=== PATIENT | male | born 1930 | race Caucasian/White ===

== ENCOUNTER 2016-10-01 20:08 | Inpatient (IN) ==
[2016-10-01 20:39] LABS: Hematocrit 24.2 % (37.5-50.1); Hemoglobin 8.2 g/dL (12.9-16.9); Mean Corpuscular HGB Conc 33.9 g/dL (31.6-35.5); Mean Corpuscular Volume 94.5 fL (83.0-100.0); Red Blood Count 2.56 M/mcL (4.19-5.50); Red Cell Distribution Width 12.3 % (11.5-14.5)
[2016-10-01 20:40] LABS: Basophils % 0.4 %; Eosinophils # 0.4 K/mcL (0.0-0.6); Eosinophils % 8.4 %; Immature Granulocytes % 0.2 % (0-4); Immature Platelets 1.5 % (1.1-6.1); Lymphocytes # 1.8 K/mcL (0.6-4.6); Lymphocytes % 39.5 %; Mean Platelet Volume 9.3 fL (9.4-12.4); Monocytes # 0.4 K/mcL (0.0-1.3); Monocytes % 7.7 %; Platelet Count 325 K/mcL (140-400); Segmented Neutrophils % 43.8 %
[2016-10-01 20:44] LABS: INR 1.1
[2016-10-01 20:47] LABS: Activated Partial Thrombo Time 34.5 Seconds (26.0-36.0)
[2016-10-01 20:52] LABS: Alanine Aminotransferase 22 Units/L (0-55); Albumin 2.8 g/dL (3.5-5.0); Albumin/Globulin Ratio 0.9 (1.1-2.2); Alkaline Phosphatase 65 Units/L (38-126); Aspartate Amino Transferase 15 Units/L (5-34); BUN/Creatinine Ratio 24 (6-26); Bilirubin,Total 0.2 mg/dL (0.2-1.2); Blood Urea Nitrogen 23 mg/dL (8-26); Calcium 9.2 mg/dL (8.6-10.8); Carbon Dioxide 27 mEq/L (19-29); Chloride 107 mEq/L (98-109); Globulin 3.2 g/dL (2.4-3.5); Glucose 153 mg/dL (70-99); Osmolality,Calculated 297 (280-300); Potassium 4.5 mEq/L (3.5-4.5); Sodium 140 mEq/L (136-145); eGFR For African Americans > 60 (> 60); eGFR For Non-African Americans > 60 (> 60)
--- NOTE | 2016-10-01 21:18 | Emergency Department Note ---
START Narrative - START START: I examined this patient and my medical decision-making was reviewed with the CONTROL ROOM HELPER/PA/Advanced Practice Nurse/Resident Physician. I agree with the documented findings, disposition and treatment plan as described except to the extent set forth below. Patient emergency department complaining of rectal bleeding. Patient actually has no complaints but [facility] in his bowel movement this morning. Patient had a recent admission for the same. On exam he is in no distress. Vital signs stable. Abdomen soft, nontender. Rectal exam shows dark stool with some streaks of blood. Plan. Stool Hemoccult. Type and cross. Will admit. Patient is stable this time. He is typed and crossmatched. Active diverticular bleeding on CT.
[2016-10-01] MEDS ORDERED: 0.9 % Sodium Chloride 500 ML IVC ONE (21:36)
--- NOTE | 2016-10-01 21:38 | Emergency Department Note ---
Disposition Clinical Impression: GI bleed Qualifiers: GI bleed type/associated pathology: unspecified gastrointestinal hemorrhage type Qualified Code(s): K92.2 - Gastrointestinal hemorrhage, unspecified Diverticulosis Qualifiers: Diverticulosis site: diverticulosis of large intestine Diverticulosis bleeding : diverticulosis with bleeding Qualified Code(s): K57.31 - Diverticulosis of large intestine without perforation or abscess with bleeding Disposition: Admitted As Inpatient Condition: Critical GI Bleed HPI - General Chief complaint: ED GI Bleed Stated complaint: rectal bleed Time Seen by Provider: 10/01/16 20:11 Source: EMS Limitations: no limitations Nursing Notes Reviewed: Yes Vital Signs Reviewed: Yes - History of Present Illness HPI Narrative: Mr. Johnston, a n 86yo male, presents from [facility] via EMS with concerns regarding bleeding per rectum. Initial episode was this morning described as a painless bowel movement with bright red blood on toilet tissue. Subsequently had a loose bowel movement which was cold black loose stools mixed with bright red blood. Patient notes his bowels have been cold black last several days. PMH: History GI bleed, history of aspiration, history delusional thrombus cytopenia Medications: Clonazepam. Denies the use of any antiplatelets or anticoagulants. ROS: Positive: Hematochezia, melena, increased generalized weakness, dizziness with standing up Negative: Fever, chills, nausea, vomiting, abdominal pains, back pains, hematuria, numbness, tingling, confusion - Related Data Home Medications Medication Instructions Recorded Confirmed Acetaminophen [Tylenol] 975 mg PO TID PRN 01/09/16 01/09/16 Ascorbic Acid [Vitamin C] 500 mg PO BID 01/09/16 01/09/16 Aspirin 81 mg PO DAILY 01/09/16 01/09/16 Budesonide/Formoterol 160/4.5 2 puff IH BIDR 01/09/16 01/09/16 [Symbicort 160/4.5] Calcium Carbonate/Vitamin D3 750 mg PO DAILY 01/09/16 01/09/16 [Calcium 250+D Tablet] Ferrous Sulfate Oral Soln 7.5 ml PO BID 01/09/16 01/09/16 Furosemide [Lasix] 20 mg PO QAM 01/09/16 01/09/16 Haloperidol 2 mg PO BID 01/09/16 01/09/16 Latanoprost [Xalatan] 1 drop BOTH EYES HS 01/09/16 01/09/16 Lisinopril [Zestril] 20 mg PO BID 01/09/16 01/09/16 Magnesium Hydroxide [Milk of 30 ml PO DAILY PRN 01/09/16 01/09/16 Magnesia] Metoprolol [Lopressor] 12.5 mg PO BID 01/09/16 01/09/16 Mirtazapine [Remeron] 15 mg PO HS 01/09/16 01/09/16 Nitroglycerin [Nitrostat] 0.4 mg SL Q5M PRN 01/09/16 01/09/16 Omeprazole [PriLOSEC] 20 mg PO QAM 01/09/16 01/09/16 Oxybutynin [Ditropan] 5 mg PO TID 01/09/16 01/09/16 Polyvinyl Alcohol [Artificial 2 drop BOTH EYES QID 01/09/16 01/09/16 Tears] Potassium Chloride Elixir 7.5 ml PO BID 01/09/16 01/09/16 [Potassium Chloride] Sennosides/Docusate Sodium [Senna 2 tab PO DAILY 01/09/16 01/09/16 Plus] TraZODone 50 mg PO HS 01/09/16 01/09/16 metFORMIN [Glucophage] 500 mg PO BIDWM 01/09/16 01/09/16 Allergies Allergy/AdvReac Type Severity Reaction Status Date / Time clonazepam Allergy Rash Verified 10/01/16 21:14 All systems ED: reviewed and negative except as stated. Past Medical History - Past Medical History Attestation: Yes The following information was validated with the patient. Source: patient Medical history: Reports: arthritis, dementia, diabetes, GERD, glaucoma, hyperlipidemia, hypertension Surgical history: Reports: no surgical history Psychiatric history: Reports: depression - Social History Smoking Status: Current every day smoker Smokeless Tobacco Status: No Alcohol use: Reports: none Drug use: Reports: none Physical Exam Vital Signs Reviewed General: Patient is alert, oriented, and in no acute distress. HEENT: No facial asymmetry. Head is normocephalic and atraumatic. PERRLA. Trachea midline. Cardiovascular: Heart regular rate and rhythm without clicks, rubs, gallops. Grade 2/4 systolic murmur at left upper sternal border. No JVD. PMI nondisplaced. Bilateral radial posterior tibial pulses 2/4. Respiratory: Symmetric chest rise with good respiratory effort. Bilateral breath sounds are clear without wheezing, crackles, or rhonchi. Abdomen: Bowel sounds present normoactive x-4 quadrants. Abdomen is soft, nondistended, and nontender. Rectal: Dark black stool with blood streaks. FOBT sent. Painless. No External hemorrhoids noted. Psych: Patient's affect is appropriate for situation. - General Limitations: no limitations General appearance: alert - Head Head exam: atraumatic, normocephalic - Neurological Exam Neurological exam: Present: alert - Psychiatric Psychiatric exam: Present: normal affect - Skin Skin exam: Present: warm, dry Course Course Narrative: Patient stable on arrival; we will continue to watch cautiously while working out for likely GI bleed. Anticipate admission for possible EGD and colonoscopy. Hemoglobin stable at 8.2. Vital signs stable and intake-will watch closely. Patient typed and screened. 22:30 Patient had bowel movement and bedside commode-loose, profuse red and maroon blood. 22:45 Spoke with transportation services representative endoscopy - Dr. Milton. Admit to hospitalist and will see in consult. 23:00 Spoke with on-call hospitalist, Dr. Grimes, who agrees to accept the patient. Vital Signs Temperature 97.9 F 10/01/16 20:12 Pulse Rate 85 10/01/16 20:12 Respiratory Rate 18 10/01/16 20:12 Blood Pressure 130/72 10/01/16 20:12 O2 Sat by Pulse Oximetry 100 10/01/16 20:12 Temperature 98.6 F 10/02/16 01:21 Pulse Rate 105 10/02/16 02:00 Respiratory Rate 20 10/02/16 02:00 Blood Pressure 109/70 10/02/16 02:00 O2 Sat by Pulse Oximetry 99 10/02/16 02:00 Oxygen Delivery Oxygen Delivery Room Air GI Bleed - Lab Data Result diagrams: 10/01/16 20:31 10/01/16 20:31 Lab Results 10/01/16 10/01/16 10/01/16 Range/Units 20:31 20:31 20:31 WBC 4.7 (4.3-11.1) K/mcL RBC 2.56 L (4.19-5.50) M/mcL Hgb 8.2 L (12.9-16.9) g/dL Hct 24.2 L (37.5-50.1) % MCV 94.5 (83.0-100.0) fL MCH 32.0 (28.0-33.3) pg MCHC 33.9 (31.6-35.5) g/dL RDW 12.3 (11.5-14.5) % Plt Count 325 (140-400) K/mcL MPV 9.3 L (9.4-12.4) fL Immature Gran % 0.2 (0-4) % Seg Neutrophils % 43.8 % Lymphocytes % 39.5 % Monocytes % 7.7 % Eosinophils % 8.4 % Basophils % 0.4 % Neutrophils # 2.0 (1.6-8.9) K/mcL Lymphocytes # 1.8 (0.6-4.6) K/mcL Monocytes # 0.4 (0.0-1.3) K/mcL Eosinophils # 0.4 (0.0-0.6) K/mcL Basophils # 0.0 (0.0-0.2) K/mcL Immature Plt Fraction 1.5 (1.1-6.1) % PT 12.0 (9.4-12.1) Seconds INR 1.1 APTT 34.5 (26.0-36.0) Seconds Sodium 140 (136-145) mEq/L Potassium 4.5 (3.5-4.5) mEq/L Chloride 107 (98-109) mEq/L Carbon Dioxide 27 (19-29) mEq/L BUN 23 (8-26) mg/dL Creatinine 0.94 (0.72-1.25) mg/dL Est GFR ( Amer) > 60 (> 60) Est GFR (Non-Af Amer) > 60 (> 60) BUN/Creatinine Ratio 24 (6-26) Glucose 153 H (70-99) mg/dL Calculated Osmolality 297 (280-300) Calcium 9.2 (8.6-10.8) mg/dL Total Bilirubin 0.2 (0.2-1.2) mg/dL AST 15 (5-34) Units/L ALT 22 (0-55) Units/L Alkaline Phosphatase 65 (38-126) Units/L Troponin I (0-0.03) ng/mL Serum Total Protein 6.0 (6.0-8.3) g/dL Albumin 2.8 L (3.5-5.0) g/dL Globulin 3.2 (2.4-3.5) g/dL Albumin/Globulin Ratio 0.9 L (1.1-2.2) Blood Type Antibody Screen 10/01/16 10/01/16 Range/Units 20:31 20:31 WBC (4.3-11.1) K/mcL RBC (4.19-5.50) M/mcL Hgb (12.9-16.9) g/dL Hct (37.5-50.1) % MCV (83.0-100.0) fL MCH (28.0-33.3) pg MCHC (31.6-35.5) g/dL RDW (11.5-14.5) % Plt Count (140-400) K/mcL MPV (9.4-12.4) fL Immature Gran % (0-4) % Seg Neutrophils % % Lymphocytes % % Monocytes % % Eosinophils % % Basophils % % Neutrophils # (1.6-8.9) K/mcL Lymphocytes # (0.6-4.6) K/mcL Monocytes # (0.0-1.3) K/mcL Eosinophils # (0.0-0.6) K/mcL Basophils # (0.0-0.2) K/mcL Immature Plt Fraction (1.1-6.1) % PT (9.4-12.1) Seconds INR APTT (26.0-36.0) Seconds Sodium (136-145) mEq/L Potassium (3.5-4.5) mEq/L Chloride (98-109) mEq/L Carbon Dioxide (19-29) mEq/L BUN (8-26) mg/dL Creatinine (0.72-1.25) mg/dL Est GFR ( Amer) (> 60) Est GFR (Non-Af Amer) (> 60) BUN/Creatinine Ratio (6-26) Glucose (70-99) mg/dL Calculated Osmolality (280-300) Calcium (8.6-10.8) mg/dL Total Bilirubin (0.2-1.2) mg/dL AST (5-34) Units/L ALT (0-55) Units/L Alkaline Phosphatase (38-126) Units/L Troponin I 0.01 (0-0.03) ng/mL Serum Total Protein (6.0-8.3) g/dL Albumin (3.5-5.0) g/dL Globulin (2.4-3.5) g/dL Albumin/Globulin Ratio (1.1-2.2) Blood Type AB POSITIVE Antibody Screen NEGATIVE - EKG Data EKG attestation: Yes I reviewed and interpreted this EKG. EKG results narrative: EKG normal sinus at 84. Right bundle branch block. Normal ST segments. No old for comparison.
--- NOTE | 2016-10-02 01:12 | Internal Med History&Physical ---
Date of Encounter: 10/02/16 Time of Encounter: 01:12 Assessment and Plan (1) Lower GI bleed Current visit: Yes Status: Acute Possible diverticular bleed. ER physician discussed with Dr Milton, who recommended barium enema / IR consult. I think, if we do barium enema, the residual contrast would impede the w/u with IR. Hence will consult IR first. (2) Acute blood loss anemia Current visit: Yes Status: Acute Due to lower GI/diverticular bleed. Monitor hemoglobin and hematocrit every 6 hours and transfuse PRBC as needed to keep hemoglobin about 8 (3) Hypertension Current visit: Yes Status: Chronic Continue home medications Qualifiers: Hypertension type: essential hypertension Qualified Code(s): I10 - Essential (primary) hypertension (4) Diabetes mellitus Current visit: Yes Status: Chronic Start sliding scale insulin Qualifiers: Diabetes mellitus type: type 2 Diabetes mellitus complication status: with unspecified complications Diabetes mellitus longterm insulin use: unspecified ad terminal makeup operator insulin use status Qualified Code(s): E11.8 - Type 2 diabetes mellitus with unspecified complications (5) Consolidation lung Current visit: Yes Status: Acute Consolidation reported on CT Abdomen and pelvis. will obtain CXR to evaluate this further. (6) DVT prophylaxis Current visit: Yes Status: Acute SCDs Internal Medicine - H&P: HPI Chief complaint: Rectal bleeding Admitted From: Emergency Dept Plans for Post Hospital Care: Home History of present illness: Mr. Johnston is a 86 year old male with h/o dementia, diabetes, GERD, glaucoma, hyperlipidemia, hypertension - presents from [facility] via EMS with concern for bleeding per rectum. He reports that the bleeding started yesterday morning, intermittent. Reported some pain in the LLQ of the abdomen and is mild and intermittent. He denies prior h/o colonoscopy. He denies nausea , vomiting, shortness of breath, chest pain, dysuria, hematuria. He reports itching of the feet. He was evaluated in the emergency department and CT abdomen and pelvis reported suspected active bleeding in the proximal mid sigmoid colon likely from diverticulum. ER provider discussed with the surgeon Dr. milton, who recommended admission to the Hospitalist and barium enema. Past Med Surg Social Fam HX - Past Medical History Medical history: arthritis, dementia, diabetes, GERD, glaucoma, hyperlipidemia, hypertension Psychiatric history: depression - Past Surgical History Surgical History: no surgical history - Social History Smoking Status: Current every day smoker Smokeless Tobacco Status: No Alcohol use: none Drug use: none - Additional Family History Additional family history: Family history reviewed and is noncontinuity to current admission Internal Medicine - H&P: Meds Acetaminophen [Tylenol] 975 mg PO TID PRN 01/09/16 [History] Ascorbic Acid [Vitamin C] 500 mg PO BID 01/09/16 [History] Aspirin 81 mg PO DAILY 01/09/16 [History] Budesonide/Formoterol 160/4.5 [Symbicort 160/4.5] 2 puff IH BIDR 01/09/16 [ History] Calcium Carbonate/Vitamin D3 [Calcium 250+D Tablet] 750 mg PO DAILY 01/09/16 [ History] Furosemide [Lasix] 20 mg PO QAM 01/09/16 [History] Haloperidol 2 mg PO BID 01/09/16 [History] Latanoprost [Xalatan] 1 drop BOTH EYES HS 01/09/16 [History] Lisinopril [Zestril] 20 mg PO BID 01/09/16 [History] Magnesium Hydroxide [Milk of Magnesia] 30 ml PO DAILY PRN 01/09/16 [History] Metoprolol [Lopressor] 12.5 mg PO BID 01/09/16 [History] Mirtazapine [Remeron] 15 mg PO HS 01/09/16 [History] Nitroglycerin [Nitrostat] 0.4 mg SL Q5M PRN 01/09/16 [History] Omeprazole [PriLOSEC] 20 mg PO QAM 01/09/16 [History] Oxybutynin [Ditropan] 5 mg PO TID 01/09/16 [History] Polyvinyl Alcohol [Artificial Tears] 2 drop BOTH EYES QID 01/09/16 [History] Sennosides/Docusate Sodium [Senna Plus] 2 tab PO DAILY 01/09/16 [History] TraZODone 50 mg PO HS 01/09/16 [History] Ferrous Sulfate [Iron] 325 mg PO BID 10/02/16 [History] Guaifen/Dextromethorphan/PE [Child Mucus Relief M-S Cold Lq] 10 ml PO TID PRN [History] Potassium Chloride [Klor-Con] 20 meq PO DAILY 10/02/16 [History] Allergies clonazepam Allergy (Verified 10/01/16 21:14) Rash All Systems PM: A 10-system review of systems was performed and is negative for pertinent findings except as documented above in the HPI. - Constitutional Vitals: Temp Pulse Resp BP Pulse Ox 97.9 F 97 20 146/81 99 10/01/16 20:12 10/02/16 00:30 10/02/16 00:30 10/02/16 00:30 10/02/16 00:30 Exam: General: Not in acute distress at the time of my evaluation HEENT: Oral mucosa is moist. conjunctival palor present. No scleral icterus Neck: No obvious neck swellings Lungs: Clear to auscultation Cardiac: Regular rate and rhythm. No significant murmurs Abdomen: Soft, non tender. Bowel sounds present Genitourinary: No hernández catheter Neurological: Alert and oriented. No gross localizing deficits Psych: Not aggressive or agitated Extremities: no significant leg edema Skin: No generalized rash Internal Med - H&P Results - Labs CBC & Chem 7: 10/02/16 02:57 10/01/16 20:31 - EKG Data -: EKG Interpreted by Myself EKG shows normal: sinus rhythm - EKG Data EKG comments: RBBB 10/02/16 01:31 - Impressions ITS Impressions Abdomen/Pelvis CT 10/01/16 21:36 IMPRESSION: 1. Suspected active bleeding in the proximal mid sigmoid colon, likely from a diverticulum. 2. New nodular consolidative opacities in the left lower lobe potentially related to atelectasis or pneumonia. 3. Additional incidental findings as above. D/ / Oscar Brennan MD / Oscar Brennan MD Interpreting Provider: Oscar Brennan MD
[2016-10-02] MEDS ORDERED: Naloxone 0.4 MG/ML INJ IVP PRN (01:13)
[2016-10-02] MEDS ORDERED: Pantoprazole 40 MG VIAL IVP SCH (01:20)
[2016-10-02] MEDS ORDERED: *HR* Dextrose 50 % in Water (Syg) 50 ML SYRINGE IVP PRN (01:34)
[2016-10-02] MEDS ORDERED: D5% in Water 1,000 ML IVC PRN (01:34)
[2016-10-02] MEDS ORDERED: Dextrose Gel 15 GM PO PRN ×2 (01:34)
[2016-10-02 03:19] LABS: Hematocrit 19.7 % (37.5-50.1)
[2016-10-02 03:26] LABS: Hemoglobin 6.4 g/dL (12.9-16.9)
[2016-10-02] MEDS ORDERED: 0.9 % Sodium Chloride 250 ML ONE ×2 (03:41→09:13)
[2016-10-02] MEDS: Insulin LISPRO 300 UNITS/3 ML VIAL SQ SCH ×4 (05:59→23:16)
--- NOTE | 2016-10-02 10:08 | Event Note ---
Date of Encounter: 10/02/16 Time of Encounter: 10:05 86 M with diverticular bleed and acute blood loss anemia Seen and evaluated at bedside He has no new complains Per Rn and chart, had melena this a.m VSS, not in any form of distress, AAOX2, moves all limbs, no speech deficits, chest is clear, HS S1, S2 only, abdomen is soft, no pedal edema Labs and imaging reviewed INR WNL, Hb 6.4, CXR unremarkable, Abd CT: severe colonic diverticulosis with acute sigmoid bleed Plan is to continue blood transfusion, PPI, IVF, IR and surgery have been consulted High risk patient, continue ICU monitoring
[2016-10-02] MEDS ORDERED: 0.9 % Sodium Chloride 500 ML ONE (11:32)
[2016-10-02] MEDS ORDERED: Heparin 1,000 UNITS/500 mL NS 500 ML ONE (11:32)
[2016-10-02] MEDS ORDERED: 0.9 % Sodium Chloride 1,000 ML ONE (12:14)
[2016-10-02] MEDS ORDERED: Nitroglycerin 25 MG/250 ML INFUS..BTL IVC SCH (12:45)
[2016-10-02] MEDS ORDERED: Nitroglycerin 25 MG/250 ML INFUS..BTL IVC ONE (12:50)
[2016-10-02 14:16] LABS: Hematocrit 31.7 % (37.5-50.1)
[2016-10-02 14:19] LABS: Hemoglobin 10.2 g/dL (12.9-16.9)
[2016-10-02] MEDS ORDERED: Acetaminophen 325 MG TABLET PO PRN (14:19)
--- NOTE | 2016-10-02 14:21 | IR Procedure Note ---
Date of procedure: 10/02/16 Consent Obtained: Written consent Timeout: Correct patient and procedure verified, Correct site verified, Time out performed, Skin prep completed Indications: gi bleeding Procedure Performed: mesenteric angio Site/Technique: rt femoral access Results/Findings: negative for active bleeding Estimated blood loss (cc): 4 Complications: None; Tolerated procedure well Post Procedure Treatment Plan: dc to ICU
--- NOTE | 2016-10-02 16:23 | Electrocardiograph Report ---
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
[2016-10-02 19:54] LABS: Hematocrit 25.3 % (37.5-50.1); Hemoglobin 8.7 g/dL (12.9-16.9)
[2016-10-03] MEDS ORDERED: Haloperidol Lactate 5 MG/ML VIAL IVP ONE (00:54)
[2016-10-03 03:23] LABS: Basophils % 0.2 %; Eosinophils # 0.3 K/mcL (0.0-0.6); Eosinophils % 3.2 %; Hematocrit 24.3 % (37.5-50.1); Hemoglobin 8.4 g/dL (12.9-16.9); Immature Granulocytes % 0.3 % (0-4); Lymphocytes % 18.9 %; Mean Corpuscular HGB Conc 34.6 g/dL (31.6-35.5); Mean Corpuscular Hemoglobin 31.2 pg (28.0-33.3); Mean Corpuscular Volume 90.3 fL (83.0-100.0); Mean Platelet Volume 9.9 fL (9.4-12.4); Monocytes # 0.7 K/mcL (0.0-1.3); Monocytes % 7.8 %; Neutrophils # 6.1 K/mcL (1.6-8.9); Platelet Count 198 K/mcL (140-400); Red Blood Count 2.69 M/mcL (4.19-5.50); Red Cell Distribution Width 13.7 % (11.5-14.5); Segmented Neutrophils % 69.6 %
[2016-10-03 03:30] LABS: Lymphocytes # 1.6 K/mcL (0.6-4.6)
[2016-10-03 03:31] LABS: BUN/Creatinine Ratio 29 (6-26); Blood Urea Nitrogen 22 mg/dL (8-26); Calcium 8.5 mg/dL (8.6-10.8); Carbon Dioxide 23 mEq/L (19-29); Chloride 113 mEq/L (98-109); Glucose 83 mg/dL (70-99); Osmolality,Calculated 298 (280-300); Potassium 4.4 mEq/L (3.5-4.5); Sodium 143 mEq/L (136-145); eGFR For African Americans > 60 (> 60); eGFR For Non-African Americans > 60 (> 60)
[2016-10-03] MEDS: Insulin LISPRO 300 UNITS/3 ML VIAL SQ SCH ×3 (05:15→16:51)
[2016-10-03] MEDS ORDERED: Pantoprazole 40 MG VIAL IVP SCH (06:30)
--- NOTE | 2016-10-03 07:21 | Event Note ---
Date of Encounter: 10/03/16 Time of Encounter: 06:50 Called by nurse pt has A Fib RVR with HR 140. No hx of A Fib. Cardizem drip started. No AC b/o GI bleed. Cardio consult.
[2016-10-03 08:13] LABS: Hematocrit 26.4 % (37.5-50.1); Hemoglobin 9.1 g/dL (12.9-16.9)
--- NOTE | 2016-10-03 12:40 | Cardiology Consult Note ---
Addendum entered and electronically signed by Jose Maravilla DO 14:50: Discussed case with attending. Will start Cardizem LA 120mg PO daily. Restart home metoprolol. Orders placed. Hold lisinopril and continue to monitor BP. Hold anticoagulation, await GI recommendations re: GI bleed. Follow up with cardiology as outpatient within 2 weeks of discharge. Original Note: Date of Encounter: 10/03/16 Time of Encounter: 12:35 Assessment and Plan (1) Atrial fibrillation Current Visit: Yes Status: Acute This is a resident progress note pending review by attending physician New onset atrial fibrillation Rhythm converted with IV Cardizem drip Start Cardizem PO 180mg BID and likely change to extended release formulation tomorrow Continue telemetry [id number] = 4 (Age, HTN, DM) however in setting of recent GI bleed recommend continuing to hold anticoagulation and reassess as outpatient once bleeding resolved (2) Hypertension Current Visit: Yes Status: Chronic Diastolic readings today ranging from low 60s - 80s Continue to hold home antihypertensives metoprolol and lisinopril Qualifiers: Hypertension type: essential hypertension Qualified Code(s): I10 - Essential (primary) hypertension Discussion w patient/family: The assessment and plan as outlined above was discussed with the patient and/or family members who expressed understanding and agreement. All questions were answered. Thank you for involving us in the care of your patient. Please call with any questions. History of Present Illness Consult date: 10/03/16 Consult reason: new onset a-fib Chief complaint: new onset a-fib History of present illness: Mr. Johnston is a 86 year old male with a past history of hypertension, and hyperlipidemia, diabetes who presented to the ED from [facility] for rectal bleeding. CT abdomen/pelvis suspicious for active bleed likely from diverticulum in sigmoid colon. Interventional radiology performed mesenteric angiography which was negative for acute bleed. Patient developed new onset atrial fibrillation with RVR this morning and was given Cardizem 10 mg IV push. Per ICU nurse he was started on Cardizem drip of 10 mg per hour increased to 15 mg per hour when he eventually converted to normal sinus rhythm and drip was then stopped. Heart rate has been in 60s-70s for the last few hours. His home antihypertensive medications are 12.5 mg metoprolol twice a day and lisinopril 20 mg daily which are currently being held Patient was seen and evaluated in the ICU and he currently denies chest pain, dyspnea, palpitations, or swelling. Past Med Surg Social Fam HX - Past Medical History Medical history: arthritis, dementia, diabetes, GERD, glaucoma, hyperlipidemia, hypertension Psychiatric history: depression - Past Surgical History Surgical History: no surgical history - Social History Smoking Status: Current every day smoker Smokeless Tobacco Status: No Alcohol use: none Drug use: none Medications and Allergies Acetaminophen [Tylenol] 975 mg PO TID PRN 01/09/16 [History] Ascorbic Acid [Vitamin C] 500 mg PO BID 01/09/16 [History] Aspirin 81 mg PO DAILY 01/09/16 [History] Budesonide/Formoterol 160/4.5 [Symbicort 160/4.5] 2 puff IH BIDR 01/09/16 [ History] Calcium Carbonate/Vitamin D3 [Calcium 250+D Tablet] 750 mg PO DAILY 01/09/16 [ History] Furosemide [Lasix] 20 mg PO QAM 01/09/16 [History] Haloperidol 2 mg PO BID 01/09/16 [History] Latanoprost [Xalatan] 1 drop BOTH EYES HS 01/09/16 [History] Lisinopril [Zestril] 20 mg PO BID 01/09/16 [History] Magnesium Hydroxide [Milk of Magnesia] 30 ml PO DAILY PRN 01/09/16 [History] Metoprolol [Lopressor] 12.5 mg PO BID 01/09/16 [History] Mirtazapine [Remeron] 15 mg PO HS 01/09/16 [History] Nitroglycerin [Nitrostat] 0.4 mg SL Q5M PRN 01/09/16 [History] Omeprazole [PriLOSEC] 20 mg PO QAM 01/09/16 [History] Oxybutynin [Ditropan] 5 mg PO TID 01/09/16 [History] Polyvinyl Alcohol [Artificial Tears] 2 drop BOTH EYES QID 01/09/16 [History] Sennosides/Docusate Sodium [Senna Plus] 2 tab PO DAILY 01/09/16 [History] TraZODone 50 mg PO HS 01/09/16 [History] Ferrous Sulfate [Iron] 325 mg PO BID 10/02/16 [History] Guaifen/Dextromethorphan/PE [Child Mucus Relief M-S Cold Lq] 10 ml PO TID PRN [History] Potassium Chloride [Klor-Con] 20 meq PO DAILY 10/02/16 [History] Allergies clonazepam Allergy (Verified 10/01/16 21:14) Rash All Systems Review: A 10-system review of systems was performed and is negative for pertinent findings except as documented above in the HPI. - Cardiovascular Cardiovascular: as per HPI - Respiratory Respiratory: no dyspnea - Gastrointestinal Gastrointestinal: no abdominal pain Physical Examination Vital Signs, Last 4 Hours Pulse Resp BP Pulse Ox 10/03/16 11:04 67 18 116/66 94 10/03/16 10:07 79 18 114/68 98 10/03/16 09:08 151 18 128/80 98 General: Conversant, No Apparent Distress HEENT: Atraumatic, Normocephaly Cardiac: Reg Rate and Rhythm, Normal S1 and S2, No Murmur Extremities: No Cyanosis, No Edema Results 10/03/16 08:05 10/03/16 03:11 Lab Results 10/02/16 10/02/16 10/03/16 14:06 19:44 03:11 WBC 8.7 D Hgb 10.2 L D 8.7 L D 8.4 L Hct 31.7 L 25.3 L 24.3 L Plt Count 198 Sodium Potassium Chloride Carbon Dioxide BUN Creatinine Glucose Calcium 10/03/16 10/03/16 03:11 08:05 WBC Hgb 9.1 L Hct 26.4 L Plt Count Sodium 143 Potassium 4.4 Chloride 113 H Carbon Dioxide 23 BUN 22 Creatinine 0.75 Glucose 83 Calcium 8.5 L Consult Discharge Plan - Plan [facility]Primary Care Provider[facility] -
--- NOTE | 2016-10-03 13:11 | Event Note ---
Date of Encounter: 10/03/16 Time of Encounter: 13:03 Surgery: I am aware of the surgical / GI consultation for this . At the time of contact from the ED, I recommended a Barium Enema to address this patient's diverticular hemorrhage. This is considered treatment of choice over more invasive treatments such as angiography with embolization. There is also reported diminished recurrence of diverticular hemorrhage following Ba Enema. The Barium enema was not completed, and GI hemorrhage appears to have ceased spontaneously. Subsequent RBC tagged bleeding scan was reviewed with Dr Fung, Interventional Radiology. The findings for active GI hemorrhage were equivocal. The findings demonstrated tracer either in the bladder or sigmoid. Subsequent angiography was negative for active bleeding. The patient appears to be hemodynamically stable. H&H corrected to 9.1/26.4 following transfusion 2 units PRBC. No detected evidence ongoing or recurrent GI hemorrhage at the present time. RECOMMENDATIONS: advance diet to full liquids continue to monitor for recurrent GI hemorrhage consider transfer to general bed. if no further GI hemorrhage in the next 24-48 hours, return to [facility] ([facility]).
--- NOTE | 2016-10-03 13:22 | Internal Med Progress Note ---
Date of Encounter: 10/03/16 Time of Encounter: 09:00 - Assessment and plan (1) Lower GI bleed Current Visit: Yes Status: Acute Assessment and plan: Now improved, H&H stable, GI consult, advance diet (2) Atrial fibrillation Current Visit: Yes Status: Acute Assessment and plan: Now converted to sinus rhythm, cardiology consulted, off Cardizem Qualifiers: Atrial fibrillation type: paroxysmal Qualified Code(s): I48.0 - Paroxysmal atrial fibrillation (3) Hypertension Current Visit: Yes Status: Chronic Assessment and plan: controlled, continue home meds Qualifiers: Hypertension type: essential hypertension Qualified Code(s): I10 - Essential (primary) hypertension (4) Diabetes mellitus Current Visit: Yes Status: Chronic Assessment and plan: insulin sliding scale Qualifiers: Diabetes mellitus type: type 2 Diabetes mellitus complication status: with unspecified complications 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: unspecified railroad switchman insulin use status Qualified Code(s): E11.8 - Type 2 diabetes mellitus with unspecified complications (5) Consolidation lung Current Visit: Yes Status: Acute Assessment and plan: CXR or CT Chest for further evaluation (6) Diverticulosis Current Visit: Yes Status: Acute Assessment and plan: likely causing GI bleed Qualifiers: Diverticulosis site: diverticulosis of large intestine Diverticulosis bleeding: diverticulosis with bleeding Qualified Code(s): K57.31 - Diverticulosis of large intestine without perforation or abscess with bleeding - Time Spent With Patient 25 - 35 minutes - Subjective Interval history: Patient awake. Not in any distress. Denies chest pain or shortness of breath. No fever. Atrial fibrillation has now converted. No further GI bleed. H&H stable. Hemodynamically stable. Transfer to tele/step down unit. - Constitutional Vitals: Temp Pulse Resp BP Pulse Ox 98.5 F 81 18 131/77 99 10/03/16 12:00 10/03/16 12:45 10/03/16 12:45 10/03/16 12:45 10/03/16 12:45 General appearance: Present: cachectic, A&O X 2, no acute distress - Head Head exam: Present: atraumatic - Neck Neck exam general surgery: Present: supple - Respiratory Respiratory exam: Present: CTAB. Absent: rhonchi, wheezes - Cardiovascular Cardiovascular exam: Present: RRR, +S1, +S2 - GI/Abdominal GI/Abdominal exam: Present: soft. Absent: guarding, tenderness - Extremities Exam Extremities exam: Present: radial pulses palpable and symetrical. Absent: cyanotic, pedal edema - Neurological Exam Neurological exam: Present: alert, no focal deficits. Absent: facial droop Additional comments: oriented x2 Internal Medicine: Result - Labs CBC & Chem 7: 10/03/16 08:05 10/03/16 03:11 Labs: Short CBC 10/02/16 10/02/16 10/03/16 Range/Units 14:06 19:44 03:11 WBC 8.7 D (4.3-11.1) K/mcL Hgb 10.2 L D 8.7 L D 8.4 L (12.9-16.9) g/dL Hct 31.7 L 25.3 L 24.3 L (37.5-50.1) % Plt Count 198 (140-400) K/mcL Neutrophils # 6.1 (1.6-8.9) K/mcL 10/03/16 Range/Units 08:05 WBC (4.3-11.1) K/mcL Hgb 9.1 L (12.9-16.9) g/dL Hct 26.4 L (37.5-50.1) % Plt Count (140-400) K/mcL Neutrophils # (1.6-8.9) K/mcL BMP 10/03/16 03:11 Sodium 143 Potassium 4.4 Chloride 113 H Carbon Dioxide 23 BUN 22 Creatinine 0.75 Glucose 83 Calcium 8.5 L - ABG Interpretation ABG results: PT/INR, D-dimer PT 12.0 Seconds (9.4-12.1) 10/01/16 20:31 - Impressions Impressions Abdomen Arteriogram 10/02/16 00:00 IMPRESSION: 1. Negative mesenteric arteriography with no evidence of active bleeding during the injection. D/ / 10/02/2016 14:38:25 Princess Fung MD / [facility] Interpreting Provider: Princess Fung MD Abdomen Arteriogram 10/02/16 00:00 IMPRESSION: 1. Negative mesenteric arteriography with no evidence of active bleeding during the injection. D/ / 10/02/2016 14:38:25 Princess Fung MD / [facility] Interpreting Provider: Princess Fung MD Bleed Scan Nuclear Medicine 10/02/16 08:43 IMPRESSION: Positive study with active bleeding seen in the region of the sigmoid also previously seen on the CTA evaluation. Findings discussed with Dr. White 10/02/2016, at 12 p.m. RECOMMENDATIONS: Catheter angiogram with possible embolization. D/ / 10/02/2016 13:32:45 Princess Fung MD / [facility] Interpreting Provider: Princess Fung MD - VTE Documentation of Mechanical Device: Intermittent pneumatic compression device Consult Discharge Plan - Plan [facility]errals: [facility] [Primary Care Provider] -
[2016-10-03] MEDS ORDERED: Diltiazem CD (24hr) 120 MG CAPSULE PO SCH (15:00)
[2016-10-03] MEDS ORDERED: D5% in Water 1,000 ML IVC PRN (17:24)
[2016-10-03] MEDS ORDERED: Acetaminophen 325 MG TABLET PO PRN ×2 (17:24)
[2016-10-03] MEDS ORDERED: Dextrose Gel 15 GM PO PRN ×2 (17:24)
[2016-10-03] MEDS ORDERED: *HR* Dextrose 50 % in Water (Syg) 50 ML SYRINGE IVP PRN (17:24)
[2016-10-03] MEDS ORDERED: Naloxone 0.4 MG/ML INJ IVP PRN (17:24)
[2016-10-03] MEDS ORDERED: Insulin LISPRO 300 UNITS/3 ML VIAL SQ SCH (18:00)
[2016-10-03] MEDS: Budesonide/Formoterol 160/4.5 MDI IH SCH (20:25)
[2016-10-03] MEDS: Ascorbic Acid 500 MG TABLET PO SCH (21:17)
--- NOTE | 2016-10-04 00:10 | Electrocardiograph Report ---
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
[2016-10-04] MEDS: Pantoprazole 40 MG VIAL IVP SCH (06:16)
[2016-10-04 06:46] LABS: Basophils % 0.1 %; Eosinophils # 0.3 K/mcL (0.0-0.6); Eosinophils % 4.5 %; Hematocrit 23.7 % (37.5-50.1); Immature Granulocytes % 0.4 % (0-4); Lymphocytes # 1.7 K/mcL (0.6-4.6); Lymphocytes % 24.4 %; Mean Corpuscular HGB Conc 33.8 g/dL (31.6-35.5); Mean Corpuscular Volume 91.9 fL (83.0-100.0); Mean Platelet Volume 9.6 fL (9.4-12.4); Monocytes # 0.6 K/mcL (0.0-1.3); Monocytes % 8.3 %; Neutrophils # 4.3 K/mcL (1.6-8.9); Platelet Count 223 K/mcL (140-400); Red Blood Count 2.58 M/mcL (4.19-5.50); Red Cell Distribution Width 13.3 % (11.5-14.5); Segmented Neutrophils % 62.3 %
[2016-10-04 07:02] LABS: BUN/Creatinine Ratio 18 (6-26); Blood Urea Nitrogen 13 mg/dL (8-26); Calcium 8.4 mg/dL (8.6-10.8); Carbon Dioxide 28 mEq/L (19-29); Chloride 111 mEq/L (98-109); Glucose 79 mg/dL (70-99); Osmolality,Calculated 297 (280-300); Potassium 3.5 mEq/L (3.5-4.5); Sodium 144 mEq/L (136-145); eGFR For African Americans > 60 (> 60); eGFR For Non-African Americans > 60 (> 60)
[2016-10-04] MEDS: Ascorbic Acid 500 MG TABLET PO SCH ×2 (07:58→20:36)
[2016-10-04] MEDS: Aspirin 81 MG TAB.CHEW PO SCH (07:58)
[2016-10-04] MEDS: Insulin LISPRO 300 UNITS/3 ML VIAL SQ SCH ×3 (07:59→16:02)
[2016-10-04] MEDS: Budesonide/Formoterol 160/4.5 MDI IH SCH ×2 (08:37→20:26)
[2016-10-04] MEDS ORDERED: CALCIUM CARBONATE PO SCH (09:00)
[2016-10-04] MEDS ORDERED: [UNRECOGNIZED DRUG - OTHER] PO SCH (09:00)
[2016-10-04] MEDS: Diltiazem CD (24hr) 120 MG CAPSULE PO SCH (11:56)
--- NOTE | 2016-10-04 16:31 | Internal Med Progress Note ---
Date of Encounter: 10/04/16 Time of Encounter: 11:10 - Assessment and plan (1) Lower GI bleed Current Visit: Yes Status: Acute Assessment and plan: Now improved, H&H slightly lower, GI consult - recommendations reviewed, advance diet (2) Atrial fibrillation Current Visit: Yes Status: Acute Assessment and plan: Now converted to sinus rhythm, cardiology consulted, off Cardizem PO Cardizem, Metoprolol Qualifiers: Atrial fibrillation type: paroxysmal Qualified Code(s): I48.0 - Paroxysmal atrial fibrillation (3) Hypertension Current Visit: Yes Status: Chronic Assessment and plan: controlled, continue home meds Qualifiers: Hypertension type: essential hypertension Qualified Code(s): I10 - Essential (primary) hypertension (4) Diabetes mellitus Current Visit: Yes Status: Chronic Assessment and plan: insulin sliding scale Qualifiers: Diabetes mellitus type: type 2 Diabetes mellitus complication status: with unspecified complications 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: unspecified [facility] insulin use status Qualified Code(s): E11.8 - Type 2 diabetes mellitus with unspecified complications (5) Consolidation lung Current Visit: Yes Status: Acute Assessment and plan: CXR or CT Chest for further evaluation CXR - negative (6) Diverticulosis Current Visit: Yes Status: Acute Assessment and plan: likely causing GI bleed Qualifiers: Diverticulosis site: diverticulosis of large intestine Diverticulosis bleeding: diverticulosis with bleeding Qualified Code(s): K57.31 - Diverticulosis of large intestine without perforation or abscess with bleeding (7) Dementia Current Visit: Yes Status: Acute Assessment and plan: probable Qualifiers: Dementia type: unspecified type Dementia behavioral disturbance: with behavioral disturbance Qualified Code(s): F03.91 - Unspecified dementia with behavioral disturbance - Time Spent With Patient less than 15 minutes - Subjective Interval history: Patient awake and alert. Not in any distress. Denies chest pain or shortness of breath. No fever. Atrial fibrillation has now converted. No further GI bleed. H& H slightly lower. Hemodynamically stable. No other acute events or complaints. - Constitutional Vitals: Temp Pulse Resp BP Pulse Ox 97.6 F 60 18 149/69 99 10/04/16 13:53 10/04/16 13:53 10/04/16 13:53 10/04/16 13:53 10/04/16 13:53 General appearance: Present: cachectic, A&O X 2, no acute distress - Head Head exam: Present: atraumatic - Neck Neck exam general surgery: Present: supple - Respiratory Respiratory exam: Present: CTAB. Absent: rhonchi, wheezes - Cardiovascular Cardiovascular exam: Present: RRR, +S1, +S2 - GI/Abdominal GI/Abdominal exam: Present: soft. Absent: guarding, tenderness - Extremities Exam Extremities exam: Present: radial pulses palpable and symetrical. Absent: cyanotic, pedal edema - Neurological Exam Neurological exam: Present: alert, no focal deficits Additional comments: probable dementia Internal Medicine: Result - Labs CBC & Chem 7: 10/04/16 05:36 10/04/16 05:36 Labs: Short CBC 10/04/16 Range/Units 05:36 WBC 6.9 (4.3-11.1) K/mcL Hgb 8.0 L (12.9-16.9) g/dL Hct 23.7 L (37.5-50.1) % Plt Count 223 (140-400) K/mcL Neutrophils # 4.3 (1.6-8.9) K/mcL BMP 10/04/16 05:36 Sodium 144 Potassium 3.5 Chloride 111 H Carbon Dioxide 28 BUN 13 Creatinine 0.72 Glucose 79 Calcium 8.4 L - ABG Interpretation ABG results: PT/INR, D-dimer PT 12.0 Seconds (9.4-12.1) 10/01/16 20:31 - VTE Documentation of Mechanical Device: Intermittent pneumatic compression device Consult Discharge Plan - Plan Referrals: [facility] [Outside]
[2016-10-04 17:32] LABS: Hematocrit 25.4 % (37.5-50.1); Hemoglobin 8.5 g/dL (12.9-16.9)
[2016-10-04] MEDS ORDERED: Insulin LISPRO 300 UNITS/3 ML VIAL SQ SCH (21:00)
[2016-10-05] MEDS: Pantoprazole 40 MG VIAL IVP SCH ×2 (06:43→08:10)
[2016-10-05] MEDS: Budesonide/Formoterol 160/4.5 MDI IH SCH (07:47)
[2016-10-05] MEDS: Insulin LISPRO 300 UNITS/3 ML VIAL SQ SCH ×2 (08:11→13:13)
[2016-10-05] MEDS: Aspirin 81 MG TAB.CHEW PO SCH (08:36)
[2016-10-05] MEDS: Diltiazem CD (24hr) 120 MG CAPSULE PO SCH (08:37)
[2016-10-05] MEDS: Ascorbic Acid 500 MG TABLET PO SCH (08:39)
[2016-10-05] MEDS ORDERED: Cholecalciferol (D-3) 1,000 UNIT TABLET PO SCH (09:00)
--- NOTE | 2016-10-05 10:35 | Discharge Summary ---
Date of Encounter: 10/05/16 Time of Encounter: 08:20 - Discharge Diagnosis (1) Lower GI bleed Priority: Primary Status: Acute Comments: Now improved, H&H stable GI consult - recommendations reviewed, diet as tolerated (2) Atrial fibrillation Priority: Secondary Status: Chronic Comments: Now converted to sinus rhythm, cardiology consulted - recommendations reviewed PO Cardizem, Metoprolol poor candidate for anticoagulation due to h/o GI bleed and advanced age Qualifiers: Atrial fibrillation type: paroxysmal Qualified Code(s): I48.0 - Paroxysmal atrial fibrillation (3) Hypertension Priority: Secondary Status: Chronic Comments: controlled, continue home meds Qualifiers: Hypertension type: essential hypertension Qualified Code(s): I10 - Essential (primary) hypertension (4) Diabetes mellitus Priority: Secondary Status: Chronic Comments: normoglycemia Qualifiers: Diabetes mellitus type: type 2 Diabetes mellitus complication status: with unspecified complications Diabetes mellitus assisted insulin use: unspecified assisted insulin use status Qualified Code(s): E11.8 - Type 2 diabetes mellitus with unspecified complications (5) Consolidation lung Priority: Secondary Status: Acute Comments: CXR is normal (6) Diverticulosis Priority: Secondary Status: Acute Comments: likely cause of GI bleed Qualifiers: Diverticulosis site: diverticulosis of large intestine Diverticulosis bleeding: diverticulosis with bleeding Qualified Code(s): K57.31 - Diverticulosis of large intestine without perforation or abscess with bleeding (7) Dementia Priority: Primary Status: Acute Comments: probable Qualifiers: Dementia type: unspecified type Dementia behavioral disturbance: with behavioral disturbance Qualified Code(s): F03.91 - Unspecified dementia with behavioral disturbance - Discharge Medications Prescriptions: Diltiazem CD (24hr) [Cardizem CD] 120 mg PO DAILY #30 cap.er.24h Metoprolol [Lopressor] 12.5 mg PO BID 30 Days Home Medications: Ascorbic Acid [Vitamin C] 500 mg PO BID 01/09/16 [History] Aspirin 81 mg PO DAILY 01/09/16 [History] Budesonide/Formoterol 160/4.5 [Symbicort 160/4.5] 2 puff IH BIDR 01/09/16 [ History] Calcium Carbonate/Vitamin D3 [Calcium 250+D Tablet] 750 mg PO DAILY 01/09/16 [ History] Furosemide [Lasix] 20 mg PO QAM 01/09/16 [History] Haloperidol 2 mg PO BID 01/09/16 [History] Latanoprost [Xalatan] 1 drop BOTH EYES HS 01/09/16 [History] Lisinopril [Zestril] 20 mg PO BID 01/09/16 [History] Magnesium Hydroxide [Milk of Magnesia] 30 ml PO DAILY PRN 01/09/16 [History] Mirtazapine [Remeron] 15 mg PO HS 01/09/16 [History] Nitroglycerin [Nitrostat] 0.4 mg SL Q5M PRN 01/09/16 [History] Omeprazole [PriLOSEC] 20 mg PO QAM 01/09/16 [History] Oxybutynin [Ditropan] 5 mg PO TID 01/09/16 [History] Polyvinyl Alcohol [Artificial Tears] 2 drop BOTH EYES QID 01/09/16 [History] Sennosides/Docusate Sodium [Senna Plus] 2 tab PO DAILY 01/09/16 [History] TraZODone 50 mg PO HS 01/09/16 [History] Ferrous Sulfate [Iron] 325 mg PO BID 10/02/16 [History] Guaifen/Dextromethorphan/PE [Child Mucus Relief M-S Cold Lq] 10 ml PO TID PRN [History] Potassium Chloride [Klor-Con] 20 meq PO DAILY 10/02/16 [History] Acetaminophen [Tylenol] 650 mg PO Q4HR PRN #0 tablet 10/05/16 [Rx] Cholecalciferol (D-3) [Vitamin D] 1,000 unit PO DAILY tablet 10/05/16 [Rx] Diltiazem CD (24hr) [Cardizem CD] 120 mg PO DAILY #30 cap.er.24h 10/05/16 [Rx] Metoprolol [Lopressor] 12.5 mg PO BID 30 Days 10/05/16 [Rx] Allergies/Adverse Reactions: Allergies clonazepam Allergy (Verified 10/01/16 21:14) Rash Procedures/tests Complete & Pending: Procedures Performed prior 72 hours Category Date Time Status ECG 12 lead ECG [ECG] Routine Y 10/03/16 09:26 Completed Date of admission: 10/01/16 23:26 [facility] Consults: 10/02/16 08:30 Consult to Interventional Radiology [CONS] Stat Consulting Provider: Radiology Interventional Cols Reason for Consult: Lower GI / Diverticular bleed Call Completed: No 10/03/16 07:02 Consult to Cardiology [CONS] Routine Comment: Consulting Provider: Cardiology Yamila Reason for Consult: New A Fib Call Completed: No Anticipated date of discharge: 10/05/16 - Patient Status Disposition: Transfer SNF Condition: Fair Functional capacity at discharge: uses cane/walker Overall status at discharge: patient is progressing back to baseline - Discharge Instructions Instructions: Atrial Fibrillation (DC) Follow Up With: [facility] [Outside] (Patient a 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 He will be seen by them when he returns. Thank you) - Diet and Activity Activity: ambulate only with your walker, resume usual activities as tolerated Diet: diabetic diet, low fat, low cholesterol Hospital course: Mr. Johnston is a 86 year old male with h/o dementia, diabetes, GERD, glaucoma, hyperlipidemia, hypertension - presented [facility] with concern for bleeding per rectum. Reported some pain in the LLQ of the abdomen and is mild and intermittent. He denies prior h/o colonoscopy. He denieD nausea , vomiting, shortness of breath, chest pain, dysuria, hematuria. He reported itching of the feet. He was evaluated in the emergency department and CT abdomen and pelvis reported suspected active bleeding in the proximal mid sigmoid colon likely from diverticulum. ER provider discussed with the surgeon Dr. villarreal, who recommended admission to the Hospitalist and barium enema. GI evaluated the patient. Advised to advance diet. GI bleed had stopped. No further bleeding. H&H stable. Tolerating oral diet now. Patient developed Afib with RVR, which converted to NSR with IV Cardizem. Poor candidate for anticoagulation. Patient has refused echocardiogram. Advised to continue Cardizem and Metoprolol. No complications during stay. At the time of discharge, patient is awake and alert. Not in any distress. Understands about plan of care and condition. No unanswered questions. No family members. He is adamant about being discharged today to the [facility]. - Time Spent with Patient Total time spent providing and/or coordinating discharge services: Less than 30 minutes - Constitutional Vitals: Temp Pulse Resp BP Pulse Ox 98.7 F 68 16 154/73 98 10/05/16 07:31 10/05/16 07:31 10/05/16 07:31 10/05/16 07:31 10/05/16 07:31 General appearance: Present: cachectic, A&O X 2, no acute distress, answers questions appropriately - Head Head exam: Present: atraumatic - Neck Neck exam general surgery: Present: supple - Respiratory Respiratory exam: Present: CTAB. Absent: rhonchi, wheezes - Cardiovascular Cardiovascular exam: Present: RRR, +S1, +S2 - GI/Abdominal GI/Abdominal exam: Present: soft. Absent: guarding, tenderness - Extremities Exam Extremities exam: Present: radial pulses palpable and symetrical. Absent: cyanotic, pedal edema - Neurological Exam Neurological exam: Present: alert, oriented X3 (AAOx2), no focal deficits - VTE Documentation of Mechanical Device: Intermittent pneumatic compression device
[2016-10-05 10:53] VITALS: BP 156/74
--- NOTE | 2016-10-05 10:57 | Physician Discharge Referral ---
ExtendedCare Referral Info Transfer To: [facility] Provider in Charge after Transfer: PCP Institutional Level of Care: Skilled - Diagnosis (1) Lower GI bleed Priority: Primary Status: Acute (2) Atrial fibrillation Priority: Primary Status: Chronic (3) Hypertension Status: Chronic (4) Diabetes mellitus Status: Chronic (5) Consolidation lung Status: Acute (6) Diverticulosis Status: Acute (7) Dementia Status: Acute - Transfer Medications Prescriptions: Diltiazem CD (24hr) [Cardizem CD] 120 mg PO DAILY #30 cap.er.24h Metoprolol [Lopressor] 12.5 mg PO BID 30 Days Home Medications: Ascorbic Acid [Vitamin C] 500 mg PO BID 01/09/16 [History] Aspirin 81 mg PO DAILY 01/09/16 [History] Budesonide/Formoterol 160/4.5 [Symbicort 160/4.5] 2 puff IH BIDR 01/09/16 [ History] Calcium Carbonate/Vitamin D3 [Calcium 250+D Tablet] 750 mg PO DAILY 01/09/16 [ History] Furosemide [Lasix] 20 mg PO QAM 01/09/16 [History] Haloperidol 2 mg PO BID 01/09/16 [History] Latanoprost [Xalatan] 1 drop BOTH EYES HS 01/09/16 [History] Lisinopril [Zestril] 20 mg PO BID 01/09/16 [History] Magnesium Hydroxide [Milk of Magnesia] 30 ml PO DAILY PRN 01/09/16 [History] Mirtazapine [Remeron] 15 mg PO HS 01/09/16 [History] Nitroglycerin [Nitrostat] 0.4 mg SL Q5M PRN 01/09/16 [History] Omeprazole [PriLOSEC] 20 mg PO QAM 01/09/16 [History] Oxybutynin [Ditropan] 5 mg PO TID 01/09/16 [History] Polyvinyl Alcohol [Artificial Tears] 2 drop BOTH EYES QID 01/09/16 [History] Sennosides/Docusate Sodium [Senna Plus] 2 tab PO DAILY 01/09/16 [History] TraZODone 50 mg PO HS 01/09/16 [History] Ferrous Sulfate [Iron] 325 mg PO BID 10/02/16 [History] Guaifen/Dextromethorphan/PE [Child Mucus Relief M-S Cold Lq] 10 ml PO TID PRN [History] Potassium Chloride [Klor-Con] 20 meq PO DAILY 10/02/16 [History] Acetaminophen [Tylenol] 650 mg PO Q4HR PRN #0 tablet 10/05/16 [Rx] Cholecalciferol (D-3) [Vitamin D] 1,000 unit PO DAILY tablet 10/05/16 [Rx] Diltiazem CD (24hr) [Cardizem CD] 120 mg PO DAILY #30 cap.er.24h 10/05/16 [Rx] Metoprolol [Lopressor] 12.5 mg PO BID 30 Days 10/05/16 [Rx] Allergies/Adverse Reactions: Allergies clonazepam Allergy (Verified 10/01/16 21:14) Rash - Respiratory Orders Smoking Cessation: Smoking cessation has been advised. For more information, call the [place] Tobacco Quit Line at 9-652-ZKHV-NOW. - Lab Orders Lab Orders: CBC - Ancillary Orders May use pressure relief devices daily prn - Advance Directives Code Status: Full Code - Mobility Orders Ambulate - Rehabiliation Orders Rehab Potential: Fair Rehab Orders: Evaluation for Physical Therapy, Evaluation for Occupational Therapy - Treatments Skin tear care topically daily PRN per policy - Diet Orders Cardiac CERTIFICATION: I certify that the transfer of the above named patient to an Extended Care Facility is necessary for the continuing treatment of the diagnosis listed. The above information is true and accurate reflection of patient's current condition. Confidential - Redisclosure prohibited without a patient's written consent.
--- NOTE | 2016-10-05 11:44 | Event Note ---
Date of Encounter: 10/05/16 Time of Encounter: 11:40 - Cardiology Event Note Patient has refused echocardiogram on 3 separate occasions. No further inpatient recommendations from a cardiology standpoint. Cardiology will sign-off, will arrange for follow-up in the outpatient setting. Discussed and reviewed with Dr. Gonzales.
== END 2016-10-05 13:47 | DRG 378 ==
LOC: EMEROO 20:08 → ICNU 23:26 → 3ANU 10-03 15:39
PROVIDERS: ADMIT Internal Medicine; ATTEND Internal Medicine Endocrinology, Diabetes & Metabolism

== ENCOUNTER 2017-07-16 20:34 | Inpatient (IN) ==
[2017-07-16] MEDS ORDERED: Pantoprazole 40 MG VIAL IVP ONE (20:36)
[2017-07-16 21:07] LABS: Basophils % 0.4 %; Eosinophils # 0.3 K/mcL (0.0-0.6); Eosinophils % 3.7 %; Hematocrit 26.6 % (37.5-50.1); Hemoglobin 9.2 g/dL (12.9-16.9); Immature Granulocytes % 0.3 % (0-4); Lymphocytes # 1.7 K/mcL (0.6-4.6); Lymphocytes % 21.1 %; Mean Corpuscular HGB Conc 34.6 g/dL (31.6-35.5); Mean Corpuscular Hemoglobin 32.5 pg (28.0-33.3); Mean Platelet Volume 9.3 fL (9.4-12.4); Monocytes # 0.5 K/mcL (0.0-1.3); Neutrophils # 5.4 K/mcL (1.6-8.9); Platelet Count 205 K/mcL (140-400); Red Blood Count 2.83 M/mcL (4.19-5.50); Red Cell Distribution Width 12.4 % (11.5-14.5); Segmented Neutrophils % 68.5 %
[2017-07-16 21:12] LABS: INR 1.1; Prothrombin Time 11.5 Seconds (9.4-12.1)
[2017-07-16 21:15] LABS: Activated Partial Thrombo Time 31.4 Seconds (26.0-36.0)
[2017-07-16 21:28] LABS: BUN/Creatinine Ratio 26 (6-26); Blood Urea Nitrogen 30 mg/dL (8-23); Calcium 9.4 mg/dL (8.6-10.3); Carbon Dioxide 27 mEq/L (23-29); Chloride 110 mEq/L (98-107); Glucose 168 mg/dL (70-105); Osmolality,Calculated 304 (280-300); Potassium 4.6 mEq/L (3.5-5.1); Sodium 142 mEq/L (136-145); eGFR For African Americans > 60 (> 60); eGFR For Non-African Americans 59 (> 60)
[2017-07-16 21:29] LABS: Troponin I < 0.03 ng/mL (< 0.04)
--- NOTE | 2017-07-16 21:52 | Emergency Department Note ---
Disposition Clinical Impression: GI bleed Qualifiers: GI bleed type/associated pathology: unspecified gastrointestinal hemorrhage type Qualified Code(s): K92.2 - Gastrointestinal hemorrhage, unspecified Disposition: Admitted As Inpatient Condition: Fair [facility] Care Provider[facility] - Time of Disposition: 22:15 GI Bleed HPI - General Stated complaint: "lower gi bleed" Time Seen by Provider: 07/16/17 20:36 Source: EMS Limitations: no limitations Nursing Notes Reviewed: Yes Vital Signs Reviewed: Yes - History of Present Illness HPI Narrative: Patient is an 87-year-old male who presents to [facility] ED with a chief complaint of concern for GI bleed. Patient himself has no concerns. Denies any chest pain, difficulty breathing, abdominal pain, problems with urination or bowel movements. [facility], he has been passing clots through his rectum. [place] with concern for GI bleed since he has had a history of this. He has also had a history of CVA, hypertension, vascular dementia with hallucinations, COPD, type 2 diabetes, atrial fibrillation, glaucoma, hyperlipidemia. Pt Subjective Complaint: gross bloody stools Consistency: intermittent Severity: none Improves with: nothing Worsens with: nothing Context: history of GI bleed Associated symptoms: Denies: abdominal pain, nausea, vomiting, fever, chills, loss of appetite, shortness of breath, weakness Treatments Prior to Arrival: none - Related Data Home Medications Medication Instructions Recorded Confirmed Ascorbic Acid [Vitamin C] 500 mg PO BID 01/09/16 07/16/17 Aspirin 81 mg PO DAILY 01/09/16 07/16/17 Budesonide/Formoterol 160/4.5 2 puff IH BIDR 01/09/16 07/16/17 [Symbicort 160/4.5] Furosemide [Lasix] 20 mg PO QAM 01/09/16 07/16/17 Latanoprost [Xalatan] 1 drop BOTH EYES HS 01/09/16 07/16/17 Lisinopril [Zestril] 20 mg PO BID 01/09/16 07/16/17 Magnesium Hydroxide [Milk of 30 ml PO DAILY PRN 01/09/16 07/16/17 Magnesia] Mirtazapine [Remeron] 15 mg PO HS 01/09/16 07/16/17 Nitroglycerin [Nitrostat] 0.4 mg SL Q5M PRN 01/09/16 07/16/17 Omeprazole [PriLOSEC] 20 mg PO QAM 01/09/16 07/16/17 Oxybutynin [Ditropan] 5 mg PO TID 01/09/16 07/16/17 Polyvinyl Alcohol [Artificial 2 drop BOTH EYES QID 01/09/16 07/16/17 Tears] Sennosides/Docusate Sodium [Senna 2 tab PO DAILY 01/09/16 07/16/17 Plus] TraZODone 50 mg PO HS 01/09/16 07/16/17 Ferrous Sulfate [Iron] 325 mg PO BID 10/02/16 07/16/17 Potassium Chloride [Klor-Con] 20 meq PO DAILY 10/02/16 07/16/17 Acetaminophen [Tylenol] 650 mg PO BID 07/16/17 07/16/17 Acetaminophen [Tylenol] 975 mg PO DAILY PRN 07/16/17 07/16/17 Benzocaine/Menthol Luis Alberto [Cepacol 1 each MM Q1H PRN 07/16/17 07/16/17 Sore Throat Lozenge] Bisacodyl [Dulcolax] 10 mg RC DAILY PRN 07/16/17 07/16/17 Calcium 750/Vit D 375 1 tab PO DAILY 07/16/17 07/16/17 Eucerin Creme 1 appl TP BID 07/16/17 07/16/17 Haloperidol [Haldol] 1.5 mg PO BID 07/16/17 07/16/17 Nicotine Polacrilex [Nicotine 4 mg BC Q4H PRN 07/16/17 07/16/17 Lozenge] Previous Rx's Medication Instructions Recorded Diltiazem CD (24hr) [Cardizem CD] 120 mg PO DAILY #30 cap.er.24h 10/05/16 Metoprolol [Lopressor] 12.5 mg PO BID 30 Days tablet 10/05/16 Allergies Allergy/AdvReac Type Severity Reaction Status Date / Time clonazepam Allergy Rash Verified 10/01/16 21:14 All systems ED: reviewed and negative except as stated. Past Medical History - Past Medical History Attestation: Yes The following information was validated with the patient. Source: patient Medical history: Reports: arthritis, atrial fibrillation, dementia, diabetes, GERD, glaucoma, hyperlipidemia, hypertension Surgical history: Reports: no surgical history Psychiatric history: Reports: depression - Social History Smoking Status: Current every day smoker Smokeless Tobacco Status: No Alcohol use: Reports: none Drug use: Reports: none Physical Exam - General Limitations: no limitations General appearance: alert, in no apparent distress - Head Head exam: atraumatic, normocephalic, normal inspection - Eye Eye exam: Present: normal appearance, EOMI - ENT ENT exam: normal exam, normal oropharynx, mucous membranes moist - Neck Neck exam: Present: normal inspection, full ROM, trachea midline - Chest Chest inspection: Present: normal inspection, symmetric chest wall rise - Respiratory Respiratory exam: Present: normal lung sounds bilaterally - Cardiovascular Cardiovascular exam: Present: regular rate, normal rhythm, normal heart sounds - Abdominal Exam Abdominal exam: Present: soft, Non-Tender. Absent: tenderness, distention, guarding, rebound, rigidity - Extremities Exam Extremities exam: Present: normal inspection, full ROM. Absent: tenderness, pedal edema - Back Exam Back exam: Present: normal inspection, full ROM. Absent: tenderness - Neurological Exam Neurological exam: Present: alert, oriented X3 - Psychiatric Psychiatric exam: Present: normal affect, normal mood - Skin Skin exam: Present: warm, dry, intact, normal color Course Course Narrative: Patient seen and examined. Concern for GI bleed. Rectal exam was heme positive. Lab work, coags, type and screen, EKG, CT abdomen and pelvis without contrast ordered. We will admit. - Reevaluation(s) Reevaluation #1: Lab work shows hemoglobin of 9.2. Patient is hemodynamically stable at this time. No complaints. I discussed with surgeon Dr. Riggins who will see him in consult tomorrow. CT scan shows "Luminal narrowing and mucosal thickening of a relatively short segment of proximal transverse colon may reflect nonspecific infectious/inflammatory colitis ; however, specifically given patient's clinical indication, malignancy is also a consideration. Colonoscopy is suggested for further evaluation. " We will admit to hospitalist for GI bleed. I discussed with hospitalist Dr. Doshi who has accepted patient for admission. Time: 22:15 Vital Signs Temperature 97.3 F L 07/16/17 20:40 Pulse Rate 68 07/16/17 20:40 Respiratory Rate 16 07/16/17 20:40 Blood Pressure 127/68 07/16/17 20:40 O2 Sat by Pulse Oximetry 98 07/16/17 20:40 Temperature 97.3 F L 07/16/17 20:40 Pulse Rate 69 07/16/17 22:55 Respiratory Rate 20 07/16/17 22:55 Blood Pressure 116/70 07/16/17 22:55 O2 Sat by Pulse Oximetry 97 07/16/17 22:55 Oxygen Delivery Oxygen Delivery Room Air GI Bleed - Medical Records Medical records reviewed: Yes I reviewed the patient's medical records. - Lab Data Lab results reviewed: Yes I reviewed the patient's lab results. Result diagrams: 07/16/17 20:54 07/16/17 20:54 Lab Results 07/16/17 07/16/17 07/16/17 Range/Units 20:54 20:54 20:54 WBC 7.8 (4.3-11.1) K/mcL RBC 2.83 L (4.19-5.50) M/mcL Hgb 9.2 L (12.9-16.9) g/dL Hct 26.6 L (37.5-50.1) % MCV 94.0 (83.0-100.0) fL MCH 32.5 (28.0-33.3) pg MCHC 34.6 (31.6-35.5) g/dL RDW 12.4 (11.5-14.5) % Plt Count 205 (140-400) K/mcL MPV 9.3 L (9.4-12.4) fL Immature Gran % 0.3 (0-4) % Seg Neutrophils % 68.5 % Lymphocytes % 21.1 % Monocytes % 6.0 % Eosinophils % 3.7 % Basophils % 0.4 % Neutrophils # 5.4 (1.6-8.9) K/mcL Lymphocytes # 1.7 (0.6-4.6) K/mcL Monocytes # 0.5 (0.0-1.3) K/mcL Eosinophils # 0.3 (0.0-0.6) K/mcL Basophils # 0.0 (0.0-0.2) K/mcL PT 11.5 (9.4-12.1) Seconds INR 1.1 APTT 31.4 (26.0-36.0) Seconds Sodium 142 (136-145) mEq/L Potassium 4.6 (3.5-5.1) mEq/L Chloride 110 H (98-107) mEq/L Carbon Dioxide 27 (23-29) mEq/L BUN 30 H (8-23) mg/dL Creatinine 1.16 (0.70-1.30) mg/dL Est GFR ( Amer) > 60 (> 60) Est GFR (Non-Af Amer) 59 L (> 60) BUN/Creatinine Ratio 26 (6-26) Glucose 168 H (70-105) mg/dL Calculated Osmolality 304 H (280-300) Calcium 9.4 (8.6-10.3) mg/dL Troponin I < 0.03 (< 0.04) ng/mL Blood Type Antibody Screen 07/16/17 Range/Units 20:54 WBC (4.3-11.1) K/mcL RBC (4.19-5.50) M/mcL Hgb (12.9-16.9) g/dL Hct (37.5-50.1) % MCV (83.0-100.0) fL MCH (28.0-33.3) pg MCHC (31.6-35.5) g/dL RDW (11.5-14.5) % Plt Count (140-400) K/mcL MPV (9.4-12.4) fL Immature Gran % (0-4) % Seg Neutrophils % % Lymphocytes % % Monocytes % % Eosinophils % % Basophils % % Neutrophils # (1.6-8.9) K/mcL Lymphocytes # (0.6-4.6) K/mcL Monocytes # (0.0-1.3) K/mcL Eosinophils # (0.0-0.6) K/mcL Basophils # (0.0-0.2) K/mcL PT (9.4-12.1) Seconds INR APTT (26.0-36.0) Seconds Sodium (136-145) mEq/L Potassium (3.5-5.1) mEq/L Chloride (98-107) mEq/L Carbon Dioxide (23-29) mEq/L BUN (8-23) mg/dL Creatinine (0.70-1.30) mg/dL Est GFR ( Amer) (> 60) Est GFR (Non-Af Amer) (> 60) BUN/Creatinine Ratio (6-26) Glucose (70-105) mg/dL Calculated Osmolality (280-300) Calcium (8.6-10.3) mg/dL Troponin I (< 0.04) ng/mL Blood Type AB POSITIVE Antibody Screen NEGATIVE - Radiology Data Radiology results reviewed: Yes I reviewed the patient's radiology results. Abdomen/Pelvis CT 07/16/17 20:47 IMPRESSION: 1. No CT evidence for acute intraabdominal process. 2. Diverticulosis without CT evidence of diverticulitis. 3. Luminal narrowing and mucosal thickening of a relatively short segment of proximal transverse colon may reflect nonspecific infectious/inflammatory colitis ; however, specifically given patient's clinical indication, malignancy is also a consideration. Colonoscopy is suggested for further evaluation. 4. Enlarged prostate. Correlation with physical exam findings and PSA for BPH is recommended. D/ / Sahil Jones / Sahil Jones Interpreting Provider: Sahil Jones - EKG Data EKG attestation: Yes I reviewed and interpreted this EKG. EKG results narrative: EKG done at 2051 shows normal sinus rhythm with a rate of [address] elevation or depression. Left axis deviation. Right bundle branch block present. Unchanged from prior EKG done 10/03/2016. Attestation Statement - Attestation Attestation: I, Gilson Patino DO, examined this patient [id number] and my medical decision-making was reviewed with Dr. Dianna Cabral, Resident Physician. I agree with the documented findings, disposition and treatment plan as described except to the extent set forth below. Please see my progress notes for details. 87-year-old male transferred from the [facility] for evaluation of gross blood per rectum. Patient large clots passed today. He has a history of extensive GI bleed. Patient also had some nondescript abdominal pain. [facility] secondary to chronic medical issues. Most recent hemoglobin was from May was 10.4. Patient presented here stable normal vital signs. He is alert but not oriented to time place based on initial conversations. He does know the year but has difficulty with specific questions. Head is atraumatic pupils are round and reactive lungs are clear. Abdomen soft no guarding no rigidity no peritoneal symptoms. Patient was unfortunately. Hemoccult testing was positive. Hemoglobin is 9.2. Patient CT imaging is unremarkable the abdomen with no acute pathology except for possible transverse colitis that is nonspecific on presentation. Patient see vital signs of an stable. Hip screen is completed. Consultation placed to the on- call endoscopist as well as the hospitalist for admission. Patient is otherwise clinically stable. Admission process will be completed this time for further evaluation stabilization of his condition. Patient does not have an active acute GI bleed at this time will require further workup and treatment course. Patient is been hemodynamically stable throughout the day treatment course here in the emergency room but no other acute pathology. See detailed documentation of the physical exam, medical intervention, medical decision- making and disposition in the resident physician's note. No critical care 5 this patient's treatment course at this time 2200 Patient's labs reviewed. Hemoglobin 9.2. Patient will be admitted this time for further treatment course evaluated.
[2017-07-16] MEDS ORDERED: Naloxone 0.4 MG/ML INJ IVP PRN (23:53)
[2017-07-16] MEDS ORDERED: Nitroglycerin 0.4 MG TAB.SUBL SL PRN (23:58)
--- NOTE | 2017-07-17 00:03 | Internal Med History&Physical ---
Date of Encounter: 07/16/17 Time of Encounter: 23:00 Assessment and Plan (1) Lower GI bleed Current visit: No Status: Acute Patient reports rectal bleeding. CT abdomen shows colon wall thickness. Recommend a colonoscopy to rule out malignancy. - Keep patient nothing by mouth, IV fluid, IV PPI - Closely monitor vitals and H&H. Currently hemoglobin 9.2, which is his baseline. - Consul surgery, surgical consult was informed by ER (2) DVT prophylaxis Current visit: No Status: Acute EPCD, no AC b/o rectal bleed. (3) Diabetes mellitus Current visit: No Status: Chronic Patient is not on any medication for diabetes at home. Will continue closely monitor glucose level and keep a diet control when patient has diet resumed. Qualifiers: Diabetes mellitus type: type 2 Diabetes mellitus buttermaker helper insulin use: without senior living use Diabetes mellitus complication status: with unspecified complications Qualified Code(s): E11.8 - Type 2 diabetes mellitus with unspecified complications (4) Hypertension Current visit: No Status: Chronic Hold hypertension medication considering rectal bleeding and concern for hypovolemia Qualifiers: Hypertension type: essential hypertension Qualified Code(s): I10 - Essential (primary) hypertension (5) Atrial fibrillation Current visit: No Status: Chronic History of A. fib, now sinus rhythm. Continue metoprolol and Cardizem for rate control. Patient is on aspirin at home, not on any other anticoagulations. Will hold aspirin at this point because of rectal bleeding. Qualifiers: Atrial fibrillation type: paroxysmal Qualified Code(s): I48.0 - Paroxysmal atrial fibrillation Internal Medicine - H&P: HPI Chief complaint: Rectal bleeding Admitted From: Home Plans for Post Hospital Care: Home History of present illness: Mr. Johnston is a 87 year old male with history of A. fib not on anticoagulation, glaucoma, hypertension, hyperlipidemia, diabetes, presented to ER for rectal bleeding. Patient said he has a rectal bleeding for 1 to 2 days. Patient found the bleeding in the toilet, mixed with stool. He also notice blood on the toilet paper. Patient feels mild dizziness yesterday but not today. He denies shortness of breath, chest pain, abdominal pain, nausea, or vomiting. Patient said he has never had a colonoscopy done before. In ER, CT abdomen has been done, no acute founding, colon wall thickness identified and recommend for colonoscopy. Patient was admitted for rectal bleeding. Past Med Surg Social Fam HX - Past Medical History Medical history: arthritis, atrial fibrillation, dementia, diabetes, GERD, glaucoma, hyperlipidemia, hypertension Psychiatric history: depression - Past Surgical History Surgical History: no surgical history - Social History Smoking Status: Current every day smoker Smokeless Tobacco Status: No Alcohol use: none Drug use: none - Family History Mother History Unknown: Yes Internal Medicine - H&P: Meds Ascorbic Acid [Vitamin C] 500 mg PO BID 01/09/16 [History] Aspirin 81 mg PO DAILY 01/09/16 [History] Budesonide/Formoterol 160/4.5 [Symbicort 160/4.5] 2 puff IH BIDR 01/09/16 [ History] Furosemide [Lasix] 20 mg PO QAM 01/09/16 [History] Latanoprost [Xalatan] 1 drop BOTH EYES HS 01/09/16 [History] Lisinopril [Zestril] 20 mg PO BID 01/09/16 [History] Magnesium Hydroxide [Milk of Magnesia] 30 ml PO DAILY PRN 01/09/16 [History] Mirtazapine [Remeron] 15 mg PO HS 01/09/16 [History] Nitroglycerin [Nitrostat] 0.4 mg SL Q5M PRN 01/09/16 [History] Omeprazole [PriLOSEC] 20 mg PO QAM 01/09/16 [History] Oxybutynin [Ditropan] 5 mg PO TID 01/09/16 [History] Polyvinyl Alcohol [Artificial Tears] 2 drop BOTH EYES QID 01/09/16 [History] Sennosides/Docusate Sodium [Senna Plus] 2 tab PO DAILY 01/09/16 [History] TraZODone 50 mg PO HS 01/09/16 [History] Ferrous Sulfate [Iron] 325 mg PO BID 10/02/16 [History] Potassium Chloride [Klor-Con] 20 meq PO DAILY 10/02/16 [History] Diltiazem CD (24hr) [Cardizem CD] 120 mg PO DAILY #30 cap.er.24h 10/05/16 [Rx] Metoprolol [Lopressor] 12.5 mg PO BID 30 Days tablet 10/05/16 [Rx] Acetaminophen [Tylenol] 650 mg PO BID 07/16/17 [History] Acetaminophen [Tylenol] 975 mg PO DAILY PRN 07/16/17 [History] Benzocaine/Menthol Luis Alberto [Cepacol Sore Throat Lozenge] 1 each MM Q1H PRN 07/16/17 [History] Bisacodyl [Dulcolax] 10 mg RC DAILY PRN 07/16/17 [History] Calcium 750/Vit D 375 1 tab PO DAILY 07/16/17 [History] Eucerin Creme 1 appl TP BID 07/16/17 [History] Haloperidol [Haldol] 1.5 mg PO BID 07/16/17 [History] Nicotine Polacrilex [Nicotine Lozenge] 4 mg BC Q4H PRN 07/16/17 [History] 3 Allergy/AdvReac Type Severity Reaction Status Date / Time clonazepam Allergy Rash Verified 10/01/16 21:14 All Systems PM: A 10-system review of systems was performed and is negative for pertinent findings except as documented above in the HPI. - Constitutional Vitals: Temp Pulse Resp BP Pulse Ox 97.3 F L 69 18 116/70 97 07/16/17 20:40 07/16/17 22:55 07/16/17 23:42 07/16/17 23:42 07/16/17 22:55 General appearance: Present: A&O X 3, no acute distress, answers questions appropriately - Head Head exam: Present: atraumatic, normocephalic - Eye Eye exam: Present: PERRL, conjuntiva pink, sclera anicteric Pupils: Present: PERRL - Neck Neck exam general surgery: Present: supple, trachea midline. Absent: lymphadenopathy - Respiratory Respiratory exam: Present: CTAB. Absent: accessory muscle use, rales, rhonchi, wheezes - Cardiovascular Cardiovascular exam: Present: RRR, +S1, +S2. Absent: diastolic murmur, gallop, rubs, systolic murmur - GI/Abdominal GI/Abdominal exam: Present: normal bowel sounds, soft, no peritoneal signs. Absent: distended, tenderness - Extremities Exam Extremities exam: Present: warm, radial pulses palpable and symmetrical. Absent : calf tenderness, cyanotic, pedal edema - Neurological Exam Neurological exam: Present: CN II-XII intact, oriented X3, no focal deficits. Absent: pronater drift, facial droop, speech deficit - Skin Skin exam: Present: dry, intact Internal Med - H&P Results - Labs CBC & Chem 7: 07/16/17 20:54 07/16/17 20:54 - EKG Data -: EKG Interpreted by Myself EKG shows normal: sinus rhythm Rate: normal
[2017-07-17 00:50] LABS: Hematocrit 25.5 % (37.5-50.1); Hemoglobin 9.2 g/dL (12.9-16.9)
[2017-07-17] MEDS: 0.9 % Sodium Chloride 1,000 ML IVC SCH ×2 (01:30→11:40)
[2017-07-17] MEDS: Pantoprazole 40 MG VIAL IVP SCH ×2 (06:00→20:34)
[2017-07-17 06:33] LABS: Basophils % 0.6 %; Eosinophils # 0.5 K/mcL (0.0-0.6); Eosinophils % 6.9 %; Hematocrit 22.6 % (37.5-50.1); Hemoglobin 7.8 g/dL (12.9-16.9); Immature Granulocytes % 0.3 % (0-4); Lymphocytes # 1.9 K/mcL (0.6-4.6); Lymphocytes % 26.8 %; Mean Corpuscular HGB Conc 34.5 g/dL (31.6-35.5); Mean Corpuscular Hemoglobin 32.4 pg (28.0-33.3); Mean Corpuscular Volume 93.8 fL (83.0-100.0); Mean Platelet Volume 9.7 fL (9.4-12.4); Monocytes # 0.5 K/mcL (0.0-1.3); Monocytes % 7.1 %; Neutrophils # 4.2 K/mcL (1.6-8.9); Platelet Count 177 K/mcL (140-400); Red Blood Count 2.41 M/mcL (4.19-5.50); Red Cell Distribution Width 12.4 % (11.5-14.5); Segmented Neutrophils % 58.3 %
[2017-07-17 06:44] LABS: BUN/Creatinine Ratio 32 (6-26); Blood Urea Nitrogen 30 mg/dL (8-23); Calcium 8.8 mg/dL (8.6-10.3); Carbon Dioxide 27 mEq/L (23-29); Chloride 114 mEq/L (98-107); Glucose 132 mg/dL (70-105); Magnesium 1.7 mg/dL (1.6-2.6); Osmolality,Calculated 308 (280-300); Sodium 145 mEq/L (136-145); eGFR For African Americans > 60 (> 60); eGFR For Non-African Americans > 60 (> 60)
--- NOTE | 2017-07-17 08:09 | Electrocardiograph Report ---
[place] [id number] Test Date: 2017-07-16 Pat Name: Blu Johnston Department: 102 Room: [id number] Gender: M Snow Removal/Plowing: Damian : 1930 Requested By: Dianna Cabral Order Number: [id number] Reading MD: Alannah Sweeney Measurements Intervals [place] Rate: 66 P: 67 IN: 181 QRS: -35 QRSD: 131 T: 62 QT: 410 QTc: 424 Interpretive Statements SINUS RHYTHM MARKED LEFT AXIS DEVIATION [QRS AXIS < -30] RIGHT BUNDLE BRANCH BLOCK [120+ ms QRS DURATION, UPRIGHT V1, 40+ ms S IN I/aVL/V4/V5/V6] Electronically Signed On 07-17-2017 7:33:05 EDT by Alannah Sweeney
--- NOTE | 2017-07-17 09:05 | General Surgery Consult Note ---
<Ambar Martins - Last Filed: 07/17/17 10:56> Date of Encounter: 07/17/17 Time of Encounter: 08:39 Assessment and Plan (1) Abnormal CT of the abdomen Current Visit: Yes Status: Acute His hospital course has included a CT of the abdomen and pelvis without contrast which revealed diverticulosis without evidence of diverticulitis, luminal narrowing and mucosal thickening of a relatively short segment of the proximal transverse colon which could reflect infectious/inflammatory colitis however malignancy is also a consideration. Plan: H&H/transfusions per primary team Will likely need colonoscopy this admission when his hemoglobin and vital signs are stable; consideration for colonoscopy this admission pending hemoglobin and vital signs stable. We will bowel prep and plan for EGD/colonoscopy tomorrow with MAC we will continue to follow along and make recommendations (2) Lower GI bleed Current Visit: No Status: Acute CT of the abdomen and pelvis without contrast which revealed diverticulosis without evidence of diverticulitis, luminal narrowing and mucosal thickening of a relatively short segment of the proximal transverse colon which could reflect infectious/inflammatory colitis however malignancy is also a consideration. Hemoglobin was 9.2 on admission and is now decreased to 7.8, he has tachycardic , and blood pressure is stable. It appears is baseline hemoglobin is around 8.3 , and he has not required a transfusion the submission. He has had 2 additional bloody bowel movements since admission. Records indicate his last colonoscopy was completed on 01/11/2016 as an inpatient , by Dr. Riggins. Diverticulosis in the entire examined colon, many small and large mouth diverticula were found throughout the entire colon, there was blood in the rectum, sigmoid colon, descending colon, splenic flexure, transverse colon, hepatic flexure, and the descending colon. No specimens were collected during the procedure. He also underwent an EGD at the same time which noted a normal stomach duodenum and esophagus. Plan: -consideration for colonoscopy this admission pending hemoglobin and vital signs stable. We will bowel prep and plan for EGD/colonoscopy tomorrow with MAC -H&H/transfusions per primary team -okay for clear liquid diet and no red dye from a surgical standpoint at this time -serial abdominal exams -if he requires blood transfusion and or invasive testing, his POA contact information has been placed in the HPI portion of this note. (3) Diverticulosis Current Visit: No Status: Acute See assessment and plan above Qualifiers: Diverticulosis site: diverticulosis of large intestine Diverticulosis bleeding: diverticulosis with bleeding Qualified Code(s): K57.31 - Diverticulosis of large intestine without perforation or abscess with bleeding (4) Atrial fibrillation Current Visit: No Status: Chronic Qualifiers: Atrial fibrillation type: paroxysmal Qualified Code(s): I48.0 - Paroxysmal atrial fibrillation (5) Dementia Current Visit: No Status: Acute Qualifiers: Dementia type: unspecified type Dementia behavioral disturbance: with behavioral disturbance Qualified Code(s): F03.91 - Unspecified dementia with behavioral disturbance History of Present Illness Consult date: 07/17/17 (Dr. Boston Riggins) Reason for consult: other (Bright red blood per rectum) Requesting physician: Dianna Cabral History of present illness: Date of Consult: 07/16/2017 Consulted Surgeon: Dr. Boston Riggins Reason for Consult: GI bleed, rectal wall thickening per CT Mr Johnston is an 87 year old -[place] male with a past medical history of diabetes mellitus (takes no medications), hypertension, paroxysmal atrial fibrillation (on 81 mg ASA) (diagnosed as a new finding on 10/01/2016 and was noted to not be a good candidate for anticoagulation at that time), arthritis, dementia, GERD, glaucoma, hyperlipidemia, and depression. He is a current everyday smoker. Records indicate his last colonoscopy was completed on 2015 as an inpatient, by Dr. Riggins. Diverticulosis in the entire examined colon, many small and large mouth diverticula were found throughout the entire colon, there was blood in the rectum, sigmoid colon, descending colon, splenic flexure, transverse colon, hepatic flexure, and the descending colon. No specimens were collected during the procedure. He also underwent an EGD at the same time which noted a normal stomach duodenum and esophagus. Given baseline dementia and per chart review, he appears to be a poor historian, stating he has never had a colonoscopy, and denies any other health history; making subjective information unreliable. He presented on 07/16/2017 with complaints of blood in the toilet for the last one to 2 days. He reported feeling mild dizziness that the prior but denied the day of admission. He denies fever, chills, headache, dizziness, chest pain, shortness of breath, abdominal pain, or changes in bowel habits prior to admission. He reports daily bowel movements that are not difficult to pass. He reports blood in the toilet for the last 2 days. His hospital course has included a CT of the abdomen and pelvis without contrast which revealed diverticulosis without evidence of diverticulitis, luminal narrowing and mucosal thickening of a relatively short segment of the proximal transverse colon which could reflect infectious/inflammatory colitis however malignancy is also a consideration. He did have an enlarged prostate. His white blood cell count is normal. His hemoglobin was 9.2 on admission and is now decreased to 7.8. It appears is baseline is around 8.3, and he has not required a transfusion the submission. He has had 2 additional bloody bowel movements since admission. Per records, Earle Messina is the patient's niece, emergency contact, and POA c ) [phone] or (h) [phone]. He permanently resides at the [facility]. Past Med Surg Social Fam HX - Past Medical History Medical history: arthritis, atrial fibrillation, dementia, diabetes, GERD, glaucoma, hyperlipidemia, hypertension Psychiatric history: depression - Past Surgical History Surgical History: no surgical history - Social History Smoking Status: Current every day smoker Smokeless Tobacco Status: No Alcohol use: none Drug use: none - Family History Mother History Unknown: Yes Medications and Allergies Ascorbic Acid [Vitamin C] 500 mg PO BID 01/09/16 [History] Aspirin 81 mg PO DAILY 01/09/16 [History] Budesonide/Formoterol 160/4.5 [Symbicort 160/4.5] 2 puff IH BIDR 01/09/16 [ History] Furosemide [Lasix] 20 mg PO QAM 01/09/16 [History] Latanoprost [Xalatan] 1 drop BOTH EYES HS 01/09/16 [History] Lisinopril [Zestril] 20 mg PO BID 01/09/16 [History] Magnesium Hydroxide [Milk of Magnesia] 30 ml PO DAILY PRN 01/09/16 [History] Mirtazapine [Remeron] 15 mg PO HS 01/09/16 [History] Nitroglycerin [Nitrostat] 0.4 mg SL Q5M PRN 01/09/16 [History] Omeprazole [PriLOSEC] 20 mg PO QAM 01/09/16 [History] Oxybutynin [Ditropan] 5 mg PO TID 01/09/16 [History] Polyvinyl Alcohol [Artificial Tears] 2 drop BOTH EYES QID 01/09/16 [History] Sennosides/Docusate Sodium [Senna Plus] 2 tab PO DAILY 01/09/16 [History] TraZODone 50 mg PO HS 01/09/16 [History] Ferrous Sulfate [Iron] 325 mg PO BID 10/02/16 [History] Potassium Chloride [Klor-Con] 20 meq PO DAILY 10/02/16 [History] Diltiazem CD (24hr) [Cardizem CD] 120 mg PO DAILY #30 cap.er.24h 10/05/16 [Rx] Metoprolol [Lopressor] 12.5 mg PO BID 30 Days tablet 10/05/16 [Rx] Acetaminophen [Tylenol] 650 mg PO BID 07/16/17 [History] Acetaminophen [Tylenol] 975 mg PO DAILY PRN 07/16/17 [History] Benzocaine/Menthol Luis Alberto [Cepacol Sore Throat Lozenge] 1 each MM Q1H PRN 07/16/17 [History] Bisacodyl [Dulcolax] 10 mg RC DAILY PRN 07/16/17 [History] Calcium 750/Vit D 375 1 tab PO DAILY 07/16/17 [History] Eucerin Creme 1 appl TP BID 07/16/17 [History] Haloperidol [Haldol] 1.5 mg PO BID 07/16/17 [History] Nicotine Polacrilex [Nicotine Lozenge] 4 mg BC Q4H PRN 07/16/17 [History] 3 Allergy/AdvReac Type Severity Reaction Status Date / Time clonazepam Allergy Rash Verified 10/01/16 21:14 Review of Systems All systems PM: reviewed and no additional remarkable complaints except as stated All systems PM: The remainder of the systems were reviewed and are negative General Surgery Exam Initial Vital Signs Temp Pulse Resp BP Pulse Ox 97.3 F L 68 16 127/68 98 07/16/17 20:40 07/16/17 20:40 07/16/17 20:40 07/16/17 20:40 07/16/17 20:40 VITAL SIGNS: Reviewed. See [facility] GENERAL: In no apparent distress. Pleasantly confused until asked about a colonoscopy and he became irritated. HEENT: Normocephalic, atraumatic, pupils are equal and reactive, extraocular motions intact, oropharynx is pink and moist, fpc or less, there is no neck adenopathy or JVD noted. CHEST/RESPIRATORY: The thorax is free from signs of trauma. Lung sounds: clear to auscultation, normal respiratory effort CARDIAC: tachycardia. Regular rhythm. Normal S1 and S2, without gallops, or rubs.2/6 systolic ejection murmur VASCULAR: No Edema. 2+ peripheral pulses. RECTAL: Digital rectal exam is free from obstruction. Moderate amount of dark maroon blood noted. ABDOMEN: soft, nontender, hyper active bowel sounds, no evidence of trauma MUSCULOSKELETAL: Good range of motion of all major joints. Extremities without clubbing, cyanosis or edema. NEUROLOGIC EXAM: Alert and oriented x 2. somewhat garbled Speech. Follows commands. PSYCHIATRIC: Mood normal. SKIN: No rash or lesions. Exam Initial Vital Signs Temp Pulse Resp BP Pulse Ox 97.3 F L 68 16 127/68 98 07/16/17 20:40 07/16/17 20:40 07/16/17 20:40 07/16/17 20:40 07/16/17 20:40 Results - Labs 07/17/17 06:10 07/17/17 06:10 Abnormal lab results RBC 2.41 M/mcL (4.19-5.50) L 07/17/17 06:10 Hgb 7.8 g/dL (12.9-16.9) L 07/17/17 06:10 Hct 22.6 % (37.5-50.1) L 07/17/17 06:10 Chloride 114 mEq/L (98-107) H 07/17/17 06:10 BUN 30 mg/dL (8-23) H 07/17/17 06:10 BUN/Creatinine Ratio 32 (6-26) H 07/17/17 06:10 Glucose 132 mg/dL (70-105) H 07/17/17 06:10 POC Glucose 129 (58-89) H 07/17/17 00:30 Calculated Osmolality 308 (280-300) H 07/17/17 06:10 Diabetes panel 07/17/17 Range/Units 06:10 Sodium 145 (136-145) mEq/L Potassium 4.0 (3.5-5.1) mEq/L Chloride 114 H (98-107) mEq/L Carbon Dioxide 27 (23-29) mEq/L BUN 30 H (8-23) mg/dL Creatinine 0.95 (0.70-1.30) mg/dL Glucose 132 H (70-105) mg/dL Calcium 8.8 (8.6-10.3) mg/dL Calcium panel 07/17/17 Range/Units 06:10 Calcium 8.8 (8.6-10.3) mg/dL Pituitary panel 07/17/17 Range/Units 06:10 Sodium 145 (136-145) mEq/L Potassium 4.0 (3.5-5.1) mEq/L Chloride 114 H (98-107) mEq/L Carbon Dioxide 27 (23-29) mEq/L BUN 30 H (8-23) mg/dL Creatinine 0.95 (0.70-1.30) mg/dL Glucose 132 H (70-105) mg/dL Calcium 8.8 (8.6-10.3) mg/dL Adrenal panel 07/17/17 Range/Units 06:10 Sodium 145 (136-145) mEq/L Potassium 4.0 (3.5-5.1) mEq/L Chloride 114 H (98-107) mEq/L Carbon Dioxide 27 (23-29) mEq/L BUN 30 H (8-23) mg/dL Creatinine 0.95 (0.70-1.30) mg/dL Glucose 132 H (70-105) mg/dL Calcium 8.8 (8.6-10.3) mg/dL All other labs normal. - Imaging CT scan - abdomen: report reviewed CT scan - pelvis: report reviewed Consult Discharge Plan - Plan [facility]errals: [facility] [Primary Care Provider] - <Boston Riggins - Last Filed: 07/19/17 07:05> Date of Encounter: 07/17/17 Review of Systems All systems PM: The remainder of the systems were reviewed and are negative General Surgery Exam Initial Vital Signs Temp Pulse Resp BP Pulse Ox 97.3 F L 68 16 127/68 98 07/16/17 20:40 07/16/17 20:40 07/16/17 20:40 07/16/17 20:40 07/16/17 20:40 Exam Initial Vital Signs Temp Pulse Resp BP Pulse Ox 97.3 F L 68 16 127/68 98 07/16/17 20:40 07/16/17 20:40 07/16/17 20:40 07/16/17 20:40 07/16/17 20:40 Results - Labs 07/19/17 04:00 07/18/17 04:00 Abnormal lab results RBC 2.50 M/mcL (4.19-5.50) L 07/19/17 04:00 Hgb 7.8 g/dL (12.9-16.9) L 07/19/17 04:00 Hct 22.7 % (37.5-50.1) L 07/19/17 04:00 MPV 9.3 fL (9.4-12.4) L 07/19/17 04:00 Chloride 117 mEq/L (98-107) H 07/18/17 04:00 BUN 30 mg/dL (8-23) H 07/18/17 04:00 BUN/Creatinine Ratio 30 (6-26) H 07/18/17 04:00 Glucose 111 mg/dL (70-105) H 07/18/17 04:00 POC Glucose 134 (58-89) H 07/18/17 20:09 Calculated Osmolality 307 (280-300) H 07/18/17 04:00 Calcium 8.1 mg/dL (8.6-10.3) L 07/18/17 04:00 All other labs normal. - Attending Attestation I have personally performed a face to face evaluation on this patient. I have reviewed and agree with the care plan. History and Exam by me shows: Review the above assessment and evaluation and agree with the above-mentioned plan. The patient is confused and a support historian. Per the reports he has had episodes of rectal bleeding. He denies any abdominal pain or nausea or vomiting. I do think it will be appropriate to proceed with a EGD and colonoscopy once he has been bowel prepped hopefully within the next 24 hours.
--- NOTE | 2017-07-17 10:52 | Internal Med Progress Note ---
<Lavon Camara Seamus - Last Filed: 07/17/17 14:18> Date of Encounter: 07/17/17 - Constitutional Vitals: Temp Pulse Resp BP Pulse Ox 97.4 F L 98 18 111/72 100 07/17/17 11:39 07/17/17 07:48 07/17/17 11:39 07/17/17 11:39 07/17/17 11:39 Internal Medicine: Result - Labs CBC & Chem 7: 07/17/17 12:33 07/17/17 06:10 Labs: Short CBC 07/17/17 07/17/17 Range/Units 00:33 06:10 WBC 7.2 (4.3-11.1) K/mcL Hgb 9.2 L 7.8 L (12.9-16.9) g/dL Hct 25.5 L 22.6 L (37.5-50.1) % Plt Count 177 (140-400) K/mcL Neutrophils # 4.2 (1.6-8.9) K/mcL BMP 07/17/17 06:10 Sodium 145 Potassium 4.0 Chloride 114 H Carbon Dioxide 27 BUN 30 H Creatinine 0.95 Glucose 132 H Calcium 8.8 - ABG Interpretation ABG results: PT/INR, D-dimer PT 11.5 Seconds (9.4-12.1) 07/16/17 20:54 Consult Discharge Plan - Plan Referrals: [facility] [Primary Care Provider] - - Attending Attestation I performed an independent interview and examin of this patient. I agree with the findings, assessment, and plan of . I also discussed the case with nurse at the bedside. Pt may have aspirated on GoLYTELY. We will make patient nothing by mouth. He is not having any respiratory complaints at this time and he is satting well on room air. Patient continues to have lower GI bleed in 2 units of packed red blood cells have been ordered stat. Due to his poor IV access have also consulted the PICC team for midline catheter. Monitor patient's vital signs very closely. General surgery input is appreciated. Will discuss with surgery efraín as it appears he is having ongoing active bleed, and will discuss ordering a stat pRBC Scan with hopes we may intervene via angiography based on findings. 1430: PRBC scan ordered. <Doug Garcia - Last Filed: 07/17/17 14:56> Date of Encounter: 07/17/17 Time of Encounter: 09:00 - Assessment and plan (1) GI bleed Current Visit: Yes Status: Acute Assessment and plan: HGB has fallen from 9.2 to 7.8 since admission. Last colonoscopy was completed on 01/11/2016 as an inpatient, by Dr. Riggins. Diverticulosis in the entire examined colon, many small and large mouth diverticula were found throughout the entire colon, there was blood in the rectum, sigmoid colon, descending colon, splenic flexure, transverse colon, hepatic flexure, and the descending colon. No specimens were collected during the procedure. He also underwent an EGD at the same time which noted a normal stomach duodenum and esophagus. - Tranfuse if HGB falls below 7. - Surgery on board. Plan for EGD/clonoscopy tomorrow. -NPO, IV fluids, Protonix 40 mg IV BID. Update: Patient has had multiple bloody bowel movements today. Spoke to surgery and and plan for colonoscopy tomorrow is on hold due to risk of aspiration during bowel prep. Patient was given an extra unit of blood today making it a total of 2 units of blood transfusion. - Plan for tagged red blood cell scan. Surgery dept. is in agreement with plan. - Blood pressure medications withheld due to profuse bleeding. Qualifiers: GI bleed type/associated pathology: unspecified gastrointestinal hemorrhage type Qualified Code(s): K92.2 - Gastrointestinal hemorrhage, unspecified (2) Diabetes mellitus Current Visit: No Status: Chronic Assessment and plan: Blood glucose at 132 and controlled. - Will continue closely monitor glucose level and keep a diet control when patient has diet resumed. Qualifiers: Diabetes mellitus type: type 2 Diabetes mellitus assistant terminal manager insulin use: without mcfp use Diabetes mellitus complication status: with unspecified complications Qualified Code(s): E11.8 - Type 2 diabetes mellitus with unspecified complications (3) Hypertension Current Visit: No Status: Chronic Assessment and plan: Blood pressure currently at 110/68. - Blood pressure medications currently on hold due to numerous bloody bowel movement. Qualifiers: Hypertension type: essential hypertension Qualified Code(s): I10 - Essential (primary) hypertension (4) Atrial fibrillation Current Visit: No Status: Chronic Assessment and plan: History of A. fib now sinus rhythm.Metoprolol and Cardizem on hold for right now due to numerous bloody bowel movements.Aspirin also on hold. Qualifiers: Atrial fibrillation type: paroxysmal Qualified Code(s): I48.0 - Paroxysmal atrial fibrillation - Subjective Interval history: Patient is a 87 Y M with a PMH of A-Fib not on anticoagulation at home, dementia , HTN, and DM that presented for rectal bleeding. When seen today, patient was A &OX2. He denies any abdominal pain, fever, or chills. He denies any dysuria. Admits to some nausea, but denies any vomiting. He denies any chest pain or SOB. Patient had a BM earlier today that was had dark bloody stools. - Constitutional Vitals: Temp Pulse Resp BP Pulse Ox 98.1 F 98 16 116/70 95 07/17/17 07:48 07/17/17 07:48 07/17/17 07:48 07/17/17 07:48 07/17/17 07:48 General appearance: Present: A&O X 2, no acute distress, answers questions appropriately - Respiratory Respiratory exam: Present: CTAB. Absent: accessory muscle use, rales, rhonchi, wheezes - Cardiovascular Cardiovascular exam: Present: RRR, +S1, +S2. Absent: diastolic murmur, gallop, rubs, systolic murmur - GI/Abdominal GI/Abdominal exam: Present: normal bowel sounds, soft, no peritoneal signs. Absent: distended, guarding, rebound, tenderness - Extremities Exam Extremities exam: Present: full ROM, normal capillary refill, warm, radial pulses palpable and symmetrical. Absent: calf tenderness, cyanotic, pedal edema , tenderness Internal Medicine: Result - Labs CBC & Chem 7: 07/17/17 12:33 07/17/17 06:10 Labs: Short CBC 07/17/17 07/17/17 Range/Units 00:33 06:10 WBC 7.2 (4.3-11.1) K/mcL Hgb 9.2 L 7.8 L (12.9-16.9) g/dL Hct 25.5 L 22.6 L (37.5-50.1) % Plt Count 177 (140-400) K/mcL Neutrophils # 4.2 (1.6-8.9) K/mcL BMP 07/17/17 06:10 Sodium 145 Potassium 4.0 Chloride 114 H Carbon Dioxide 27 BUN 30 H Creatinine 0.95 Glucose 132 H Calcium 8.8 - ABG Interpretation ABG results: PT/INR, D-dimer PT 11.5 Seconds (9.4-12.1) 07/16/17 20:54
[2017-07-17] MEDS: Budesonide/Formoterol 160/4.5 MDI IH SCH ×2 (10:53→20:11)
[2017-07-17] MEDS: Diltiazem CD (24hr) 120 MG CAPSULE PO SCH ×2 (11:40→12:09)
[2017-07-17] MEDS: Polyethylene Glycol 3350 255 GM POWDER PO ONE ×2 (11:41→12:10)
--- NOTE | 2017-07-17 12:16 | Event Note ---
Date of Encounter: 07/17/17 Time of Encounter: 12:14 Spoke to ASIA Nguyen reports patient aspirated when taking morning meds with water. Speech therapy has been consulted. Will need to hold bowel prep pending swallow eval. She also reports three more episodes of aprox 800 ml dark maroon BMs. hgb and transfusions per primary team.
[2017-07-17 13:00] LABS: Hematocrit 22.2 % (37.5-50.1); Hemoglobin 7.5 g/dL (12.9-16.9)
[2017-07-17] MEDS ORDERED: 0.9 % Sodium Chloride 250 ML ONE ×2 (13:32→20:57)
[2017-07-17 20:54] LABS: Hematocrit 22.1 % (37.5-50.1); Hemoglobin 7.6 g/dL (12.9-16.9)
[2017-07-17] MEDS: Latanoprost 2.5 ML BOTTLE BOTH EYES SCH (21:06)
[2017-07-18 01:25] LABS: Hematocrit 25.6 % (37.5-50.1); Hemoglobin 8.9 g/dL (12.9-16.9)
[2017-07-18 04:58] LABS: Hematocrit 24.3 % (37.5-50.1); Hemoglobin 8.2 g/dL (12.9-16.9)
[2017-07-18 05:03] LABS: BUN/Creatinine Ratio 30 (6-26); Blood Urea Nitrogen 30 mg/dL (8-23); Calcium 8.1 mg/dL (8.6-10.3); Carbon Dioxide 26 mEq/L (23-29); Chloride 117 mEq/L (98-107); Glucose 111 mg/dL (70-105); Osmolality,Calculated 307 (280-300); Potassium 3.6 mEq/L (3.5-5.1); Sodium 145 mEq/L (136-145); eGFR For African Americans > 60 (> 60); eGFR For Non-African Americans > 60 (> 60)
[2017-07-18] MEDS: Pantoprazole 40 MG VIAL IVP SCH ×2 (05:36→17:47)
[2017-07-18] MEDS: Budesonide/Formoterol 160/4.5 MDI IH SCH ×2 (07:56→20:03)
--- NOTE | 2017-07-18 09:46 | Internal Med Progress Note ---
<Lavon Camara Seamus - Last Filed: 07/18/17 15:37> Date of Encounter: 07/18/17 - Constitutional Vitals: Temp Pulse Resp BP Pulse Ox 98.8 F 73 16 142/68 99 07/18/17 15:05 07/18/17 15:05 07/18/17 15:05 07/18/17 15:05 07/18/17 15:05 Internal Medicine: Result - Labs CBC & Chem 7: 07/18/17 Unknown 07/18/17 04:00 Labs: Short CBC 07/17/17 07/18/17 07/18/17 Range/Units 20:41 04:00 Unknown Hgb 7.6 L 8.2 L 8.9 L (12.9-16.9) g/dL Hct 22.1 L 24.3 L 25.6 L (37.5-50.1) % BMP 07/18/17 04:00 Sodium 145 Potassium 3.6 Chloride 117 H Carbon Dioxide 26 BUN 30 H Creatinine 1.00 Glucose 111 H Calcium 8.1 L - ABG Interpretation ABG results: PT/INR, D-dimer PT 11.5 Seconds (9.4-12.1) 07/16/17 20:54 - Impressions Impressions GI Bleed Scan Nuclear Medicine 07/17/17 14:24 IMPRESSION: No evidence of active GI bleeding during acquisition. RECOMMENDATIONS: If the patient shows hemodynamic signs of an active bleed in the next 20 hours, additional images can be acquired. D/ / Gus Damon MD / Gus Damon MD Interpreting Provider: Gus Damon MD Consult Discharge Plan - Plan [facility]errals: [facility]Primary Care Provider[facility] - - Attending Attestation I performed an independent interview and exam of this pt. I agree wiht the findings, assessment and plan of Dr. Wilde, Internal Medicine Resident. Plan for EGD/[facility] in AM. Hb remains stable. Tagged RBC neg. Pt comfortable. Continue to monitor Hb. Presently no signs of active bleeding. <Martine Wilde - Last Filed: 07/18/17 16:36> Date of Encounter: 07/18/17 Time of Encounter: 09:00 - Assessment and plan (1) GI bleed Current Visit: No Status: Acute Assessment and plan: HGB dropped from 9.2 on admission to as low as 7.5 on 07/17/17. Status post 2 units of pRBC transfusion. Hgb stable at 8.2 this morning. Prior colonoscopy on 01/11/16 found many small and large mouth diverticula throughout the entire colon with blood noted in the rectum, sigmoid colon, descending colon, splenic flexure, transverse colon, hepatic flexure, and the descending colon. Prior EGD on 01/11/16 showed normal stomach duodenum and esophagus. - Continue H&H check frequently and tranfuse if HGB falls below 7. - Hold anticoagulation and antihypertensive medications at this time. - Surgery on board. Plan for EGD/clonoscopy tomorrow. - NPO, IV fluids, Protonix 40 mg IV BID. Qualifiers: GI bleed type/associated pathology: unspecified gastrointestinal hemorrhage type Qualified Code(s): K92.2 - Gastrointestinal hemorrhage, unspecified (2) Atrial fibrillation Current Visit: No Status: Chronic Assessment and plan: History of A. fib now sinus rhythm.Metoprolol and Cardizem on hold for right now due to numerous bloody bowel movements. Aspirin also on hold. Qualifiers: Atrial fibrillation type: paroxysmal Qualified Code(s): I48.0 - Paroxysmal atrial fibrillation (3) Diabetes mellitus Current Visit: No Status: Chronic Assessment and plan: Blood glucose at 111 and controlled. - Will continue closely monitor glucose level and keep a diet control when patient has diet resumed. 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 - Blood pressure medications currently on hold due to numerous bloody bowel movement. Qualifiers: Hypertension type: essential hypertension Qualified Code(s): I10 - Essential (primary) hypertension (5) DVT prophylaxis Current Visit: No Status: Acute Assessment and plan: - Continue EPCD as mechanical DVT prophylaxis. - Subjective Interval history: Patient was seen and examined this morning. Patient reports no complaint and denies shortness of breath, chest pain, lightheadedness. Patient states his last bowel movement was last night but cannot tell me if it's bloody. - Constitutional Vitals: Temp Pulse Resp BP Pulse Ox 96.8 F L 85 18 148/79 95 07/18/17 07:45 07/18/17 07:45 07/18/17 07:58 07/18/17 07:45 07/18/17 07:58 General appearance: Present: A&O X 2, no acute distress, answers questions appropriately - Head Head exam: Present: normal inspection - Eye Eye exam: Present: EOMI - Neck Neck exam general surgery: Present: normal inspection, trachea midline - Respiratory Respiratory exam: Present: CTAB - Cardiovascular Cardiovascular exam: Present: RRR, +S1, +S2 - GI/Abdominal GI/Abdominal exam: Present: normal bowel sounds, soft. Absent: tenderness - Extremities Exam Extremities exam: Absent: cyanotic, pedal edema - Neurological Exam Neurological exam: Present: alert. Absent: facial droop, speech deficit - Skin Skin exam: Present: dry, warm Internal Medicine: Result - Labs CBC & Chem 7: 07/18/17 Unknown 07/18/17 04:00 Labs: Short CBC 07/17/17 07/17/17 07/18/17 Range/Units 12:33 20:41 04:00 Hgb 7.5 L 7.6 L 8.2 L (12.9-16.9) g/dL Hct 22.2 L 22.1 L 24.3 L (37.5-50.1) % 07/18/17 Range/Units Unknown Hgb 8.9 L (12.9-16.9) g/dL Hct 25.6 L (37.5-50.1) % BMP 07/18/17 04:00 Sodium 145 Potassium 3.6 Chloride 117 H Carbon Dioxide 26 BUN 30 H Creatinine 1.00 Glucose 111 H Calcium 8.1 L - ABG Interpretation ABG results: PT/INR, D-dimer PT 11.5 Seconds (9.4-12.1) 07/16/17 20:54 - Impressions Impressions GI Bleed Scan Nuclear Medicine 07/17/17 14:24 IMPRESSION: No evidence of active GI bleeding during acquisition. RECOMMENDATIONS: If the patient shows hemodynamic signs of an active bleed in the next 20 hours, additional images can be acquired. D/ / Gus Damon MD / Gus Damon MD Interpreting Provider: Gus Damon MD - VTE Documentation of Mechanical Device: Graduated compression elastic hosiery
[2017-07-18] MEDS ORDERED: Polyethylene Glycol 3350 255 GM POWDER PO ONE (12:31)
--- NOTE | 2017-07-18 12:55 | General Surgery Progress Note ---
<Sue Olivarez Vikki - Last Filed: 07/18/17 12:59> Date of Encounter: 07/18/17 Time of Encounter: 12:45 - Assessment and Plan (1) Acute blood loss anemia Current Visit: No Status: Acute Bleeding scan demonstrates increased uptake in the proximal transverse colon Patient continues to pass blood per rectum Hgb- 7.6>8.2 (2 units of PRBC transfused 07/17/17) Plan for MiraLAX and Gatorade bowel prep today Dulcolax tabs 10mg 2 today Clear liquid diet Nothing by mouth after midnight Discussed the risks, benefits, alternatives, expected outcomes with the patient 's power of tax attorney and who is his niece (Earle Messina) and she is in agreement to proceed with an EGD and colonoscopy in the next [address] Riggins Continue with PPI therapy twice a day (2) Aspiration into respiratory tract Current Visit: No Status: Acute Speech therapy has evaluated the patient and his swallow was appropriate and safe for clear liquids No evidence of penetration or aspiration Qualifiers: Encounter type: initial encounter Qualified Code(s): T17.908A - Unspecified foreign body in respiratory tract, part unspecified causing other injury, initial encounter (3) Dementia Current Visit: No Status: Chronic Qualifiers: Dementia type: unspecified type Dementia behavioral disturbance: with behavioral disturbance Qualified Code(s): F03.91 - Unspecified dementia with behavioral disturbance (4) Abnormal CT of the abdomen Current Visit: Yes Status: Chronic Plan to proceed with EGD and colonoscopy evaluation with Dr. Riggins in the next 24-48 hours. Subjective Patient reports: no new complaints, tolerating liquids well, bowel movement, blood in stool, afebrile, other (pleasantly confused) Objective Vital Signs - Last 8 Hours Temp Pulse Resp BP Pulse Ox 07/18/17 11:10 98.1 F 75 18 119/66 98 07/18/17 07:58 18 95 07/18/17 07:45 96.8 F L 85 16 148/79 98 07/18/17 05:00 98.2 F 75 18 147/64 97 Intake and Output 07/17/17 07/18/17 07/18/17 23:59 07:59 15:59 Intake Total 700 / 700 1000 / 1000 120 / 120 Output Total 600 / 600 300 / 300 Balance 100 / 100 1000 / 1000 -180 / -180 Intake: IV Fluids 1000 / 1000 0.9 % Sodium Chloride 1,000 ML 1000 / 1000 @ 80 mls/hr IVC .[id number] [facility] Rx #:[id number] Oral 0 / 0 0 / 0 120 / 120 Blood Product 700 / 700 Rbcs Leuko Poor As-1 Unit 350 / 350 [id number] Rbcs Leuko Poor As-1 Unit 350 / 350 [id number] Output: Urine 300 / 300 Stool 600 / 600 Other: Meal Dinner Breakfast Percent of Meal Consumed 0% 0% Stool Size Large Stool Consistency liquid Stool Color Bright Red Blood # Voids 1 0 Weight 65.3 kg 65.3 kg Blood Glucose* 117 101 146 Patient Weight 07/18/17 23:59 Weight 65.3 kg - General physical appearance well developed, well nourished, no distress, other (pleasantly confused) - Eyes normal ocular movement - ENT normal mucosa, atraumatic - Neck Neck exam: trachea midline - Respiratory normal respiratory effort, clear to auscultation - Cardiovascular Cardiovascular exam: Present: RRR - Abdomen Abdomen: Present: bowel sounds present, soft, non tender - Neurologic CN 2-12 grossly intact - Psychiatric oriented to person - Labs 07/18/17 Unknown 07/18/17 04:00 Diabetes panel 07/18/17 Range/Units 04:00 Sodium 145 (136-145) mEq/L Potassium 3.6 (3.5-5.1) mEq/L Chloride 117 H (98-107) mEq/L Carbon Dioxide 26 (23-29) mEq/L BUN 30 H (8-23) mg/dL Creatinine 1.00 (0.70-1.30) mg/dL Glucose 111 H (70-105) mg/dL Calcium 8.1 L (8.6-10.3) mg/dL Calcium panel 07/18/17 Range/Units 04:00 Calcium 8.1 L (8.6-10.3) mg/dL Pituitary panel 07/18/17 Range/Units 04:00 Sodium 145 (136-145) mEq/L Potassium 3.6 (3.5-5.1) mEq/L Chloride 117 H (98-107) mEq/L Carbon Dioxide 26 (23-29) mEq/L BUN 30 H (8-23) mg/dL Creatinine 1.00 (0.70-1.30) mg/dL Glucose 111 H (70-105) mg/dL Calcium 8.1 L (8.6-10.3) mg/dL Adrenal panel 07/18/17 Range/Units 04:00 Sodium 145 (136-145) mEq/L Potassium 3.6 (3.5-5.1) mEq/L Chloride 117 H (98-107) mEq/L Carbon Dioxide 26 (23-29) mEq/L BUN 30 H (8-23) mg/dL Creatinine 1.00 (0.70-1.30) mg/dL Glucose 111 H (70-105) mg/dL Calcium 8.1 L (8.6-10.3) mg/dL - Imaging Additional Studies: Abdomen/Pelvis CT 07/16/17 20:47 IMPRESSION: 1. No CT evidence for acute intraabdominal process. 2. Diverticulosis without CT evidence of diverticulitis. 3. Luminal narrowing and mucosal thickening of a relatively short segment of proximal transverse colon may reflect nonspecific infectious/inflammatory colitis ; however, specifically given patient's clinical indication, malignancy is also a consideration. Colonoscopy is suggested for further evaluation. 4. Enlarged prostate. Correlation with physical exam findings and PSA for BPH is recommended. D/ / Sahil Jones / Sahil Jones Interpreting Provider: Sahil Jones Bleed Scan Nuclear Medicine 07/17/17 14:24 IMPRESSION: No evidence of active GI bleeding during acquisition. RECOMMENDATIONS: If the patient shows hemodynamic signs of an active bleed in the next 20 hours, additional images can be acquired. D/ / Gus Damon MD / Gus Damon MD Interpreting Provider: Gus Damon MD - VTE Documentation of Mechanical Device: Intermittent pneumatic compression device Consult Discharge Plan - Plan [facility]errals: [facility] [Primary Care Provider] - - Attending Attestation For this encounter, I have reviewed the BLOOD TESTER or PA documentation, treatment plan, and medical decision making; and I have had face to face time with this patient. <Boston Riggins - Last Filed: 07/19/17 07:08> Date of Encounter: 07/18/17 Objective Vital Signs - Last 8 Hours Temp Pulse Resp BP Pulse Ox 07/19/17 04:00 98.2 F 73 16 141/65 97 07/19/17 00:00 98 F 70 18 117/70 96 Intake and Output 07/18/17 07/18/17 07/19/17 15:59 23:59 07:59 Intake Total 360 / 360 240 / 240 0 / 0 Output Total 300 / 300 0 / 0 0 / 0 Balance 60 / 60 240 / 240 0 / 0 Intake: Oral 360 / 360 240 / 240 0 / 0 Output: Urine 300 / 300 0 / 0 0 / 0 Other: Meal Lunch Dinner Percent of Meal Consumed 0% 0% Stool Size Moderate Stool Consistency liquid Stool Color Black Weight 65.3 kg 65.3 kg Blood Glucose* 146 134 Patient Weight 07/19/17 23:59 Weight 65.3 kg - Labs 07/19/17 04:00 07/18/17 04:00 - Attending Attestation I reviewed the above assessment and evaluation. Patient tolerated the swallow evaluation and is allowed to drink liquids. No abdominal pain on current examination. Noted decreased hemoglobin level. Will go ahead and start bowel prep today. Also of note; patient had a bleeding scan which showed increased uptake at the level of the transverse colon concerning for possible mass.
[2017-07-18 16:20] LABS: Hematocrit 23.7 % (37.5-50.1); Hemoglobin 8.4 g/dL (12.9-16.9)
[2017-07-18] MEDS: Latanoprost 2.5 ML BOTTLE BOTH EYES SCH (21:12)
[2017-07-19 00:26] LABS: Hematocrit 23.3 % (37.5-50.1)
[2017-07-19] MEDS: Pantoprazole 40 MG VIAL IVP SCH ×2 (06:28→17:19)
[2017-07-19 06:44] LABS: Hematocrit 22.7 % (37.5-50.1); Hemoglobin 7.8 g/dL (12.9-16.9); Mean Corpuscular HGB Conc 34.4 g/dL (31.6-35.5); Mean Corpuscular Hemoglobin 31.2 pg (28.0-33.3); Mean Corpuscular Volume 90.8 fL (83.0-100.0); Mean Platelet Volume 9.3 fL (9.4-12.4); Platelet Count 158 K/mcL (140-400)
[2017-07-19] MEDS: Budesonide/Formoterol 160/4.5 MDI IH SCH ×2 (08:10→20:14)
[2017-07-19] MEDS ORDERED: Polyethylene Glycol 3350 255 GM POWDER PO ONE (12:52)
--- NOTE | 2017-07-19 12:56 | Event Note ---
Date of Encounter: 07/19/17 Time of Encounter: 12:54 Patient was scheduled for EGD and colonoscopy today but he is noted to have refused the procedure and refused to drink the bowel prep. Procedure was canceled. Per review with Dr. Riggins, he received a phone call from the bedside RN stating that patient was now agreeable to have the EGD and colonoscopy and complete the bowel prep. Dr. Riggins is agreeable to attempt one more time to place the patient on add-on schedule for EGD and colonoscopy tomorrow 07/20/2017 pending adherence/completion of the bowel prep. If patient does not complete the bowel prep or if the bowel prep is refused, please notify surgery as soon as possible.
[2017-07-19 14:28] LABS: BUN/Creatinine Ratio 17 (6-26); Blood Urea Nitrogen 15 mg/dL (8-23); Calcium 7.9 mg/dL (8.6-10.3); Carbon Dioxide 25 mEq/L (23-29); Chloride 110 mEq/L (98-107); Glucose 197 mg/dL (70-105); Osmolality,Calculated 292 (280-300); Potassium 3.2 mEq/L (3.5-5.1); Sodium 138 mEq/L (136-145); eGFR For African Americans > 60 (> 60); eGFR For Non-African Americans > 60 (> 60)
--- NOTE | 2017-07-19 15:23 | Internal Med Progress Note ---
<MeshaamyonielDoug garcia - Last Filed: 07/19/17 15:19> Date of Encounter: 07/19/17 Time of Encounter: 09:00 - Assessment and plan (1) GI bleed Current Visit: Yes Status: Acute Assessment and plan: HGB has fallen from 8.0 to 7.8 since admission. Last colonoscopy was completed on 01/11/2016 as an inpatient, by Dr. Riggins. Diverticulosis in the entire examined colon, many small and large mouth diverticula were found throughout the entire colon, there was blood in the rectum, sigmoid colon, descending colon, splenic flexure, transverse colon, hepatic flexure, and the descending colon. No specimens were collected during the procedure. He also underwent an EGD at the same time which noted a normal stomach duodenum and esophagus. - Tagged red blood scan was negative for active bleeding. - Patient was supposed to undergo EGD/colonoscopy earlier today but patient had refused the procedure then changed his mind and decided to go through with the procedure however he was not adequately taking in his bowel prep. Surgery has him scheduled for EGD/colonoscopy tomorrow instead. - Tranfuse if HGB falls below 7. -NPO, IV fluids, Protonix 40 mg IV BID. Qualifiers: GI bleed type/associated pathology: unspecified gastrointestinal hemorrhage type Qualified Code(s): K92.2 - Gastrointestinal hemorrhage, unspecified (2) Diabetes mellitus Current Visit: No Status: Chronic Assessment and plan: Blood glucose at 177 and controlled. - Will continue closely monitor glucose level and keep a diet control when patient has diet resumed. Qualifiers: Diabetes mellitus type: type 2 Diabetes mellitus prison insulin use: without intermediate frame tender use Diabetes mellitus complication status: with unspecified complications Qualified Code(s): E11.8 - Type 2 diabetes mellitus with unspecified complications (3) Hypertension Current Visit: No Status: Chronic Assessment and plan: Blood pressure currently at 142/70. - Blood pressure medications currently on hold due to numerous bloody bowel movement. Qualifiers: Hypertension type: essential hypertension Qualified Code(s): I10 - Essential (primary) hypertension (4) Atrial fibrillation Current Visit: No Status: Chronic Assessment and plan: History of A. fib now sinus rhythm.Metoprolol and Cardizem on hold for right now due to numerous bloody bowel movements.Aspirin also on hold. Qualifiers: Atrial fibrillation type: paroxysmal Qualified Code(s): I48.0 - Paroxysmal atrial fibrillation (5) DVT prophylaxis Current Visit: No Status: Acute Assessment and plan: SCDs. - Subjective Interval history: Patient is a 87 Y M with a PMH of A-Fib not on anticoagulation at home, dementia , HTN, and DM that presented for rectal bleeding. When seen today, patient denies any abdominal pain, fever, or chills. He denies any dysuria. Denies nausea or vomiting. He denies any chest pain or SOB. No bloody bowel movements. - Constitutional Vitals: Temp Pulse Resp BP Pulse Ox 98.4 F 73 15 142/70 97 07/19/17 15:12 07/19/17 15:12 07/19/17 15:12 07/19/17 15:12 07/19/17 15:12 General appearance: Present: A&O X 2, no acute distress, answers questions appropriately - Respiratory Respiratory exam: Present: CTAB. Absent: accessory muscle use, rales, rhonchi, wheezes - Cardiovascular Cardiovascular exam: Present: RRR, +S1, +S2. Absent: diastolic murmur, gallop, rubs, systolic murmur - GI/Abdominal GI/Abdominal exam: Present: normal bowel sounds, soft, no peritoneal signs. Absent: distended, tenderness - Extremities Exam Extremities exam: Present: warm, radial pulses palpable and symmetrical. Absent : calf tenderness, cyanotic, pedal edema Internal Medicine: Result - Labs CBC & Chem 7: 07/19/17 04:00 07/19/17 13:55 Labs: Short CBC 07/18/17 07/18/17 07/19/17 Range/Units 10:00 22:00 04:00 WBC 6.4 (4.3-11.1) K/mcL Hgb 8.4 L 8.0 L 7.8 L (12.9-16.9) g/dL Hct 23.7 L 23.3 L 22.7 L (37.5-50.1) % Plt Count 158 (140-400) K/mcL BMP 07/19/17 13:55 Sodium 138 Potassium 3.2 L Chloride 110 H Carbon Dioxide 25 BUN 15 Creatinine 0.89 Glucose 197 H Calcium 7.9 L - ABG Interpretation ABG results: PT/INR, D-dimer PT 11.5 Seconds (9.4-12.1) 07/16/17 20:54 - VTE Documentation of Mechanical Device: Intermittent pneumatic compression device Consult Discharge Plan - Plan Referrals: [facility] [Primary Care Provider] - <Lavon Camara - Last Filed: 07/19/17 16:56> Date of Encounter: 07/19/17 - Constitutional Vitals: Temp Pulse Resp BP Pulse Ox 98.4 F 73 15 142/70 97 07/19/17 15:12 07/19/17 15:12 07/19/17 15:12 07/19/17 15:12 07/19/17 15:12 Internal Medicine: Result - Labs CBC & Chem 7: 07/19/17 04:00 07/19/17 13:55 Labs: Short CBC 07/18/17 07/19/17 Range/Units 22:00 04:00 WBC 6.4 (4.3-11.1) K/mcL Hgb 8.0 L 7.8 L (12.9-16.9) g/dL Hct 23.3 L 22.7 L (37.5-50.1) % Plt Count 158 (140-400) K/mcL BMP 07/19/17 13:55 Sodium 138 Potassium 3.2 L Chloride 110 H Carbon Dioxide 25 BUN 15 Creatinine 0.89 Glucose 197 H Calcium 7.9 L - ABG Interpretation ABG results: PT/INR, D-dimer PT 11.5 Seconds (9.4-12.1) 07/16/17 20:54 - Attending Attestation I performed an independent interview and examine this patient. I agree with the findings, assessment, and plan of , internal medicine business management intern. Patient awaiting colon prep. Hemoglobin remains stable. Family present at the bedside today during our evaluation.
[2017-07-19 18:28] LABS: Hematocrit 24.2 % (37.5-50.1); Hemoglobin 8.4 g/dL (12.9-16.9)
[2017-07-19] MEDS: Latanoprost 2.5 ML BOTTLE BOTH EYES SCH (22:42)
[2017-07-20 02:54] LABS: Hematocrit 22.4 % (37.5-50.1); Hemoglobin 7.9 g/dL (12.9-16.9)
[2017-07-20 03:26] LABS: BUN/Creatinine Ratio 13 (6-26); Blood Urea Nitrogen 10 mg/dL (8-23); Calcium 8.2 mg/dL (8.6-10.3); Carbon Dioxide 26 mEq/L (23-29); Chloride 114 mEq/L (98-107); Glucose 91 mg/dL (70-105); Osmolality,Calculated 291 (280-300); Potassium 3.4 mEq/L (3.5-5.1); Sodium 141 mEq/L (136-145); eGFR For African Americans > 60 (> 60); eGFR For Non-African Americans > 60 (> 60)
[2017-07-20] MEDS: Pantoprazole 40 MG VIAL IVP SCH (06:15)
[2017-07-20] MEDS: Budesonide/Formoterol 160/4.5 MDI IH SCH ×3 (07:49→22:54)
[2017-07-20] MEDS ORDERED: Propofol 500 MG/50 ML INFUS..BTL ONE (12:04)
[2017-07-20] MEDS ORDERED: Lidocaine -MPF 2% 2 ML VIAL ONE (12:04)
--- NOTE | 2017-07-20 12:37 | Anesthesia Evaluation PreOp ---
Date of Encounter: 07/20/17 Time of Encounter: 13:34 - Past History Planned Operation: EGD/colonoscopy Cardiac History: HTN, Arrhythmia (Hx of a.fib. Has been controlled on Beta blockers and cardiazem.), Other AUDIT DIRECTOR History: Other (hx of dementia but patient able to answer questions appropriately.) Other Medical History: Diabetes Type II, Other (acute GI bleed with aneamia) Anesthesia History: No Prior Anesthetic Complications, Past Anesthesia Alcohol Use: none Drug use: none Medications and Allergies Ascorbic Acid [Vitamin C] 500 mg PO BID 01/09/16 [History] Aspirin 81 mg PO DAILY 01/09/16 [History] Budesonide/Formoterol 160/4.5 [Symbicort 160/4.5] 2 puff IH BIDR 01/09/16 [ History] Furosemide [Lasix] 20 mg PO QAM 01/09/16 [History] Latanoprost [Xalatan] 1 drop BOTH EYES HS 01/09/16 [History] Lisinopril [Zestril] 20 mg PO BID 01/09/16 [History] Magnesium Hydroxide [Milk of Magnesia] 30 ml PO DAILY PRN 01/09/16 [History] Mirtazapine [Remeron] 15 mg PO HS 01/09/16 [History] Nitroglycerin [Nitrostat] 0.4 mg SL Q5M PRN 01/09/16 [History] Omeprazole [PriLOSEC] 20 mg PO QAM 01/09/16 [History] Oxybutynin [Ditropan] 5 mg PO TID 01/09/16 [History] Polyvinyl Alcohol [Artificial Tears] 2 drop BOTH EYES QID 01/09/16 [History] Sennosides/Docusate Sodium [Senna Plus] 2 tab PO DAILY 01/09/16 [History] TraZODone 50 mg PO HS 01/09/16 [History] Ferrous Sulfate [Iron] 325 mg PO BID 10/02/16 [History] Potassium Chloride [Klor-Con] 20 meq PO DAILY 10/02/16 [History] Diltiazem CD (24hr) [Cardizem CD] 120 mg PO DAILY #30 cap.er.24h 10/05/16 [Rx] Metoprolol [Lopressor] 12.5 mg PO BID 30 Days tablet 10/05/16 [Rx] Acetaminophen [Tylenol] 650 mg PO BID 07/16/17 [History] Acetaminophen [Tylenol] 975 mg PO DAILY PRN 07/16/17 [History] Benzocaine/Menthol Luis Alberto [Cepacol Sore Throat Lozenge] 1 each MM Q1H PRN 07/16/17 [History] Bisacodyl [Dulcolax] 10 mg RC DAILY PRN 07/16/17 [History] Calcium 750/Vit D 375 1 tab PO DAILY 07/16/17 [History] Eucerin Creme 1 appl TP BID 07/16/17 [History] Haloperidol [Haldol] 1.5 mg PO BID 07/16/17 [History] Nicotine Polacrilex [Nicotine Lozenge] 4 mg BC Q4H PRN 07/16/17 [History] 3 Allergy/AdvReac Type Severity Reaction Status Date / Time clonazepam Allergy Rash Verified 10/01/16 21:14 - Meds/Allergy Pre-op Review Medications Reviewed: Yes Allergies Reviewed: Yes Beta Blockers on Current Med List: No (currently on hold) Anesthesia Results - Labs 07/20/17 00:45 07/20/17 02:30 - Imaging Chest x-ray: image reviewed (latest rhythm strip, sinus) Anesthesia Exam Selected Entries 07/20/17 11:22 Temperature 99.2 F Pulse Rate 95 Respiratory Rate 17 Blood Pressure 164/77 O2 Sat by Pulse Oximetry 96 Laboratory Tests 07/20/17 00:45 Hgb 7.9 L Weight: 65 kg NPO (# of Hours): over 8 hours - HEENT Pupil (Motor): Pupils equal Mallampati: I Teeth: Edentulous Oral Opening: Greater than 3 - Cardiac Rhythm: Regular Murmur: None - Pulmonary Breath Sounds: bilateral Clear Respiratory Effort: Symmetrical Anesthesia Assess/Plan ASA Score: 3 Modified Sanger Scale for Level of Consciousness: Cooperative, oriented, and tranquil Anesthetic Plan: MAC Monitoring Plan: Standard Monitors Recovery Plan: Other (Discussed MAC anesthesia. Agreed to proceed.)
[2017-07-20] MEDS ORDERED: EPHEDrine 50 MG/ML VIAL ONE (13:13)
--- NOTE | 2017-07-20 14:26 | Event Note ---
Date of Encounter: 07/20/17 Time of Encounter: 14:24 EGD and colonoscopy completed. EGD demonstrated easy friability. Biopsy obtained. Colonoscopy showed many diverticulum, no evidence of bleeding. Pseudomembranes seen in the hepatic flexure-culture and biopsy obtained. Recommend starting Flagyl PO until results. If positive for C-diff then can change to oral Vanco. OK to advance diet as tolerated. Thank you. Will follow from a distance.
--- NOTE | 2017-07-20 14:51 | Internal Med Progress Note ---
<Lavon Camara - Last Filed: 07/20/17 15:03> Date of Encounter: 07/20/17 - Constitutional Vitals: Temp Pulse Resp BP Pulse Ox 99.2 F 95 17 164/77 96 07/20/17 13:06 07/20/17 13:06 07/20/17 13:06 07/20/17 13:06 07/20/17 13:06 Internal Medicine: Result - Labs CBC & Chem 7: 07/20/17 00:45 07/20/17 02:30 Labs: Short CBC 07/19/17 07/20/17 Range/Units 16:45 00:45 Hgb 8.4 L 7.9 L (12.9-16.9) g/dL Hct 24.2 L 22.4 L (37.5-50.1) % BMP 07/20/17 02:30 Sodium 141 Potassium 3.4 L Chloride 114 H Carbon Dioxide 26 BUN 10 Creatinine 0.80 Glucose 91 Calcium 8.2 L - ABG Interpretation ABG results: PT/INR, D-dimer PT 11.5 Seconds (9.4-12.1) 07/16/17 20:54 Consult Discharge Plan - Plan [facility] Care Provider[facility] - - Attending Attestation I performed an independ interview and exam of this pt. I agree with the findings, assessment and plan of Dr. Garcia, internal medicine public relations intern. Awaiting EGD/colo. No evidence ongoing bleeding. Monitor. <Doug Garcia - Last Filed: 07/20/17 15:46> Date of Encounter: 07/20/17 Time of Encounter: 09:30 - Assessment and plan (1) GI bleed Current Visit: Yes Status: Acute Assessment and plan: HGB has fallen from 8.4 to 7.9 since yesterday. Last colonoscopy was completed on 01/11/2016 as an inpatient, by Dr. Riggins. Diverticulosis in the entire examined colon, many small and large mouth diverticula were found throughout the entire colon, there was blood in the rectum, sigmoid colon, descending colon, splenic flexure, transverse colon, hepatic flexure, and the descending colon. No specimens were collected during the procedure. He also underwent an EGD at the same time which noted a normal stomach duodenum and esophagus.Tagged red blood scan was negative for active bleeding. - Per surgery: EGD and colonoscopy completed. EGD demonstrated easy friability. Biopsy obtained. Colonoscopy showed many diverticulum, no evidence of bleeding. Pseudomembranes seen in the hepatic flexure-culture and biopsy obtained. Recommend starting Flagyl PO until results. If positive for C -diff then can change to oral Vanco. OK to advance diet as tolerated. - Tranfuse if HGB falls below 7. - Discontinue Protonix IV and started on omeprazole 40 mg daily. Qualifiers: GI bleed type/associated pathology: unspecified gastrointestinal hemorrhage type Qualified Code(s): K92.2 - Gastrointestinal hemorrhage, unspecified (2) Diabetes mellitus Current Visit: No Status: Chronic Assessment and plan: Blood glucose at 97 and controlled. - Will continue closely monitor glucose level and keep a diet control when patient has diet resumed. 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 - Blood pressure medications currently on hold due to numerous bloody bowel movement. Qualifiers: Hypertension type: essential hypertension Qualified Code(s): I10 - Essential (primary) hypertension (4) Atrial fibrillation Current Visit: No Status: Chronic Assessment and plan: History of A. fib now sinus rhythm.Metoprolol and Cardizem on hold for right now due to GI bleed. Aspirin also on hold. Qualifiers: Atrial fibrillation type: paroxysmal Qualified Code(s): I48.0 - Paroxysmal atrial fibrillation (5) DVT prophylaxis Current Visit: No Status: Acute Assessment and plan: SCDs. - Subjective Interval history: Patient is a 87 Y M with a PMH of A-Fib not on anticoagulation at home, dementia , HTN, and DM that presented for rectal bleeding. When seen today, patient denies any abdominal pain, fever, or chills. He denies any dysuria. Denies nausea or vomiting. He denies any chest pain or SOB. No bloody bowel movements overnight. - Constitutional Vitals: Temp Pulse Resp BP Pulse Ox 99.2 F 95 17 164/77 96 07/20/17 13:06 07/20/17 13:06 07/20/17 13:06 07/20/17 13:06 07/20/17 13:06 General appearance: Present: A&O X 2, no acute distress, answers questions appropriately - Respiratory Respiratory exam: Present: CTAB. Absent: accessory muscle use, rales, rhonchi, wheezes - Cardiovascular Cardiovascular exam: Present: RRR, +S1, +S2. Absent: diastolic murmur, gallop, rubs, systolic murmur - GI/Abdominal GI/Abdominal exam: Present: normal bowel sounds, soft, no peritoneal signs. Absent: distended, tenderness - Extremities Exam Extremities exam: Present: warm, radial pulses palpable and symmetrical. Absent : calf tenderness, cyanotic, pedal edema Internal Medicine: Result - Labs CBC & Chem 7: 07/20/17 00:45 07/20/17 02:30 Labs: Short CBC 07/19/17 07/20/17 Range/Units 16:45 00:45 Hgb 8.4 L 7.9 L (12.9-16.9) g/dL Hct 24.2 L 22.4 L (37.5-50.1) % BMP 07/20/17 02:30 Sodium 141 Potassium 3.4 L Chloride 114 H Carbon Dioxide 26 BUN 10 Creatinine 0.80 Glucose 91 Calcium 8.2 L - ABG Interpretation ABG results: PT/INR, D-dimer PT 11.5 Seconds (9.4-12.1) 07/16/17 20:54 - VTE Documentation of Mechanical Device: Intermittent pneumatic compression device
[2017-07-20] MEDS: 0.9 % Sodium Chloride 500 ML IVC SCH (14:52)
[2017-07-20] MEDS: metroNIDAZOLE 500 MG TABLET PO SCH (22:47)
[2017-07-20] MEDS: Latanoprost 2.5 ML BOTTLE BOTH EYES SCH (22:51)
[2017-07-21] MEDS: 0.9 % Sodium Chloride 500 ML IVC SCH ×2 (05:40→13:58)
[2017-07-21 06:01] LABS: Basophils % 0.4 %; Eosinophils # 0.5 K/mcL (0.0-0.6); Hematocrit 20.7 % (37.5-50.1); Hemoglobin 7.2 g/dL (12.9-16.9); Immature Granulocytes % 0.2 % (0-4); Lymphocytes # 1.2 K/mcL (0.6-4.6); Lymphocytes % 20.7 %; Mean Corpuscular HGB Conc 34.8 g/dL (31.6-35.5); Mean Corpuscular Hemoglobin 31.7 pg (28.0-33.3); Mean Corpuscular Volume 91.2 fL (83.0-100.0); Monocytes # 0.4 K/mcL (0.0-1.3); Monocytes % 7.3 %; Neutrophils # 3.6 K/mcL (1.6-8.9); Nucleated Red Blood Cells 0.4 /100 WBC (0); Platelet Count 166 K/mcL (140-400); Red Blood Count 2.27 M/mcL (4.19-5.50); Red Cell Distribution Width 13.4 % (11.5-14.5); Segmented Neutrophils % 63.4 %
[2017-07-21 06:25] LABS: BUN/Creatinine Ratio 8 (6-26); Blood Urea Nitrogen 6 mg/dL (8-23); Calcium 8.2 mg/dL (8.6-10.3); Carbon Dioxide 26 mEq/L (23-29); Chloride 114 mEq/L (98-107); Glucose 80 mg/dL (70-105); Osmolality,Calculated 289 (280-300); Potassium 3.6 mEq/L (3.5-5.1); Sodium 141 mEq/L (136-145); eGFR For African Americans > 60 (> 60); eGFR For Non-African Americans > 60 (> 60)
[2017-07-21] MEDS: Budesonide/Formoterol 160/4.5 MDI IH SCH ×2 (07:45→20:33)
[2017-07-21] MEDS: metroNIDAZOLE 500 MG TABLET PO SCH ×2 (10:54→21:09)
--- NOTE | 2017-07-21 10:58 | Internal Med Progress Note ---
<Lavon Camara Seamus - Last Filed: 07/21/17 13:39> Date of Encounter: 07/21/17 - Constitutional Vitals: Temp Pulse Resp BP Pulse Ox 98.3 F 67 18 134/58 100 07/21/17 10:30 07/21/17 10:30 07/21/17 10:30 07/21/17 10:30 07/21/17 10:30 Internal Medicine: Result - Labs CBC & Chem 7: 07/21/17 04:00 07/21/17 04:00 Labs: Short CBC 07/21/17 Range/Units 04:00 WBC 5.7 (4.3-11.1) K/mcL Hgb 7.2 L (12.9-16.9) g/dL Hct 20.7 L (37.5-50.1) % Plt Count 166 (140-400) K/mcL Neutrophils # 3.6 (1.6-8.9) K/mcL BMP 07/21/17 04:00 Sodium 141 Potassium 3.6 Chloride 114 H Carbon Dioxide 26 BUN 6 L Creatinine 0.73 Glucose 80 Calcium 8.2 L - ABG Interpretation ABG results: PT/INR, D-dimer PT 11.5 Seconds (9.4-12.1) 07/16/17 20:54 Consult Discharge Plan - Plan [facility]errals: [facility] [Primary Care Provider] - - Attending Attestation I performed an independent interview and exam of this pt. I agree with the findings, assessment and plan of Dr. Mejia, internal medicine international sales representative. Results of endoscopy noted. Patient continues on proton pump inhibitor therapy. He is also day 2 of a planned 10-or ten-day course of oral Flagyl for pseudomembranous colitis. Since hemoglobin remains not significantly changed. Anticipate transfer once arranged. Diet is advanced. <Doug Garcia - Last Filed: 07/21/17 14:18> Date of Encounter: 07/21/17 Time of Encounter: 09:10 - Assessment and plan (1) GI bleed Current Visit: Yes Status: Acute Assessment and plan: HGB has fallen from 7.0 to 7.2 since yesterday. Last colonoscopy was completed on 01/11/2016 as an inpatient, by Dr. Riggins. Diverticulosis in the entire examined colon, many small and large mouth diverticula were found throughout the entire colon, there was blood in the rectum, sigmoid colon, descending colon, splenic flexure, transverse colon, hepatic flexure, and the descending colon. No specimens were collected during the procedure. He also underwent an EGD at the same time which noted a normal stomach duodenum and esophagus.Tagged red blood scan was negative for active bleeding. Per surgery: EGD and colonoscopy completed. EGD demonstrated easy friability. Biopsy obtained. Colonoscopy showed many diverticulum, no evidence of bleeding. Pseudomembranes seen in the hepatic flexure-culture and biopsy obtained. Recommend starting Flagyl PO until results. If positive for C-diff then can change to oral Vanco. OK to advance diet as tolerated. Stool cultures pending - Advance diet as tolerated. - On day #2 of Flagyl by mouth. - Tranfuse if HGB falls below 7. - Continue omeprazole 40 mg daily. - Resumed home BP meds. Qualifiers: GI bleed type/associated pathology: unspecified gastrointestinal hemorrhage type Qualified Code(s): K92.2 - Gastrointestinal hemorrhage, unspecified (2) Diabetes mellitus Current Visit: No Status: Chronic Assessment and plan: Blood glucose at 115 and controlled. - Will continue closely monitor glucose level and keep a diet control when patient has diet resumed. 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 Qualifiers: Hypertension type: essential hypertension Qualified Code(s): I10 - Essential (primary) hypertension (4) Atrial fibrillation Current Visit: No Status: Chronic Assessment and plan: History of A. fib now sinus rhythm. - Qualifiers: Atrial fibrillation type: paroxysmal Qualified Code(s): I48.0 - Paroxysmal atrial fibrillation (5) DVT prophylaxis Current Visit: No Status: Acute - Subjective Interval history: Patient is a 87 Y M with a PMH of A-Fib not on anticoagulation at home, dementia , HTN, and DM that presented for rectal bleeding. When seen today, patient denies any shortness of breath, cough, fever, chills, nausea, vomiting, chest pain, abdominal pain, or dysuria. He admits to some minor diarrhea. - Constitutional Vitals: Temp Pulse Resp BP Pulse Ox 98.3 F 67 18 134/58 100 07/21/17 10:30 07/21/17 10:30 07/21/17 10:30 07/21/17 10:30 07/21/17 10:30 General appearance: Present: A&O X 2, no acute distress, answers questions appropriately - Respiratory Respiratory exam: Present: CTAB. Absent: accessory muscle use, rales, rhonchi, wheezes - Cardiovascular Cardiovascular exam: Present: RRR, +S1, +S2. Absent: diastolic murmur, gallop, rubs, systolic murmur - GI/Abdominal GI/Abdominal exam: Present: normal bowel sounds, soft, no peritoneal signs. Absent: distended, tenderness - Extremities Exam Extremities exam: Present: warm, radial pulses palpable and symmetrical. Absent : calf tenderness, cyanotic, pedal edema Internal Medicine: Result - Labs CBC & Chem 7: 07/21/17 04:00 07/21/17 04:00 Labs: Short CBC 07/21/17 Range/Units 04:00 WBC 5.7 (4.3-11.1) K/mcL Hgb 7.2 L (12.9-16.9) g/dL Hct 20.7 L (37.5-50.1) % Plt Count 166 (140-400) K/mcL Neutrophils # 3.6 (1.6-8.9) K/mcL BMP 07/21/17 04:00 Sodium 141 Potassium 3.6 Chloride 114 H Carbon Dioxide 26 BUN 6 L Creatinine 0.73 Glucose 80 Calcium 8.2 L - ABG Interpretation ABG results: PT/INR, D-dimer PT 11.5 Seconds (9.4-12.1) 07/16/17 20:54 - VTE Documentation of Mechanical Device: Intermittent pneumatic compression device
[2017-07-21] MEDS ORDERED: Bisacodyl 10 MG RECTAL SUPPOSITORY RC PRN (12:07)
[2017-07-21] MEDS ORDERED: MOM Conc 10 ML UD.LIQ PO PRN (12:07)
[2017-07-21] MEDS ORDERED: Nicotine 2 MG GUM BC PRN (12:07)
[2017-07-21] MEDS: Mirtazapine 15 MG TABLET PO SCH ×2 (12:29→21:09)
[2017-07-21] MEDS: traZODone 50 MG TABLET PO SCH ×2 (12:29→21:09)
[2017-07-21] MEDS ORDERED: Artificial Tears SOLN 15 ML BOTTLE BOTH EYES PRN (13:00)
[2017-07-21] MEDS: Lisinopril 20 MG TABLET PO SCH ×2 (13:57→21:10)
[2017-07-21] MEDS: Ascorbic Acid 500 MG TABLET PO SCH ×2 (13:57→21:09)
[2017-07-21] MEDS: Furosemide 20 MG TABLET PO SCH (13:57)
[2017-07-21] MEDS: Aspirin 81 MG TAB.CHEW PO SCH (13:57)
[2017-07-21] MEDS: Latanoprost 2.5 ML BOTTLE BOTH EYES SCH (21:10)
[2017-07-22 04:26] LABS: Hematocrit 22.1 % (37.5-50.1); Hemoglobin 7.5 g/dL (12.9-16.9)
[2017-07-22 06:13] LABS: BUN/Creatinine Ratio 6 (6-26); Blood Urea Nitrogen 6 mg/dL (8-23); Calcium 8.5 mg/dL (8.6-10.3); Carbon Dioxide 26 mEq/L (23-29); Chloride 112 mEq/L (98-107); Glucose 93 mg/dL (70-105); Osmolality,Calculated 287 (280-300); Potassium 3.5 mEq/L (3.5-5.1); Sodium 140 mEq/L (136-145); eGFR For African Americans > 60 (> 60); eGFR For Non-African Americans > 60 (> 60)
[2017-07-22] MEDS: Budesonide/Formoterol 160/4.5 MDI IH SCH ×2 (07:40→20:58)
[2017-07-22] MEDS: Furosemide 20 MG TABLET PO SCH (10:33)
[2017-07-22] MEDS: Cholecalciferol (D-3) 1,000 UNIT TABLET PO SCH (10:33)
[2017-07-22] MEDS: Aspirin 81 MG TAB.CHEW PO SCH (10:33)
[2017-07-22] MEDS: Lisinopril 20 MG TABLET PO SCH ×2 (10:33→21:06)
[2017-07-22] MEDS: Ascorbic Acid 500 MG TABLET PO SCH ×2 (10:33→21:06)
[2017-07-22] MEDS: metroNIDAZOLE 500 MG TABLET PO SCH ×2 (10:39→21:05)
--- NOTE | 2017-07-22 12:33 | Internal Med Progress Note ---
<Doug Garcia - Last Filed: 07/22/17 12:31> Date of Encounter: 07/22/17 Time of Encounter: 09:20 - Assessment and plan (1) GI bleed Current Visit: Yes Status: Acute Assessment and plan: HGB has increased from 7.2 to 7.5. Last colonoscopy was completed on 01/11/2016 as an inpatient, by Dr. Riggins. Diverticulosis in the entire examined colon, many small and large mouth diverticula were found throughout the entire colon, there was blood in the rectum, sigmoid colon, descending colon, splenic flexure, transverse colon, hepatic flexure, and the descending colon. No specimens were collected during the procedure. He also underwent an EGD at the same time which noted a normal stomach duodenum and esophagus.Tagged red blood scan was negative for active bleeding. Per surgery: EGD and colonoscopy completed. EGD demonstrated easy friability. Biopsy obtained. Colonoscopy showed many diverticulum, no evidence of bleeding. Pseudomembranes seen in the hepatic flexure-culture and biopsy obtained. Recommend starting Flagyl PO until results. If positive for C-diff then can change to oral Vanco. OK to advance diet as tolerated. Stool cultures pending - Advance diet as tolerated. - On day #3 of Flagyl by mouth. - Tranfuse if HGB falls below 7. - Continue omeprazole 40 mg daily. - Continue home BP meds. - Plan to discharge to tomorrow. Qualifiers: GI bleed type/associated pathology: unspecified gastrointestinal hemorrhage type Qualified Code(s): K92.2 - Gastrointestinal hemorrhage, unspecified (2) Diabetes mellitus Current Visit: No Status: Chronic Assessment and plan: Blood glucose at 93 and controlled. - Will continue closely monitor glucose level and keep a diet control when patient has diet resumed. 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 Qualifiers: Hypertension type: essential hypertension Qualified Code(s): I10 - Essential (primary) hypertension (4) Atrial fibrillation Current Visit: No Status: Resolved Assessment and plan: History of A. fib now sinus rhythm. - Qualifiers: Atrial fibrillation type: paroxysmal Qualified Code(s): I48.0 - Paroxysmal atrial fibrillation (5) DVT prophylaxis Current Visit: No Status: Acute Assessment and plan: SCDs. - Subjective Interval history: Patient is a 87 Y M with a PMH of A-Fib not on anticoagulation at home, dementia , HTN, and DM that presented for rectal bleeding. When seen today, patient denies any shortness of breath, cough, fever, chills, nausea, vomiting, chest pain, abdominal pain, or dysuria. He denies any diarrhea or hematochezia. - Constitutional Vitals: Temp Pulse Resp BP Pulse Ox 98.1 F 66 18 142/73 100 07/22/17 08:12 07/22/17 10:20 07/22/17 08:12 07/22/17 10:20 07/22/17 08:12 General appearance: Present: A&O X 3, no acute distress, answers questions appropriately - Cardiovascular Cardiovascular exam: Present: RRR, +S1, +S2. Absent: diastolic murmur, gallop, rubs, systolic murmur - GI/Abdominal GI/Abdominal exam: Present: normal bowel sounds, soft, no peritoneal signs. Absent: distended, tenderness - Extremities Exam Extremities exam: Present: warm, radial pulses palpable and symmetrical. Absent : calf tenderness, cyanotic, pedal edema Internal Medicine: Result - Labs CBC & Chem 7: 07/22/17 04:00 07/22/17 04:10 Labs: Short CBC 07/22/17 Range/Units 04:00 Hgb 7.5 L (12.9-16.9) g/dL Hct 22.1 L (37.5-50.1) % BMP 07/22/17 04:10 Sodium 140 Potassium 3.5 Chloride 112 H Carbon Dioxide 26 BUN 6 L Creatinine 1.01 Glucose 93 Calcium 8.5 L - ABG Interpretation ABG results: PT/INR, D-dimer PT 11.5 Seconds (9.4-12.1) 07/16/17 20:54 - VTE Documentation of Mechanical Device: Intermittent pneumatic compression device Consult Discharge Plan - Plan [facility]errals: [facility] [Primary Care Provider] - <Lavon Camara - Last Filed: 07/22/17 12:55> Date of Encounter: 03/25/18 - Constitutional Vitals: Temp Pulse Resp BP Pulse Ox 98.1 F 66 18 142/73 100 07/22/17 08:12 07/22/17 10:20 07/22/17 08:12 07/22/17 10:20 07/22/17 08:12 Internal Medicine: Result - Labs CBC & Chem 7: 07/22/17 04:00 07/22/17 04:10 Labs: Short CBC 07/22/17 Range/Units 04:00 Hgb 7.5 L (12.9-16.9) g/dL Hct 22.1 L (37.5-50.1) % BMP 07/22/17 04:10 Sodium 140 Potassium 3.5 Chloride 112 H Carbon Dioxide 26 BUN 6 L Creatinine 1.01 Glucose 93 Calcium 8.5 L - ABG Interpretation ABG results: PT/INR, D-dimer PT 11.5 Seconds (9.4-12.1) 07/16/17 20:54 - Attending Attestation I performed an independent interview and examine this patient. I agree with the findings, assessment, and plan of Dr. Garcia, internal medicine food and beverage intern. No further evidence of bleeding. Hemoglobin remained stable. He continues on iron replacement therapy. Anticipate discharge tomorrow.
[2017-07-22] MEDS: Mirtazapine 15 MG TABLET PO SCH (21:06)
[2017-07-22] MEDS: traZODone 50 MG TABLET PO SCH (21:06)
[2017-07-22] MEDS: Latanoprost 2.5 ML BOTTLE BOTH EYES SCH (21:06)
[2017-07-23 06:35] LABS: Basophils % 0.3 %; Eosinophils # 0.7 K/mcL (0.0-0.6); Eosinophils % 10.9 %; Hematocrit 23.2 % (37.5-50.1); Immature Granulocytes % 0.3 % (0-4); Lymphocytes # 1.6 K/mcL (0.6-4.6); Mean Corpuscular HGB Conc 34.5 g/dL (31.6-35.5); Mean Corpuscular Hemoglobin 31.3 pg (28.0-33.3); Mean Corpuscular Volume 90.6 fL (83.0-100.0); Mean Platelet Volume 9.3 fL (9.4-12.4); Monocytes # 0.4 K/mcL (0.0-1.3); Monocytes % 7.4 %; Neutrophils # 3.3 K/mcL (1.6-8.9); Platelet Count 218 K/mcL (140-400); Red Blood Count 2.56 M/mcL (4.19-5.50); Red Cell Distribution Width 13.4 % (11.5-14.5); Segmented Neutrophils % 55.1 %
[2017-07-23 07:00] LABS: BUN/Creatinine Ratio 7 (6-26); Blood Urea Nitrogen 6 mg/dL (8-23); Calcium 8.8 mg/dL (8.6-10.3); Carbon Dioxide 28 mEq/L (23-29); Chloride 108 mEq/L (98-107); Glucose 82 mg/dL (70-105); Osmolality,Calculated 289 (280-300); Potassium 3.5 mEq/L (3.5-5.1); Sodium 141 mEq/L (136-145); eGFR For African Americans > 60 (> 60); eGFR For Non-African Americans > 60 (> 60)
[2017-07-23 07:43] VITALS: BP 138/69
[2017-07-23] MEDS: Budesonide/Formoterol 160/4.5 MDI IH SCH (09:02)
[2017-07-23] MEDS: Ascorbic Acid 500 MG TABLET PO SCH (09:43)
[2017-07-23] MEDS: Aspirin 81 MG TAB.CHEW PO SCH (09:43)
[2017-07-23] MEDS: Cholecalciferol (D-3) 1,000 UNIT TABLET PO SCH (09:43)
[2017-07-23] MEDS: Furosemide 20 MG TABLET PO SCH (09:44)
[2017-07-23] MEDS: Lisinopril 20 MG TABLET PO SCH (09:44)
[2017-07-23] MEDS: metroNIDAZOLE 500 MG TABLET PO SCH (09:44)
--- NOTE | 2017-07-23 09:47 | Discharge Summary ---
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 (3) Diabetes mellitus Priority: Secondary Status: Chronic Qualifiers: Diabetes mellitus type: type 2 Diabetes mellitus long term 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 Johnston is a 87 year old male with a past medical history of dementia, diabetes, glaucoma, hypertension, atrial fibrillation not on anticoagulation due to falls risk. Patient was admitted for lower GI bleed. Workup included a CT of the abdomen which showed transverse colon wall thickening. On arrival he had a hemoglobin of 9.2. This did drop as low as 7.2, and he did receive 2 units of packed blood cells. Patient had extensive workup including a Tegretol blood cell scan which was negative for acute bleed. Ultimately underwent upper endoscopy which showed some gastritis as well as a colonoscopy which showed a pseudomembranous appearance at the hepatic flexure. This was biopsied. Patient was started on Flagyl for this for concerns of C. difficile versus other infection. Also was noted diverticulosis. Patient's hemoglobin remained stable for the remainder of his hospital stay. He was started on iron therapy. Patient is currently day 4 of a planned 14 day course of oral Flagyl. He also continues on Prilosec 40 mg by mouth daily. Patient was otherwise doing well and deemed stable for discharge. He will follow up with GI with biopsy results. - Time Spent with Patient Total time spent providing and/or coordinating discharge services: - Discharge Medications Home Medications: Ascorbic Acid [Vitamin C] 500 mg PO BID 01/09/16 [History] Aspirin 81 mg PO DAILY 01/09/16 [History] Budesonide/Formoterol 160/4.5 [Symbicort 160/4.5] 2 puff IH BIDR 01/09/16 [ History] Furosemide [Lasix] 20 mg PO QAM 01/09/16 [History] Latanoprost [Xalatan] 1 drop BOTH EYES HS 01/09/16 [History] Lisinopril [Zestril] 20 mg PO BID 01/09/16 [History] Magnesium Hydroxide [Milk of Magnesia] 30 ml PO DAILY PRN 01/09/16 [History] Mirtazapine [Remeron] 15 mg PO HS 01/09/16 [History] Nitroglycerin [Nitrostat] 0.4 mg SL Q5M PRN 01/09/16 [History] Omeprazole [PriLOSEC] 20 mg PO QAM 01/09/16 [History] Oxybutynin [Ditropan] 5 mg PO TID 01/09/16 [History] Polyvinyl Alcohol [Artificial Tears] 2 drop BOTH EYES QID 01/09/16 [History] Sennosides/Docusate Sodium [Senna Plus] 2 tab PO DAILY 01/09/16 [History] TraZODone 50 mg PO HS 01/09/16 [History] Ferrous Sulfate [Iron] 325 mg PO BID 10/02/16 [History] Potassium Chloride [Klor-Con] 20 meq PO DAILY 10/02/16 [History] Diltiazem CD (24hr) [Cardizem CD] 120 mg PO DAILY #30 cap.er.24h 10/05/16 [Rx] Metoprolol [Lopressor] 12.5 mg PO BID 30 Days tablet 10/05/16 [Rx] Acetaminophen [Tylenol] 650 mg PO BID 07/16/17 [History] Acetaminophen [Tylenol] 975 mg PO DAILY PRN 07/16/17 [History] Benzocaine/Menthol Luis Alberto [Cepacol Sore Throat Lozenge] 1 each MM Q1H PRN 07/16/17 [History] Bisacodyl [Dulcolax] 10 mg RC DAILY PRN 07/16/17 [History] Calcium 750/Vit D 375 1 tab PO DAILY 07/16/17 [History] Eucerin Creme 1 appl TP BID 07/16/17 [History] Haloperidol [Haldol] 1.5 mg PO BID 07/16/17 [History] Nicotine Polacrilex [Nicotine Lozenge] 4 mg BC Q4H PRN 07/16/17 [History] Allergies/Adverse Reactions: 3 Allergy/AdvReac Type Severity Reaction Status Date / Time clonazepam Allergy Rash Verified 10/01/16 21:14 Date of admission: 07/16/17 23:25 Primary care physician: PCP [place] Consults: 07/17/17 12:20 Consult to PICC team [Consult to Invasive Line Access Team] [CONS] Routine Reason for Consult: acute blood loss anemia, needs trnsfusion, poor iv access. Line Type: Midline Time Notified: 12:21 Call Completed: Yes 07/17/17 12:55 Consult to Speech Therapy [CONS] Stat Comment: Evaluate, develop and implement POC Reason for Consult: aspiratoin Call Completed: No 07/17/17 14:58 Consult to Laboratory Technical Specialist [CONS] Routine Reason for SW Consult: From [facility]-term dementia unit; *Megan already seeing * Discharging clinician: Lavon Camara Anticipated date of discharge: 07/23/17 - Constitutional Vitals: Temp Pulse Resp BP Pulse Ox 98.3 F 62 15 138/69 98 07/23/17 07:40 07/23/17 07:40 07/23/17 07:40 07/23/17 07:40 07/23/17 07:40 General appearance: Present: A&O X 2, no acute distress, answers questions appropriately - Head Head exam: Present: atraumatic, normocephalic - Eye Eye exam: Present: PERRL, conjuntiva pink, sclera anicteric Pupils: Present: PERRL - Neck Neck exam general surgery: Present: supple, trachea midline. Absent: lymphadenopathy - Respiratory Respiratory exam: Present: CTAB. Absent: accessory muscle use, rales, rhonchi, wheezes - Cardiovascular Cardiovascular exam: Present: RRR, +S1, +S2. Absent: diastolic murmur, gallop, rubs, systolic murmur - GI/Abdominal GI/Abdominal exam: Present: normal bowel sounds, soft, no peritoneal signs. Absent: distended, tenderness - Extremities Exam Extremities exam: Present: warm, radial pulses palpable and symmetrical. Absent : calf tenderness, cyanotic, pedal edema - Neurological Exam Neurological exam: Present: CN II-XII intact, no focal deficits. Absent: pronater drift, facial droop, speech deficit - Skin Skin exam: Present: dry, intact - Patient Status Disposition: Transfer SNF Condition: Good Functional capacity at discharge: independent ambulation Overall status at discharge: patient is back to baseline - Discharge Instructions Follow Up With: [facility] [Primary Care Provider] - Forms: ED Satisfaction Letter Additional Instructions: CBC in 3-4 days for anemia follow up - Diet and Activity Activity: increase activity as tolerated Diet: advance to your usual diet - VTE Documentation of Mechanical Device: Intermittent pneumatic compression device
--- NOTE | 2017-07-23 12:48 | Physician Discharge Referral ---
ExtendedCare Referral Info Transfer To: [facility] Provider in Charge: terrence cruz Provider in Charge after Transfer: Other Institutional Level of Care: Skilled - Diagnosis (1) GI bleed Priority: Primary Status: Acute (2) Dementia Priority: Primary Status: Chronic (3) Diabetes mellitus Priority: Secondary Status: Chronic (4) Hypertension Priority: Secondary Status: Chronic (5) Atrial fibrillation Priority: Secondary Status: Resolved Prognosis: Fair Aware of Diagnosis: Family Aware of Prognosis: Family - Transfer Medications Home Medications: Ascorbic Acid [Vitamin C] 500 mg PO BID 01/09/16 [History] Budesonide/Formoterol 160/4.5 [Symbicort 160/4.5] 2 puff IH BIDR 01/09/16 [ History] Latanoprost [Xalatan] 1 drop BOTH EYES HS 01/09/16 [History] Lisinopril [Zestril] 20 mg PO BID 01/09/16 [History] Mirtazapine [Remeron] 15 mg PO HS 01/09/16 [History] Nitroglycerin [Nitrostat] 0.4 mg SL Q5M PRN 01/09/16 [History] Oxybutynin [Ditropan] 5 mg PO TID 01/09/16 [History] Polyvinyl Alcohol [Artificial Tears] 2 drop BOTH EYES QID 01/09/16 [History] Sennosides/Docusate Sodium [Senna Plus] 2 tab PO DAILY 01/09/16 [History] TraZODone 50 mg PO HS 01/09/16 [History] Ferrous Sulfate [Iron] 325 mg PO BID 10/02/16 [History] Potassium Chloride [Klor-Con] 20 meq PO DAILY 10/02/16 [History] Diltiazem CD (24hr) [Cardizem CD] 120 mg PO DAILY #30 cap.er.24h 10/05/16 [Rx] Metoprolol [Lopressor] 12.5 mg PO BID 30 Days tablet 10/05/16 [Rx] Acetaminophen [Tylenol] 650 mg PO BID 07/16/17 [History] Bisacodyl [Dulcolax] 10 mg RC DAILY PRN 07/16/17 [History] Calcium 750/Vit D 375 1 tab PO DAILY 07/16/17 [History] Eucerin Creme 1 appl TP BID 07/16/17 [History] Haloperidol [Haldol] 1.5 mg PO BID 07/16/17 [History] Nicotine Polacrilex [Nicotine Lozenge] 4 mg BC Q4H PRN 07/16/17 [History] Cholecalciferol (D-3) [Vitamin D] 1,000 unit PO DAILY tablet 07/23/17 [Rx] Omeprazole [PriLOSEC] 40 mg PO DAILY@0630 capsule. 07/23/17 [Rx] metroNIDAZOLE [Flagyl] 500 mg PO BID 11 Days #22 tablet 07/23/17 [Rx] Allergies/Adverse Reactions: 3 Allergy/AdvReac Type Severity Reaction Status Date / Time clonazepam Allergy Rash Verified 10/01/16 21:14 - Respiratory Orders Smoking Cessation: Smoking cessation has been advised. For more information, call the [place] Tobacco Quit Line at 0-623-MPTJNOW. CERTIFICATION: I certify that the transfer of the above named patient to an Extended Care Facility is necessary for the continuing treatment of the diagnosis listed. The above information is true and accurate reflection of patient's current condition. Confidential - Redisclosure prohibited without a patient's written consent.
== END 2017-07-23 12:58 | DRG 378 ==
LOC: 2NENU 20:34 → EMEROO 20:34 → OBSVTOIN 23:25 → 2NENU 07-17 00:04
PROVIDERS: ADMIT Hospitalist; ATTEND Family Medicine
PROC: ENDOCBX (2017-07-20 13:00)
PROC: ENDOEBX (2017-07-20 13:00)

== ENCOUNTER 2017-10-05 12:02 | Inpatient (IN) ==
--- NOTE | 2017-10-05 12:18 | Emergency Department Note ---
Disposition Clinical Impression: Acute blood loss anemia GI bleed Qualifiers: GI bleed type/associated pathology: anorectal hemorrhage Qualified Code(s): K62.5 - Hemorrhage of anus and rectum Disposition: Admitted As Inpatient Condition: Undetermined Time of Disposition: 13:21 GI Bleed HPI - General Chief complaint: ED General Medical Stated complaint: GI Bleed Time Seen by Provider: 10/05/17 12:12 Source: patient, EMS Mode of arrival: EMS Limitations: no limitations Nursing Notes Reviewed: Yes Vital Signs Reviewed: Yes - History of Present Illness HPI Narrative: 87-year-old male who comes her nursing facility at the [facility] with history of GI bleed and, arrives to the emergency department with complaint of blood in stool. the patient's hemogobin was also note o be 8.7 down from 10 roughly 2 days prior. The patient denies any abdominal pain. He denies any other complaints. The patient does have a history of GI bleed in the past where he had to have a colonoscopy. He denies any anticoagulation. He is resting comfortably in the room without any signs of tachycardia or hypotension. The patient does have gross blood on examination in his adult diaper. Patient was noted to have GI bleed roughly 1 year ago. Blood scan as well as colonoscopy revealed no active source that they could identify. At that time the patient also noted to have pseudomembranous appearance and was started on Flagyl at that time. The patient has done well since then. He did receive 2 units of packed red blood cells at that time when his hemoglobin dropped to 7.2 down from 9.2 upon his last admission. - Related Data Home Medications Medication Instructions Recorded Confirmed Ascorbic Acid [Vitamin C] 500 mg PO BID 01/09/16 10/05/17 Budesonide/Formoterol 160/4.5 2 puff IH BIDR 01/09/16 10/05/17 [Symbicort 160/4.5] Latanoprost [Xalatan] 1 drop BOTH EYES HS 01/09/16 10/05/17 Lisinopril [Zestril] 20 mg PO BID 01/09/16 10/05/17 Mirtazapine [Remeron] 15 mg PO HS 01/09/16 10/05/17 Nitroglycerin [Nitrostat] 0.4 mg SL Q5M PRN 01/09/16 10/05/17 Oxybutynin [Ditropan] 5 mg PO TID 01/09/16 10/05/17 Polyvinyl Alcohol [Artificial 2 drop BOTH EYES QID 01/09/16 10/05/17 Tears] Sennosides/Docusate Sodium [Senna 2 tab PO DAILY 01/09/16 10/05/17 Plus] Ferrous Sulfate [Iron] 325 mg PO BID 10/02/16 10/05/17 Potassium Chloride [Klor-Con] 20 meq PO DAILY 10/02/16 10/05/17 Acetaminophen [Tylenol] 650 mg PO BID 07/16/17 10/05/17 Bisacodyl [Dulcolax] 10 mg RC DAILY PRN 07/16/17 10/05/17 Eucerin Creme 1 appl TP BID 07/16/17 10/05/17 Haloperidol [Haldol] 1.5 mg PO BID 07/16/17 10/05/17 Calcium Carbonate/Vitamin D3 1 tab PO BID 10/05/17 10/05/17 [Calcium 500 + Vit D Caplet] traZODone [TraZODone] 50 mg PO HS 10/05/17 10/05/17 Previous Rx's Medication Instructions Recorded Diltiazem CD (24hr) [Cardizem CD] 120 mg PO DAILY #30 cap.er.24h 10/05/16 Metoprolol [Lopressor] 12.5 mg PO BID 30 Days tablet 10/05/16 Omeprazole [PriLOSEC] 40 mg PO DAILY@0630 capsule. 07/23/17 Allergies Allergy/AdvReac Type Severity Reaction Status Date / Time clonazepam Allergy Rash Verified 10/01/16 21:14 All systems ED: reviewed and negative except as stated. Constitutional: Denies: fever, chills, weakness ENT ED: Denies: congestion Cardiovascular: Denies: chest pain Respiratory: Denies: dyspnea Gastrointestinal: Reports: melena, hematochezia. Denies: abdominal pain Genitourinary: Denies: urgency Musculoskeletal: Denies: back pain Integumentary: Denies: rash Neurological: Denies: headache Past Medical History - Past Medical History Attestation: Yes The following information was validated with the patient. Source: patient Medical history: Reports: arthritis, atrial fibrillation, dementia, diabetes, GERD, glaucoma, hyperlipidemia, hypertension Surgical history: Reports: other (Colonosopy secondary to GI bleed) Psychiatric history: Reports: depression - Social History Smoking Status: Current every day smoker Smokeless Tobacco Status: No Alcohol use: Reports: none Drug use: Reports: none Physical Exam - General Limitations: no limitations General appearance: alert, in no apparent distress, cachectic - Head Head exam: atraumatic, normocephalic, normal inspection - Eye Eye exam: Present: normal appearance, PERRL, EOMI - ENT ENT exam: normal exam, normal oropharynx, mucous membranes moist - Neck Neck exam: Present: normal inspection, full ROM, trachea midline - Chest Chest inspection: Present: normal inspection, symmetric chest wall rise - Respiratory Respiratory exam: Present: normal lung sounds bilaterally - Cardiovascular Cardiovascular exam: Present: regular rate, normal rhythm, normal heart sounds - Abdominal Exam Abdominal exam: Present: soft, Non-Tender. Absent: tenderness, distention, guarding, rebound, rigidity - Rectal Exam Storage Management Architect present during exam: Yes Rectal exam: Present: normal inspection, black stool, bloody stool. Absent: hemorrhoids, tenderness - Extremities Exam Extremities exam: Present: normal inspection, full ROM. Absent: tenderness, pedal edema - Neurological Exam Neurological exam: Present: alert, oriented X3, CN II-XII intact - Skin Skin exam: Present: warm, dry, intact, normal color Course - Consultations Consultation #1: We spoke to Dr. Riggins extraction machine operator for endoscopy. He requested coagulation studies and he will see the patient consult. No further recommendations at this time. Time: 14:06 Vital Signs Temperature 97.9 F 10/05/17 12:10 Pulse Rate 78 10/05/17 12:10 Respiratory Rate 10/05/17 12:10 Blood Pressure 130/88 10/05/17 12:10 O2 Sat by Pulse Oximetry 99 10/05/17 12:10 Temperature 97.9 F 10/05/17 12:10 Pulse Rate 68 10/05/17 13:15 Respiratory Rate 18 10/05/17 13:15 Blood Pressure 118/68 10/05/17 13:15 O2 Sat by Pulse Oximetry 99 10/05/17 13:15 Oxygen Delivery Oxygen Delivery Room Air GI Bleed - [facility] Narrative Medical decision making narrative: Patient's workup in the emergency department demonstrates findings consistent with anemia. Given the patient's gross blood around the rectum, we are concerned about GI bleed. The patient was given 40 of IV Protonix. He remains stable at this time with no tachycardia or hypotension. We will admit the patient to the hospital for further workup and care. Patient was accepted by Dr. Trujillo. - Medical Records Medical records reviewed: Yes I reviewed the patient's medical records. - Lab Data Lab results reviewed: Yes I reviewed the patient's lab results. Result diagrams: 10/05/17 12:39 10/05/17 12:39 Lab Results 10/05/17 10/05/17 10/05/17 Range/Units 12:39 12:39 12:39 WBC 6.6 (4.3-11.1) K/mcL RBC 2.54 L (4.19-5.50) M/mcL Hgb 7.8 L (12.9-16.9) g/dL Hct 24.2 L (37.5-50.1) % MCV 95.3 (83.0-100.0) fL MCH 30.7 (28.0-33.3) pg MCHC 32.2 (31.6-35.5) g/dL RDW 13.0 (11.5-14.5) % Plt Count 224 (140-400) K/mcL MPV 10.1 (9.4-12.4) fL Immature Gran % 0.3 (0-4) % Seg Neutrophils % 62.1 % Lymphocytes % 26.2 % Monocytes % 5.0 % Eosinophils % 6.1 % Basophils % 0.3 % Neutrophils # 4.1 (1.6-8.9) K/mcL Lymphocytes # 1.7 (0.6-4.6) K/mcL Monocytes # 0.3 (0.0-1.3) K/mcL Eosinophils # 0.4 (0.0-0.6) K/mcL Basophils # 0.0 (0.0-0.2) K/mcL Sodium 139 (136-145) mEq/L Potassium 4.6 (3.5-5.1) mEq/L Chloride 108 H (98-107) mEq/L Carbon Dioxide 27 (23-29) mEq/L BUN 31 H (8-23) mg/dL Creatinine 1.01 (0.70-1.30) mg/dL Est GFR ( Amer) > 60 (> 60) Est GFR (Non-Af Amer) > 60 (> 60) BUN/Creatinine Ratio 31 H (6-26) Glucose 141 H (70-105) mg/dL Calculated Osmolality 297 (280-300) Calcium 9.6 (8.6-10.3) mg/dL Blood Type AB POSITIVE Antibody Screen NEGATIVE - EKG Data EKG attestation: Yes I reviewed and interpreted this EKG. EKG results narrative: Heart rate 69 beats for minute. Normal sinus rhythm. No ST elevation. Nonspecific ST changes noted from EKG from 07/16/2017.
[2017-10-05] MEDS ORDERED: Pantoprazole 40 MG VIAL IVP ONE (12:46)
--- NOTE | 2017-10-05 12:47 | Emergency Department Note ---
Disposition Clinical Impression: GI bleed Qualifiers: GI bleed type/associated pathology: anorectal hemorrhage Qualified Code(s): K62.5 - Hemorrhage of anus and rectum Disposition: Admitted As Inpatient Forms: ED Satisfaction Letter, Work/School Release General Adult HPI - General Chief complaint: ED General Medical Stated complaint: GI Bleed Time Seen by Provider: 10/05/17 12:12 Source: patient, EMS Mode of arrival: EMS Limitations: no limitations - History of Present Illness Pain Scale: 0 - Related Data Home Medications Medication Instructions Recorded Confirmed Ascorbic Acid [Vitamin C] 500 mg PO BID 01/09/16 07/16/17 Budesonide/Formoterol 160/4.5 2 puff IH BIDR 01/09/16 07/16/17 [Symbicort 160/4.5] Latanoprost [Xalatan] 1 drop BOTH EYES HS 01/09/16 07/16/17 Lisinopril [Zestril] 20 mg PO BID 01/09/16 07/16/17 Mirtazapine [Remeron] 15 mg PO HS 01/09/16 07/16/17 Nitroglycerin [Nitrostat] 0.4 mg SL Q5M PRN 01/09/16 07/16/17 Oxybutynin [Ditropan] 5 mg PO TID 01/09/16 07/16/17 Polyvinyl Alcohol [Artificial 2 drop BOTH EYES QID 01/09/16 07/16/17 Tears] Sennosides/Docusate Sodium [Senna 2 tab PO DAILY 01/09/16 07/16/17 Plus] TraZODone 50 mg PO HS 01/09/16 07/16/17 Ferrous Sulfate [Iron] 325 mg PO BID 10/02/16 07/16/17 Potassium Chloride [Klor-Con] 20 meq PO DAILY 10/02/16 07/16/17 Acetaminophen [Tylenol] 650 mg PO BID 07/16/17 07/16/17 Bisacodyl [Dulcolax] 10 mg RC DAILY PRN 07/16/17 07/16/17 Calcium 750/Vit D 375 1 tab PO DAILY 07/16/17 07/16/17 Eucerin Creme 1 appl TP BID 07/16/17 07/16/17 Haloperidol [Haldol] 1.5 mg PO BID 07/16/17 07/16/17 Nicotine Polacrilex [Nicotine 4 mg BC Q4H PRN 07/16/17 07/16/17 Lozenge] Previous Rx's Medication Instructions Recorded Diltiazem CD (24hr) [Cardizem CD] 120 mg PO DAILY #30 cap.er.24h 10/05/16 Metoprolol [Lopressor] 12.5 mg PO BID 30 Days tablet 10/05/16 Cholecalciferol (D-3) [Vitamin D] 1,000 unit PO DAILY tablet 07/23/17 Omeprazole [PriLOSEC] 40 mg PO DAILY@0630 capsule.dr 07/23/17 metroNIDAZOLE [Flagyl] 500 mg PO BID 11 Days #22 tablet 07/23/17 Allergies Allergy/AdvReac Type Severity Reaction Status Date / Time clonazepam Allergy Rash Verified 10/01/16 21:14 Constitutional: Denies: fever, chills, weakness ENT ED: Denies: congestion Cardiovascular: Denies: chest pain Respiratory: Denies: dyspnea Gastrointestinal: Reports: melena, hematochezia. Denies: abdominal pain Genitourinary: Denies: urgency Musculoskeletal: Denies: back pain Integumentary: Denies: rash Neurological: Denies: headache Past Medical History - Past Medical History Medical history: Reports: arthritis, atrial fibrillation, dementia, diabetes, GERD, glaucoma, hyperlipidemia, hypertension Surgical history: Reports: other (Colonosopy secondary to GI bleed) Psychiatric history: Reports: depression - Social History Smoking Status: Current every day smoker Smokeless Tobacco Status: No Alcohol use: Reports: none Drug use: Reports: none Physical Exam - General Limitations: no limitations General appearance: alert, in no apparent distress, cachectic Course - Reevaluation(s) Reevaluation #1: Attestation note I did independently examine and verified the physical examination findings evaluation workup and disposition of this patient. We had independent face-to- face examination and discussion. The patient was seen with the emergency medicine resident Dr. Alexandre Sterling I examined this patient and my medical decision-making was reviewed with the Resident Physician/HOTEL FRONT DESK AGENT/PA. I agree with the documented findings, disposition and treatment plan as described except to the extent set forth below. Briefly: 87-year-old male transfer from the [facility] for GI bleeding history of same. His hematocrit drop more than 2 g just several days. Gross blood on rectal exam. Patient had burgundy gross blood in the diaper and melena. Patient getting type and screen for 2 units PRBCs screening labs IV fluids provided 30 minutes critical care service this patient admission disposition pending Time: 12:46 Vital Signs Temperature 97.9 F 10/05/17 12:10 Pulse Rate 78 10/05/17 12:10 Respiratory Rate 18 10/05/17 12:10 Blood Pressure 130/88 10/05/17 12:10 O2 Sat by Pulse Oximetry 99 10/05/17 12:10 Temperature 97.9 F 10/05/17 12:10 Pulse Rate 78 10/05/17 12:10 Respiratory Rate 18 10/05/17 12:10 Blood Pressure 130/88 10/05/17 12:10 O2 Sat by Pulse Oximetry 99 10/05/17 12:10 Oxygen Delivery Oxygen Delivery Room Air
[2017-10-05 12:57] LABS: Basophils % 0.3 %; Eosinophils # 0.4 K/mcL (0.0-0.6); Eosinophils % 6.1 %; Hematocrit 24.2 % (37.5-50.1); Hemoglobin 7.8 g/dL (12.9-16.9); Immature Granulocytes % 0.3 % (0-4); Lymphocytes # 1.7 K/mcL (0.6-4.6); Lymphocytes % 26.2 %; Mean Corpuscular HGB Conc 32.2 g/dL (31.6-35.5); Mean Corpuscular Hemoglobin 30.7 pg (28.0-33.3); Mean Corpuscular Volume 95.3 fL (83.0-100.0); Mean Platelet Volume 10.1 fL (9.4-12.4); Monocytes # 0.3 K/mcL (0.0-1.3); Neutrophils # 4.1 K/mcL (1.6-8.9); Platelet Count 224 K/mcL (140-400); Red Blood Count 2.54 M/mcL (4.19-5.50); Segmented Neutrophils % 62.1 %
[2017-10-05 13:15] LABS: BUN/Creatinine Ratio 31 (6-26); Blood Urea Nitrogen 31 mg/dL (8-23); Calcium 9.6 mg/dL (8.6-10.3); Carbon Dioxide 27 mEq/L (23-29); Chloride 108 mEq/L (98-107); Glucose 141 mg/dL (70-105); Osmolality,Calculated 297 (280-300); Potassium 4.6 mEq/L (3.5-5.1); Sodium 139 mEq/L (136-145); eGFR For African Americans > 60 (> 60); eGFR For Non-African Americans > 60 (> 60)
--- NOTE | 2017-10-05 14:25 | Internal Med History&Physical ---
Date of Encounter: 10/05/17 Time of Encounter: 14:23 Internal Medicine - H&P: HPI Chief complaint: Melena/ Hematochezia Admitted From: Long-term Nursing Facility Plans for Post Hospital Care: Transfer [facility] History of present illness: Mr. Johnston is a 87 year old male thrombocytopenia, Afib, DM-II, HTN, and dementia. Pt is not a completely reliable historian due to history of dementia. He does report previous history of GI bleed. He states his symptoms started this morning. He denies epigastric or abdominal pain. He denies history of heavy ETOH use. In ED WBC 6.6, hgb 7.8,hct 24.2, plt 224. Na 139, K 4.6, Cl 108, BUN 31, Cr 1.01. PT 11.9, INR 1.1. CODE Status: FULL Past Med Surg Social Fam HX - Past Medical History Medical history: arthritis, atrial fibrillation, dementia, diabetes, GERD, glaucoma, hyperlipidemia, hypertension Additional medical history: pt poor historian no information sent from [facility] Psychiatric history: depression - Past Surgical History Surgical History: other (Colonosopy secondary to GI bleed) - Social History Smoking Status: Current every day smoker Smokeless Tobacco Status: No Alcohol use: none Drug use: none Internal Medicine - H&P: Meds Ascorbic Acid [Vitamin C] 500 mg PO BID 01/09/16 [History] Budesonide/Formoterol 160/4.5 [Symbicort 160/4.5] 2 puff IH BIDR 01/09/16 [ History] Latanoprost [Xalatan] 1 drop BOTH EYES HS 01/09/16 [History] Lisinopril [Zestril] 20 mg PO BID 01/09/16 [History] Mirtazapine [Remeron] 15 mg PO HS 01/09/16 [History] Nitroglycerin [Nitrostat] 0.4 mg SL Q5M PRN 01/09/16 [History] Oxybutynin [Ditropan] 5 mg PO TID 01/09/16 [History] Polyvinyl Alcohol [Artificial Tears] 2 drop BOTH EYES QID 01/09/16 [History] Sennosides/Docusate Sodium [Senna Plus] 2 tab PO DAILY 01/09/16 [History] Ferrous Sulfate [Iron] 325 mg PO BID 10/02/16 [History] Potassium Chloride [Klor-Con] 20 meq PO DAILY 10/02/16 [History] Diltiazem CD (24hr) [Cardizem CD] 120 mg PO DAILY #30 cap.er.24h 10/05/16 [Rx] Metoprolol [Lopressor] 12.5 mg PO BID 30 Days tablet 10/05/16 [Rx] Acetaminophen [Tylenol] 650 mg PO BID 07/16/17 [History] Bisacodyl [Dulcolax] 10 mg RC DAILY PRN 07/16/17 [History] Eucerin Creme 1 appl TP BID 07/16/17 [History] Haloperidol [Haldol] 1.5 mg PO BID 07/16/17 [History] Omeprazole [PriLOSEC] 40 mg PO DAILY@0630 capsule. 07/23/17 [Rx] Calcium Carbonate/Vitamin D3 [Calcium 500 + Vit D Caplet] 1 tab PO BID 10/05/17 [History] traZODone [TraZODone] 50 mg PO HS 10/05/17 [History] 3 Allergy/AdvReac Type Severity Reaction Status Date / Time clonazepam Allergy Rash Verified 10/01/16 21:14 All Systems PM: A 10-system review of systems was performed and is negative for pertinent findings except as documented above in the HPI. - Constitutional Vitals: Temp Pulse Resp BP Pulse Ox 97.9 F 68 18 118/68 99 10/05/17 12:10 10/05/17 13:15 10/05/17 13:15 10/05/17 13:15 10/05/17 13:15 General appearance: Present: A&O X 3, no acute distress - Head Head exam: Present: atraumatic, normocephalic - Eye Eye exam: Present: PERRL, conjuntiva pink, sclera anicteric Pupils: Present: PERRL - Neck Neck exam general surgery: Present: supple, trachea midline. Absent: lymphadenopathy - Respiratory Respiratory exam: Present: CTAB. Absent: accessory muscle use, rales, rhonchi, wheezes - Cardiovascular Cardiovascular exam: Present: RRR, +S1, +S2. Absent: diastolic murmur, gallop, rubs, systolic murmur - GI/Abdominal GI/Abdominal exam: Present: normal bowel sounds, soft, no peritoneal signs. Absent: distended, tenderness - Extremities Exam Extremities exam: Present: warm, radial pulses palpable and symmetrical. Absent : calf tenderness, cyanotic, pedal edema - Neurological Exam Neurological exam: Present: CN II-XII intact, oriented X3, no focal deficits. Absent: pronater drift, facial droop, speech deficit - Skin Skin exam: Present: dry, intact Internal Med - H&P Results - Labs CBC & Chem 7: 10/05/17 12:39 10/05/17 12:39 - Assessment and plan (1) Acute blood loss anemia Current Visit: Yes Status: Acute Assessment and plan: Will monitor Hgb/hct q 6 hours. Will transfuse 2 units of blood. (2) DVT prophylaxis Current Visit: No Status: Acute Assessment and plan: SCD (3) GI bleed Current Visit: No Status: Acute Assessment and plan: Pt has hx of Upper and lower GI bleed. GI notified in ED. Pt having both melena and bright bright blood per rectum. Will monitor on tele and will check hgb and hct. Will place on IV protonix and carafate. Will keep NPO. Will check orthostatic BP. Qualifiers: Qualified Code(s): K92.2 - Gastrointestinal hemorrhage, unspecified (4) Diabetes mellitus Current Visit: No Status: Chronic Qualifiers: Diabetes mellitus type: type 2 Diabetes mellitus buttermaker insulin use: without fpc use Diabetes mellitus complication status: without complication Qualified Code(s): E11.9 - Type 2 diabetes mellitus without complications (5) Hypertension Current Visit: No Status: Chronic Assessment and plan: On Metorpolol and Lisinopril and will include parameters Qualifiers: Hypertension type: essential hypertension Qualified Code(s): I10 - Essential (primary) hypertension (6) Dementia Current Visit: No Status: Chronic Assessment and plan: Will resume home medication Qualifiers: Qualified Code(s): F03.90 - Unspecified dementia without behavioral disturbance - Time Spent With Patient Total time spent is greater than 50% in coordination of care (as documented) at patient's floor/unit and/or counseling patient: 25 - 35 minutes
[2017-10-05 14:26] LABS: INR 1.1; Prothrombin Time 11.9 Seconds (9.4-12.1)
[2017-10-05 14:29] LABS: Activated Partial Thrombo Time 31.3 Seconds (26.0-36.0)
[2017-10-05] MEDS ORDERED: Bisacodyl 10 MG RECTAL SUPPOSITORY RC PRN (14:29)
[2017-10-05] MEDS ORDERED: Nitroglycerin 0.4 MG TAB.SUBL SL PRN (14:29)
--- NOTE | 2017-10-05 15:29 | General Surgery Consult Note ---
Date of Encounter: 10/05/17 Time of Encounter: 15:25 Assessment and Plan (1) GI bleed Current Visit: Yes Status: Acute Complete bleeding scan today If no acute bleed identified, may advance diet as tolerated Will awaiting bleeding scan to make final recommendations for repeat colonoscopy (the patient has last colonoscopy in June of 2017) Supportive care PPI therapy per primary team Monitor Hgb/Hct Surgery will continue to follow and assess progress Qualifiers: GI bleed type/associated pathology: anorectal hemorrhage Qualified Code(s) : K62.5 - Hemorrhage of anus and rectum (2) Anemia Current Visit: Yes Status: Chronic Acute on chronic anemia Monitor Hgb/Hct Transfuse as necessary per the primary team Qualifiers: Anemia type: unspecified type Qualified Code(s): D64.9 - Anemia, unspecified History of Present Illness Consult date: 10/05/17 Reason for consult: other (Rectal bleeding) Requesting physician: Alexandre Sterling History of present illness: Mr. Johnston is an 87 year old male with multiple co-morbidities who presents to [facility] ED from the [place] with complaints of rectal bleeding. The patient states that he began having bleeding yesterday. He describes red blood which was mixed with his stool. He states that he has had some diarrhea today which also has a small amount of blood mixed in with his stool. He denies any abdominal pain. He denies any nausea or vomiting. Denies any loss of appetite or unexplained weight loss. He states that he did have a little bit of dizziness yesterday and overall just did not feel well. He states that those symptoms have resolved today. He denies any chest pain or shortness of breath. Denies any fevers or chills. Denies any difficulty with urination, however he states that he is urinating more than typical. He did have an EGD and colonoscopy in June [address] Riggins for evaluation of anemia and GI bleeding. 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 The biopsy showed mild dysplasia consistent with inflammation. Gastric biopsy showed chronic gastritis and he was negative for H. Pylori. We have been asked to see and evaluate the patient for GI bleeding. Past Med Surg Social Fam HX - Past Medical History Source: patient, old records reviewed Medical history: arthritis, atrial fibrillation, dementia, diabetes, GERD, glaucoma, hyperlipidemia, hypertension Additional medical history: pt poor historian no information sent from [facility] Psychiatric history: depression - Past Surgical History Surgical History: other (EGD/Colonoscopy in June of [address] Riggins) - Social History Smoking Status: Current every day smoker Smokeless Tobacco Status: No Alcohol use: none Drug use: none Medications and Allergies Ascorbic Acid [Vitamin C] 500 mg PO BID 01/09/16 [History] Budesonide/Formoterol 160/4.5 [Symbicort 160/4.5] 2 puff IH BIDR 01/09/16 [ History] Latanoprost [Xalatan] 1 drop BOTH EYES HS 01/09/16 [History] Lisinopril [Zestril] 20 mg PO BID 01/09/16 [History] Mirtazapine [Remeron] 15 mg PO HS 01/09/16 [History] Nitroglycerin [Nitrostat] 0.4 mg SL Q5M PRN 01/09/16 [History] Oxybutynin [Ditropan] 5 mg PO TID 01/09/16 [History] Polyvinyl Alcohol [Artificial Tears] 2 drop BOTH EYES QID 01/09/16 [History] Sennosides/Docusate Sodium [Senna Plus] 2 tab PO DAILY 01/09/16 [History] Ferrous Sulfate [Iron] 325 mg PO BID 10/02/16 [History] Potassium Chloride [Klor-Con] 20 meq PO DAILY 10/02/16 [History] Diltiazem CD (24hr) [Cardizem CD] 120 mg PO DAILY #30 cap.er.24h 10/05/16 [Rx] Metoprolol [Lopressor] 12.5 mg PO BID 30 Days tablet 10/05/16 [Rx] Acetaminophen [Tylenol] 650 mg PO BID 07/16/17 [History] Bisacodyl [Dulcolax] 10 mg RC DAILY PRN 07/16/17 [History] Eucerin Creme 1 appl TP BID 07/16/17 [History] Haloperidol [Haldol] 1.5 mg PO BID 07/16/17 [History] Omeprazole [PriLOSEC] 40 mg PO DAILY@0630 capsule.dr 07/23/17 [Rx] Calcium Carbonate/Vitamin D3 [Calcium 500 + Vit D Caplet] 1 tab PO BID 10/05/17 [History] traZODone [TraZODone] 50 mg PO HS 10/05/17 [History] 3 Allergy/AdvReac Type Severity Reaction Status Date / Time clonazepam Allergy Rash Verified 10/01/16 21:14 Review of Systems All systems PM: reviewed and no additional remarkable complaints except as stated (in the HPI) All systems PM: The remainder of the systems were reviewed and are negative General Surgery Exam Initial Vital Signs Temp Pulse Resp BP Pulse Ox 97.9 F 78 18 130/88 99 10/05/17 12:10 10/05/17 12:10 10/05/17 12:10 10/05/17 12:10 10/05/17 12:10 - General physical appearance well developed, well nourished, no distress, no pain, chronically ill - Eyes normal ocular movement - ENT normal mucosa, atraumatic, normocephalic - Neck trachea midline - Respiratory normal respiratory effort, clear to auscultation - Cardiovascular Cardiovascular exam: Present: irregular rhythm - Abdomen Abdomen general surgery: Present: bowel sounds present, soft, non tender - Integumentary Integumentary general surgery: Present: warm and dry - Neurologic Present: CN 2-12 grossly intact - Psychiatric Psychiatric general surgery: Present: A&Ox3, appropriate, speech is normal Exam Initial Vital Signs Temp Pulse Resp BP Pulse Ox 97.9 F 78 18 130/88 99 10/05/17 12:10 10/05/17 12:10 10/05/17 12:10 10/05/17 12:10 10/05/17 12:10 Results - Labs 10/05/17 12:39 10/05/17 12:39 Abnormal lab results RBC 2.54 M/mcL (4.19-5.50) L 10/05/17 12:39 Hgb 7.8 g/dL (12.9-16.9) L 10/05/17 12:39 Hct 24.2 % (37.5-50.1) L 10/05/17 12:39 Chloride 108 mEq/L (98-107) H 10/05/17 12:39 BUN 31 mg/dL (8-23) H 10/05/17 12:39 BUN/Creatinine Ratio 31 (6-26) H 10/05/17 12:39 Glucose 141 mg/dL (70-105) H 10/05/17 12:39 All other labs normal. Consult Discharge Plan - Plan [facility]errals: [facility] [Primary Care Provider] - - Attending Attestation For this encounter, I have reviewed the INSURANCE VERIFICATION REP or PA documentation, treatment plan, and medical decision making; and I have had face to face time with this patient.
[2017-10-05] MEDS ORDERED: 0.9 % Sodium Chloride 250 ML ONE ×2 (15:36→22:35)
[2017-10-05 16:02] LABS: Hematocrit 24.1 % (37.5-50.1); Hemoglobin 7.9 g/dL (12.9-16.9)
[2017-10-05] MEDS: Artificial Tears SOLN 15 ML BOTTLE BOTH EYES SCH (17:38)
[2017-10-05] MEDS: Pantoprazole 40 MG in 0.9 % Sodium Chloride Mini Bag 100 ML IVC SCH ×2 (18:03→22:21)
[2017-10-05] MEDS: 0.9 % Sodium Chloride 1,000 ML IVC SCH (18:03)
--- NOTE | 2017-10-05 18:14 | Electrocardiograph Report ---
[address] [address] Test Date: 2017-10-05 Pat Name: Blu Johnston Department: [id number] Room: 2A42 Gender: M Er Tech: : [id number] Requested By: Alexandre Sterling Order Number: [id number] Reading MD: Breezy Hernandez Measurements Intervals [place] Rate: 69 P: -10 AL: 132 QRS: -26 QRSD: 136 T: 71 QT: 409 QTc: 428 Interpretive Statements SINUS RHYTHM BORDERLINE LEFT AXIS DEVIATION RIGHT BUNDLE BRANCH BLOCK Electronically Signed On 10-05-2017 18:12:22 EDT by Breezy Hernandez
[2017-10-05] MEDS: Budesonide/Formoterol 160/4.5 MDI IH SCH (20:22)
[2017-10-05] MEDS ORDERED: Latanoprost 2.5 ML BOTTLE BOTH EYES SCH (21:00)
[2017-10-05] MEDS ORDERED: traZODone 50 MG TABLET PO SCH (21:00)
[2017-10-05] MEDS ORDERED: Mirtazapine 15 MG TABLET PO SCH (21:00)
[2017-10-05 21:10] LABS: Hemoglobin 8.8 g/dL (12.9-16.9)
[2017-10-05] MEDS ORDERED: Polyethylene Glycol 3350 255 GM POWDER PO STA (21:38)
[2017-10-05 22:13] LABS: INR 1.1; Prothrombin Time 12.4 Seconds (9.4-12.1)
[2017-10-05 22:16] LABS: Activated Partial Thrombo Time 31.8 Seconds (26.0-36.0)
[2017-10-05] MEDS: Ascorbic Acid 500 MG TABLET PO SCH (22:24)
[2017-10-05] MEDS: Lisinopril 20 MG TABLET PO SCH (22:25)
[2017-10-05] MEDS: Acetaminophen 325 MG TABLET PO SCH (22:25)
--- NOTE | 2017-10-05 23:21 | Event Note ---
<Alexandre Britt G - Last Filed: 10/05/17 23:21> Date of Encounter: 10/05/17 Time of Encounter: 20:36 Alerted by ASIA Thayer that [facility] was attempting to get a hold of me regarding patient's GI bleed scan and nuclear medicine report. Called [facility] and spoke w/Dr. Fishman to discuss active GI bleeding from the sigmoid colon which he felt was most likely a diverticular bleed in origin due to extensive presence of diverticula. Reported and accumulation of radiotracer activity in the area of the sigmoid colon that progressed up into the ascending colon and rectum consistent with an area of active extravasation consistent w/ pts. current status. Discussed results w/Dr. Cerna who admitted the pt. Consult to Surgery ordered and discussed by Dr. Sterling in ED. Pt. currently NPO. Patient was typed and screened today with blood type AB+ antibody screen negative. 2 units PRBCs ordered with 1 transfuse and 1 currently transfusing. Hgb at 12:39 7.8, 7.9 at 15:48, and 8.8 at 20:28. Timed H/H ordered Q4HR. Pt. to be monitored closely overnight. <Diane Cerna - Last Filed: 10/06/17 15:40> Date of Encounter: 10/05/17 I performed a history and physical exam of the patient and discussed his management with the CASEWORKER. I reviewed the development writer note and agree with the documented findings and plan of care
[2017-10-05] MEDS: Eucerin Cream 57 GM TUBE TP SCH (23:26)
[2017-10-05 23:45] LABS: Hematocrit 25.4 % (37.5-50.1); Hemoglobin 8.5 g/dL (12.9-16.9)
[2017-10-06] MEDS: Artificial Tears SOLN 15 ML BOTTLE BOTH EYES SCH ×5 (04:15→20:09)
[2017-10-06] MEDS: Pantoprazole 40 MG in 0.9 % Sodium Chloride Mini Bag 100 ML IVC SCH ×6 (04:30→21:51)
[2017-10-06 05:31] LABS: Basophils % 0.5 %; Eosinophils # 0.1 K/mcL (0.0-0.6); Eosinophils % 0.8 %; Hematocrit 27.6 % (37.5-50.1); Hemoglobin 9.4 g/dL (12.9-16.9); Immature Granulocytes % 0.3 % (0-4); Lymphocytes # 1.7 K/mcL (0.6-4.6); Lymphocytes % 22.6 %; Mean Corpuscular HGB Conc 34.1 g/dL (31.6-35.5); Mean Corpuscular Hemoglobin 30.7 pg (28.0-33.3); Mean Corpuscular Volume 90.2 fL (83.0-100.0); Mean Platelet Volume 10.1 fL (9.4-12.4); Monocytes # 0.5 K/mcL (0.0-1.3); Platelet Count 194 K/mcL (140-400); Red Blood Count 3.06 M/mcL (4.19-5.50); Red Cell Distribution Width 13.6 % (11.5-14.5); Segmented Neutrophils % 68.8 %
--- NOTE | 2017-10-06 07:36 | General Surgery Progress Note ---
Date of Encounter: 10/06/17 Time of Encounter: 07:34 - Assessment and Plan (1) Lower GI bleed Current Visit: No Status: Acute The patient completed his bowel prep yesterday evening. Will proceed with a colonoscopy with MAC this am. Discussed with the patient and he agrees to the above plan. Subjective Patient reports: other (The patient denies any abdominal pain. Noted dark liquid stools. Bleeding scan from last night positive for likely sigmoid bleed. ) Objective Vital Signs - Last 8 Hours Temp Pulse Resp BP Pulse Ox 10/06/17 07:23 97.8 F 70 17 115/69 97 10/06/17 06:09 97.3 F L 77 15 113/72 100 10/06/17 01:32 98.6 F 90 17 93/62 97 10/06/17 01:18 97.8 F 102 16 94/66 98 Intake and Output 10/05/17 10/05/17 10/06/17 15:59 23:59 07:59 Intake Total 0 / 0 450 / 450 800 / 800 Output Total 300 / 300 Balance 0 / 0 450 / 450 500 / 500 Intake: IV Fluids 100 / 100 100 / 100 Protonix 40 MG In 0.9 % Sodium 100 / 100 100 / 100 Chloride (Mini-Bag +) 100 ML @ 20 mls/hr IVC .Q5H [facility] Rx#: [id number] Oral 0 / 0 350 / 350 Blood Product 0 / 0 350 / 350 350 / 350 Rbcs Leuko Poor As-1 Unit 0 / 0 350 / 350 [id number] Rbcs Leuko Poor As-1 Unit 0 / 0 350 / 350 [id number] Output: Urine 300 / 300 Other: Stool Size Large Moderate Stool Consistency loose Stool Characteristics Tarry Stool Color Bright Red Blood Brown # Voids 1 # Bowel Movements 1 # Bowel Movement Diapers 1 Weight 60.6 kg Blood Glucose* 173 223 Patient Weight 10/06/17 23:59 Weight 60.6 kg - General physical appearance no distress - Abdomen Abdomen: Present: soft, non tender - Labs 10/06/17 05:12 10/05/17 12:39 - VTE Reasons for not Prescribing Prophylaxis: Medical contraindication Consult Discharge Plan - Plan [facility]errals: [facility] [Primary Care Provider] -
--- NOTE | 2017-10-06 07:57 | Anesthesia Evaluation PreOp ---
Date of Encounter: 10/06/17 Time of Encounter: 09:25 - Past History Planned Operation: colonoscopy Cardiac History: HTN, Hyperlipidemia, Arrhythmia (hx of A-fib, controlled on meds), Other (Anemia) Pulmonary History: Smoker [employer] History: Other (dementia but answers questions appropriately, Glaucoma) Other Medical History: Diabetes Type II, GERD Anesthesia History: No Prior Anesthetic Complications, Past Anesthesia (EGD/ colonoscopy 3-18) Alcohol Use: none Drug use: none Medications and Allergies Ascorbic Acid [Vitamin C] 500 mg PO BID 01/09/16 [History] Budesonide/Formoterol 160/4.5 [Symbicort 160/4.5] 2 puff IH BIDR 01/09/16 [ History] Latanoprost [Xalatan] 1 drop BOTH EYES HS 01/09/16 [History] Lisinopril [Zestril] 20 mg PO BID 01/09/16 [History] Mirtazapine [Remeron] 15 mg PO HS 01/09/16 [History] Nitroglycerin [Nitrostat] 0.4 mg SL Q5M PRN 01/09/16 [History] Oxybutynin [Ditropan] 5 mg PO TID 01/09/16 [History] Polyvinyl Alcohol [Artificial Tears] 2 drop BOTH EYES QID 01/09/16 [History] Sennosides/Docusate Sodium [Senna Plus] 2 tab PO DAILY 01/09/16 [History] Ferrous Sulfate [Iron] 325 mg PO BID 10/02/16 [History] Potassium Chloride [Klor-Con] 20 meq PO DAILY 10/02/16 [History] Diltiazem CD (24hr) [Cardizem CD] 120 mg PO DAILY #30 cap.er.24h 10/05/16 [Rx] Metoprolol [Lopressor] 12.5 mg PO BID 30 Days tablet 10/05/16 [Rx] Acetaminophen [Tylenol] 650 mg PO BID 07/16/17 [History] Bisacodyl [Dulcolax] 10 mg RC DAILY PRN 07/16/17 [History] Eucerin Creme 1 appl TP BID 07/16/17 [History] Haloperidol [Haldol] 1.5 mg PO BID 07/16/17 [History] Omeprazole [PriLOSEC] 40 mg PO DAILY@0630 capsule. 07/23/17 [Rx] Calcium Carbonate/Vitamin D3 [Calcium 500 + Vit D Caplet] 1 tab PO BID 10/05/17 [History] traZODone [TraZODone] 50 mg PO HS 10/05/17 [History] 3 Allergy/AdvReac Type Severity Reaction Status Date / Time clonazepam Allergy Rash Verified 10/01/16 21:14 - Meds/Allergy Pre-op Review Medications Reviewed: Yes Allergies Reviewed: Yes Beta Blockers on Current Med List: Yes If Beta Blockers taken, Date/Time (Last Dose taken): has been held Anesthesia Results - Labs 10/06/17 05:12 10/05/17 12:39 Anesthesia Exam Selected Entries 10/06/17 07:23 Temperature 97.8 F Pulse Rate 70 Blood Pressure 115/69 Blood Pressure Position HOB Elevated O2 Sat by Pulse Oximetry 97 Oxygen Delivery Method Room Air Weight: 61kg NPO (# of Hours): 8 - HEENT Pupil (Motor): EOMI Mallampati: II Teeth: Edentulous Oral Opening: Greater than 3 - [employer] LOC: Oriented [employer] Motor: Normal RUE, Normal LUE, Normal RLE, Normal LLE, Normal Face [employer] Sensory: Normal: RUE, LUE, RLE, LLE, Face - Cardiac Rhythm: Regular Murmur: None - Pulmonary Breath Sounds: bilateral Clear Respiratory Effort: Symmetrical Anesthesia Assess/Plan ASA Score: 3 Modified Cheryl Scale for Level of Consciousness: Cooperative, oriented, and tranquil Anesthetic Plan: MAC Monitoring Plan: Standard Monitors Recovery Plan: PACU (agrees to MAC)
[2017-10-06] MEDS: Budesonide/Formoterol 160/4.5 MDI IH SCH ×2 (08:56→20:28)
[2017-10-06] MEDS ORDERED: Diltiazem CD (24hr) 120 MG CAPSULE PO SCH (09:00)
[2017-10-06] MEDS ORDERED: Sennosides/Docusate Sodium TABLET PO SCH (09:00)
[2017-10-06] MEDS ORDERED: Propofol 500 MG/50 ML INFUS..BTL ONE (09:31)
--- NOTE | 2017-10-06 10:40 | Event Note ---
Date of Encounter: 10/06/17 Time of Encounter: 10:39 Colonoscopy performed. Old hematin/black liquid stool. No active bleeding identified. Noted diverticulum throughout the entire colon. Small polyp in the cecum-removed. Recommend advance diet. Follow CBC. Will follow from a distance; thank you.
[2017-10-06] MEDS ORDERED: Bisacodyl 10 MG RECTAL SUPPOSITORY RC PRN (10:59)
[2017-10-06] MEDS ORDERED: Nitroglycerin 0.4 MG TAB.SUBL SL PRN (10:59)
[2017-10-06] MEDS: 0.9 % Sodium Chloride 1,000 ML IVC SCH ×2 (11:18→11:45)
[2017-10-06] MEDS: Eucerin Cream 57 GM TUBE TP SCH ×2 (11:46→20:10)
[2017-10-06] MEDS: Ascorbic Acid 500 MG TABLET PO SCH ×2 (11:48→20:05)
[2017-10-06] MEDS: Acetaminophen 325 MG TABLET PO SCH ×2 (11:48→20:06)
[2017-10-06] MEDS: Lisinopril 20 MG TABLET PO SCH ×2 (11:48→20:07)
--- NOTE | 2017-10-06 12:16 | Internal Med Progress Note ---
Date of Encounter: 10/06/17 Time of Encounter: 12:13 - Assessment and plan (1) Acute blood loss anemia Current Visit: Yes Status: Acute Assessment and plan: secondary to GIB Baseline Hb is 8.8-9 Patient admitted with hb of 7.8 with BRBPR s/p 2 units RBC Hb stable at 9 Continue to monitor (2) GI bleed Current Visit: Yes Status: Acute Assessment and plan: Due to diverticular bleed Colonoscopy report noted Per surgery,patient may be fed advance diet as tolerated Continue to monitor Qualifiers: GI bleed type/associated pathology: anorectal hemorrhage Qualified Code(s) : K62.5 - Hemorrhage of anus and rectum (3) DVT prophylaxis Current Visit: Yes Status: Acute Assessment and plan: SCDs (4) Dementia Current Visit: Yes Status: Chronic Assessment and plan: continue home meds Qualifiers: Dementia type: unspecified type Dementia behavioral disturbance: without behavioral disturbance Qualified Code(s): F03.90 - Unspecified dementia without behavioral disturbance (5) Diabetes mellitus Current Visit: Yes Status: Chronic Assessment and plan: Not on insulin Check A1C am Monitor FS ACHS Sliding scale Qualifiers: Diabetes mellitus type: type 2 Diabetes mellitus senior care insulin use: without senior care use Diabetes mellitus complication status: without complication Qualified Code(s): E11.9 - Type 2 diabetes mellitus without complications (6) Hypertension Current Visit: Yes Status: Chronic Assessment and plan: continue current meds Qualifiers: Hypertension type: essential hypertension Qualified Code(s): I10 - Essential (primary) hypertension (7) Atrial fibrillation Current Visit: Yes Status: Chronic Assessment and plan: Not on A/C Continue cardizem Qualifiers: Atrial fibrillation type: paroxysmal Qualified Code(s): I48.0 - Paroxysmal atrial fibrillation - Time Spent With Patient Total time spent is greater than 50% in coordination of care (as documented) at patient's floor/unit and/or counseling patient: - Subjective Interval history: Seen and evaluated at the bedside 87 M with chronic anemia,admitted and being managed for acute on chronic anemia due to suspected diverticuar bleed s/p colonoscopy-many large-mouthed divertclua, hematin 9alteredblood/coffee ground-likematerial in entire colon), no evidence of acute bleeding, 3mm polyp He has no new complains Hemodynamically stable Hb stable at 9 s/p 2 units RBC - Constitutional Vitals: Temp Pulse Resp BP Pulse Ox 97.8 F 86 18 146/79 95 10/06/17 10:11 10/06/17 11:31 10/06/17 11:31 10/06/17 11:31 10/06/17 11:31 General appearance: Present: A&O X 3, no acute distress - Head Head exam: Present: atraumatic, normocephalic - Eye Eye exam: Present: PERRL, conjuntiva pink, sclera anicteric Pupils: Present: PERRL - Neck Neck exam general surgery: Present: supple, trachea midline. Absent: lymphadenopathy - Respiratory Respiratory exam: Present: CTAB. Absent: accessory muscle use, rales, rhonchi, wheezes - Cardiovascular Cardiovascular exam: Present: RRR, +S1, +S2. Absent: diastolic murmur, gallop, rubs, systolic murmur - GI/Abdominal GI/Abdominal exam: Present: normal bowel sounds, soft, no peritoneal signs. Absent: distended, tenderness - Extremities Exam Extremities exam: Present: warm, radial pulses palpable and symmetrical. Absent : calf tenderness, cyanotic, pedal edema - Neurological Exam Neurological exam: Present: alert, CN II-XII intact, oriented X3, no focal deficits. Absent: pronater drift, facial droop, speech deficit - Skin Skin exam: Present: dry, intact Internal Medicine: Result - Labs CBC & Chem 7: 10/06/17 05:12 10/05/17 12:39 Labs: Short CBC 10/05/17 10/05/17 10/05/17 Range/Units 15:48 20:28 21:55 WBC (4.3-11.1) K/mcL Hgb 7.9 L 8.8 L 8.5 L (12.9-16.9) g/dL Hct 24.1 L 26.0 L 25.4 L (37.5-50.1) % Plt Count (140-400) K/mcL Neutrophils # (1.6-8.9) K/mcL 10/06/17 Range/Units 05:12 WBC 7.3 (4.3-11.1) K/mcL Hgb 9.4 L (12.9-16.9) g/dL Hct 27.6 L (37.5-50.1) % Plt Count 194 (140-400) K/mcL Neutrophils # 5.0 (1.6-8.9) K/mcL - ABG Interpretation ABG results: PT/INR, D-dimer PT 12.4 Seconds (9.4-12.1) H 10/05/17 21:55 - Impressions Impressions GI Bleed Scan Nuclear Medicine 10/05/17 15:28 IMPRESSION: Active GI bleeding from the sigmoid colon, probably diverticular in origin. Findings were discussed with Alexandre Britt at 8:16 pm on 10/05/2017. D/ / 10/05/2017 21:01:13 Akash Fishman MD / miguel angel Interpreting Provider: Akash Fishman MD - VTE Reasons for not Prescribing Prophylaxis: Medical contraindication Documentation of Mechanical Device: Intermittent pneumatic compression device Consult Discharge Plan - Plan Referrals: [facility] [Primary Care Provider] -
[2017-10-06] MEDS ORDERED: D5% in Water 1,000 ML IVC PRN (12:20)
[2017-10-06] MEDS ORDERED: *HR* Dextrose 50 % in Water (Syg) 50 ML SYRINGE IVP PRN (12:20)
[2017-10-06] MEDS ORDERED: Dextrose Gel 15 GM/37.5 ML TUBE PO PRN ×2 (12:20)
[2017-10-06 13:43] LABS: Hematocrit 27.4 % (37.5-50.1); Hemoglobin 9.2 g/dL (12.9-16.9)
[2017-10-06] MEDS: Insulin LISPRO 300 UNITS/3 ML VIAL SQ SCH ×2 (16:06→21:51)
[2017-10-06] MEDS: Mirtazapine 15 MG TABLET PO SCH (20:07)
[2017-10-06] MEDS: traZODone 50 MG TABLET PO SCH (20:07)
[2017-10-06] MEDS: Latanoprost 2.5 ML BOTTLE BOTH EYES SCH (20:11)
[2017-10-07] MEDS: 0.9 % Sodium Chloride 1,000 ML IVC SCH (00:19)
[2017-10-07] MEDS: Pantoprazole 40 MG in 0.9 % Sodium Chloride Mini Bag 100 ML IVC SCH ×2 (03:15→09:01)
[2017-10-07 04:51] LABS: BUN/Creatinine Ratio 25 (6-26); Blood Urea Nitrogen 28 mg/dL (8-23); Calcium 8.3 mg/dL (8.6-10.3); Carbon Dioxide 20 mEq/L (23-29); Chloride 116 mEq/L (98-107); Glucose 104 mg/dL (70-105); Osmolality,Calculated 298 (280-300); Potassium 4.2 mEq/L (3.5-5.1); Sodium 141 mEq/L (136-145); eGFR For African Americans > 60 (> 60); eGFR For Non-African Americans > 60 (> 60)
[2017-10-07 07:33] LABS: Estimated Average Glucose 131 mg/dl; Hemoglobin A1C 6.2 %
[2017-10-07] MEDS: Insulin LISPRO 300 UNITS/3 ML VIAL SQ SCH ×4 (09:01→22:00)
[2017-10-07] MEDS: Diltiazem CD (24hr) 120 MG CAPSULE PO SCH (09:02)
[2017-10-07] MEDS: Sennosides/Docusate Sodium TABLET PO SCH (09:02)
[2017-10-07] MEDS: Acetaminophen 325 MG TABLET PO SCH ×2 (09:02→21:59)
[2017-10-07] MEDS: Lisinopril 20 MG TABLET PO SCH ×2 (09:02→21:59)
[2017-10-07] MEDS: Ascorbic Acid 500 MG TABLET PO SCH ×2 (09:02→21:58)
[2017-10-07] MEDS: Eucerin Cream 57 GM TUBE TP SCH ×2 (09:03→22:00)
[2017-10-07] MEDS: Artificial Tears SOLN 15 ML BOTTLE BOTH EYES SCH ×4 (09:03→22:03)
[2017-10-07] MEDS: Budesonide/Formoterol 160/4.5 MDI IH SCH ×2 (09:14→21:45)
--- NOTE | 2017-10-07 10:57 | Discharge Summary ---
Orders not resulted at time of discharge: Pending orders 10/06/17 10:35 Surgical Pathology [PTH] Routine Date of Encounter: 10/08/17 Time of Encounter: 11:00 - Discharge Diagnosis (1) Acute blood loss anemia Priority: Primary Status: Acute Assessment and Plan: Mr. Johnston is a 87 year old male thrombocytopenia, Afib, DM-II, HTN, and dementia. He presented with reports of seeing bright red blood in his stools. He was started on a protonix drip and carafate and surgery was consulted. He was transfused 2 units of PRBC. He had a colonoscopy done showing no active bleeding. His diet was advanced and his PPI drip was discontinued. his hemoglobin remained stable for the rest of his stay and he was discharged back to the [facility] in a stable condition. 35 minutes was spent discharging this patient (2) DVT prophylaxis Priority: Secondary Status: Acute (3) Diabetes mellitus Priority: Secondary Status: Chronic Qualifiers: Diabetes mellitus type: type 2 Diabetes mellitus detention insulin use: without roasterman use Diabetes mellitus complication status: without complication Qualified Code(s): E11.9 - Type 2 diabetes mellitus without complications (4) Hypertension Priority: Secondary Status: Chronic Qualifiers: Hypertension type: essential hypertension Qualified Code(s): I10 - Essential (primary) hypertension (5) GI bleed Priority: Secondary Status: Acute Qualifiers: GI bleed type/associated pathology: anorectal hemorrhage Qualified Code(s) : K62.5 - Hemorrhage of anus and rectum (6) Atrial fibrillation Priority: Secondary Status: Chronic Qualifiers: Atrial fibrillation type: paroxysmal Qualified Code(s): I48.0 - Paroxysmal atrial fibrillation (7) Dementia Priority: Secondary Status: Chronic Qualifiers: Dementia type: unspecified type Dementia behavioral disturbance: without behavioral disturbance Qualified Code(s): F03.90 - Unspecified dementia without behavioral disturbance Hospital course: Mr. Johnston is a 87 year old male - Time Spent with Patient Total time spent providing and/or coordinating discharge services: - Discharge Medications Home Medications: Ascorbic Acid [Vitamin C] 500 mg PO BID 01/09/16 [History] Budesonide/Formoterol 160/4.5 [Symbicort 160/4.5] 2 puff IH BIDR 01/09/16 [ History] Latanoprost [Xalatan] 1 drop BOTH EYES HS 01/09/16 [History] Lisinopril [Zestril] 20 mg PO BID 01/09/16 [History] Mirtazapine [Remeron] 15 mg PO HS 01/09/16 [History] Nitroglycerin [Nitrostat] 0.4 mg SL Q5M PRN 01/09/16 [History] Oxybutynin [Ditropan] 5 mg PO TID 01/09/16 [History] Polyvinyl Alcohol [Artificial Tears] 2 drop BOTH EYES QID 01/09/16 [History] Sennosides/Docusate Sodium [Senna Plus] 2 tab PO DAILY 01/09/16 [History] Ferrous Sulfate [Iron] 325 mg PO BID 10/02/16 [History] Potassium Chloride [Klor-Con] 20 meq PO DAILY 10/02/16 [History] Diltiazem CD (24hr) [Cardizem CD] 120 mg PO DAILY #30 cap.er.24h 10/05/16 [Rx] Metoprolol [Lopressor] 12.5 mg PO BID 30 Days tablet 10/05/16 [Rx] Acetaminophen [Tylenol] 650 mg PO BID 07/16/17 [History] Bisacodyl [Dulcolax] 10 mg RC DAILY PRN 07/16/17 [History] Eucerin Creme 1 appl TP BID 07/16/17 [History] Haloperidol [Haldol] 1.5 mg PO BID 07/16/17 [History] Omeprazole [PriLOSEC] 40 mg PO DAILY@0630 capsule. 07/23/17 [Rx] Calcium Carbonate/Vitamin D3 [Calcium 500 + Vit D Caplet] 1 tab PO BID 10/05/17 [History] traZODone [TraZODone] 50 mg PO HS 10/05/17 [History] Allergies/Adverse Reactions: 3 Allergy/AdvReac Type Severity Reaction Status Date / Time clonazepam Allergy Rash Verified 10/01/16 21:14 Date of admission: 10/05/17 14:32 [facility] care physician: [facility] - Constitutional Vitals: Temp Pulse Resp BP Pulse Ox 98 F 76 16 153/81 100 10/07/17 07:45 10/07/17 07:45 10/07/17 07:45 10/07/17 07:45 10/07/17 09:10 General appearance: Present: A&O X 3, no acute distress - Head Head exam: Present: atraumatic, normocephalic - Eye Eye exam: Present: PERRL, conjuntiva pink, sclera anicteric Pupils: Present: PERRL - Neck Neck exam general surgery: Present: supple, trachea midline. Absent: lymphadenopathy - Respiratory Respiratory exam: Present: CTAB. Absent: accessory muscle use, rales, rhonchi, wheezes - Cardiovascular Cardiovascular exam: Present: RRR, +S1, +S2. Absent: diastolic murmur, gallop, rubs, systolic murmur - GI/Abdominal GI/Abdominal exam: Present: normal bowel sounds, soft, no peritoneal signs. Absent: distended, tenderness - Extremities Exam Extremities exam: Present: warm, radial pulses palpable and symmetrical. Absent : calf tenderness, cyanotic, pedal edema - Neurological Exam Neurological exam: Present: CN II-XII intact, oriented X3, no focal deficits. Absent: pronater drift, facial droop, speech deficit - Skin Skin exam: Present: dry, intact - Patient Status Disposition: Transfer SNF Condition: Undetermined - Discharge Instructions Follow Up With: [facility] - ([facility] inpatient) - [facility] Reasons for not Prescribing Prophylaxis: Medical contraindication Documentation of Mechanical Device: Intermittent pneumatic compression device
--- NOTE | 2017-10-07 13:53 | Internal Med Progress Note ---
Date of Encounter: 10/07/17 Time of Encounter: 10:30 - Assessment and plan (1) Acute blood loss anemia Current Visit: Yes Status: Acute Assessment and plan: secondary to GIB Baseline Hb is 8.8-9 Patient admitted with hb of 7.8 with BRBPR s/p 2 units RBC Hb stable at 9. Pt is s/p colonscopy with no acute pathology noted. Hemglobin stable. Plan for discharge to [place] once bed is available (2) DVT prophylaxis Current Visit: Yes Status: Acute Assessment and plan: SCDs (3) Diabetes mellitus Current Visit: Yes Status: Chronic Assessment and plan: Not on insulin Check A1C am Monitor FS ACHS Sliding scale Qualifiers: Diabetes mellitus type: type 2 Diabetes mellitus branch administrator insulin use: without branch administrator use Diabetes mellitus complication status: without complication Qualified Code(s): E11.9 - Type 2 diabetes mellitus without complications (4) Hypertension Current Visit: Yes Status: Chronic Assessment and plan: continue current meds Qualifiers: Hypertension type: essential hypertension Qualified Code(s): I10 - Essential (primary) hypertension (5) GI bleed Current Visit: Yes Status: Acute Assessment and plan: Due to diverticular bleed Colonoscopy report noted Per surgery,patient may be fed advance diet as tolerated Continue to monitor Qualifiers: GI bleed type/associated pathology: anorectal hemorrhage Qualified Code(s) : K62.5 - Hemorrhage of anus and rectum (6) Atrial fibrillation Current Visit: Yes Status: Chronic Assessment and plan: Not on A/C Continue cardizem Qualifiers: Atrial fibrillation type: paroxysmal Qualified Code(s): I48.0 - Paroxysmal atrial fibrillation (7) Dementia Current Visit: Yes Status: Chronic Assessment and plan: continue home meds Qualifiers: Dementia type: unspecified type Dementia behavioral disturbance: without behavioral disturbance Qualified Code(s): F03.90 - Unspecified dementia without behavioral disturbance - Time Spent With Patient Total time spent is greater than 50% in coordination of care (as documented) at patient's floor/unit and/or counseling patient: - Subjective Interval history: No acute events overnight - Constitutional Vitals: Temp Pulse Resp BP Pulse Ox 98.4 F 61 17 121/73 100 10/07/17 11:41 10/07/17 11:41 10/07/17 11:41 10/07/17 11:41 10/07/17 11:41 General appearance: Present: A&O X 3, no acute distress - Head Head exam: Present: atraumatic, normocephalic - Eye Eye exam: Present: PERRL, conjuntiva pink, sclera anicteric Pupils: Present: PERRL - Neck Neck exam general surgery: Present: supple, trachea midline. Absent: lymphadenopathy - Respiratory Respiratory exam: Present: CTAB. Absent: accessory muscle use, rales, rhonchi, wheezes - Cardiovascular Cardiovascular exam: Present: RRR, +S1, +S2. Absent: diastolic murmur, gallop, rubs, systolic murmur - GI/Abdominal GI/Abdominal exam: Present: normal bowel sounds, soft, no peritoneal signs. Absent: distended, tenderness - Extremities Exam Extremities exam: Present: warm, radial pulses palpable and symmetrical. Absent : calf tenderness, cyanotic, pedal edema - Neurological Exam Neurological exam: Present: CN II-XII intact, oriented X3, no focal deficits. Absent: pronater drift, facial droop, speech deficit - Skin Skin exam: Present: dry, intact Internal Medicine: Result - Labs CBC & Chem 7: 10/06/17 13:28 10/07/17 04:15 Labs: BMP 10/07/17 04:15 Sodium 141 Potassium 4.2 Chloride 116 H Carbon Dioxide 20 L BUN 28 H Creatinine 1.12 Glucose 104 Calcium 8.3 L - ABG Interpretation ABG results: PT/INR, D-dimer PT 12.4 Seconds (9.4-12.1) H 10/05/17 21:55 - VTE Reasons for not Prescribing Prophylaxis: Medical contraindication Documentation of Mechanical Device: Intermittent pneumatic compression device Consult Discharge Plan - Plan [facility] Care Provider[facility] -
[2017-10-07] MEDS: Mirtazapine 15 MG TABLET PO SCH (21:59)
[2017-10-07] MEDS: traZODone 50 MG TABLET PO SCH (21:59)
[2017-10-07] MEDS: Latanoprost 2.5 ML BOTTLE BOTH EYES SCH (22:03)
[2017-10-08] MEDS: Budesonide/Formoterol 160/4.5 MDI IH SCH (08:00)
[2017-10-08] MEDS: Sennosides/Docusate Sodium TABLET PO SCH (08:16)
[2017-10-08] MEDS: Diltiazem CD (24hr) 120 MG CAPSULE PO SCH (08:17)
[2017-10-08] MEDS: Lisinopril 20 MG TABLET PO SCH (08:17)
[2017-10-08] MEDS: Ascorbic Acid 500 MG TABLET PO SCH (08:17)
[2017-10-08] MEDS: Acetaminophen 325 MG TABLET PO SCH (08:18)
[2017-10-08] MEDS: Artificial Tears SOLN 15 ML BOTTLE BOTH EYES SCH (08:20)
[2017-10-08] MEDS: Eucerin Cream 57 GM TUBE TP SCH (08:20)
[2017-10-08] MEDS: Insulin LISPRO 300 UNITS/3 ML VIAL SQ SCH ×2 (08:22→10:59)
[2017-10-08 10:50] VITALS: BP 130/65
--- NOTE | 2017-10-08 11:28 | Internal Med Progress Note ---
Date of Encounter: 10/08/17 Time of Encounter: 11:30 - Assessment and plan (1) Acute blood loss anemia Current Visit: Yes Status: Acute Assessment and plan: secondary to GIB Baseline Hb is 8.8-9 Patient admitted with hb of 7.8 with BRBPR s/p 2 units RBC Hb stable at 9 Continue to monitor. Pt is s/p colonscopy with no acute pathology noted. Hemglobin stable. 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 insulin use: without nursing home use Diabetes mellitus complication status: without complication Qualified Code(s): E11.9 - Type 2 diabetes mellitus without complications (4) Hypertension Current Visit: Yes Status: Chronic Assessment and plan: continue current meds Qualifiers: Hypertension type: essential hypertension Qualified Code(s): I10 - Essential (primary) hypertension (5) GI bleed Current Visit: Yes Status: Acute Assessment and plan: Due to diverticular bleed Colonoscopy report noted Per surgery,patient may be fed advance diet as tolerated Continue to monitor Qualifiers: GI bleed type/associated pathology: anorectal hemorrhage Qualified Code(s) : K62.5 - Hemorrhage of anus and rectum (6) Atrial fibrillation Current Visit: Yes Status: Chronic Assessment and plan: Not on A/C Continue cardizem Qualifiers: Atrial fibrillation type: paroxysmal Qualified Code(s): I48.0 - Paroxysmal atrial fibrillation (7) Dementia Current Visit: Yes Status: Chronic Assessment and plan: continue home meds Qualifiers: Dementia type: unspecified type Dementia behavioral disturbance: without behavioral disturbance Qualified Code(s): F03.90 - Unspecified dementia without behavioral disturbance - Time Spent With Patient Total time spent is greater than 50% in coordination of care (as documented) at patient's floor/unit and/or counseling patient: - Subjective Interval history: No acute events overnight - Constitutional Vitals: Temp Pulse Resp BP Pulse Ox 97.7 F 62 16 130/65 99 10/08/17 10:48 10/08/17 10:48 10/08/17 10:48 10/08/17 10:48 10/08/17 10:48 General appearance: Present: A&O X 3, no acute distress - Head Head exam: Present: atraumatic, normocephalic - Eye Eye exam: Present: PERRL, conjuntiva pink, sclera anicteric Pupils: Present: PERRL - Neck Neck exam general surgery: Present: supple, trachea midline. Absent: lymphadenopathy - Respiratory Respiratory exam: Present: CTAB. Absent: accessory muscle use, rales, rhonchi, wheezes - Cardiovascular Cardiovascular exam: Present: RRR, +S1, +S2. Absent: diastolic murmur, gallop, rubs, systolic murmur - GI/Abdominal GI/Abdominal exam: Present: normal bowel sounds, soft, no peritoneal signs. Absent: distended, tenderness - Extremities Exam Extremities exam: Present: warm, radial pulses palpable and symmetrical. Absent : calf tenderness, cyanotic, pedal edema - Neurological Exam Neurological exam: Present: CN II-XII intact, oriented X3, no focal deficits. Absent: pronater drift, facial droop, speech deficit - Skin Skin exam: Present: dry, intact Internal Medicine: Result - Labs CBC & Chem 7: 10/06/17 13:28 10/07/17 04:15 - ABG Interpretation ABG results: PT/INR, D-dimer PT 12.4 Seconds (9.4-12.1) H 10/05/17 21:55 - Impressions Impressions GI Bleed Scan Nuclear Medicine 10/05/17 15:28 IMPRESSION: Active GI bleeding from the sigmoid colon, probably diverticular in origin. Findings were discussed with Alexandre Britt at 8:16 pm on 10/05/2017. D/ / 10/05/2017 21:01:13 Akash Fishman MD / miguel angel Interpreting Provider: Akash Fishman MD - VTE Reasons for not Prescribing Prophylaxis: Medical contraindication Documentation of Mechanical Device: Intermittent pneumatic compression device Consult Discharge Plan - Plan [facility]errals: [facility] [[facility] Care Provider[facility] - ([place] inpatient)
--- NOTE | 2017-10-08 11:49 | Physician Discharge Referral ---
- Diagnosis (1) Acute blood loss anemia Priority: Primary Status: Acute (2) DVT prophylaxis Status: Acute (3) Diabetes mellitus Status: Chronic (4) Hypertension Status: Chronic (5) GI bleed Status: Acute (6) Atrial fibrillation Status: Chronic (7) Dementia Status: Chronic - Transfer Medications Home Medications: Ascorbic Acid [Vitamin C] 500 mg PO BID 01/09/16 [History] Budesonide/Formoterol 160/4.5 [Symbicort 160/4.5] 2 puff IH BIDR 01/09/16 [ History] Latanoprost [Xalatan] 1 drop BOTH EYES HS 01/09/16 [History] Lisinopril [Zestril] 20 mg PO BID 01/09/16 [History] Mirtazapine [Remeron] 15 mg PO HS 01/09/16 [History] Nitroglycerin [Nitrostat] 0.4 mg SL Q5M PRN 01/09/16 [History] Oxybutynin [Ditropan] 5 mg PO TID 01/09/16 [History] Polyvinyl Alcohol [Artificial Tears] 2 drop BOTH EYES QID 01/09/16 [History] Sennosides/Docusate Sodium [Senna Plus] 2 tab PO DAILY 01/09/16 [History] Ferrous Sulfate [Iron] 325 mg PO BID 10/02/16 [History] Potassium Chloride [Klor-Con] 20 meq PO DAILY 10/02/16 [History] Diltiazem CD (24hr) [Cardizem CD] 120 mg PO DAILY #30 cap.er.24h 10/05/16 [Rx] Metoprolol [Lopressor] 12.5 mg PO BID 30 Days tablet 10/05/16 [Rx] Acetaminophen [Tylenol] 650 mg PO BID 07/16/17 [History] Bisacodyl [Dulcolax] 10 mg RC DAILY PRN 07/16/17 [History] Eucerin Creme 1 appl TP BID 07/16/17 [History] Haloperidol [Haldol] 1.5 mg PO BID 07/16/17 [History] Omeprazole [PriLOSEC] 40 mg PO DAILY@0630 capsule. 07/23/17 [Rx] Calcium Carbonate/Vitamin D3 [Calcium 500 + Vit D Caplet] 1 tab PO BID 10/05/17 [History] traZODone [TraZODone] 50 mg PO HS 10/05/17 [History] Allergies/Adverse Reactions: 3 Allergy/AdvReac Type Severity Reaction Status Date / Time clonazepam Allergy Rash Verified 10/01/16 21:14 - Respiratory Orders Smoking Cessation: Smoking cessation has been advised. For more information, call the [place] Tobacco Quit Line at 0-976-GCFN-NOW. - Mobility Orders Ambulate - Rehabiliation Orders Rehab Potential: Good - Diet Orders Cardiac CERTIFICATION: I certify that the transfer of the above named patient to an Extended Care Facility is necessary for the continuing treatment of the diagnosis listed. The above information is true and accurate reflection of patient's current condition. Confidential - Redisclosure prohibited without a patient's written consent.
== END 2017-10-08 13:17 | DRG 378 ==
LOC: 2ANU 12:02 → EMEROO 12:02 → 2ANU 14:50
PROVIDERS: ADMIT Internal Medicine; ATTEND Family Medicine

== ENCOUNTER 2018-07-19 16:37 | Inpatient (IN) ==
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
[2018-07-19 17:45] LABS: Basophils % 0.6 %; Eosinophils # 0.5 K/mcL (0.0-0.6); Eosinophils % 7.7 %; Hematocrit 26.2 % (37.5-50.1); Hemoglobin 8.5 g/dL (12.9-16.9); Immature Granulocytes % 0.1 % (0-4); Lymphocytes # 1.7 K/mcL (0.6-4.6); Lymphocytes % 25.5 %; Mean Corpuscular HGB Conc 32.4 g/dL (31.6-35.5); Mean Corpuscular Hemoglobin 31.8 pg (28.0-33.3); Mean Corpuscular Volume 98.1 fL (83.0-100.0); Mean Platelet Volume 9.3 fL (9.4-12.4); Monocytes # 0.5 K/mcL (0.0-1.3); Monocytes % 7.2 %; Platelet Count 293 K/mcL (140-400); Red Blood Count 2.67 M/mcL (4.19-5.50); Red Cell Distribution Width 12.5 % (11.5-14.5); Segmented Neutrophils % 58.9 %
[2018-07-19 17:55] LABS: BUN/Creatinine Ratio 16 (6-26); Blood Urea Nitrogen 15 mg/dL (8-23); Calcium 9.1 mg/dL (8.6-10.3); Carbon Dioxide 27 mEq/L (23-29); Chloride 110 mEq/L (98-107); Glucose 108 mg/dL (70-105); Osmolality,Calculated 291 (280-300); Potassium 4.2 mEq/L (3.5-5.1); Sodium 140 mEq/L (136-145); eGFR For Non-African Americans > 60 (> 60)
--- NOTE | 2018-07-19 18:09 | Emergency Department Note ---
Disposition Clinical Impression: Wet gangrene Disposition: Admitted As Inpatient Forms: ED Satisfaction Letter General Adult HPI - General Chief complaint: ED Extremity Problem,Nontraumatic Stated complaint: Foot problem Time Seen by Provider: 07/19/18 16:40 Source: EMS Limitations: age - History of Present Illness Pain Scale: 3 - Related Data Home Medications Medication Instructions Recorded Confirmed Ascorbic Acid [Vitamin C] 500 mg PO BID 01/09/16 07/03/18 Budesonide/Formoterol 160/4.5 2 puff IH BIDR 01/09/16 07/03/18 [Symbicort 160/4.5] Latanoprost [Xalatan] 1 drop BOTH EYES HS 01/09/16 07/03/18 Lisinopril [Zestril] 20 mg PO BID 01/09/16 07/03/18 Mirtazapine [Remeron] 15 mg PO HS 01/09/16 07/03/18 Nitroglycerin [Nitrostat] 0.4 mg SL Q5M PRN 01/09/16 07/03/18 Oxybutynin [Ditropan] 5 mg PO TID 01/09/16 07/03/18 Polyvinyl Alcohol [Artificial 2 drop BOTH EYES QID 01/09/16 07/03/18 Tears] Sennosides/Docusate Sodium [Senna 2 tab PO DAILY 01/09/16 07/03/18 Plus] Ferrous Sulfate [Iron] 325 mg PO BID 10/02/16 07/03/18 Potassium Chloride [Klor-Con] 20 meq PO DAILY 10/02/16 07/03/18 Acetaminophen [Tylenol] 650 mg PO BID 07/16/17 07/03/18 Bisacodyl [Dulcolax] 10 mg RC DAILY PRN 07/16/17 07/03/18 traZODone [TraZODone] 50 mg PO HS 10/05/17 07/03/18 Gabapentin [Neurontin] 100 mg PO TID 07/03/18 07/03/18 Multivit-Min/FA/Lycopen/Lutein 1 each PO DAILY 07/03/18 07/03/18 [Adults 50 Plus Multivitamin] Previous Rx's Medication Instructions Recorded Diltiazem CD (24hr) [Cardizem CD] 120 mg PO DAILY #30 cap.er.24h 10/05/16 Metoprolol [Lopressor] 12.5 mg PO BID 30 Days tablet 10/05/16 Omeprazole [PriLOSEC] 40 mg PO DAILY@0630 capsule. 07/23/17 Acetaminophen [Tylenol] 1,000 mg PO Q6HR PRN #90 tablet 07/03/18 Aspirin Enteric Coated [Aspirin EC] 81 mg PO DAILY #90 tablet. 07/03/18 Clopidogrel [Plavix] 75 mg PO DAILY #30 tablet 07/03/18 Allergies Allergy/AdvReac Type Severity Reaction Status Date / Time clonidine Allergy Rash Verified 07/03/18 06:49 Past Medical History - Past Medical History Medical history: Reports: arthritis, atrial fibrillation, dementia, diabetes, GERD, glaucoma, hyperlipidemia, hypertension Surgical history: Reports: no surgical history, other Psychiatric history: Reports: depression - Social History Smoking Status: Current every day smoker Smokeless Tobacco Status: No Alcohol use: Reports: none Drug use: Reports: none Physical Exam - General Limitations: age General appearance: alert, in no apparent distress Course Vital Signs Temperature 98.5 F 07/19/18 16:48 Pulse Rate 63 07/19/18 16:48 Respiratory Rate 16 07/19/18 16:48 Blood Pressure 131/59 07/19/18 16:48 O2 Sat by Pulse Oximetry 99 07/19/18 16:48 Temperature 98.5 F 07/19/18 16:48 Pulse Rate 63 07/19/18 16:48 Respiratory Rate 16 07/19/18 16:48 Blood Pressure 131/59 07/19/18 16:48 O2 Sat by Pulse Oximetry 99 07/19/18 16:48 Oxygen Delivery Oxygen Delivery Room Air Medical Decision Making - Lab Data Result diagrams: 07/19/18 17:22 07/19/18 17:22 Lab Results 07/19/18 07/19/18 07/19/18 Range/Units 17:22 17:22 17:22 WBC 6.7 (4.3-11.1) K/mcL RBC 2.67 L (4.19-5.50) M/mcL Hgb 8.5 L (12.9-16.9) g/dL Hct 26.2 L (37.5-50.1) % MCV 98.1 (83.0-100.0) fL MCH 31.8 (28.0-33.3) pg MCHC 32.4 (31.6-35.5) g/dL RDW 12.5 (11.5-14.5) % Plt Count 293 (140-400) K/mcL MPV 9.3 L (9.4-12.4) fL Immature Gran % 0.1 (0-4) % Seg Neutrophils % 58.9 % Lymphocytes % 25.5 % Monocytes % 7.2 % Eosinophils % 7.7 % Basophils % 0.6 % Neutrophils # 4.0 (1.6-8.9) K/mcL Lymphocytes # 1.7 (0.6-4.6) K/mcL Monocytes # 0.5 (0.0-1.3) K/mcL Eosinophils # 0.5 (0.0-0.6) K/mcL Basophils # 0.0 (0.0-0.2) K/mcL Sodium 140 (136-145) mEq/L Potassium 4.2 (3.5-5.1) mEq/L Chloride 110 H (98-107) mEq/L Carbon Dioxide 27 (23-29) mEq/L BUN 15 (8-23) mg/dL Creatinine 0.96 (0.70-1.30) mg/dL Est GFR ( Amer) > 60 (> 60) Est GFR (Non-Af Amer) > 60 (> 60) BUN/Creatinine Ratio 16 (6-26) Glucose 108 H (70-105) mg/dL Calculated Osmolality 291 (280-300) Lactic Acid 1.6 (0.5-2.2) mmol/L Calcium 9.1 (8.6-10.3) mg/dL Attestation Statement - Attestation Attestation: I examined this patient and my medical decision-making was reviewed with the Resident Physician. I agree with the documented findings, disposition and treatment plan as described except to the extent set forth below. 88 year old male presents to the ED with complaints of right second toe pain and it appears that ther is wet gangrene to the toe wihtout osteo found on XR. [facility] and [facility] appears to streaking up the crease of bottom of hte MTPs. patinet has IV ABX started now and will be admitted to medicine with podiatry consult.
[2018-07-19] MEDS ORDERED: Cefepime HCl 1,000 MG in 0.9 % Sodium Chloride Mini Bag 100 ML IVPB STA (18:14)
[2018-07-19] MEDS ORDERED: Piperacillin/Tazobactam 3.375 GM in 0.9 % Sodium Chloride Mini Bag 100 ML IVPB ONE (18:22)
[2018-07-20] MEDS ORDERED: Naloxone 0.4 MG/ML INJ IVP PRN (06:28)
--- NOTE | 2018-07-20 07:20 | Internal Med History&Physical ---
Date of Encounter: 07/20/18 Time of Encounter: 05:45 Internal Medicine - H&P: HPI Chief complaint: Gangrene Admitted From: Emergency Dept Plans for Post Hospital Care: Home History of present illness: Mr. Johnston is a 88 year old male Patient presented to the ER from the [place] [facility] for right second toe infection. Patient is poor historian, history obtained from [facility] records sent with patient as well as ER documentation. He has been dealing with this wound for several months, and it has become malodorous and increasingly the toe has become dark. He had an angioplasty done on the right lower extremity as well, and was to follow up with Dr. Nichols next month. The [place] contacted Dr. Nichols's office and recommended he go to the ER for further evaluation. In the ER The patient's initial vitals were within normal limits. CBC showed a white count of 6.7, stable hemoglobin of 8.5 compared to previous. BMP was within normal limits. Lactic acid was 1.6. A right foot x-ray showed no radiographic evidence of osteomyelitis. The ER contacted podiatry, Dr. Lucas who agreed to see the patient in the morning. Blood cultures were drawn, and he was started on vancomycin, zosyn and cefepime. He was sent to the hospital floor for further management. Upon my evaluation patient was resting comfortably in the hospital bed in no acute distress. He denies chest pain, abdominal pain, nausea, vomiting, diar andrea, constipation, and shortness of breath. He did state that he had pain in his right foot. According to his [facility] paperwork which I reviewed he is a full code. Patient unable to give family history, and no documentation of this previous in paperwork that I reviewed. Past Med Surg Social Fam HX - Past Medical History Medical history: arthritis, atrial fibrillation, dementia, diabetes, GERD, glaucoma, hyperlipidemia, hypertension Additional medical history: pt poor historian no information sent from [facility] Psychiatric history: depression - Past Surgical History Surgical History: no surgical history, other - Social History Smoking Status: Current every day smoker Smokeless Tobacco Status: No Alcohol use: none Drug use: none Internal Medicine - H&P: Meds Ascorbic Acid [Vitamin C] 500 mg PO BID 01/09/16 [History] Budesonide/Formoterol 160/4.5 [Symbicort 160/4.5] 2 puff IH BIDR 01/09/16 [History] Latanoprost [Xalatan] 1 drop BOTH EYES HS 01/09/16 [History] Lisinopril [Zestril] 10 mg PO BID MDD HOLD FOR SBP<110 01/09/16 [History] Mirtazapine [Remeron] 15 mg PO HS 01/09/16 [History] Nitroglycerin [Nitrostat] 0.4 mg SL Q5M PRN 01/09/16 [History] Oxybutynin [Ditropan] 5 mg PO TID 01/09/16 [History] Polyvinyl Alcohol [Artificial Tears] 2 drop BOTH EYES QID 01/09/16 [History] Ferrous Sulfate [Iron] 325 mg PO BID 10/02/16 [History] Potassium Chloride [Klor-Con] 20 meq PO DAILY 10/02/16 [History] Diltiazem CD (24hr) [Cardizem CD] 120 mg PO DAILY #30 cap.er.24h MDD HOLD FOR SBP<110 PULSE <60 10/05/16 [Rx] Metoprolol [Lopressor] 12.5 mg PO BID 30 Days tablet MDD HOLD FOR SBP <110 OR PULSE<60 10/05/16 [Rx] Acetaminophen [Tylenol] 975 mg PO BID PRN MDD >3000MG/24 HOUR 07/16/17 [History] Bisacodyl [Dulcolax] 10 mg RC DAILY PRN 07/16/17 [History] Omeprazole [PriLOSEC] 40 mg PO DAILY@0630 capsule. 07/23/17 [Rx] traZODone [TraZODone] 50 mg PO HS 10/05/17 [History] Aspirin Enteric Coated [Aspirin EC] 81 mg PO DAILY #90 tablet. 07/03/18 [Rx] Clopidogrel [Plavix] 75 mg PO DAILY #30 tablet 07/03/18 [Rx] Gabapentin [Neurontin] 100 mg PO TID 07/03/18 [History] Multivit-Min/FA/Lycopen/Lutein [Adults 50 Plus Multivitamin] 1 tab PO DAILY 07/03/18 [History] Sennosides [Senna] 17.2 mg PO DAILY PRN 07/19/18 [History] Tramadol HCl [Ultram] 25 mg PO BID PRN 07/19/18 [History] Allergy/AdvReac Type Severity Reaction Status Date / Time clonidine Allergy Rash Verified 07/19/18 20:28 All Systems PM: A 10-system review of systems was performed and is negative for pertinent findings except as documented above in the HPI. - Constitutional Vitals: Temp Pulse Resp BP Pulse Ox 99.3 F 79 14 162/75 96 07/20/18 06:56 07/20/18 06:56 07/20/18 06:56 07/20/18 06:56 07/20/18 06:56 General appearance: Present: cooperative, pleasant, no acute distress Exam: - - Head Head exam: Present: normal inspection - Eye Eye exam: Present: EOMI, normal appearance - Respiratory Respiratory exam: Present: CTAB. Absent: rales, respiratory distress, rhonchi, wheezes - Cardiovascular Cardiovascular exam: Present: RRR. Absent: diastolic murmur, systolic murmur - GI/Abdominal GI/Abdominal exam: Present: normal bowel sounds, soft. Absent: tenderness - Extremities Exam Extremities exam: Present: tenderness, warm, radial pulses palpable and symmetrical. Absent: pedal edema - Neurological Exam Neurological exam: Present: no focal deficits, strengths equal and symetr throughout. Absent: motor sensory deficit, facial droop, speech deficit - Skin Skin exam: Present: dry, normal color, warm Additional comments: Second right toe is dark/black in color. Internal Med - H&P Results - Labs CBC & Chem 7: 07/19/18 17:22 07/19/18 17:22 Labs: Short CBC 07/19/18 Range/Units 17:22 WBC 6.7 (4.3-11.1) K/mcL Hgb 8.5 L (12.9-16.9) g/dL Hct 26.2 L (37.5-50.1) % Plt Count 293 (140-400) K/mcL Neutrophils # 4.0 (1.6-8.9) K/mcL BMP 07/19/18 17:22 Sodium 140 Potassium 4.2 Chloride 110 H Carbon Dioxide 27 BUN 15 Creatinine 0.96 Glucose 108 H Calcium 9.1 - Impressions ITS Impressions Foot X-Ray 07/19/18 16:51 IMPRESSION: No radiographic evidence of osteomyelitis. D/ / 07/19/2018 17:50:43 Po Gonzalez MD / danelle Interpreting Provider: Po Gonzalez MD - Assessment and Plan (1) Wet gangrene Current Visit: Yes Status: Acute Assessment and plan: Physical exam shows darkened toe, with odor. X-ray negative for osteomyelitis. Patient started on antibiotics in the ER. Podiatry to consult. Follow up podiatry recommendations Continue antibiotics Follow up culture results. Monitor for worsening signs of infection. (2) Chronic anemia Current Visit: Yes Status: Acute Assessment and plan: Patient chronically anemic, stable compared to his baseline. No active bleeding noted. Continue to monitor. (3) Diabetes mellitus Current Visit: No Status: Chronic Assessment and plan: Patient is not an insulin dependent diabetic Monitor sugars Q6H NPO Low dose insulin sliding scale as needed Hold home meds. 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
[2018-07-20] MEDS ORDERED: D5% in Water 1,000 ML IVC PRN (07:44)
[2018-07-20] MEDS ORDERED: Dextrose Gel 15 GM/37.5 ML TUBE PO PRN ×2 (07:44)
[2018-07-20] MEDS ORDERED: *HR* Dextrose 50 % in Water (Syg) 50 ML SYRINGE IVP PRN (07:44)
[2018-07-20] MEDS ORDERED: D5% in 0.45% NACL 1,000 ML IVC SCH (08:00)
[2018-07-20] MEDS ORDERED: Levalbuterol Neb 0.63 MG/3 ML IH PRN (08:00)
[2018-07-20] MEDS ORDERED: Piperacillin/Tazobactam 3.375 GM in 0.9 % Sodium Chloride Mini Bag 100 ML IVPB SCH (08:00)
[2018-07-20] MEDS: Diltiazem CD (24hr) 120 MG CAPSULE PO SCH (10:27)
[2018-07-20] MEDS: Cefepime HCl 1,000 MG in Water for inj. (sterile) 20 ML 10 ML IVP SCH (10:27)
[2018-07-20] MEDS: Pantoprazole 40 MG VIAL IVP SCH (10:27)
[2018-07-20] MEDS: Insulin LISPRO 300 UNITS/3 ML VIAL SQ SCH ×2 (11:44→17:53)
--- NOTE | 2018-07-20 11:54 | Podiatry Consult Note ---
Date of Encounter: 07/20/18 Time of Encounter: 11:53 Assessment and Plan (1) Dry gangrene Current visit: Yes Status: Acute 1. Patient evaluated and treated. The previously noted wet gangrene has now turned dry, and the digit is stable. There is significant fibrotic tissue at the base of the wound. There appears to be exposed bone at the distal aspect of the digit. Overall he is stable. He will need I&D of non-viable soft tissue and bone, with possible amputation of the digit. I discussed this surgical option with the patient, and he agrees with the plan. He is anxious to discharge and has questions about how long he will need to be admitted. Will plan for I&D right 2nd digit with possible amputation in the next 2-3 days. Will coordinate with the primary team about medical optimization. Vascular studies appear to show adequate healing potential. Xrays without evidence of gas or osteomyelitis. Continue with local wound care for now, including betadine and dry dressing daily until surgery is performed. Code(s): I96 - Gangrene, not elsewhere classified SNOMED Code(s): 232934580, [id number] History of Present Illness Chief complaint: right 2nd toe wound HPI: Mr. Johnston is a 88 year old male admitted for right 2nd toe ulcer with necrosis and concern for wet gangrene. Patient is a poor historian, but states that he believed the wound was first noticed 2 months ago. He is unsure if he was getting wound care to the toe or what initially caused the wound. Per ED note, it is believed to have started from a wheelchair hitting the toe. He presented after transfer from [place] [facility]. He reports that the wound is painful to touch. He denies n/v/f/c. Past Med Surg Social Fam HX - Past Medical History Medical history: arthritis, atrial fibrillation, dementia, diabetes, GERD, glaucoma, hyperlipidemia, hypertension Additional medical history: pt poor historian no information sent from [place] [facility] Psychiatric history: depression - Past Surgical History Surgical History: no surgical history, other - Social History Smoking Status: Current every day smoker Smokeless Tobacco Status: No Alcohol use: none Drug use: none Medications and Allergies Ascorbic Acid [Vitamin C] 500 mg PO BID 01/09/16 [History] Budesonide/Formoterol 160/4.5 [Symbicort 160/4.5] 2 puff IH BIDR 01/09/16 [History] Latanoprost [Xalatan] 1 drop BOTH EYES HS 01/09/16 [History] Lisinopril [Zestril] 10 mg PO BID MDD HOLD FOR SBP<110 01/09/16 [History] Mirtazapine [Remeron] 15 mg PO HS 01/09/16 [History] Nitroglycerin [Nitrostat] 0.4 mg SL Q5M PRN 01/09/16 [History] Oxybutynin [Ditropan] 5 mg PO TID 01/09/16 [History] Polyvinyl Alcohol [Artificial Tears] 2 drop BOTH EYES QID 01/09/16 [History] Ferrous Sulfate [Iron] 325 mg PO BID 10/02/16 [History] Potassium Chloride [Klor-Con] 20 meq PO DAILY 10/02/16 [History] Diltiazem CD (24hr) [Cardizem CD] 120 mg PO DAILY #30 cap.er.24h MDD HOLD FOR SBP<110 PULSE <60 10/05/16 [Rx] Metoprolol [Lopressor] 12.5 mg PO BID 30 Days tablet MDD HOLD FOR SBP <110 OR PULSE<60 10/05/16 [Rx] Acetaminophen [Tylenol] 975 mg PO BID PRN MDD >3000MG/24 HOUR 07/16/17 [History] Bisacodyl [Dulcolax] 10 mg RC DAILY PRN 07/16/17 [History] Omeprazole [PriLOSEC] 40 mg PO DAILY@0630 capsule. 07/23/17 [Rx] traZODone [TraZODone] 50 mg PO HS 10/05/17 [History] Aspirin Enteric Coated [Aspirin EC] 81 mg PO DAILY #90 tablet. 07/03/18 [Rx] Clopidogrel [Plavix] 75 mg PO DAILY #30 tablet 07/03/18 [Rx] Gabapentin [Neurontin] 100 mg PO TID 07/03/18 [History] Multivit-Min/FA/Lycopen/Lutein [Adults 50 Plus Multivitamin] 1 tab PO DAILY 07/03/18 [History] Sennosides [Senna] 17.2 mg PO DAILY PRN 07/19/18 [History] Tramadol HCl [Ultram] 25 mg PO BID PRN 07/19/18 [History] Allergy/AdvReac Type Severity Reaction Status Date / Time clonidine Allergy Rash Verified 07/19/18 20:28 All Systems Reviewed: The remainder of the systems were reviewed and are negative Physical Exam - Constitutional Vitals: Temp Pulse Resp BP Pulse Ox 98.8 F 73 14 126/63 93 07/20/18 11:01 07/20/18 11:01 07/20/18 11:01 07/20/18 11:01 07/20/18 11:01 Exam: Alert, slowed mentation. Vascular: DP and PT non-palpable. Capillary refill brisk to all digits. Pedal hair absent. Dermatology: Right 2nd digit with dry gangrene to distal 3/4 of the digit. There is a dorsal wound at the DIPJ with possible exposed necrotic bone. There is fibrotic tissue around the proximal aspect of the toe with mild maceration plantarly. Mild erythema to the base of the toe. No streaking erythema up the foot or leg. 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 No pain with compression of calf. Neuro: Sensations diminished to light touch bilaterally. Results - Labs Result Diagrams: 07/19/18 17:22 07/19/18 17:22 Labs: Abnormal lab results RBC 2.67 M/mcL (4.19-5.50) L 07/19/18 17:22 Hgb 8.5 g/dL (12.9-16.9) L 07/19/18 17:22 Hct 26.2 % (37.5-50.1) L 07/19/18 17:22 MPV 9.3 fL (9.4-12.4) L 07/19/18 17:22 Chloride 110 mEq/L (98-107) H 07/19/18 17:22 Glucose 108 mg/dL (70-105) H 07/19/18 17:22 H & H 07/19/18 Range/Units 17:22 Hgb 8.5 L (12.9-16.9) g/dL Hct 26.2 L (37.5-50.1) % All other labs normal. Consult Discharge Plan - Plan Referrals: [facility] [Primary Care Provider] -
--- NOTE | 2018-07-20 13:14 | Event Note ---
Date of Encounter: 07/20/18 Time of Encounter: 12:59 I have seen and evaluated the patient at bedside. patient reports pain in his feet. denies nausea, vomiting or shortness of breath. Physical exam: Vitals: reviewed General: Alert and oriented x2. In mild distress due to pain in his feet Cardiovascular: RRR, normal S1 & S2, no rubs, murmurs or gallops. Lungs: CTA b/l, no wheezes or crackles. Abdomen: Soft, non-tender, no rigidity. Extremities: dry gangrene of the 2nd right digit. Neurological: Dementia, No focal neurological abnormalities Rest of the physical exam is non contributory Assessment and Plan: 1. Dry gangrene 2. A.fib 3. DM 4. Dementia 5. HLD 6. HTN 7. VTE prophylaxis 8. COPD Plan patient started on broad spectrum IV antibiotics, due to dry grangrene of the 2nd digit of the right foot. foul smelling extremity on cefepime 1gm/IV Q24hrs plus vancomycin per pharmacy protocol podiatry consulted, patient will be scheduled for surgery in 2-3 days bronchodilators Q4RT PRN will resume home antihypertensive medications Rate controlled on cardizem 120mg/PO daily, not on anticoagulation due to high fall risk. diabetic diet dc IV fluids mirtazapine home dose resumed Plan patient to remain in the hospital on broad spectrum IV antibiotics.
[2018-07-20] MEDS: traMADol 50 MG TABLET PO PRN (17:53)
[2018-07-20] MEDS: traZODone 50 MG TABLET PO SCH (20:31)
[2018-07-20] MEDS: Mirtazapine 15 MG TABLET PO SCH (20:31)
[2018-07-21 06:31] LABS: Hematocrit 25.6 % (37.5-50.1); Hemoglobin 8.7 g/dL (12.9-16.9); Mean Corpuscular Volume 94.1 fL (83.0-100.0); Mean Platelet Volume 9.3 fL (9.4-12.4); Platelet Count 262 K/mcL (140-400); Red Blood Count 2.72 M/mcL (4.19-5.50)
[2018-07-21 06:40] LABS: INR 1.2; Prothrombin Time 13.3 Seconds (9.4-12.1)
[2018-07-21 06:54] LABS: BUN/Creatinine Ratio 14 (6-26); Blood Urea Nitrogen 12 mg/dL (8-23); Calcium 8.9 mg/dL (8.6-10.3); Carbon Dioxide 26 mEq/L (23-29); Chloride 108 mEq/L (98-107); Glucose 65 mg/dL (70-105); Osmolality,Calculated 288 (280-300); Sodium 140 mEq/L (136-145); eGFR For Non-African Americans > 60 (> 60)
[2018-07-21] MEDS: Insulin LISPRO 300 UNITS/3 ML VIAL SQ SCH ×4 (08:07→19:58)
[2018-07-21] MEDS: traMADol 50 MG TABLET PO PRN (08:08)
[2018-07-21] MEDS: Diltiazem CD (24hr) 120 MG CAPSULE PO SCH (08:09)
[2018-07-21] MEDS: Cefepime HCl 1,000 MG in Water for inj. (sterile) 20 ML 10 ML IVP SCH (08:09)
[2018-07-21] MEDS: Pantoprazole 40 MG VIAL IVP SCH (08:10)
--- NOTE | 2018-07-21 11:06 | Internal Med Progress Note ---
Hospitalist Progress Note - Encounter Date of Encounter: 07/21/18 Time of Encounter: 11:05 - Subjective Interval History: I have seen and evaluated the patient at bedside. patient report doing well, denies nausea, vomiting, abdominal pain or loose stool. - Exam Vitals: Temp Pulse Resp BP Pulse Ox 98.4 F 66 14 128/62 95 07/21/18 10:33 07/21/18 10:33 07/21/18 10:33 07/21/18 10:33 07/21/18 10:33 Exam: Vitals: reviewed General: Alert and oriented x2. No distress Cardiovascular: RRR, normal S1 & S2, no rubs, murmurs or gallops. Lungs: CTA b/l, no wheezes or crackles. Abdomen: Soft, non-tender, no rigidity. NABS in all 4 quadrants Extremities: dry gangrene of the 2nd right digit. no edema Neurological: Dementia, No focal neurological abnormalities Rest of the physical exam is non contributory - Assessment and Plan (1) Dry gangrene Current Visit: Yes Status: Acute Assessment and Plan: lower extremity with foul smell. patient on cefepime 1gm/IV Q24HRs and vacomycin per pharmacy protocol Podiatry recommendation appreciated on tramadol for pain control wound culture: incubating blood culture: no growth pending final report (2) Dementia Current Visit: No Status: Chronic Assessment and Plan: On mirtazapine 15 mg by mouth at bedtime (3) Hypertension Current Visit: No Status: Chronic Assessment and Plan: Blood pressure has been controlled on Cardizem 120 mg by mouth daily. (4) Atrial fibrillation Current Visit: No Status: Chronic Assessment and Plan: rate controlled on diltiazem 120mg/PO daily. Not on anticoagulation due to high risk of falls (5) PAD (peripheral artery disease) Current Visit: Yes Status: Chronic Assessment and Plan: will resume clopidogrel 75mg/PO daily (6) COPD (chronic obstructive pulmonary disease) Current Visit: Yes Status: Chronic Assessment and Plan: Not an exacerbation. Continue bronchodilators. On Symbicort. DVT Prophylaxis: Heparin subcutaneous. - Summary of Assessment and Plan Summary of Assessment and Plan: Patient to remain in the hospital due to dry gangrene of the lower extremity. On broad-spectrum antibiotic. - Time Spent with Patient Total time spent is greater than 50% in coordination of care (as documented) at patient's floor/unit and/or counseling patient: Greater than 35 minutes (40) Plan of Care Discussed with: nurse Internal Medicine: Result - Labs CBC & Chem 7: 07/21/18 06:07 07/21/18 06:07 Labs: Short CBC 07/21/18 Range/Units 06:07 WBC 5.3 (4.3-11.1) K/mcL Hgb 8.7 L (12.9-16.9) g/dL Hct 25.6 L (37.5-50.1) % Plt Count 262 (140-400) K/mcL BMP 07/21/18 06:07 Sodium 140 Potassium 4.0 Chloride 108 H Carbon Dioxide 26 BUN 12 Creatinine 0.86 Glucose 65 L Calcium 8.9 - ABG Interpretation ABG results: PT/INR, D-dimer PT 13.3 Seconds (9.4-12.1) H 07/21/18 06:07 - Impressions Impressions Foot X-Ray 07/19/18 16:51 IMPRESSION: No radiographic evidence of osteomyelitis. D/ / 07/19/2018 17:50:43 Po Gonzalez MD / [email or web address] Interpreting Provider: Po Gonzalez MD Consult Discharge Plan - Plan Referrals: [facility] [Primary Care Provider] - (2) Dementia Qualifiers: Dementia type: unspecified type Dementia behavioral disturbance: without behavioral disturbance Qualified Code(s): F03.90 - Unspecified dementia without behavioral disturbance (3) Hypertension Qualifiers: Hypertension type: essential hypertension Qualified Code(s): I10 - Essential (primary) hypertension (4) Atrial fibrillation Qualifiers: Atrial fibrillation type: paroxysmal Qualified Code(s): I48.0 - Paroxysmal atrial fibrillation (6) COPD (chronic obstructive pulmonary disease) Qualifiers: COPD type: unspecified COPD Qualified Code(s): J44.9 - Chronic obstructive pulmonary disease, unspecified
[2018-07-21] MEDS: *HR* Heparin 5,000 UNIT/ML VIAL SQ SCH (18:45)
[2018-07-21] MEDS: traZODone 50 MG TABLET PO SCH (20:00)
[2018-07-21] MEDS: Mirtazapine 15 MG TABLET PO SCH (20:00)
[2018-07-21] MEDS: Budesonide/Formoterol 160/4.5 1 PUFF INH IH SCH (20:22)
[2018-07-22] MEDS: *HR* Heparin 5,000 UNIT/ML VIAL SQ SCH ×2 (05:07→16:55)
[2018-07-22] MEDS: Budesonide/Formoterol 160/4.5 1 PUFF INH IH SCH ×2 (07:57→20:27)
[2018-07-22] MEDS: Cefepime HCl 1,000 MG in Water for inj. (sterile) 20 ML 10 ML IVP SCH (08:44)
[2018-07-22] MEDS: Diltiazem CD (24hr) 120 MG CAPSULE PO SCH (08:44)
[2018-07-22] MEDS: Pantoprazole 40 MG VIAL IVP SCH (08:45)
[2018-07-22] MEDS: Insulin LISPRO 300 UNITS/3 ML VIAL SQ SCH ×4 (08:46→20:54)
--- NOTE | 2018-07-22 13:23 | Infectious Disease Consult ---
Date of Encounter: 07/22/18 Time of Encounter: 13:19 Assessment and Plan (1) Dry gangrene Status: Acute Assessment and plan: have been present for months progressively getting worse s/p angiogram with balloon angioplasty of the right tibial artery 07/03/18 xray negative for any osteo recommend checking baseline inflammatory markers await cultures await podiatry recommendadtions continue vanc continue cefepime add flagyl monitor labs and for drug toxicity goal vanc around 15 (2) COPD (chronic obstructive pulmonary disease) Status: Chronic Qualifiers: COPD type: unspecified COPD Qualified Code(s): J44.9 - Chronic obstructive pulmonary disease, unspecified (3) PAD (peripheral artery disease) Status: Chronic (4) Atrial fibrillation Status: Chronic Qualifiers: Atrial fibrillation type: paroxysmal Qualified Code(s): I48.0 - Paroxysmal atrial fibrillation (5) Dementia Status: Chronic Qualifiers: Dementia type: unspecified type Dementia behavioral disturbance: without behavioral disturbance Qualified Code(s): F03.90 - Unspecified dementia without behavioral disturbance (6) Diabetes mellitus Status: Chronic Qualifiers: Diabetes mellitus type: type 2 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 Johnston is a 88 year old male Patient is an 88-year-old gentleman who presented to [place] on 07/19/2018 as a transfer from the [place] [facility] for right second toe infection, we are consulted on 07/22/2018 for osteomyelitis and antibiotic recommendations. All the medical information was taken from medical records since the patient is not a good historian. Patient with extensive past medical history including arthritis, A. fib, advanced dementia, diabetes mellitus, peripheral vascular disease apparently has been dealing with the wounds on his lower extremity for several months that have been getting progressively worse. There is more erythema more drainage and more malodorous. On 07/03/2018 patient was taken for an angiogram with balloon angioplasty of the right tibial artery, right peroneal artery. Since admission, patient has been afebrile, no tachycardia and no tachypnea. Presenting labs revealed a WBC of 6.7 with normal differential no bands. UA and 15, creatinine 0.96. No inflammatory markers. A foot x-ray revealed no radiographic evidence of osteomyelitis. Patient was started on vancomycin and cefepime. We were asked to evaluate the patient further recommendations. Currently patient laying in bed. Awake alert oriented. Nose with the present illness. Was done about his service in the . Patient does have tardive dyskinesia. CC: Noel Velázquez MD Past Med Surg Social Fam HX - Past Medical History Medical history: arthritis, atrial fibrillation, dementia, diabetes, GERD, glaucoma, hyperlipidemia, hypertension Additional medical history: pt poor historian no information sent from [place] [facility] Psychiatric history: depression - Past Surgical History Surgical History: no surgical history, other - Social History Smoking Status: Current every day smoker Smokeless Tobacco Status: No Alcohol use: none Drug use: none Infectious Disease-CN:Meds RX: Ascorbic Acid [Vitamin C] 500 mg PO BID 01/09/16 [History] RX: Budesonide/Formoterol 160/4.5 [Symbicort 160/4.5] 2 puff IH BIDR 01/09/16 [History] RX: Latanoprost [Xalatan] 1 drop BOTH EYES HS 01/09/16 [History] RX: Lisinopril [Zestril] 10 mg PO BID MDD HOLD FOR SBP<110 01/09/16 [History] RX: Mirtazapine [Remeron] 15 mg PO HS 01/09/16 [History] RX: Nitroglycerin [Nitrostat] 0.4 mg SL Q5M PRN 01/09/16 [History] RX: Oxybutynin [Ditropan] 5 mg PO TID 01/09/16 [History] RX: Polyvinyl Alcohol [Artificial Tears] 2 drop BOTH EYES QID 01/09/16 [History] RX: Ferrous Sulfate [Iron] 325 mg PO BID 10/02/16 [History] RX: Potassium Chloride [Klor-Con] 20 meq PO DAILY 10/02/16 [History] RX: Diltiazem CD (24hr) [Cardizem CD] 120 mg PO DAILY #30 cap.er.24h MDD HOLD FOR SBP<110 PULSE <60 10/05/16 [Rx] RX: Metoprolol [Lopressor] 12.5 mg PO BID 30 Days tablet MDD HOLD FOR SBP <110 OR PULSE<60 10/05/16 [Rx] RX: Acetaminophen [Tylenol] 975 mg PO BID PRN MDD >3000MG/24 HOUR 07/16/17 [History] RX: Bisacodyl [Dulcolax] 10 mg RC DAILY PRN 07/16/17 [History] RX: Omeprazole [PriLOSEC] 40 mg PO DAILY@0630 capsule. 07/23/17 [Rx] RX: traZODone [TraZODone] 50 mg PO HS 10/05/17 [History] Aspirin Enteric Coated [Aspirin EC] 81 mg PO DAILY #90 tablet. 07/03/18 [Rx] RX: Clopidogrel [Plavix] 75 mg PO DAILY #30 tablet 07/03/18 [Rx] RX: Gabapentin [Neurontin] 100 mg PO TID 07/03/18 [History] RX: Multivit-Min/FA/Lycopen/Lutein [Adults 50 Plus Multivitamin] 1 tab PO DAILY 07/03/18 [History] Sennosides [Senna] 17.2 mg PO DAILY PRN 07/19/18 [History] Tramadol HCl [Ultram] 25 mg PO BID PRN 07/19/18 [History] Allergy/AdvReac Type Severity Reaction Status Date / Time clonidine Allergy Rash Verified 07/19/18 20:28 Review of systems: 10 point review of systems done, negative other for what is mentioned in history of present illness Exam - Constitutional Vitals: Temp Pulse Resp BP Pulse Ox 98.6 F 86 18 144/73 96 07/22/18 11:14 07/22/18 11:14 07/22/18 11:14 07/22/18 11:14 07/22/18 11:14 Exam: HEAD: Normocephalic atraumatic EYES: PERRLA, EOMI, no conjunctival hemorrhage, sclera anicteric ENT: Mucous membranes moist, no oral thrush NECK: Supple. No meningeal signs. No masses LUNGS: Chest expanding symmetrically. Lungs sounds audible both lung sultana. No wheezing, no rhonchi CV: RRR, S1S2, ABDOMEN: Soft, nontender, nondistended. Bowel sounds audible BACK: No CVA tenderness. Normal inspection. No tenderness over the spine EXTREMITY: Adequate perfusion. Right foot wrapped with dry gangrene SKIN: Normal color. No rash. NEURO: Awake alert oriented 3. Has tardive dyskinesia with smacking of the lips PSYCH: Calm and appropriate. No agitation. Infectious Disease CN: Results - Labs CBC & Chem 7: 07/21/18 06:07 07/21/18 06:07 Cultures: Cultures 07/20/18 16:10 Wound Culture - Preliminary Second Right Toe Gram Negative Enoch Gram Negative Enoch#2 Gram Positive Cocci 07/20/18 16:10 Anaerobic Culture - Preliminary Second Right Toe Culture is incubating. 07/19/18 17:22 Blood Culture - Preliminary Peripheral Venipuncture Culture is incubating and being continuously monitored for growth. Final report to follow. 07/19/18 17:22 Blood Culture - Preliminary Peripheral Venipuncture Culture is incubating and being continuously monitored for growth. Final report to follow. Consult Discharge Plan - Plan [facility]errals: [facility] [Primary Care Provider] -
--- NOTE | 2018-07-22 14:17 | Internal Med Progress Note ---
Hospitalist Progress Note - Encounter Date of Encounter: 07/22/18 Time of Encounter: 14:13 - Subjective Interval History: I have seen and evaluated the patient at bedside. patient reports the pain in the lower extremities is controlled. denies chest pain, nausea or vomiting. - Exam Vitals: Temp Pulse Resp BP Pulse Ox 98.6 F 86 18 144/73 96 07/22/18 11:14 07/22/18 11:14 07/22/18 11:14 07/22/18 11:14 07/22/18 11:14 Exam: Vitals: reviewed General: Alert and oriented x2. No distress Cardiovascular: RRR, normal S1 & S2, no rubs, murmurs or gallops. Lungs: CTA b/l, no wheezes or crackles. Abdomen: Soft, non-tender, no rigidity. Extremities: dry gangrene of the 2nd right digit. no edema Neurological: No focal neurological abnormalities Rest of the physical exam is non contributory - Assessment and Plan (1) Dry gangrene Current Visit: Yes Status: Acute Assessment and Plan: patient is scheduled for surgery tomorrow. will continue empiric broad spectrum IV antibiotics. Wound culture: is growing gram negative ysabel and gram positive cocci. ID has been consulted as patient might need a few weeks of IV antibiotics. ESR and CRP ordered. blood culture: no growth, pending final report. (2) Dementia Current Visit: No Status: Chronic Assessment and Plan: pleasantly demented. will continue mirtazapine 15mg/PO HS (3) Hypertension Current Visit: No Status: Chronic Assessment and Plan: BP is well controlled on diltiazem 120mg/PO daily (4) Atrial fibrillation Current Visit: No Status: Chronic Assessment and Plan: continue diltiazem for rated control. no anticoagulation due to risk of falling (5) PAD (peripheral artery disease) Current Visit: Yes Status: Chronic Assessment and Plan: patient is on plavix 75mg/PO daily on tramadol and gabapentin for pain control (6) COPD (chronic obstructive pulmonary disease) Current Visit: Yes Status: Chronic Assessment and Plan: not on acute exacerbation. on bronchodilators PRN and symbicort. DVT Prophylaxis: Continue heparin subQ. will hold tomorrow's dose in preparation for surgery. - Summary of Assessment and Plan Summary of Assessment and Plan: patient to remain in the hospital due to dry gangrene. scheduled for surgery tomorrow. - Time Spent with Patient Total time spent is greater than 50% in coordination of care (as documented) at patient's floor/unit and/or counseling patient: Greater than 35 minutes (40) Plan of Care Discussed with: nurse Internal Medicine: Result - Labs CBC & Chem 7: 07/21/18 06:07 07/21/18 06:07 - ABG Interpretation ABG results: PT/INR, D-dimer PT 13.3 Seconds (9.4-12.1) H 07/21/18 06:07 Consult Discharge Plan - Plan Referrals: [facility],PCP [Primary Care Provider] - (2) Dementia Qualifiers: Dementia type: unspecified type Dementia behavioral disturbance: without behavioral disturbance Qualified Code(s): F03.90 - Unspecified dementia without behavioral disturbance (3) Hypertension Qualifiers: Hypertension type: essential hypertension Qualified Code(s): I10 - Essential (primary) hypertension (4) Atrial fibrillation Qualifiers: Atrial fibrillation type: paroxysmal Qualified Code(s): I48.0 - Paroxysmal atrial fibrillation (6) COPD (chronic obstructive pulmonary disease) Qualifiers: COPD type: unspecified COPD Qualified Code(s): J44.9 - Chronic obstructive pulmonary disease, unspecified
--- NOTE | 2018-07-22 15:46 | Podiatry Progress Note ---
Date of Encounter: 07/22/18 Time of Encounter: 12:00 - Assessment and Plan (1) Dry gangrene Current Visit: Yes Status: Acute ASSESSMENT: Dry gangrene toe #2 right PLAN: OR tomorrow with - add on, likely tomorrow afternoon I&D of right toe #2 with possible amputation NPO after 8am. May have breakfast Painted toe with betadine and dry bulk dressing applied at bedside ID on board, patient on vancomycin, cefepime and Flagyl was added today Patient cultures showing GNR x2 and GPC Await results Imagining negative for osteomyelitis Baseline inflammatory markers ordered Admit wbc 6.7 down to 5.3- temp today 99.3 POA will be at bedside tonight for consent. JALEEL RLE 1.02. Subjective Interval history: Patient admitted and evaluated over weekend per podiatry team. Podiatry was consulted regarding gangrene to toe #2 right foot which has been ongoing for months with continued progression. Patient resting comfortably in bed on arrival. patient lives in a [facility]. Niece is POA. Patient denies any pain to foot at this time. patient denies any fevers, chills, n/v or fls. Patient denies any calf pain or sob. Objective - Vital Signs Vital Signs: Vital Signs Temp Pulse Resp BP Pulse Ox 07/22/18 15:18 99.3 F 69 18 143/67 97 07/22/18 11:14 98.6 F 86 18 144/73 96 07/22/18 08:15 148/78 07/22/18 05:41 98.1 F 67 15 138/7 98 07/21/18 23:55 98.0 F 57 17 133/70 97 07/21/18 19:10 98.5 F 62 15 144/69 96 Intake and Output 07/21/18 07/22/18 07/22/18 23:59 07:59 15:59 Intake Total 250 / 250 0 / 0 60 / 60 Output Total 100 / 100 Balance 150 / 150 0 / 0 60 / 60 Intake: IV Fluids 250 / 250 Vancocin 1,000 MG In 0.9 % 250 / 250 Sodium Chloride 250 ML @ 167 mls/hr IVPB Q24H JUAN Rx#: [id number] Oral 0 / 0 0 / 0 60 / 60 Output: Urine 100 / 100 Other: Meal Lunch Percent of Meal Consumed 0% # Voids 1 2 Weight 65.8 kg Blood Glucose* 123 144 Patient Weight 07/22/18 23:59 Weight 65.8 kg - Exam Exam: CONSTITUTIONAL : Awake and alert, minimal orientation at times VASCULAR: faint palpable pulses DP/PT bilaterally, cap refill <3 seconds to all toes except #2 which is known to have dry gangrene. Warm toes to tibia. no calf pain with manual compression SKIN: Dry gangrenous changes toe #2 right, with associated irritation, mild erythema and edema which extends onto dorsal aspect of foot. No streaking. No ascending cellulitis noted at this time. no drainage noted. foul smell. Does not extend past base of toe #2. No sensation NEUROLOGICAL: diminished sensation to light or moderate touch. MUSCULOSKELETAL: muscle strength 5/5 and equal bilaterally Incision: Present: healing - Lab Result Diagrams: 07/21/18 06:07 07/21/18 06:07 Labs: Abnormal lab results RBC 2.72 M/mcL (4.19-5.50) L 07/21/18 06:07 Hgb 8.7 g/dL (12.9-16.9) L 07/21/18 06:07 Hct 25.6 % (37.5-50.1) L 07/21/18 06:07 MPV 9.3 fL (9.4-12.4) L 07/21/18 06:07 PT 13.3 Seconds (9.4-12.1) H 07/21/18 06:07 Chloride 108 mEq/L (98-107) H 07/21/18 06:07 Glucose 65 mg/dL (70-105) L 07/21/18 06:07 POC Glucose 112 mg/dL (70-99) H 07/22/18 11:13 Vancomycin Trough 12 mcg/mL (5-10) H 07/22/18 07:44 Microbiology, Last 48 Hours 07/20/18 16:10 Wound Culture - Preliminary Second Right Toe Gram Negative Enoch Gram Negative Enoch#2 Gram Positive Cocci 07/20/18 16:10 Anaerobic Culture - Preliminary Second Right Toe Culture is incubating. Consult Discharge Plan - Plan Referrals: [facility] [Primary Care Provider] -
[2018-07-22] MEDS: Gabapentin 100 MG CAPSULE PO SCH ×2 (16:55→19:55)
--- NOTE | 2018-07-22 17:31 | Anesthesia Evaluation PreOp ---
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) Other Medical History: Diabetes Type II, GERD Anesthesia History: No Prior Anesthetic Complications, Past Anesthesia (EGD, colonoscopy) Alcohol Use: none Drug use: none Medications and Allergies Ascorbic Acid [Vitamin C] 500 mg PO BID 01/09/16 [History] Budesonide/Formoterol 160/4.5 [Symbicort 160/4.5] 2 puff IH BIDR 01/09/16 [History] Latanoprost [Xalatan] 1 drop BOTH EYES HS 01/09/16 [History] Lisinopril [Zestril] 10 mg PO BID MDD HOLD FOR SBP<110 01/09/16 [History] Mirtazapine [Remeron] 15 mg PO HS 01/09/16 [History] Nitroglycerin [Nitrostat] 0.4 mg SL Q5M PRN 01/09/16 [History] Oxybutynin [Ditropan] 5 mg PO TID 01/09/16 [History] Polyvinyl Alcohol [Artificial Tears] 2 drop BOTH EYES QID 01/09/16 [History] Ferrous Sulfate [Iron] 325 mg PO BID 10/02/16 [History] Potassium Chloride [Klor-Con] 20 meq PO DAILY 10/02/16 [History] Diltiazem CD (24hr) [Cardizem CD] 120 mg PO DAILY #30 cap.er.24h MDD HOLD FOR SBP<110 PULSE <60 10/05/16 [Rx] Metoprolol [Lopressor] 12.5 mg PO BID 30 Days tablet MDD HOLD FOR SBP <110 OR PULSE<60 10/05/16 [Rx] Acetaminophen [Tylenol] 975 mg PO BID PRN MDD >3000MG/24 HOUR 07/16/17 [History] Bisacodyl [Dulcolax] 10 mg RC DAILY PRN 07/16/17 [History] Omeprazole [PriLOSEC] 40 mg PO DAILY@0630 capsule. 07/23/17 [Rx] traZODone [TraZODone] 50 mg PO HS 10/05/17 [History] Aspirin Enteric Coated [Aspirin EC] 81 mg PO DAILY #90 tablet. 07/03/18 [Rx] Clopidogrel [Plavix] 75 mg PO DAILY #30 tablet 07/03/18 [Rx] Gabapentin [Neurontin] 100 mg PO TID 07/03/18 [History] Multivit-Min/FA/Lycopen/Lutein [Adults 50 Plus Multivitamin] 1 tab PO DAILY 07/03/18 [History] Sennosides [Senna] 17.2 mg PO DAILY PRN 07/19/18 [History] Tramadol HCl [Ultram] 25 mg PO BID PRN 07/19/18 [History] Allergy/AdvReac Type Severity Reaction Status Date / Time clonidine Allergy Rash Verified 07/19/18 20:28 - Meds/Allergy Pre-op Review Medications Reviewed: Yes Allergies Reviewed: Yes Beta Blockers on Current Med List: Yes (metoprolol) Anesthesia Results - Labs 07/21/18 06:07 07/21/18 06:07 - Imaging EKG: report reviewed, image reviewed (NSR, RBBB) Anesthesia Exam Last Vital Signs Temp 99.3 F 07/22/18 15:18 Pulse 69 07/22/18 15:18 Resp 18 07/22/18 15:18 BP 143/67 07/22/18 15:18 Pulse Ox 97 07/22/18 15:18 Weight: 66 kg - HEENT Pupil (Motor): Pupils equal, EOMI Mallampati: II Teeth: Edentulous Oral Opening: Greater than 3 - 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
[2018-07-22] MEDS: traZODone 50 MG TABLET PO SCH (19:54)
[2018-07-22] MEDS: Mirtazapine 15 MG TABLET PO SCH (19:55)
--- NOTE | 2018-07-22 21:18 | Vascular/Endovasc Consult Note ---
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 He has severe peripheral vascular disease of the right lower extremity including a right anterior tibial and posterior tibial artery occlusion. Patient presented with right peroneal artery angioplasty. He is scheduled to undergo a toe amputation. He is advised that his toe failed to heal he may require a below-knee or above-knee amputation. The patient is understanding of this. He is agreeable to proceed with toe amputation. He will continue with atherosclerotic risk factor reduction. He was advised to continue with daily Plavix. (2) COPD (chronic obstructive pulmonary disease) Current Visit: Yes Status: Chronic Qualifiers: COPD type: unspecified COPD Qualified Code(s): J44.9 - Chronic obstructive pulmonary disease, unspecified (3) Diabetes mellitus Current Visit: Yes Status: Chronic Qualifiers: Diabetes mellitus type: type 2 Diabetes mellitus usp insulin use: without usp use Diabetes mellitus complication status: without complication Qualified Code(s): E11.9 - Type 2 diabetes mellitus without complications (4) Hypertension Current Visit: Yes Status: Chronic He was counseled regarding atherosclerotic risk factor reduction. Qualifiers: Hypertension type: essential hypertension Qualified Code(s): I10 - Essential (primary) hypertension - History of Present Illness Consult date: 07/22/18 Requesting physician: Abelardo Gates Consult reason: peripheral vascular disease with gangrene Chief complaint: Gangrenous right toe History of present illness: Mr. Johnston is a 88 year old male with a history of hyperlipidemia, hypertension, diabetes, COPD and peripheral vascular disease ulceration. The patient was found have significant ulceration of the heel and midfoot in the right lower extremity. He underwent an angiogram which revealed a chronically occluded anterior tibial and posterior tibial artery. He did not undergo peroneal artery angioplasty. The patient has developed a gangrenous toe has been followed by podiatry. The patient reports that his foot is otherwise healing. Vascular surgery was counseled for further evaluation due to the severity of his peripheral vascular disease. Patient currently denies any fevers or chills he denies any chest pain or shortness of breath. Past Med Surg Social Fam HX - Past Medical History Medical history: arthritis, atrial fibrillation, dementia, diabetes, GERD, glaucoma, hyperlipidemia, hypertension Additional medical history: pt poor historian no information sent from [facility] Psychiatric history: depression - Past Surgical History Surgical History: no surgical history, other - Social History Smoking Status: Current every day smoker Smokeless Tobacco Status: No Alcohol use: none Drug use: none - Family History Mother Living Status: Father Living Status: Medications and Allergies RX: Ascorbic Acid [Vitamin C] 500 mg PO BID 01/09/16 [History] RX: Budesonide/Formoterol 160/4.5 [Symbicort 160/4.5] 2 puff IH BIDR 01/09/16 [History] RX: Latanoprost [Xalatan] 1 drop BOTH EYES HS 01/09/16 [History] RX: Lisinopril [Zestril] 10 mg PO BID MDD HOLD FOR SBP<110 01/09/16 [History] RX: Mirtazapine [Remeron] 15 mg PO HS 01/09/16 [History] RX: Nitroglycerin [Nitrostat] 0.4 mg SL Q5M PRN 01/09/16 [History] RX: Oxybutynin [Ditropan] 5 mg PO TID 01/09/16 [History] RX: Polyvinyl Alcohol [Artificial Tears] 2 drop BOTH EYES QID 01/09/16 [History] RX: Ferrous Sulfate [Iron] 325 mg PO BID 10/02/16 [History] RX: Potassium Chloride [Klor-Con] 20 meq PO DAILY 10/02/16 [History] RX: Diltiazem CD (24hr) [Cardizem CD] 120 mg PO DAILY #30 cap.er.24h MDD HOLD FOR SBP<110 PULSE <60 10/05/16 [Rx] RX: Metoprolol [Lopressor] 12.5 mg PO BID 30 Days tablet MDD HOLD FOR SBP <110 OR PULSE<60 10/05/16 [Rx] RX: Acetaminophen [Tylenol] 975 mg PO BID PRN MDD >3000MG/24 HOUR 07/16/17 [History] RX: Bisacodyl [Dulcolax] 10 mg RC DAILY PRN 07/16/17 [History] RX: Omeprazole [PriLOSEC] 40 mg PO DAILY@0630 capsule.dr 07/23/17 [Rx] RX: traZODone [TraZODone] 50 mg PO HS 10/05/17 [History] Aspirin Enteric Coated [Aspirin EC] 81 mg PO DAILY #90 tablet. 07/03/18 [Rx] RX: Clopidogrel [Plavix] 75 mg PO DAILY #30 tablet 07/03/18 [Rx] RX: Gabapentin [Neurontin] 100 mg PO TID 07/03/18 [History] RX: Multivit-Min/FA/Lycopen/Lutein [Adults 50 Plus Multivitamin] 1 tab PO DAILY 07/03/18 [History] Sennosides [Senna] 17.2 mg PO DAILY PRN 07/19/18 [History] Tramadol HCl [Ultram] 25 mg PO BID PRN 07/19/18 [History] Allergy/AdvReac Type Severity Reaction Status Date / Time clonidine Allergy Rash Verified 07/19/18 20:28 All Systems Review: The remainder of the systems were reviewed and are negative - Constitutional Constitutional: no chills, no fever(s) - Cardiovascular Cardiovascular: no chest pain at rest, no dyspnea at rest Exam Vital Signs, Last 4 Hours Temp Pulse Resp BP Pulse Ox 07/22/18 20:32 98.6 F 60 15 139/67 97 General: Present: Conversant, No Apparent Distress HEENT: Present: Pupils equal Neck: Absent: JVD, Lymphadenopathy, Left Carotid bruit, Right Carotid bruit Cardiac: Present: Reg Rate and Rhythm, Normal S1 and S2 Lungs: Present: Normal Breath Sounds, No Wheeze, Rales, Rhonchi Neuro: Present: Alert and responsive, Motor nerves grossly intact, Sensory nerves grossly intact Abdomen: Present: Soft, Non-tender. Absent: Masses Vascular: Present: Normal capillary refill, Pulse, absent (Right tibial pulses absent), Other (Gangrenous changes noted on the right forefoot). Absent: Edema Skin: Present: No rashes noted on visualized skin Consult Discharge Plan - Plan Referrals: [facility] [Primary Care Provider] -
[2018-07-23] MEDS: *HR* Heparin 5,000 UNIT/ML VIAL SQ SCH (05:29)
[2018-07-23 06:52] LABS: Basophils % 0.8 %; Eosinophils # 0.5 K/mcL (0.0-0.6); Eosinophils % 10.1 %; Hematocrit 25.5 % (37.5-50.1); Hemoglobin 8.7 g/dL (12.9-16.9); Immature Granulocytes % 0.2 % (0-4); Lymphocytes # 1.4 K/mcL (0.6-4.6); Lymphocytes % 29.7 %; Mean Corpuscular HGB Conc 34.1 g/dL (31.6-35.5); Mean Corpuscular Hemoglobin 31.5 pg (28.0-33.3); Mean Corpuscular Volume 92.4 fL (83.0-100.0); Mean Platelet Volume 9.2 fL (9.4-12.4); Monocytes # 0.4 K/mcL (0.0-1.3); Monocytes % 9.1 %; Neutrophils # 2.4 K/mcL (1.6-8.9); Platelet Count 280 K/mcL (140-400); Red Blood Count 2.76 M/mcL (4.19-5.50); Segmented Neutrophils % 50.1 %
[2018-07-23 07:14] LABS: BUN/Creatinine Ratio 12 (6-26); Blood Urea Nitrogen 10 mg/dL (8-23); Calcium 9.2 mg/dL (8.6-10.3); Carbon Dioxide 28 mEq/L (23-29); Chloride 108 mEq/L (98-107); Glucose 78 mg/dL (70-105); Magnesium 1.8 mg/dL (1.6-2.6); Osmolality,Calculated 290 (280-300); Phosphorous 3.4 mg/dL (2.7-4.5); Potassium 3.6 mEq/L (3.5-5.1); Sodium 141 mEq/L (136-145); eGFR For Non-African Americans > 60 (> 60)
[2018-07-23] MEDS: Budesonide/Formoterol 160/4.5 1 PUFF INH IH SCH ×2 (07:44→22:18)
[2018-07-23] MEDS: Gabapentin 100 MG CAPSULE PO SCH ×4 (08:03→21:36)
[2018-07-23] MEDS: Diltiazem CD (24hr) 120 MG CAPSULE PO SCH (08:03)
[2018-07-23] MEDS: Pantoprazole 40 MG VIAL IVP SCH (08:04)
[2018-07-23] MEDS: Piperacillin/Tazobactam 3.375 GM in 0.9 % Sodium Chloride Mini Bag 100 ML IVPB SCH ×3 (08:08→16:09)
[2018-07-23] MEDS: MetroNIDAZOLE 500 MG/100 ML 500 MG/100 ML BAG IVPB SCH ×2 (08:11→15:54)
[2018-07-23] MEDS: Insulin LISPRO 300 UNITS/3 ML VIAL SQ SCH ×5 (08:20→21:30)
--- NOTE | 2018-07-23 12:21 | Internal Med Progress Note ---
Hospitalist Progress Note - Encounter Date of Encounter: 07/23/18 Time of Encounter: 12:17 - Subjective Interval History: I have seen and evaluated the patient at bedside. Patient reports generalized weakness. denies nausea, vomiting or chest pain. - Exam Vitals: Temp Pulse Resp BP Pulse Ox 98.5 F 69 18 131/68 95 07/23/18 11:37 07/23/18 11:37 07/23/18 11:37 07/23/18 11:37 07/23/18 11:37 Exam: Vitals: reviewed General: Alert and oriented x2. In mild distress due to generalized weakness Cardiovascular: RRR, normal S1 & S2, no rubs, murmurs or gallops. Lungs: CTA b/l, no wheezes or crackles. Abdomen: Soft, non-tender, no rigidity. NABS in all 4 quadrants Extremities: dry gangrene of the 2nd right digit. no edema Neurological: No focal neurological abnormalities Rest of the physical exam is non contributory - Assessment and Plan (1) Dry gangrene Current Visit: Yes Status: Acute Assessment and Plan: patient is scheduled for surgery today. npo will add D5NS for maintenance fluids to avoid hypoglycemia accu-checks Q6HRs, plus lispro low dose sliding scale wound culture: E.coli ESBL, proteus and straph aureus (pending sensitivity) contact isolation ordered discontinue Cefepime started on piperacillin/tazobactam 3.375mg/IV Q8HRs continue metronidazole on vancomycin per pharmacy dosing ID and podiatriy recommendations appreciated. (2) Dementia Current Visit: No Status: Chronic Assessment and Plan: Patient is on mirtazapine 15 mg by mouth at bedtime. (3) Hypertension Current Visit: No Status: Chronic Assessment and Plan: Blood pressure has been well controlled on Cardizem. (4) Atrial fibrillation Current Visit: No Status: Chronic Assessment and Plan: Rate controlled on Cardizem 120 mg by mouth daily. Not on anticoagulation due to high risk of fall. (5) PAD (peripheral artery disease) Current Visit: Yes Status: Chronic Assessment and Plan: Continue Plavix. (6) COPD (chronic obstructive pulmonary disease) Current Visit: Yes Status: Chronic Assessment and Plan: Chest is clear to auscultation. Continue bronchodilators as scheduled. On Symbicort. DVT Prophylaxis: Intermittent pneumatic compression. Hold heparin as patient is scheduled for surgery. - Summary of Assessment and Plan Summary of Assessment and Plan: Patient to remain in the hospital scheduled for surgery of the lower extremity. - Time Spent with Patient Total time spent is greater than 50% in coordination of care (as documented) at patient's floor/unit and/or counseling patient: Greater than 35 minutes (40) Plan of Care Discussed with: nurse Internal Medicine: Result - Labs CBC & Chem 7: 07/23/18 05:59 07/23/18 05:59 Labs: Short CBC 07/23/18 Range/Units 05:59 WBC 4.8 (4.3-11.1) K/mcL Hgb 8.7 L (12.9-16.9) g/dL Hct 25.5 L (37.5-50.1) % Plt Count 280 (140-400) K/mcL Neutrophils # 2.4 (1.6-8.9) K/mcL BMP 07/23/18 05:59 Sodium 141 Potassium 3.6 Chloride 108 H Carbon Dioxide 28 BUN 10 Creatinine 0.81 Glucose 78 Calcium 9.2 - ABG Interpretation ABG results: PT/INR, D-dimer PT 13.3 Seconds (9.4-12.1) H 07/21/18 06:07 Consult Discharge Plan - Plan [facility]errals: [facility] [Primary Care Provider] - (2) Dementia Qualifiers: Dementia type: unspecified type Dementia behavioral disturbance: without behavioral disturbance Qualified Code(s): F03.90 - Unspecified dementia without behavioral disturbance (3) Hypertension Qualifiers: Hypertension type: essential hypertension Qualified Code(s): I10 - Essential (primary) hypertension (4) Atrial fibrillation Qualifiers: Atrial fibrillation type: paroxysmal Qualified Code(s): I48.0 - Paroxysmal atrial fibrillation (6) COPD (chronic obstructive pulmonary disease) Qualifiers: COPD type: unspecified COPD Qualified Code(s): J44.9 - Chronic obstructive pulmonary disease, unspecified
[2018-07-23] MEDS ORDERED: D5% in 0.9% NACL 1,000 ML IVC SCH (12:30)
[2018-07-23 13:47] LABS: C-Reactive Protein 18 mg/L (Less than 10)
[2018-07-23] MEDS ORDERED: ROPIVACAINE/PF/NS SYRINGE INTRAART ONE (15:42)
[2018-07-23] MEDS ORDERED: Lidocaine -MPF 2% 2 ML VIAL ONE (17:17)
[2018-07-23] MEDS ORDERED: *HR* Propofol 200 MG/20 ML VIAL IVP ONE (17:17)
[2018-07-23] MEDS ORDERED: Propofol 500 MG/50 ML INFUS..BTL ONE (17:17)
--- NOTE | 2018-07-23 18:37 | Orthopedic Operative Note ---
Date of procedure: 07/23/18 Pre-op diagnosis: right 2nd toe wet gangrene Post-op diagnosis: same Procedure: 07/23/18 18:35 1. Incision and drainage right 2nd toe soft tissue and bone 2. Right 2nd toe amputation Implants: None Complications: None Anesthesia: MAC, local Local Anesthetics: 1% Lidocaine HCL SubQ (cc), Other (0.5% ropivacaine plain) Co-Surgeon: Shubham Flores Was there an assistant signal maintainer present: No Estimated blood loss (cc): 5 Tourniquet Time (Minutes): 0 Specimen: right 2nd toe proximal phalanx bone culture, right 2nd toe to pathology Disposition: floor Procedure in Detail: 07/23/18 18:38 INDICATIONS AND CONSENT Blu Johnston is an 88 year old male with known peripheral vascular disease who initially presented with a right 2nd toe wound and wet gangrene. The history of the wound was unclear, but suspected to be first noticed 2 months prior that was caused by hitting his toe on a wheelchair. The wound later developed infection and wet gangrene. We discussed treatment options including incision and drainage of non-viable soft tissue and bone with possible toe amputation for infection source control. The patient and his POA agreed with this surgical plan. We discussed the above procedures in detail. This included a discussion on the indications, contraindications, and possible complications including but not limited to: infection, non-healing wound, pain, swelling, bleeding, blood clots, heart complications, nerve injury, tendon vascular injury, loss of limb, loss of life, residential antibiotics, and need for further surgery. We also reviewed the expected post operative course, including a discussion on the partial- weightbearing status after this procedure. He related understanding of our discussion regarding this surgery. All questions were answered to her sa tisfaction, and a proper written informed consent was obtained, signed by his POA, and placed in the chart. No guarantees were given, stated or implied, as to the outcome of this procedure. PROCEDURE IN DETAIL The patient was seen in the pre-operative holding area by Anesthesia, where he was consented for MAC with local block. The patient was then brought back to the operative suite and placed on the operating room table in the supine position. A sign-in was performed. MAC was then initiated per Anesthesia protocol. No tourniquet was used for this procedure. Next, the right lower leg was scrubbed, prepped, and draped in the usual aseptic manner. A [place] Time-Out was performed, and all parties in the room agreed. Next, a total of 10 mL of 1% lidocaine plain and 10 mL of 0.5% ropivacaine plain were injected to the right midfoot and 2nd digit. A 15 blade and rongeur were used to excise the necrotic soft tissue at the distal right 2nd toe to the level of bone. The bone appeared non-viable at the distal and middle phalanx. Given the extent of soft tissue and bone necrosis, it was decided to perform the toe amputation. A fishmouth incision was made distal to the 2nd metatarsophalangeal joint. The toe was disarticulated at the metatarsophalangeal joint. A bone culture was taken from the proximal phalanx base which appeared viable and healthy, and the specimen was sent to micro for aerobe, anaerobe, acid fast, and fungal culture. The 2nd metatarsal head bone appeared viable and healthy following the amputation. The toe was sent to pathology. The wound was then irrigated with 3 L of normal saline using cystoscopy tubing. Next, deep and subcutaneous tissues were re- approximated using 2-0 Vicryl and the skin was re-approximated under minimal tension using 3-0 Nylon. A dry, sterile dressing was then applied, which consisted of: Xeroform, 4x4's, Kerlix fluffs, ABDs, and Kerlix roll with KAILEE wrap. Capillary refill time of the toes on the remaining right foot was also noted to be brisk at this time. A sign-out was performed. The patient tolerated anesthesia and the procedure well, and was transferred to PAC-U with vital signs stable and vascular status intact to the right lower extremity. Needle and sponge counts were correct X 2 at the end of the case. Dr. Shubham Flores was present, scrubbed, and participated in all vital aspects of the procedure. After a brief stay in PAC-U, the patient will be admitted back to the floor for continued monitoring. Patient will likely need course of antibiotics based on culture sensitivities. 07/24/18 05:27 07/24/18 05:32
[2018-07-23] MEDS ORDERED: traMADol 50 MG TABLET PO PRN (18:46)
[2018-07-23] MEDS ORDERED: Levalbuterol Neb 0.63 MG/3 ML IH PRN (18:46)
[2018-07-23] MEDS ORDERED: Dextrose Gel 15 GM/37.5 ML TUBE PO PRN ×2 (18:46)
[2018-07-23] MEDS ORDERED: Naloxone 0.4 MG/ML INJ IVP PRN (18:46)
[2018-07-23] MEDS ORDERED: *HR* Dextrose 50 % in Water (Syg) 50 ML SYRINGE IVP PRN (18:46)
[2018-07-23] MEDS ORDERED: D5% in Water 1,000 ML IVC PRN (18:46)
--- NOTE | 2018-07-23 19:07 | Anesthesia Evaluation Post Op ---
Date of Encounter: 07/23/18 Time of Encounter: 18:40 - Vital Signs Vital Signs: Last Vital Signs Temp 98.3 F 07/23/18 18:45 Pulse 65 07/23/18 18:45 Resp 17 07/23/18 18:45 BP 159/71 07/23/18 18:45 Pulse Ox 99 07/23/18 18:45 - Lungs Lungs: Clear Ascult./Percussion - Airway Airway: Non-obstructed - Cardiovascular Regular Rate - Mental Status Mental Status: Alert & Oriented, Answers Appropriately - Pain Pain Scale: 1 - Nausea Vomiting Nausea Vomiting: Not Present - Hydration Hydration: NPO - Discharge PostOp Status: Transfer Patient to floor
--- NOTE | 2018-07-23 19:52 | Vascular/[facility] Progress Note ---
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 His anatomy for gangrenous right second toe. He presented with gangrene. He is scheduled for a right toe amputation. He has known severe peripheral vascular disease of the right lower extremity including a right anterior tibial and posterior tibial artery occlusion. He previously underwent a right peroneal artery angioplasty. He was advised to continue with daily Plavix. He may follow-up in vascular clinic in approximately 1 month for further evaluation. If his toe amputation site failed to heal, he may require a higher level of amputation. (2) COPD (chronic obstructive pulmonary disease) Current Visit: Yes Status: Chronic Qualifiers: COPD type: unspecified COPD Qualified Code(s): J44.9 - Chronic obstructive pulmonary disease, unspecified (3) Diabetes mellitus Current Visit: Yes Status: Chronic Qualifiers: Diabetes mellitus type: type 2 Diabetes mellitus fpc insulin use: without fpc use Diabetes mellitus complication status: without complication Qualified Code(s): E11.9 - Type 2 diabetes mellitus without complications (4) Hypertension Current Visit: Yes Status: Chronic Qualifiers: Hypertension type: essential hypertension Qualified Code(s): I10 - E ssential (primary) hypertension - Subjective Interval history: The patient the patient reports that he is comfortable today. He denies any fevers or chills. He denies chest pain shortness of breath. Vital Signs, Last 4 Hours Temp Pulse Resp BP Pulse Ox 07/23/18 19:22 98.1 F 65 18 157/72 100 07/23/18 18:45 98.3 F 65 17 159/71 99 - Physical Examination General: Present: Conversant HEENT: Present: Pupils equal Cardiac: Present: Reg Rate and Rhythm Lungs: Present: Normal Breath Sounds Neuro: Present: Alert and responsive, Motor nerves grossly intact, Sensory nerves grossly intact Vascular: Present: Pulse, absent (Pedal signals present) Abdomen: Present: Soft Skin: Present: Wound/ulcer(s) (Right second toe gangrene) Results 07/23/18 05:59 07/23/18 05:59 Lab Results, Last 24 hours 07/23/18 07/23/18 05:59 05:59 WBC 4.8 Hgb 8.7 L Hct 25.5 L Plt Count 280 Sodium 141 Potassium 3.6 Chloride 108 H Carbon Dioxide 28 BUN 10 Creatinine 0.81 Glucose 78 Calcium 9.2 Magnesium 1.8 Consult Discharge Plan - Plan [facility]errals: [facility] [Primary Care Provider] -
[2018-07-23] MEDS: D5% in 0.9% NACL 1,000 ML IVC SCH (20:13)
[2018-07-23] MEDS: Mirtazapine 15 MG TABLET PO SCH ×2 (21:31→21:36)
[2018-07-23] MEDS: traZODone 50 MG TABLET PO SCH ×2 (21:31→21:36)
--- NOTE | 2018-07-23 22:34 | Infectious Disease Progress No ---
Date of Encounter: 07/23/18 Time of Encounter: 22:31 - Assessment and Plan (1) Dry gangrene Current Visit: Yes Status: Acute have been present for months progressively getting worse s/p angiogram with balloon angioplasty of the right tibial artery 07/03/18 xray negative for any osteo recommend checking baseline inflammatory markers await cultures so far ESBL staph aureus going for toe amputation later appreciate Dr. Nichols recommendations and input continue vanc d/c cefepime start zosyn monitor labs and for drug toxicity goal vanc around 15 (2) COPD (chronic obstructive pulmonary disease) Current Visit: Yes Status: Chronic Qualifiers: COPD type: unspecified COPD Qualified Code(s): J44.9 - Chronic obstructive pulmonary disease, unspecified (3) PAD (peripheral artery disease) Current Visit: Yes Status: Chronic (4) Atrial fibrillation Current Visit: No Status: Chronic Qualifiers: Atrial fibrillation type: paroxysmal Qualified Code(s): I48.0 - Paroxysmal atrial fibrillation (5) Dementia Current Visit: No Status: Chronic Qualifiers: Dementia type: unspecified type Dementia behavioral disturbance: without behavioral disturbance Qualified Code(s): F03.90 - Unspecified dementia without behavioral disturbance (6) Diabetes mellitus Current Visit: Yes Status: Chronic Qualifiers: Diabetes mellitus type: type 2 Diabetes mellitus shaper hand insulin use: without shaper hand use Diabetes mellitus complication status: without complication Qualified Code(s): E11.9 - Type 2 diabetes mellitus without complications - Subjective Interval history: Patient seen and examined more awake and alert no chest pain no shortness of breath VS noted Labs noted Infect Dis PN-Objective Data - Labs CBC & Chem 7: 07/23/18 05:59 07/23/18 05:59 Labs: Laboratory Results - last 24 hr 07/21/18 07/21/18 07/21/18 07:13 11:48 16:18 WBC RBC Hgb Hct MCV MCH MCHC RDW Plt Count MPV Immature Gran % Seg Neutrophils % Lymphocytes % Monocytes % Eosinophils % Basophils % Neutrophils # Lymphocytes # Monocytes # Eosinophils # Basophils # ESR Sodium Potassium Chloride Carbon Dioxide BUN Creatinine Est GFR ( Amer) Est GFR (Non-Af Amer) BUN/Creatinine Ratio Glucose POC Glucose 73 117 H 103 H Calculated Osmolality Calcium Phosphorus Magnesium C-Reactive Protein 07/22/18 07/22/18 07/23/18 15:21 20:30 05:59 WBC RBC Hgb Hct MCV MCH MCHC RDW Plt Count MPV Immature Gran % Seg Neutrophils % Lymphocytes % Monocytes % Eosinophils % Basophils % Neutrophils # Lymphocytes # Monocytes # Eosinophils # Basophils # ESR 43 H Sodium Potassium Chloride Carbon Dioxide BUN Creatinine Est GFR ( Amer) Est GFR (Non-Af Amer) BUN/Creatinine Ratio Glucose POC Glucose 144 H 161 H Calculated Osmolality Calcium Phosphorus Magnesium C-Reactive Protein 07/23/18 07/23/18 07/23/18 05:59 05:59 08:20 WBC 4.8 RBC 2.76 L Hgb 8.7 L Hct 25.5 L MCV 92.4 MCH 31.5 MCHC 34.1 RDW 12.0 Plt Count 280 MPV 9.2 L Immature Gran % 0.2 Seg Neutrophils % 50.1 Lymphocytes % 29.7 Monocytes % 9.1 Eosinophils % 10.1 Basophils % 0.8 Neutrophils # 2.4 Lymphocytes # 1.4 Monocytes # 0.4 Eosinophils # 0.5 Basophils # 0.0 ESR Sodium 141 Potassium 3.6 Chloride 108 H Carbon Dioxide 28 BUN 10 Creatinine 0.81 Est GFR ( Amer) > 60 Est GFR (Non-Af Amer) > 60 BUN/Creatinine Ratio 12 Glucose 78 POC Glucose 89 Calculated Osmolality 290 Calcium 9.2 Phosphorus 3.4 Magnesium 1.8 C-Reactive Protein 18 H Cultures: Cultures 07/20/18 16:10 Wound Culture - Preliminary Second Right Toe Proteus mirabilis Escherichia coli ESBL Staphylococcus aureus 07/20/18 16:10 Anaerobic Culture - Preliminary Second Right Toe Culture is incubating. 07/19/18 17:22 Blood Culture - Preliminary Peripheral Venipuncture Culture is incubating and being continuously monitored for growth. Final report to follow. 07/19/18 17:22 Blood Culture - Preliminary Peripheral Venipuncture Culture is incubating and being continuously monitored for growth. Final report to follow. Exam - Constitutional Vitals: Temp Pulse Resp BP Pulse Ox 98.4 F 75 17 138/62 96 07/23/18 20:45 07/23/18 20:45 07/23/18 20:45 07/23/18 20:45 07/23/18 20:45 General appearance: no acute distress, no febrile - Respiratory Respiratory exam: Present: CTAB. Absent: wheezes - Cardiovascular Cardiovascular exam: Present: RRR, +S1, +S2 - GI/Abdominal GI/Abdominal exam: Present: soft. Absent: tenderness Consult Discharge Plan - Plan Referrals: [facility] [Primary Care Provider] -
[2018-07-24] MEDS ORDERED: Insulin LISPRO 300 UNITS/3 ML VIAL SQ SCH
[2018-07-24] MEDS: MetroNIDAZOLE 500 MG/100 ML 500 MG/100 ML BAG IVPB SCH ×4 (00:56→23:24)
[2018-07-24] MEDS: Piperacillin/Tazobactam 3.375 GM in 0.9 % Sodium Chloride Mini Bag 100 ML IVPB SCH ×4 (01:00→23:23)
[2018-07-24 06:47] LABS: Basophils % 0.5 %; Eosinophils # 0.4 K/mcL (0.0-0.6); Hematocrit 25.4 % (37.5-50.1); Hemoglobin 8.7 g/dL (12.9-16.9); Immature Granulocytes % 0.3 % (0-4); Lymphocytes # 0.9 K/mcL (0.6-4.6); Mean Corpuscular HGB Conc 34.3 g/dL (31.6-35.5); Mean Corpuscular Hemoglobin 31.9 pg (28.0-33.3); Mean Platelet Volume 9.2 fL (9.4-12.4); Monocytes # 0.5 K/mcL (0.0-1.3); Monocytes % 8.3 %; Neutrophils # 4.5 K/mcL (1.6-8.9); Platelet Count 281 K/mcL (140-400); Red Blood Count 2.73 M/mcL (4.19-5.50); Red Cell Distribution Width 12.3 % (11.5-14.5); Segmented Neutrophils % 70.9 %
[2018-07-24 07:04] LABS: BUN/Creatinine Ratio 10 (6-26); Blood Urea Nitrogen 13 mg/dL (8-23); Calcium 8.8 mg/dL (8.6-10.3); Carbon Dioxide 28 mEq/L (23-29); Chloride 112 mEq/L (98-107); Glucose 131 mg/dL (70-105); Magnesium 1.6 mg/dL (1.6-2.6); Osmolality,Calculated 296 (280-300); Phosphorous 3.1 mg/dL (2.7-4.5); Potassium 3.5 mEq/L (3.5-5.1); Sodium 142 mEq/L (136-145); eGFR For Non-African Americans 55 (> 60)
[2018-07-24] MEDS: Budesonide/Formoterol 160/4.5 1 PUFF INH IH SCH ×2 (07:55→20:03)
[2018-07-24] MEDS: Insulin LISPRO 300 UNITS/3 ML VIAL SQ SCH ×4 (08:39→22:12)
[2018-07-24] MEDS: Diltiazem CD (24hr) 120 MG CAPSULE PO SCH (08:47)
[2018-07-24] MEDS: Gabapentin 100 MG CAPSULE PO SCH ×3 (08:47→21:04)
[2018-07-24] MEDS ORDERED: Pantoprazole 40 MG VIAL IVP SCH (09:00)
[2018-07-24] MEDS: D5% in 0.9% NACL 1,000 ML IVC SCH (11:54)
--- NOTE | 2018-07-24 16:12 | Podiatry Progress Note ---
Date of Encounter: 07/24/18 Time of Encounter: 12:00 - Assessment and Plan (1) Dry gangrene Current Visit: Yes Status: Acute ASSESSMENT: Dry gangrene toe #2 right PLAN: POD #1 1. Incision and drainage right 2nd toe soft tissue and bone 2. Right 2nd toe amputation Dressing CDI at this time. Cultures pending- proteus M, E.Coli and SA at this time. ID on board Rec vanc, stop cefepime and start zosyn Intra op cultures pending Bone cultures were obtained intra-op Sandra reports that all involved bone was removed with surgical debridement- Wound closed and without complication at this time Sandra recommends short term IV antibiotics with switch to PO Patient lives in longterm- will need assistance- consult for discharge planning. Patient has niece which is POA and should be involved in discharge planning Will need to follow up with 1 week after discharge in Podiatry clinic Limited weight bearing to heel only, please have post operative shoe to bedside. Leave dressing intact, will plan to change or sunday, call if saturated Patient resting comfortably, denies pain Denies any fevers, chills, n/v or fls Denies any calf pain or sob WBC 6.3 and patient afebrile Subjective Interval history: POD #1 1. Incision and drainage right 2nd toe soft tissue and bone 2. Right 2nd toe amputation Resting comfortably. Dressing CDI. Patient denies any fevers, chills, n/v or fls. Patient denies any calf pain or sob. Objective - Vital Signs Vital Signs: Vital Signs Temp Pulse Resp BP Pulse Ox 07/24/18 14:51 98.9 F 63 15 125/69 97 07/24/18 11:10 98.4 F 67 18 156/71 96 07/24/18 08:04 98.2 F 60 18 153/66 97 07/24/18 07:58 16 98 07/23/18 20:45 98.4 F 75 17 138/62 96 07/23/18 19:45 98.1 F 71 18 122/63 98 07/23/18 19:22 98.1 F 65 18 157/72 100 07/23/18 18:45 98.3 F 65 17 159/71 99 Intake and Output 07/24/18 07/24/18 07/24/18 07:59 15:59 23:59 Intake Total 200 / 200 1805 / 1805 Output Total 0 / 0 Balance 200 / 200 1805 / 1805 Intake: IV Fluids 200 / 200 1625 / 1625 D5% And 0.9% Nacl 1000 Ml 1,000 1175 / 1175 ML @ 50 mls/hr IVC .Q20H [facility] Rx#:[id number] Flagyl Premix 500 MG/100 ML 500 100 / 100 100 / 100 mg In 100 ml @ 100 mls/hr IVPB Q8HR [facility] Rx#:[id number] Zosyn 3.375 GM In 0.9 % Sodium 100 / 100 100 / 100 Chloride (Mini-Bag +) 100 ML @ 25 mls/hr IVPB Q8HR [facility] Rx#: [id number] Vancocin 1,000 MG In 0.9 % 250 / 250 Sodium Chloride 250 ML @ 167 mls/hr IVPB Q24H [facility] Rx#: [id number] Oral 180 / 180 Output: Urine 0 / 0 Other: Meal Lunch Percent of Meal Consumed 5% Weight 64.9 kg Blood Glucose* 171 Patient Weight 07/24/18 23:59 Weight 64.9 kg - Exam Exam: CONSTITUTIONAL: Awake alert minimal orientation VASCULAR: Toes warm to touch, cap refill <3seconds, no calf pain with manual compression NEUROLOGICAL: Diminished sensation to light and moderae touch- post op- s/p I&D and amputation of toe #2, will leave dressing CDI at this time, no shadow or strikethrough drainage noted Will plan to change or Sunday - Lab Result Diagrams: 07/24/18 05:33 07/24/18 05:33 Labs: Abnormal lab results RBC 2.73 M/mcL (4.19-5.50) L 07/24/18 05:33 Hgb 8.7 g/dL (12.9-16.9) L 07/24/18 05:33 Hct 25.4 % (37.5-50.1) L 07/24/18 05:33 MPV 9.2 fL (9.4-12.4) L 07/24/18 05:33 ESR 43 mm/hr (0-10) H 07/23/18 05:59 PT 13.3 Seconds (9.4-12.1) H 07/21/18 06:07 Chloride 112 mEq/L (98-107) H 07/24/18 05:33 Est GFR (Non-Af Amer) 55 (> 60) L 07/24/18 05:33 Glucose 131 mg/dL (70-105) H 07/24/18 05:33 POC Glucose 175 mg/dL (70-99) H 07/23/18 21:54 C-Reactive Protein 18 mg/L (Less than 10) H 07/23/18 05:59 Vancomycin Trough 11 mcg/mL (5-10) H 07/24/18 07:46 Microbiology, Last 48 Hours 07/20/18 16:10 Anaerobic Culture - Preliminary Second Right Toe At this time, no anaerobic growth is present. The culture will be finalized after 5 days of incubation. 07/20/18 16:10 Wound Culture - Final Second Right Toe Proteus mirabilis Escherichia coli ESBL Staphylococcus aureus 07/23/18 18:12 Surgical Biopsy Culture - Preliminary Other-Specify in Comments 07/23/18 18:12 Anaerobic Culture - Preliminary Other-Specify in Comments Culture is incubating. Consult Discharge Plan - Plan Referrals: [facility] [Primary Care Provider] -
--- NOTE | 2018-07-24 16:13 | Discharge Summary ---
<Brian Infante - Last Filed: 07/24/18 16:10> - NOTES TO OUTPATIENT PROVIDER Notes to Outpatient Provider: Patient admitted from for dry gangrene on right second toe and status post right second toe amputation. Wound cultures grew Proteus mirabilis, Escherichia coli ESBL, and staph aureus. Patient will be discharged on 4 weeks of Bactrim and will need weekly CBC, BUN/creatinine, ESR. Orders not resulted at time of discharge: Pending orders 07/19/18 17:22 Culture,Blood [BC] Stat 07/19/18 18:14 Culture,Anaerobic [RM] Stat 07/23/18 18:11 Surgical Pathology [PTH] Routine 07/23/18 18:12 Culture,Anaerobic [RM] Routine Culture,Tissue (Biopsy) [RM] Routine Date of Encounter: 07/24/18 Time of Encounter: 09:00 - Discharge Diagnosis (1) Dry gangrene Priority: Primary Status: Acute (2) Atrial fibrillation Priority: Secondary Status: Chronic Qualifiers: Atrial fibrillation type: paroxysmal Qualified Code(s): I48.0 - Paroxysmal atrial fibrillation (3) COPD (chronic obstructive pulmonary disease) Priority: Secondary Status: Chronic Qualifiers: COPD type: unspecified COPD Qualified Code(s): J44.9 - Chronic obstructive pulmonary disease, unspecified (4) Dementia Priority: Secondary Status: Chronic Qualifiers: Dementia type: unspecified type Dementia behavioral disturbance: without behavioral disturbance Qualified Code(s): F03.90 - Unspecified dementia without behavioral disturbance (5) Hypertension Priority: Secondary Status: Chronic Qualifiers: Hypertension type: essential hypertension Qualified Code(s): I10 - Essential (primary) hypertension (6) PAD (peripheral artery disease) Priority: Secondary Status: Chronic Hospital course: Mr. Johnston is a 88 year old male presented with chief complaint of right second of infection. Patient has history of dementia and presented from [place] dementia unit. While in a wheelchair patient had stopped his toe against something and afterwards developed a right toe infection. On admission his started on broad- spectrum IV antibiotics and podiatry and infectious disease were consulted. Vascular surgery was also consulted to evaluate this patient's peripheral artery disease before right toe amputation and patient was told that if his right toe failed to heal status post amputation he may require a below-knee or above-knee amputation. Patient underwent incision and drainage of the right second toe as well as amputation. Patient did not have any complications. Wound cultures grew Proteus mirabilis, ESBL Escherichia coli, staph aureus. Patient will be on Bactrim double strength twice a day 4 weeks and will need weekly CBC, BUN, creatinine and ESR. Discharge discussed with: patient - Time Spent with Patient Total time spent providing and/or coordinating discharge services: - Discharge Medications Prescriptions: New Sulfamethoxazole/Trimeth DS [Bactrim DS] 1 each PO BID #54 tablet Continue Mirtazapine [Remeron] 15 mg PO HS Lisinopril [Zestril] 10 mg PO BID MDD HOLD FOR SBP<110 Latanoprost [Xalatan] 1 drop BOTH EYES HS Oxybutynin [Ditropan] 5 mg PO TID Budesonide/Formoterol 160/4.5 [Symbicort 160/4.5] 2 puff IH BIDR Ascorbic Acid [Vitamin C] 500 mg PO BID Polyvinyl Alcohol [Artificial Tears] 2 drop BOTH EYES QID Nitroglycerin [Nitrostat] 0.4 mg SL Q5M PRN PRN Reason: Chest Pain Potassium Chloride [Klor-Con] 20 meq PO DAILY Ferrous Sulfate [Iron] 325 mg PO BID Diltiazem CD (24hr) [Cardizem CD] 120 mg PO DAILY #30 cap.er.24h MDD HOLD FOR SBP<110 PULSE <60 Metoprolol [Lopressor] 12.5 mg PO BID 30 Days tablet MDD HOLD FOR SBP <110 OR PULSE<60 Bisacodyl [Dulcolax] 10 mg RC DAILY PRN PRN Reason: Constipation Acetaminophen [Tylenol] 975 mg PO BID PRN MDD >3000MG/24 HOUR PRN Reason: Pain Omeprazole [PriLOSEC] 40 mg PO DAILY@0630 capsule. traZODone [TraZODone] 50 mg PO HS Gabapentin [Neurontin] 100 mg PO TID Multivit-Min/FA/Lycopen/Lutein [Adults 50 Plus Multivitamin] 1 tab PO DAILY Aspirin Enteric Coated [Aspirin EC] 81 mg PO DAILY #90 tablet. Clopidogrel [Plavix] 75 mg PO DAILY #30 tablet Sennosides [Senna] 17.2 mg PO DAILY PRN PRN Reason: Constipation Tramadol HCl [Ultram] 25 mg PO BID PRN PRN Reason: Pain Home Medications: Ascorbic Acid [Vitamin C] 500 mg PO BID 01/09/16 [History] Budesonide/Formoterol 160/4.5 [Symbicort 160/4.5] 2 puff IH BIDR 01/09/16 [History] Latanoprost [Xalatan] 1 drop BOTH EYES HS 01/09/16 [History] Lisinopril [Zestril] 10 mg PO BID MDD HOLD FOR SBP<110 01/09/16 [History] Mirtazapine [Remeron] 15 mg PO HS 01/09/16 [History] Nitroglycerin [Nitrostat] 0.4 mg SL Q5M PRN 01/09/16 [History] Oxybutynin [Ditropan] 5 mg PO TID 01/09/16 [History] Polyvinyl Alcohol [Artificial Tears] 2 drop BOTH EYES QID 01/09/16 [History] Ferrous Sulfate [Iron] 325 mg PO BID 10/02/16 [History] Potassium Chloride [Klor-Con] 20 meq PO DAILY 10/02/16 [History] Diltiazem CD (24hr) [Cardizem CD] 120 mg PO DAILY #30 cap.er.24h MDD HOLD FOR SBP<110 PULSE <60 10/05/16 [Rx] Metoprolol [Lopressor] 12.5 mg PO BID 30 Days tablet MDD HOLD FOR SBP <110 OR PULSE<60 10/05/16 [Rx] Acetaminophen [Tylenol] 975 mg PO BID PRN MDD >3000MG/24 HOUR 07/16/17 [History] Bisacodyl [Dulcolax] 10 mg RC DAILY PRN 07/16/17 [History] Omeprazole [PriLOSEC] 40 mg PO DAILY@0630 capsule. 07/23/17 [Rx] traZODone [TraZODone] 50 mg PO HS 10/05/17 [History] Aspirin Enteric Coated [Aspirin EC] 81 mg PO DAILY #90 tablet. 07/03/18 [Rx] Clopidogrel [Plavix] 75 mg PO DAILY #30 tablet 07/03/18 [Rx] Gabapentin [Neurontin] 100 mg PO TID 07/03/18 [History] Multivit-Min/FA/Lycopen/Lutein [Adults 50 Plus Multivitamin] 1 tab PO DAILY 07/03/18 [History] Sennosides [Senna] 17.2 mg PO DAILY PRN 07/19/18 [History] Tramadol HCl [Ultram] 25 mg PO BID PRN 07/19/18 [History] Sulfamethoxazole/Trimeth DS [Bactrim DS] 1 each PO BID #54 tablet 07/24/18 [Rx] Allergies/Adverse Reactions: Allergy/AdvReac Type Severity Reaction Status Date / Time clonidine Allergy Rash Verified 07/19/18 20:28 Date of admission: 07/22/18 10:10 [facility] physician: [facility] Consults: 07/19/18 18:23 Consult to Podiatry [CONS] Stat Consulting Provider: [facility] Reason for Consult: Rt #2 toe gangrene w/cellulitis Time Notified: 18:24 Call Completed: Yes 07/22/18 07:45 Consult to Infectious Diseases [CONS] Routine Consulting Provider: [facility] [place] Reason for Consult: dry gangrene of the lower extr Call Completed: No Discharging clinician: Brian Infante Anticipated date of discharge: 07/24/18 - Constitutional Vitals: Temp Pulse Resp BP Pulse Ox 98.9 F 63 15 125/69 97 07/24/18 14:51 07/24/18 14:51 07/24/18 14:51 07/24/18 14:51 07/24/18 14:51 General appearance: Present: cooperative, pleasant, no acute distress Exam: General: Alert and oriented x2. In mild distress due to generalized weakness Cardiovascular: RRR, normal S1 & S2, no rubs, murmurs or gallops. Lungs: CTA b/l, no wheezes or crackles. Abdomen: Soft, non-tender, no rigidity. NABS in all 4 quadrants Extremities: Right second toe amputated,. no edema Neurological: No focal neurological abnormalities Rest of the physical exam is non contributory - Patient Status Disposition: Transfer [facility] Condition: Fair Functional capacity at discharge: wheelchair bound Overall status at discharge: patient is progressing back to baseline - Discharge Instructions Follow Up With: [facility] [Primary Care Provider] - - Diet and Activity Activity: as per physical therapy Diet: advance to your usual diet <Brijesh Hinson - Last Filed: 07/24/18 17:39> Orders not resulted at time of discharge: Pending orders 07/19/18 17:22 Culture,Blood [BC] Stat 07/19/18 18:14 Culture,Anaerobic [RM] Stat 07/23/18 18:11 Surgical Pathology [PTH] Routine 07/23/18 18:12 Culture,Anaerobic [RM] Routine Culture,Tissue (Biopsy) [RM] Routine Date of Encounter: 07/24/18 - Discharge Diagnosis (1) Hypertension Status: Chronic Qualifiers: Hypertension type: essential hypertension Qualified Code(s): I10 - Essential (primary) hypertension (2) Atrial fibrillation Status: Chronic Qualifiers: Atrial fibrillation type: paroxysmal Qualified Code(s): I48.0 - Paroxysmal atrial fibrillation (3) Dementia Status: Chronic Qualifiers: Dementia type: unspecified type Dementia behavioral disturbance: without behavioral disturbance Qualified Code(s): F03.90 - Unspecified dementia without behavioral disturbance (4) Dry gangrene Status: Acute (5) PAD (peripheral artery disease) Status: Chronic (6) COPD (chronic obstructive pulmonary disease) Status: Chronic Qualifiers: COPD type: unspecified COPD Qualified Code(s): J44.9 - Chronic obstructive pulmonary disease, unspecified Hospital course: Mr. Johnston is a 88 year old male - Time Spent with Patient Total time spent providing and/or coordinating discharge services: Date of admission: 07/22/18 10:10 Primary care physician: [facility] Consults: 07/19/18 18:23 Consult to Podiatry [CONS] Stat Consulting Provider: [facility] Reason for Consult: Rt #2 toe gangrene w/cellulitis Time Notified: 18:24 Call Completed: Yes 07/22/18 07:45 Consult to Infectious Diseases [CONS] Routine Consulting Provider: [facility] Reason for Consult: dry gangrene of the lower extr Call Completed: No - Constitutional Vitals: Temp Pulse Resp BP Pulse Ox 98.9 F 63 15 125/69 97 07/24/18 14:51 07/24/18 14:51 07/24/18 14:51 07/24/18 14:51 07/24/18 14:51 - Attending Attestation I have seen and independently assessed this patient and I agree with plan as documented Exam Gen. NAD CVS. S1 S2 WNL Resp. CTAB Plan Dry gangrene. s/p amputation. To complete 4 weeks of po bactrim
[2018-07-24] MEDS: *HR* Heparin 5,000 UNIT/ML VIAL SQ SCH (16:24)
--- NOTE | 2018-07-24 16:25 | Physician Discharge Referral ---
[facility] Referral Info Transfer To: [place] Provider in Charge: Dr. Flower Provider in Charge after Transfer: PCP Institutional Level of Care: Skilled - Diagnosis (1) Dry gangrene Priority: Primary Status: Acute (2) Atrial fibrillation Priority: Secondary Status: Chronic (3) COPD (chronic obstructive pulmonary disease) Priority: Secondary Status: Chronic (4) Dementia Priority: Secondary Status: Chronic (5) Hypertension Priority: Secondary Status: Chronic (6) PAD (peripheral artery disease) Priority: Secondary Status: Chronic - Transfer Medications Prescriptions: Sulfamethoxazole/Trimeth DS [Bactrim DS] 1 each PO BID #54 tablet Home Medications: Ascorbic Acid [Vitamin C] 500 mg PO BID 01/09/16 [History] Budesonide/Formoterol 160/4.5 [Symbicort 160/4.5] 2 puff IH BIDR 01/09/16 [History] Latanoprost [Xalatan] 1 drop BOTH EYES HS 01/09/16 [History] Lisinopril [Zestril] 10 mg PO BID MDD HOLD FOR SBP<110 01/09/16 [History] Mirtazapine [Remeron] 15 mg PO HS 01/09/16 [History] Nitroglycerin [Nitrostat] 0.4 mg SL Q5M PRN 01/09/16 [History] Oxybutynin [Ditropan] 5 mg PO TID 01/09/16 [History] Polyvinyl Alcohol [Artificial Tears] 2 drop BOTH EYES QID 01/09/16 [History] Ferrous Sulfate [Iron] 325 mg PO BID 10/02/16 [History] Potassium Chloride [Klor-Con] 20 meq PO DAILY 10/02/16 [History] Diltiazem CD (24hr) [Cardizem CD] 120 mg PO DAILY #30 cap.er.24h MDD HOLD FOR SBP<110 PULSE <60 10/05/16 [Rx] Metoprolol [Lopressor] 12.5 mg PO BID 30 Days tablet MDD HOLD FOR SBP <110 OR PULSE<60 10/05/16 [Rx] Acetaminophen [Tylenol] 975 mg PO BID PRN MDD >3000MG/24 HOUR 07/16/17 [History] Bisacodyl [Dulcolax] 10 mg RC DAILY PRN 07/16/17 [History] Omeprazole [PriLOSEC] 40 mg PO DAILY@0630 capsule. 07/23/17 [Rx] traZODone [TraZODone] 50 mg PO HS 10/05/17 [History] Aspirin Enteric Coated [Aspirin EC] 81 mg PO DAILY #90 tablet. 07/03/18 [Rx] Clopidogrel [Plavix] 75 mg PO DAILY #30 tablet 07/03/18 [Rx] Gabapentin [Neurontin] 100 mg PO TID 07/03/18 [History] Multivit-Min/FA/Lycopen/Lutein [Adults 50 Plus Multivitamin] 1 tab PO DAILY 07/03/18 [History] Sennosides [Senna] 17.2 mg PO DAILY PRN 07/19/18 [History] Tramadol HCl [Ultram] 25 mg PO BID PRN 07/19/18 [History] Sulfamethoxazole/Trimeth DS [Bactrim DS] 1 each PO BID #54 tablet 07/24/18 [Rx] Allergies/Adverse Reactions: Allergy/AdvReac Type Severity Reaction Status Date / Time clonidine Allergy Rash Verified 07/19/18 20:28 - Respiratory Orders None Smoking Cessation: Smoking cessation has been advised. For more information, call the [place] Tobacco Quit Line at 5-194-KGWV-NOW. - Lab Orders Lab Orders: CBC (Weekly x 4 weeks), Other (include drug levels w/frequency) ( BUN,Creatinine and ESR every week x 4 weeks) - Advance Directives Code Status: Full Code - Mobility Orders Chair - Rehabiliation Orders Rehab Orders: Evaluation for Physical Therapy, Evaluation for Occupational Therapy - Treatments Skin tear care topically daily PRN per policy List/Other: Patient should follow-up with [facility] in 1 week. Limited weightbearing to he will only Leave dressing intact, will be changed or Sunday by podiatry. - Diet Orders No Concentrated Sweets (advanced soft diet) CERTIFICATION: I certify that the transfer of the above named patient to an Extended Care Facility is necessary for the continuing treatment of the diagnosis listed. The above information is true and accurate reflection of patient's current condition. Confidential - Redisclosure prohibited without a patient's written consent.
[2018-07-24] MEDS: traZODone 50 MG TABLET PO SCH (21:03)
[2018-07-24] MEDS: Mirtazapine 15 MG TABLET PO SCH (21:03)
--- NOTE | 2018-07-25 03:40 | Infectious Disease Progress No ---
Date of Encounter: 07/24/18 Time of Encounter: 17:00 - Assessment and Plan (1) Dry gangrene Current Visit: Yes Status: Acute have been present for months progressively getting worse s/p angiogram with balloon angioplasty of the right tibial artery 07/03/18 xray negative for any osteo recommend checking baseline inflammatory markers await cultures so far ESBL staph aureus s/p amputation by podiatry d/w dr. Wynne, he feels that patient has removed all the infected tissue after long discussion with podiatry and hospitalist group patient is 88 year old and the risk of IV vanc/ertapenem for 6 weeks might be higher than then benefit we decided to give bactrim which should cover all three organisms CrCL around 37 d/c on bactrim DS one tab bid for about 4 weeks weekly cbc, bmp, ESR and CrP (2) COPD (chronic obstructive pulmonary disease) Current Visit: Yes Status: Chronic Qualifiers: COPD type: unspecified COPD Qualified Code(s): J44.9 - Chronic obstructive pulmonary disease, unspecified (3) PAD (peripheral artery disease) Current Visit: Yes Status: Chronic (4) Atrial fibrillation Current Visit: No Status: Chronic Qualifiers: Atrial fibrillation type: paroxysmal Qualified Code(s): I48.0 - Paroxysmal atrial fibrillation (5) Dementia Current Visit: No Status: Chronic Qualifiers: Dementia type: unspecified type Dementia behavioral disturbance: without behavioral disturbance Qualified Code(s): F03.90 - Unspecified dementia without behavioral disturbance (6) Diabetes mellitus Current Visit: Yes Status: Chronic Qualifiers: Diabetes mellitus type: type 2 Diabetes mellitus correction insulin use: without remote computer terminal operator use Diabetes mellitus complication status: without complication Qualified Code(s): E11.9 - Type 2 diabetes mellitus without complications - Subjective Interval history: Patient seen and examined more awake and alert no chest pain no shortness of breath. No diarrhea. no urinary symptoms VS noted Labs noted Infect Dis PN-Objective Data - Labs CBC & Chem 7: 07/24/18 05:33 07/24/18 05:33 Labs: Laboratory Results - last 24 hr 07/23/18 07/24/18 07/24/18 11:32 05:33 05:33 WBC 6.3 RBC 2.73 L Hgb 8.7 L Hct 25.4 L MCV 93.0 MCH 31.9 MCHC 34.3 RDW 12.3 Plt Count 281 MPV 9.2 L Immature Gran % 0.3 Seg Neutrophils % 70.9 Lymphocytes % 14.0 Monocytes % 8.3 Eosinophils % 6.0 Basophils % 0.5 Neutrophils # 4.5 Lymphocytes # 0.9 Monocytes # 0.5 Eosinophils # 0.4 Basophils # 0.0 Sodium 142 Potassium 3.5 Chloride 112 H Carbon Dioxide 28 BUN 13 Creatinine 1.24 Est GFR ( Amer) > 60 Est GFR (Non-Af Amer) 55 L BUN/Creatinine Ratio 10 Glucose 131 H POC Glucose 80 Calculated Osmolality 296 Calcium 8.8 Phosphorus 3.1 Magnesium 1.6 Vancomycin Trough 07/24/18 07:46 WBC RBC Hgb Hct MCV MCH MCHC RDW Plt Count MPV Immature Gran % Seg Neutrophils % Lymphocytes % Monocytes % Eosinophils % Basophils % Neutrophils # Lymphocytes # Monocytes # Eosinophils # Basophils # Sodium Potassium Chloride Carbon Dioxide BUN Creatinine Est GFR ( Amer) Est GFR (Non-Af Amer) BUN/Creatinine Ratio Glucose POC Glucose Calculated Osmolality Calcium Phosphorus Magnesium Vancomycin Trough 11 H Cultures: Cultures 07/19/18 17:22 Blood Culture - Final Peripheral Venipuncture No growth. Final report. 07/19/18 17:22 Blood Culture - Final Peripheral Venipuncture No growth. Final report. 07/20/18 16:10 Anaerobic Culture - Preliminary Second Right Toe At this time, no anaerobic growth is present. The culture will be finalized after 5 days of incubation. 07/20/18 16:10 Wound Culture - Final Second Right Toe Proteus mirabilis Escherichia coli ESBL Staphylococcus aureus 07/23/18 18:12 Surgical Biopsy Culture - Preliminary Other-Specify in Comments 07/23/18 18:12 Anaerobic Culture - Preliminary Other-Specify in Comments Culture is incubating. Exam - Constitutional Vitals: Temp Pulse Resp BP Pulse Ox 99.3 F 64 16 155/68 96 07/24/18 19:25 07/24/18 19:25 07/24/18 20:05 07/24/18 19:25 07/24/18 21:03 General appearance: cooperative, no febrile - Respiratory Respiratory exam: Present: CTAB. Absent: wheezes - Cardiovascular Cardiovascular exam: Present: RRR, +S1, +S2 - GI/Abdominal GI/Abdominal exam: Present: normal bowel sounds, soft. Absent: tenderness Consult Discharge Plan - Plan [facility]errals: [facility] [Primary Care Provider] - Prescriptions: Sulfamethoxazole/Trimeth DS [Bactrim DS] 1 each PO BID #54 tablet
[2018-07-25] MEDS: *HR* Heparin 5,000 UNIT/ML VIAL SQ SCH (05:36)
[2018-07-25] MEDS: Budesonide/Formoterol 160/4.5 1 PUFF INH IH SCH (07:30)
--- NOTE | 2018-07-25 07:34 | Internal Med Progress Note ---
<Brian Infante - Last Filed: 07/25/18 11:00> Hospitalist Progress Note - Encounter Date of Encounter: 07/25/18 Time of Encounter: 08:00 - Subjective Interval History: No acute events overnight. Patient has no complaints. - Exam Vitals: Temp Pulse Resp BP Pulse Ox 97.5 F L 61 18 129/63 91 07/25/18 04:33 07/25/18 04:33 07/25/18 07:31 07/25/18 04:33 07/25/18 07:31 Exam: General: Alert and oriented x2. In mild distress due to generalized weakness Cardiovascular: RRR, normal S1 & S2, no rubs, murmurs or gallops. Lungs: CTA b/l, no wheezes or crackles. Abdomen: Soft, non-tender, no rigidity. NABS in all 4 quadrants Extremities: Right second toe amputated,. no edema Neurological: No focal neurological abnormalities Rest of the physical exam is non contributory - Assessment and Plan (1) Dry gangrene Current Visit: Yes Status: Acute Assessment and Plan: Patient will be discharged with Bactrim 4 weeks Discharge to the dementia unit. (2) Atrial fibrillation Current Visit: Yes Status: Chronic Assessment and Plan: Controlled continue home medications. (3) COPD (chronic obstructive pulmonary disease) Current Visit: Yes Status: Chronic Assessment and Plan: Controlled continue Symbicort (4) Dementia Current Visit: Yes Status: Chronic Assessment and Plan: Alert oriented 2 (5) Hypertension Current Visit: Yes Status: Chronic Assessment and Plan: Controlled continue lisinopril and metoprolol (6) PAD (peripheral artery disease) Current Visit: Yes Status: Chronic Assessment and Plan: Continue Plavix. - Time Spent with Patient Total time spent is greater than 50% in coordination of care (as documented) at patient's floor/unit and/or counseling patient: Internal Medicine: Result - Labs CBC & Chem 7: 07/24/18 05:33 07/24/18 05:33 Labs: Short CBC 07/24/18 Range/Units 05:33 WBC 6.3 (4.3-11.1) K/mcL Hgb 8.7 L (12.9-16.9) g/dL Hct 25.4 L (37.5-50.1) % Plt Count 281 (140-400) K/mcL Neutrophils # 4.5 (1.6-8.9) K/mcL - ABG Interpretation ABG results: PT/INR, D-dimer PT 13.3 Seconds (9.4-12.1) H 07/21/18 06:07 Consult Discharge Plan - Plan Referrals: Shubham Flores DPM [Partnered Physician] - 07/31/18 8:15 am Odalis Henriquez [employer]PER[employer] [Advanced Practice Nurse] - 08/08/18 2:05 pm Prescriptions: Sulfamethoxazole/Trimeth DS [Bactrim DS] 1 each PO BID #54 tablet <Folaranmi,Supo A - Last Filed: 07/25/18 14:17> Hospitalist Progress Note - Encounter Date of Encounter: 07/25/18 - Exam Vitals: Temp Pulse Resp BP Pulse Ox 98.5 F 54 14 143/58 99 07/25/18 08:08 07/25/18 08:08 07/25/18 08:08 07/25/18 08:08 07/25/18 08:08 - Assessment and Plan (1) Hypertension Current Visit: Yes Status: Chronic (2) Atrial fibrillation Current Visit: Yes Status: Chronic (3) Dementia Current Visit: Yes Status: Chronic (4) Dry gangrene Current Visit: Yes Status: Acute (5) PAD (peripheral artery disease) Current Visit: Yes Status: Chronic (6) COPD (chronic obstructive pulmonary disease) Current Visit: Yes Status: Chronic - Time Spent with Patient Total time spent is greater than 50% in coordination of care (as documented) at patient's floor/unit and/or counseling patient: Internal Medicine: Result - Labs CBC & Chem 7: 07/24/18 05:33 07/24/18 05:33 - ABG Interpretation ABG results: PT/INR, D-dimer PT 13.3 Seconds (9.4-12.1) H 07/21/18 06:07 - Attending Attestation I have seen and independently assessed this patient and I agree with plan as documented Exam Gen. NAD CVS. S1 S2 WNL Resp. CTAB Plan Dry gangrene. s/p amputation. To complete 4 weeks of po bactrim <Brian Infante Kellen - Last Filed: 07/25/18 11:00> (2) Atrial fibrillation Qualifiers: Atrial fibrillation type: paroxysmal Qualified Code(s): I48.0 - Paroxysmal atrial fibrillation (3) COPD (chronic obstructive pulmonary disease) Qualifiers: COPD type: unspecified COPD Qualified Code(s): J44.9 - Chronic obstructive pulmonary disease, unspecified (4) Dementia Qualifiers: Dementia type: unspecified type Dementia behavioral disturbance: without behavioral disturbance Qualified Code(s): F03.90 - Unspecified dementia without behavioral disturbance (5) Hypertension Qualifiers: Hypertension type: essential hypertension Qualified Code(s): I10 - Essential (primary) hypertension <Brijesh Hinson - Last Filed: 07/25/18 14:17> (1) Hypertension Qualifiers: Hypertension type: essential hypertension Qualified Code(s): I10 - Essential (primary) hypertension (2) Atrial fibrillation Qualifiers: Atrial fibrillation type: paroxysmal Qualified Code(s): I48.0 - Paroxysmal atrial fibrillation (3) Dementia Qualifiers: Dementia type: unspecified type Dementia behavioral disturbance: without behavioral disturbance Qualified Code(s): F03.90 - Unspecified dementia without behavioral disturbance (6) COPD (chronic obstructive pulmonary disease) Qualifiers: COPD type: unspecified COPD Qualified Code(s): J44.9 - Chronic obstructive pulmonary disease, unspecified
[2018-07-25 08:10] VITALS: BP 143/58
[2018-07-25] MEDS: MetroNIDAZOLE 500 MG/100 ML 500 MG/100 ML BAG IVPB SCH (08:21)
[2018-07-25] MEDS: Gabapentin 100 MG CAPSULE PO SCH (08:21)
[2018-07-25] MEDS: Diltiazem CD (24hr) 120 MG CAPSULE PO SCH (08:21)
[2018-07-25] MEDS: Insulin LISPRO 300 UNITS/3 ML VIAL SQ SCH (08:21)
--- NOTE | 2018-07-25 11:07 | Infectious Disease Progress No ---
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 Has been present for months, but progressively getting worse. X-ray negative for osteomyelitis. Status post incision and drainage of right second toe soft tissue and bone and right second toe amputation. Intraoperative cultures positive for Proteus, Escherichia coli ESBL, and MSSA. Postoperative ESR 43, CRP 18. Podiatry consult and following. Currently on vancomycin, Zosyn, and Flagyl. Recommendations: Wound care per the podiatry team. Discontinue vancomycin and Flagyl. Continue Zosyn 3.375 g IV every 8 hours. Duration of treatment depends on the clinical picture. Case discussed with Dr. Flores who feels that he removed all the infected tissue. The patient is high risk to continue IV antibiotics and the risks outweigh the benefits. We will pursue a prolonged course of oral antibiotics, likely 4-6 weeks. Recommend Bactrim DS 1 tab by mouth twice a day. Will follow the patient clinically and his inflammatory markers as an outpatient to determine exact duration. We will need weekly CBC, BUN/creatinine, ESR, and CRP. Follow up with ID 08/08/18 at 1405. (2) Atrial fibrillation Status: Chronic Qualifiers: Atrial fibrillation type: paroxysmal Qualified Code(s): I48.0 - Paroxysmal atrial fibrillation (3) COPD (chronic obstructive pulmonary disease) Status: Chronic Qualifiers: COPD type: unspecified COPD Qualified Code(s): J44.9 - Chronic obstructive pulmonary disease, unspecified (4) Dementia Status: Chronic Qualifiers: Dementia type: unspecified type Dementia behavioral disturbance: without behavioral disturbance Qualified Code(s): F03.90 - Unspecified dementia without behavioral disturbance (5) Diabetes mellitus Status: Chronic Qualifiers: Diabetes mellitus type: type 2 Diabetes mellitus alf insulin use: without alf use Diabetes mellitus complication status: without complication Qualified Code(s): E11.9 - Type 2 diabetes mellitus without complications (6) PAD (peripheral artery disease) Status: Chronic Status post angiogram with balloon angioplasty of the right tibial artery 07/03/18. - Subjective Interval history: Patient seen and examined. No acute events noted overnight. Patient states overall he feels well. Denies fevers, chills, or rigors. Denies chest pain, shortness of breath, or cough. Denies nausea, vomiting, diarrhea, or constipation. Denies abdominal pain or urinary complaints. Reports last bowel movement was yesterday. States his appetite is good. Denies any oral thrush or new skin lesions. Denies pain at the surgical site. Infect Dis PN-Objective Data - Labs CBC & Chem 7: 07/24/18 05:33 07/24/18 05:33 Cultures: Cultures 07/23/18 18:12 Surgical Biopsy Culture - Preliminary Other-Specify in Comments 07/19/18 17:22 Blood Culture - Final Peripheral Venipuncture No growth. Final report. 07/19/18 17:22 Blood Culture - Final Peripheral Venipuncture No growth. Final report. 07/20/18 16:10 Anaerobic Culture - Preliminary Second Right Toe At this time, no anaerobic growth is present. The culture will be finalized after 5 days of incubation. 07/20/18 16:10 Wound Culture - Final Second Right Toe Proteus mirabilis Escherichia coli ESBL Staphylococcus aureus 07/23/18 18:12 Anaerobic Culture - Preliminary Other-Specify in Comments Culture is incubating. Exam - Constitutional Vitals: Temp Pulse Resp BP Pulse Ox 98.5 F 54 14 143/58 99 07/25/18 08:08 07/25/18 08:08 07/25/18 08:08 07/25/18 08:08 07/25/18 08:08 General appearance: average body habitus, cooperative, no acute distress - Head Head exam: Present: atraumatic, normal inspection, normocephalic - Eye Eye exam: Present: EOMI, normal appearance, PERRL Pupils: Present: normal accommodation - ENT ENT exam: Present: mucous membranes moist - Neck Neck exam: Present: normal inspection - Respiratory Respiratory exam: Present: CTAB. Absent: rales, respiratory distress, rhonchi, wheezes - Cardiovascular Cardiovascular exam: Present: RRR, +S1, +S2 - GI/Abdominal GI/Abdominal exam: Present: normal bowel sounds, soft. Absent: distended, tenderness - Extremities Exam Extremities exam: Present: pedal edema (Trace right lower extremity.). Absent: normal inspection (Right foot dressing clean, dry, and intact.), tenderness - Neurological Exam Neurological exam: Present: alert, oriented X3, no focal deficits - Psychiatric Psychiatric exam: Present: normal affect, normal mood - Skin Skin exam: Present: dry, intact, normal color, warm Consult Discharge Plan - Plan Instructions: Diabetes Mellitus Type 2 in Adults (DC) Referrals: Shubham Flores DPM [Partnered Physician] - 07/31/18 8:15 am Odalis Henriquez CNP [Advanced Practice Nurse] - 08/08/18 2:05 pm Prescriptions: Sulfamethoxazole/Trimeth DS [Bactrim DS] 1 each PO BID #54 tablet - Attending Attestation I have personally performed a face to face evaluation on this patient. I have reviewed and agree with the care plan. History and Exam by me shows: patient seen and examined s/p amputation of right second toe intra op cultures noted okay to dc on bactrim x 4 weeks. [facility]
[2018-07-25] MEDS: Piperacillin/Tazobactam 3.375 GM in 0.9 % Sodium Chloride Mini Bag 100 ML IVPB SCH (11:41)
--- NOTE | 2018-07-25 12:02 | Podiatry Progress Note ---
Date of Encounter: 07/25/18 Time of Encounter: 11:20 - Assessment and Plan (1) Dry gangrene Current Visit: Yes Status: Acute Assessment: -Dressing dry and intact, no strike through noted -No swelling above or below dressing -Cap refill less than 3 seconds -WBC 6.3 -Intra op cultures pending -Bone cultures were obtained intra-op -Cultures final-proteus M, E. Coli, and SA -Patient receiving Vanc and Zosyn Plan: -Leave dressing intact, will change on Sunday, call if saturated -Limited weight bearing to heel only, please have postoperative shoe at bedside -ID following, per Dr. Flores all involved bone was removed with surgical debridement, short term IV antibiotics then switch to PO -Follow up with Dr. Flores one week after discharge in Podiatry office -Please have SW to assist with discharge planning Subjective Interval history: Post op day #2 1. Incision and drainage right 2nd toe soft tissue and bone 2. Right 2nd toe amputation by Dr. Flores on 07/23/2018 Patient is resting, no complaints, and no acute distress noted. Patient denies any fever, chills, n/v/d. Patient denies any chest pain, shortness of breath, or calf pain. Objective - Vital Signs Vital Signs: Vital Signs Temp Pulse Resp BP Pulse Ox 07/25/18 08:08 98.5 F 54 14 143/58 99 07/25/18 08:00 99 07/25/18 07:31 18 91 07/25/18 04:33 97.5 F L 61 18 129/63 91 07/24/18 21:03 96 07/24/18 20:05 16 96 07/24/18 19:25 99.3 F 64 17 155/68 97 07/24/18 14:51 98.9 F 63 15 125/69 97 Intake and Output 07/24/18 07/25/18 07/25/18 23:59 07:59 15:59 Intake Total 200 / 200 200 / 200 Output Total 200 / 200 Balance 0 / 0 200 / 200 Intake: IV Fluids 200 / 200 200 / 200 Flagyl Premix 500 MG/100 ML 500 100 / 100 100 / 100 mg In 100 ml @ 100 mls/hr IVPB Q[facility] Rx#:[id number] Zosyn 3.375 GM In 0.9 % Sodium 100 / 100 100 / 100 Chloride (Mini-Bag +) 100 ML @ 25 mls/hr IVPB Q8HR [facility] Rx#: [id number] Oral 0 / 0 Output: Urine 200 / 200 Other: # Bowel Movements 0 Weight 64.2 kg Blood Glucose* 126 90 Patient Weight 07/25/18 23:59 Weight 64.2 kg - Exam Exam: Constitutional: Patient is awake and alert, no acute distress noted Vascular: Toes warm to touch, cap refill less than 3 seconds, no pain with manual calf compression Neurological: Diminished sensation to light and moderate touch Dermatological: Dressing dry and intact, no swelling above or below dressing, no strike through - Lab Result Diagrams: 07/24/18 05:33 07/24/18 05:33 Labs: Abnormal lab results RBC 2.73 M/mcL (4.19-5.50) L 07/24/18 05:33 Hgb 8.7 g/dL (12.9-16.9) L 07/24/18 05:33 Hct 25.4 % (37.5-50.1) L 07/24/18 05:33 MPV 9.2 fL (9.4-12.4) L 07/24/18 05:33 ESR 43 mm/hr (0-10) H 07/23/18 05:59 PT 13.3 Seconds (9.4-12.1) H 07/21/18 06:07 Chloride 112 mEq/L (98-107) H 07/24/18 05:33 Est GFR (Non-Af Amer) 55 (> 60) L 07/24/18 05:33 Glucose 131 mg/dL (70-105) H 07/24/18 05:33 POC Glucose 175 mg/dL (70-99) H 07/23/18 21:54 C-Reactive Protein 18 mg/L (Less than 10) H 07/23/18 05:59 Vancomycin Trough 11 mcg/mL (5-10) H 07/24/18 07:46 Microbiology, Last 48 Hours 07/23/18 18:12 Surgical Biopsy Culture - Preliminary Other-Specify in Comments 07/19/18 17:22 Blood Culture - Final Peripheral Venipuncture No growth. Final report. 07/19/18 17:22 Blood Culture - Final Peripheral Venipuncture No growth. Final report. 07/20/18 16:10 Anaerobic Culture - Preliminary Second Right Toe At this time, no anaerobic growth is present. The culture will be finalized after 5 days of incubation. 07/20/18 16:10 Wound Culture - Final Second Right Toe Proteus mirabilis Escherichia coli ESBL Staphylococcus aureus 07/23/18 18:12 Anaerobic Culture - Preliminary Other-Specify in Comments Culture is incubating. Consult Discharge Plan - Plan Referrals: Shubham Flores DPM [Partnered Physician] - 07/31/18 8:15 am Odalis Henriquez CNP [Advanced Practice Nurse] - 08/08/18 2:05 pm Prescriptions: Sulfamethoxazole/Trimeth DS [Bactrim DS] 1 each PO BID #54 tablet
[2018-07-25] MEDS ORDERED: Aminoglycoside Consult 1 EACH MC ONE (15:02)
== END 2018-07-25 15:03 | DRG 256 ==
LOC: 3ANU 16:37 → EMEROOARM 16:37 → SUATTDRO 20:01 → 3ANU 20:29
PROVIDERS: ADMIT Internal Medicine; ATTEND Internal Medicine

== ENCOUNTER 2018-10-06 08:57 | Inpatient (IN) ==
[2018-10-06] MEDS ORDERED: Isovue-370 500 ML BOTTLE IVP ONE (09:11)
--- NOTE | 2018-10-06 09:12 | Emergency Department Note ---
Disposition Clinical Impression: GI bleed Qualifiers: GI bleed type/associated pathology: unspecified gastrointestinal hemorrhage type Qualified Code(s): K92.2 - Gastrointestinal hemorrhage, unspecified Anemia Qualifiers: Anemia type: unspecified type Qualified Code(s): D64.9 - Anemia, unspecified Disposition: Admitted As Inpatient Condition: Fair Time of Disposition: 09:17 General Adult HPI - General Chief complaint: ED GI Bleed Stated complaint: gi bleed Time Seen by Provider: 10/06/18 08:59 Source: patient Limitations: no limitations Nursing Notes Reviewed: Yes Vital Signs Reviewed: Yes - History of Present Illness HPI Narrative: [facility] for evaluation of GI bleed. [facility] is in [facility]. Patient noticed bright red blood in the toilet earlier today on using the bathroom. Patient states that he felt lightheaded after this episode but has no symptoms currently. Patient denies previous history of this as well as previous history of colonoscopy. Upon chart review the patient did have a workup approximately one year ago including a nuclear scan which did show bleeding within the sigmoid colon consistent with di verticular bleed. Patient is on aspirin but no other anticoagulation. The patient on exam does have some left lower quadrant abdominal tenderness without rebound or guarding. Patient is hemodynamically stable at this time. Rectal exam shows no significant hemorrhoids but positive bright red blood per rectum. Blood work will be obtained as well as a CT scan. Patient will likely require admission secondary to baseline anemia of approximately 8-9. Pain Scale: 0 - Related Data Home Medications Medication Instructions Recorded Confirmed Ascorbic Acid [Vitamin C] 500 mg PO BID 01/09/16 10/06/18 Budesonide/Formoterol 160/4.5 2 puff IH BIDR 01/09/16 10/06/18 [Symbicort 160/4.5] Latanoprost [Xalatan] 1 drop BOTH EYES HS 01/09/16 10/06/18 Lisinopril [Zestril] mg PO BID MDD HOLD FOR SBP<110 01/09/16 07/19/18 Nitroglycerin [Nitrostat] 0.4 mg SL Q5M PRN MDD X3 tablets 01/09/16 10/06/18 Oxybutynin [Ditropan] 5 mg PO DAILY 01/09/16 10/06/18 Polyvinyl Alcohol [Artificial 2 drop BOTH EYES QID 01/09/16 10/06/18 Tears] Ferrous Sulfate [Iron] 325 mg PO BID 10/02/16 10/06/18 Potassium Chloride [Klor-Con] meq PO DAILY 10/02/16 07/19/18 Acetaminophen [Tylenol] 975 mg PO BID PRN MDD >3000MG/24 07/16/17 10/06/18 HOUR Bisacodyl [Dulcolax] 10 mg RC DAILY PRN 07/16/17 10/06/18 traZODone [TraZODone] 50 mg PO HS 10/05/17 10/06/18 Gabapentin [Neurontin] 100 mg PO TID 07/03/18 10/06/18 Multivit-Min/FA/Lycopen/Lutein 1 tab PO DAILY 07/03/18 10/06/18 [Adults 50 Plus Multivitamin] Sennosides [Senna] 17.2 mg PO DAILY PRN 07/19/18 10/06/18 Previous Rx's Medication Instructions Recorded Diltiazem CD (24hr) [Cardizem CD] 120 mg PO DAILY #30 cap.er.24h MDD 10/05/16 HOLD FOR SBP<110 PULSE <60 Metoprolol [Lopressor] 12.5 mg PO BID 30 Days tablet 10/05/16 Omeprazole [PriLOSEC] 40 mg PO DAILY@0630 capsule. 07/23/17 Aspirin Enteric Coated [Aspirin EC] 81 mg PO DAILY #90 tablet. 07/03/18 Clopidogrel [Plavix] 75 mg PO DAILY #30 tablet 07/03/18 Sulfamethoxazole/Trimeth DS 1 each PO BID #54 tablet 07/24/18 [Bactrim DS] Allergies Allergy/AdvReac Type Severity Reaction Status Date / Time clonidine Allergy Rash Verified 07/19/18 20:28 All systems ED: reviewed and negative except as stated. Review of Systems: As Per HPI Constitutional: Denies: fever, chills, weakness ENT ED: Denies: congestion Cardiovascular: Denies: chest pain Respiratory: Denies: cough, dyspnea Gastrointestinal: Reports: abdominal pain, hematochezia. Denies: nausea, vomiting Genitourinary: Denies: urgency, dysuria, frequency Musculoskeletal: Denies: back pain Integumentary: Denies: rash, abrasion Neurological: Denies: headache Endocrine: Denies: fatigue Past Medical History - Past Medical History Medical history: Reports: arthritis, atrial fibrillation, dementia, diabetes, GERD, glaucoma, hyperlipidemia, hypertension Surgical history: Reports: no surgical history, other Psychiatric history: Reports: depression - Social History Smoking Status: Current every day smoker Smokeless Tobacco Status: No Alcohol use: Reports: none Drug use: Reports: none Physical Exam General: Well appearing, nontoxic, no acute distress Head: Normocephalic Atraumatic Eyes: PERRL, EOMI ENT: Airway patent, no stridor Neck: supple, no meningismus Chest: Lungs clear to auscultation bilateral Cardiac: Regular rate and rhythm, no murmurs, rubs or gallops Abdomen: soft, nontender, nondistended; no guarding, rebound, or tenderness to percussion Rectal: No hemorrhoids, positive bright red blood per rectum on digital exam. Patient is wearing depends without significant blood or stool seen. Musculoskeletal: Calves symmetric, nontender. Skin: No rash, normal skin tone. Neuro: Alert and Oriented to person, place; No focal deficit. - General Limitations: no limitations General appearance: alert, in no apparent distress Course - Reevaluation(s) Reevaluation #1: Patient with concern for possible diverticulitis. Patient started on an tibiotics. Patient will undergo further evaluation for GI bleeding as well as diverticulitis treatment. Vital Signs Temperature 98.6 F 10/06/18 09:06 Pulse Rate 80 10/06/18 09:06 Respiratory Rate 18 10/06/18 09:06 Blood Pressure 134/66 10/06/18 09:06 O2 Sat by Pulse Oximetry 99 10/06/18 09:06 Temperature 98.1 F 10/07/18 14:51 Pulse Rate 73 10/07/18 14:51 Respiratory Rate 18 10/07/18 14:51 Blood Pressure 169/63 10/07/18 14:51 O2 Sat by Pulse Oximetry 98 10/07/18 14:51 Oxygen Delivery Oxygen Delivery Room Air Medical Decision Making - Medical Records Medical records reviewed: Yes I reviewed the patient's medical records. - Lab Data Lab results reviewed: Yes I reviewed the patient's lab results. Result diagrams: 10/07/18 11:09 10/07/18 11:09 Lab Results 10/06/18 10/06/18 10/06/18 Range/Units 09:18 09:34 09:34 WBC 6.9 (4.3-11.1) K/mcL RBC 2.49 L (4.19-5.50) M/mcL Hgb 8.0 L (12.9-16.9) g/dL Hct 24.4 L (37.5-50.1) % MCV 98.0 (83.0-100.0) fL MCH 32.1 (28.0-33.3) pg MCHC 32.8 (31.6-35.5) g/dL RDW 12.4 (11.5-14.5) % Plt Count 217 (140-400) K/mcL MPV 9.3 L (9.4-12.4) fL Immature Gran % 0.3 (0-4) % Seg Neutrophils % 74.8 % Lymphocytes % 17.3 % Monocytes % 4.4 % Eosinophils % 2.9 % Basophils % 0.3 % Neutrophils # 5.2 (1.6-8.9) K/mcL Lymphocytes # 1.2 (0.6-4.6) K/mcL Monocytes # 0.3 (0.0-1.3) K/mcL Eosinophils # 0.2 (0.0-0.6) K/mcL Basophils # 0.0 (0.0-0.2) K/mcL PT 13.0 H (9.4-12.1) Seconds INR 1.2 APTT 30.6 (26.0-36.0) Seconds Sodium (136-145) mEq/L Potassium (3.5-5.1) mEq/L Chloride (98-107) mEq/L Carbon Dioxide (23-29) mEq/L BUN (8-23) mg/dL Creatinine (0.70-1.30) mg/dL Est GFR ( Amer) (> 60) Est GFR (Non-Af Amer) (> 60) BUN/Creatinine Ratio (6-26) Glucose (70-105) mg/dL POC Glucose (70-99) mg/dL Calculated Osmolality (280-300) Calcium (8.6-10.3) mg/dL Stool Occult Bld Scrn Positive A (Negative) Blood Type Antibody Screen Crossmatch 10/06/18 10/06/18 10/06/18 Range/Units 09:34 09:34 14:29 WBC 7.2 (4.3-11.1) K/mcL RBC 2.29 L (4.19-5.50) M/mcL Hgb 7.4 L (12.9-16.9) g/dL Hct 23.0 L (37.5-50.1) % MCV 100.4 H (83.0-100.0) fL MCH 32.3 (28.0-33.3) pg MCHC 32.2 (31.6-35.5) g/dL RDW 12.7 (11.5-14.5) % Plt Count 198 (140-400) K/mcL MPV 9.2 L (9.4-12.4) fL Immature Gran % 0.1 (0-4) % Seg Neutrophils % 70.6 % Lymphocytes % 19.7 % Monocytes % 6.4 % Eosinophils % 2.9 % Basophils % 0.3 % Neutrophils # 5.0 (1.6-8.9) K/mcL Lymphocytes # 1.4 (0.6-4.6) K/mcL Monocytes # 0.5 (0.0-1.3) K/mcL Eosinophils # 0.2 (0.0-0.6) K/mcL Basophils # 0.0 (0.0-0.2) K/mcL PT (9.4-12.1) Seconds INR APTT (26.0-36.0) Seconds Sodium 141 (136-145) mEq/L Potassium 3.8 (3.5-5.1) mEq/L Chloride 112 H (98-107) mEq/L Carbon Dioxide 24 (23-29) mEq/L BUN 12 (8-23) mg/dL Creatinine 1.04 (0.70-1.30) mg/dL Est GFR ( Amer) > 60 (> 60) Est GFR (Non-Af Amer) > 60 (> 60) BUN/Creatinine Ratio 12 (6-26) Glucose 156 H (70-105) mg/dL POC Glucose (70-99) mg/dL Calculated Osmolality 295 (280-300) Calcium 8.7 (8.6-10.3) mg/dL Stool Occult Bld Scrn (Negative) Blood Type AB POSITIVE Antibody Screen NEGATIVE Crossmatch See Detail 10/06/18 10/06/18 10/07/18 Range/Units 17:16 19:50 00:05 WBC (4.3-11.1) K/mcL RBC (4.19-5.50) M/mcL Hgb 6.1 L 5.3 L* (12.9-16.9) g/dL Hct 18.2 L 15.7 L (37.5-50.1) % MCV (83.0-100.0) fL MCH (28.0-33.3) pg MCHC (31.6-35.5) g/dL RDW (11.5-14.5) % Plt Count (140-400) K/mcL MPV (9.4-12.4) fL Immature Gran % (0-4) % Seg Neutrophils % % Lymphocytes % % Monocytes % % Eosinophils % % Basophils % % Neutrophils # (1.6-8.9) K/mcL Lymphocytes # (0.6-4.6) K/mcL Monocytes # (0.0-1.3) K/mcL Eosinophils # (0.0-0.6) K/mcL Basophils # (0.0-0.2) K/mcL PT (9.4-12.1) Seconds INR APTT (26.0-36.0) Seconds Sodium (136-145) mEq/L Potassium (3.5-5.1) mEq/L Chloride (98-107) mEq/L Carbon Dioxide (23-29) mEq/L BUN (8-23) mg/dL Creatinine (0.70-1.30) mg/dL Est GFR ( Amer) (> 60) Est GFR (Non-Af Amer) (> 60) BUN/Creatinine Ratio (6-26) Glucose (70-105) mg/dL POC Glucose 198 H (70-99) mg/dL Calculated Osmolality (280-300) Calcium (8.6-10.3) mg/dL Stool Occult Bld Scrn (Negative) Blood Type Antibody Screen Crossmatch - Radiology Data Radiology results reviewed: Yes I reviewed the patient's radiology results. - EKG Data EKG #1 EKG attestation: Yes I reviewed and interpreted this EKG. EKG results narrative: EKG shows sinus rhythm with a heart rate of 80 [place] 162 QRS [address] elevation or depression. Right bundle branch block seen on previous EKG of 07/16/17.
[2018-10-06 09:44] LABS: Basophils % 0.3 %; Eosinophils # 0.2 K/mcL (0.0-0.6); Eosinophils % 2.9 %; Hematocrit 24.4 % (37.5-50.1); Immature Granulocytes % 0.3 % (0-4); Lymphocytes # 1.2 K/mcL (0.6-4.6); Lymphocytes % 17.3 %; Mean Corpuscular HGB Conc 32.8 g/dL (31.6-35.5); Mean Corpuscular Hemoglobin 32.1 pg (28.0-33.3); Mean Platelet Volume 9.3 fL (9.4-12.4); Monocytes # 0.3 K/mcL (0.0-1.3); Monocytes % 4.4 %; Neutrophils # 5.2 K/mcL (1.6-8.9); Platelet Count 217 K/mcL (140-400); Red Blood Count 2.49 M/mcL (4.19-5.50); Red Cell Distribution Width 12.4 % (11.5-14.5); Segmented Neutrophils % 74.8 %; White Blood Count 6.9 K/mcL (4.3-11.1)
[2018-10-06 09:54] LABS: INR 1.2
[2018-10-06 09:57] LABS: Activated Partial Thrombo Time 30.6 Seconds (26.0-36.0)
[2018-10-06 10:05] LABS: BUN/Creatinine Ratio 12 (6-26); Blood Urea Nitrogen 12 mg/dL (8-23); Calcium 8.7 mg/dL (8.6-10.3); Carbon Dioxide 24 mEq/L (23-29); Chloride 112 mEq/L (98-107); Glucose 156 mg/dL (70-105); Osmolality,Calculated 295 (280-300); Potassium 3.8 mEq/L (3.5-5.1); Sodium 141 mEq/L (136-145); eGFR For African Americans > 60 (> 60); eGFR For Non-African Americans > 60 (> 60)
[2018-10-06] MEDS ORDERED: MetroNIDAZOLE 500 MG/100 ML 500 MG/100 ML BAG IVPB ONE (11:21)
[2018-10-06] MEDS ORDERED: 0.9 % Sodium Chloride 1,000 ML IVC SCH (11:30)
--- NOTE | 2018-10-06 11:35 | Internal Med History&Physical ---
Date of Encounter: 10/06/18 Time of Encounter: 11:35 Internal Medicine - H&P: HPI Chief complaint: GI bleeding History of present illness: Mr. Johnston is a 88 year old male with arthritis, atrial fibrillation, dementia, diabetes, GERD, glaucoma, hyperlipidemia, hypertension who is presenting presenting from the [place] for evaluation of GI bleed that was noted earlier today. The patient started that he found blood in the toilet and later felt ligh theaded. The patient has history of diverticularbleed. Patient is on aspirin and plavix. He was evaluted by the ER staff and his CT revealed Mild induration of fat adjacent to the sigmoid colon.Correlate for mild diverticulitis. The patient was admitted for further evaluation of GI bleeding. Past Med Surg Social Fam HX - Past Medical History Medical history: arthritis, atrial fibrillation, dementia, diabetes, GERD, glaucoma, hyperlipidemia, hypertension Additional medical history: pt poor historian no information sent from [place] [facility] Psychiatric history: depression - Past Surgical History Surgical History: no surgical history, other - Social History Smoking Status: Current every day smoker Smokeless Tobacco Status: No Alcohol use: none Drug use: none - Family History Mother Living Status: Father Living Status: Internal Medicine - H&P: Meds Ascorbic Acid [Vitamin C] 500 mg PO BID 01/09/16 [History] Budesonide/Formoterol 160/4.5 [Symbicort 160/4.5] 2 puff IH BIDR 01/09/16 [History] Latanoprost [Xalatan] 1 drop BOTH EYES HS 01/09/16 [History] Oxybutynin [Ditropan] 5 mg PO DAILY 01/09/16 [History] Polyvinyl Alcohol [Artificial Tears] 2 drop BOTH EYES QID PRN 01/09/16 [History] Ferrous Sulfate [Iron] 325 mg PO BID 10/02/16 [History] Diltiazem CD (24hr) [Cardizem CD] 120 mg PO DAILY #30 cap.er.24h MDD HOLD FOR SBP<110 PULSE <60 10/05/16 [Rx] Metoprolol [Lopressor] 12.5 mg PO BID 30 Days tablet 10/05/16 [Rx] Acetaminophen [Tylenol] 975 mg PO BID PRN MDD >3000MG/24 HOUR 07/16/17 [History] Bisacodyl [Dulcolax] 10 mg RC DAILY PRN 07/16/17 [History] Omeprazole [PriLOSEC] 40 mg PO DAILY@0630 capsule. 07/23/17 [Rx] traZODone [TraZODone] 50 mg PO HS 10/05/17 [History] Aspirin Enteric Coated [Aspirin EC] 81 mg PO DAILY #90 tablet. 07/03/18 [Rx] Gabapentin [Neurontin] 100 mg PO TID 07/03/18 [History] Multivit-Min/FA/Lycopen/Lutein [Adults 50 Plus Multivitamin] 1 tab PO DAILY 07/03/18 [History] Sennosides [Senna] 17.2 mg PO DAILY PRN 07/19/18 [History] Ciprofloxacin [Cipro] 500 mg PO BID tablet 10/11/18 [Rx] metroNIDAZOLE [Flagyl] 500 mg PO TID #4 tablet 10/11/18 [Rx] Allergy/AdvReac Type Severity Reaction Status Date / Time clonidine Allergy Rash Verified 10/08/18 08:14 All Systems PM: A 10-system review of systems was performed and is negative for pertinent findings except as documented above in the HPI. - Constitutional Vitals: Temp Pulse Resp BP Pulse Ox 98.6 F 68 16 154/62 100 10/06/18 09:06 10/06/18 11:05 10/06/18 11:05 10/06/18 11:05 10/06/18 11:05 Exam: . Internal Med - H&P Results - Labs CBC & Chem 7: 10/11/18 03:12 10/11/18 03:12 Labs: Short CBC 10/06/18 Range/Units 09:34 WBC 6.9 (4.3-11.1) K/mcL Hgb 8.0 L (12.9-16.9) g/dL Hct 24.4 L (37.5-50.1) % Plt Count 217 (140-400) K/mcL Neutrophils # 5.2 (1.6-8.9) K/mcL BMP 10/06/18 09:34 Sodium 141 Potassium 3.8 Chloride 112 H Carbon Dioxide 24 BUN 12 Creatinine 1.04 Glucose 156 H Calcium 8.7 - Impressions ITS Impressions Abdomen/Pelvis CT 10/06/18 09:11 hyperdensity or enhancement are seen. Prominent impression upon the bladder. No inguinal adenopathy. Peritoneum/Retroperitoneum: No free air. Bones/Soft Tissues: Remote appearing bilateral rib fractures. Degenerative change of the spine. Prior vertebral augmentation at T12 where there is anterior wedging. IMPRESSION: Diverticulosis. Mild induration of fat adjacent to the sigmoid colon. Correlate for mild diverticulitis. Enlarged heterogeneous prostate for which hypertrophy or carcinoma are considerations. Urologic follow-up recommended. Dilatation of the common bile duct and pancreatic duct. An occult ampullary stricture, calculus, or neoplasm cannot be excluded. ERCP or MRCP could be performed for further evaluation. Cholelithiasis. D/ / Ronnie Eddy MD / Ronnie Eddy MD Interpreting Provider: Ronnie Eddy MD - Assessment and Plan (1) GI bleed Status: Acute Assessment and plan: - GI bleeding most likely 2/2 Divericulitis PLAN: - IVF - NPO - H/H now and q 4 hr - Type and screen 2 U PRBC - Protonix 40 mg IV QD/BID - GI consult-> EGD/Colonoscopy - O2 to keep SpO2 > 92% - CBCD, BMP, INR/PTT in AM - Compression stocking BLE for DVT prophylaxis Qualifiers: GI bleed type/associated pathology: unspecified gastrointestinal hemorrhage type Qualified Code(s): K92.2 - Gastrointestinal hemorrhage, unspecified (2) Diabetes mellitus Status: Chronic Assessment and plan: We will start the patient on insulin sliding scale with moderate coverage Qualifiers: Diabetes mellitus type: type 2 Diabetes mellitus oil heaterman insulin use: without penitentiary use Diabetes mellitus complication status: without complication Qualified Code(s): E11.9 - Type 2 diabetes mellitus without complications (3) Hypertension Status: Chronic Assessment and plan: we are holding the all medication including antihypertensive for now, patient blood pressure on the low side, we will restart IV antihypertensives for systolic blood pressure above 180 nondistended pressure above 100 Qualifiers: Hypertension type: essential hypertension Qualified Code(s): I10 - Essentia l (primary) hypertension (4) Atrial fibrillation Status: Chronic Assessment and plan: the patient currently is not in any anticoagulation most likely due to high risk of fall Qualifiers: Atrial fibrillation type: paroxysmal Qualified Code(s): I48.0 - Paroxysmal atrial fibrillation (5) Anemia Status: Acute Qualifiers: Anemia type: unspecified type Qualified Code(s): D64.9 - Anemia, unspecified (6) PAD (peripheral artery disease) Status: Chronic (7) COPD (chronic obstructive pulmonary disease) Status: Chronic Qualifiers: COPD type: unspecified COPD Qualified Code(s): J44.9 - Chronic obstructive pulmonary disease, unspecified (8) DVT prophylaxis Status: Deleted - Time Spent With Patient Total time spent is greater than 50% in coordination of care (as documented) at patient's floor/unit and/or counseling patient:
[2018-10-06] MEDS ORDERED: Piperacillin/Tazobactam 3.375 GM in 0.9 % Sodium Chloride Mini Bag 100 ML IVPB ONE (13:34)
[2018-10-06] MEDS ORDERED: Naloxone 0.4 MG/ML INJ IVP PRN (13:42)
[2018-10-06] MEDS ORDERED: Ondansetron 4 MG/2 ML VIAL IVP PRN (13:42)
[2018-10-06] MEDS ORDERED: *HR* HYDROcodone/Acet 5/325 mg TABLET PO PRN (13:42)
[2018-10-06] MEDS ORDERED: Acetaminophen 325 MG TABLET PO PRN (13:42)
[2018-10-06 15:06] LABS: Basophils % 0.3 %; Eosinophils # 0.2 K/mcL (0.0-0.6); Eosinophils % 2.9 %; Hemoglobin 7.4 g/dL (12.9-16.9); Immature Granulocytes % 0.1 % (0-4); Lymphocytes # 1.4 K/mcL (0.6-4.6); Lymphocytes % 19.7 %; Mean Corpuscular HGB Conc 32.2 g/dL (31.6-35.5); Mean Corpuscular Hemoglobin 32.3 pg (28.0-33.3); Mean Corpuscular Volume 100.4 fL (83.0-100.0); Mean Platelet Volume 9.2 fL (9.4-12.4); Monocytes # 0.5 K/mcL (0.0-1.3); Monocytes % 6.4 %; Platelet Count 198 K/mcL (140-400); Red Blood Count 2.29 M/mcL (4.19-5.50); Red Cell Distribution Width 12.7 % (11.5-14.5); Segmented Neutrophils % 70.6 %; White Blood Count 7.2 K/mcL (4.3-11.1)
[2018-10-06] MEDS: 0.9 % Sodium Chloride 1,000 ML IVC SCH ×2 (15:42→23:35)
[2018-10-06] MEDS ORDERED: Pantoprazole 40 MG VIAL IVP SCH (18:00)
[2018-10-06] MEDS: Pantoprazole 40 MG in 0.9 % Sodium Chloride Mini Bag 100 ML IVC SCH (19:51)
[2018-10-06 19:57] LABS: Hematocrit 18.2 % (37.5-50.1); Hemoglobin 6.1 g/dL (12.9-16.9)
[2018-10-06] MEDS ORDERED: D5% in Water 1,000 ML IVC PRN (20:00)
[2018-10-06] MEDS ORDERED: *HR* Dextrose 50 % in Water (Syg) 50 ML SYRINGE IVP PRN (20:00)
[2018-10-06] MEDS ORDERED: Dextrose Gel 15 GM/37.5 ML TUBE PO PRN ×2 (20:00)
[2018-10-06] MEDS: MetroNIDAZOLE 500 MG/100 ML 500 MG/100 ML BAG IVPB SCH (23:36)
[2018-10-07] MEDS: Pantoprazole 40 MG in 0.9 % Sodium Chloride Mini Bag 100 ML IVC SCH ×5 (00:17→22:06)
[2018-10-07 00:28] LABS: Hematocrit 15.7 % (37.5-50.1)
[2018-10-07 00:32] LABS: Hemoglobin 5.3 g/dL (12.9-16.9)
[2018-10-07] MEDS ORDERED: 0.9 % Sodium Chloride 250 ML ONE ×3 (01:03→11:37)
[2018-10-07] MEDS: Insulin LISPRO 300 UNITS/3 ML VIAL SQ SCH ×5 (01:06→23:56)
[2018-10-07] MEDS ORDERED: *HR* Metoprolol 5 MG/5 ML VIAL IVP PRN (07:41)
[2018-10-07] MEDS: MetroNIDAZOLE 500 MG/100 ML 500 MG/100 ML BAG IVPB SCH ×2 (09:33→17:10)
[2018-10-07] MEDS: 0.9 % Sodium Chloride 1,000 ML IVC SCH ×2 (09:33→20:13)
[2018-10-07] MEDS: Budesonide/Formoterol 160/4.5 1 PUFF INH IH SCH ×2 (10:17→19:32)
--- NOTE | 2018-10-07 10:38 | Internal Med Progress Note ---
Hospitalist Progress Note - Encounter Date of Encounter: 10/07/18 Time of Encounter: 09:30 - Subjective Interval History: H&P reviewed. Patient with history of atrial fibrillation not on anticoagulation, dementia, diabetes, hypertension, COPD, diverticulosis, was admitted overnight due to BRBPR. It appears that he has had several episodes since the admission as well with concomitant drop in Hb to 5.3. Just finished 2U pRBC transfusion at the time of exam and he will receive another unit. No chest pain, lightheadedness, or abdominal pain however. - Exam Vitals: Temp Pulse Resp BP Pulse Ox 98.4 F 86 20 173/77 99 10/07/18 07:40 10/07/18 07:40 10/07/18 10:18 10/07/18 07:40 10/07/18 10:18 Exam: General: Alert and oriented, not in acute distress. Cardiovascular:Normal S1 & S2, No JVD. Pulse regular. Lungs: clear to auscultation, no wheezes/rales Abdomen:Soft, non-tender, no rigidity. Neurological: Grossly non-focal - Assessment and Plan (1) GI bleed Current Visit: Yes Status: Acute Assessment and Plan: likely diverticular bleed, had similar episodes in the past with known moore- diverticulosis on colonoscopy 12/2017 EGD 06/2017 only showed friable gastric mucosa Hb dropped to 5.3, receiving 3rd unit of pRBC continue to trend H&H Q6 PPI, NPO, surgery consult hold off on antiplts (2) Anemia Current Visit: Yes Status: Acute Assessment and Plan: due to GIB as above, transfusing pRBC (3) Diverticulitis Current Visit: Yes Status: Acute Assessment and Plan: CAT scan done on presentation showed findings compatible with sigmoid diverticulitis although pt currently denies any abdominal pain, it is documented that he did complain of LLQ pain upon presentation no fever, no leukocytosis would complete a course of abx for 7 days with cipro/flagyl follow with surgery (4) Diabetes mellitus Current Visit: No Status: Chronic Assessment and Plan: sliding scale insulin q6 while NPO (5) Hypertension Current Visit: No Status: Chronic Assessment and Plan: PRN labetalol while NPO (6) Atrial fibrillation Current Visit: No Status: Chronic Assessment and Plan: not on AC IV lopressor while NPO (7) PAD (peripheral artery disease) Current Visit: No Status: Chronic Assessment and Plan: antiplt on hold as above (8) COPD (chronic obstructive pulmonary disease) Current Visit: No Status: Chronic Assessment and Plan: not in exacerbation PRN duoneb resume home inhalers (9) DVT prophylaxis Current Visit: Yes Status: Acute Assessment and Plan: EPCD due to anemia - Time Spent with Patient Total time spent is greater than 50% in coordination of care (as documented) at patient's floor/unit and/or counseling patient: Greater than 35 minutes Plan of Care Discussed with: nurse Internal Medicine: Result - Labs CBC & Chem 7: 10/07/18 00:05 10/06/18 09:34 Labs: Short CBC 10/06/18 10/06/18 10/07/18 Range/Units 14:29 19:50 00:05 WBC 7.2 (4.3-11.1) K/mcL Hgb 7.4 L 6.1 L 5.3 L* (12.9-16.9) g/dL Hct 23.0 L 18.2 L 15.7 L (37.5-50.1) % Plt Count 198 (140-400) K/mcL Neutrophils # 5.0 (1.6-8.9) K/mcL - ABG Interpretation ABG results: PT/INR, D-dimer PT 13.0 Seconds (9.4-12.1) H 10/06/18 09:34 - Impressions Impressions Abdomen/Pelvis CT 10/06/18 09:11 hyperdensity or enhancement are seen. Prominent impression upon the bladder. No inguinal adenopathy. Peritoneum/Retroperitoneum: No free air. Bones/Soft Tissues: Remote appearing bilateral rib fractures. Degenerative change of the spine. Prior vertebral augmentation at T12 where there is anterior wedging. IMPRESSION: Diverticulosis. Mild induration of fat adjacent to the sigmoid colon. Correlate for mild diverticulitis. Enlarged heterogeneous prostate for which hypertrophy or carcinoma are considerations. Urologic follow-up recommended. Dilatation of the common bile duct and pancreatic duct. An occult ampullary stricture, calculus, or neoplasm cannot be excluded. ERCP or MRCP could be performed for further evaluation. Cholelithiasis. D/ / Ronnie Eddy MD / Ronnie Eddy MD Interpreting Provider: Ronnie Eddy MD Consult Discharge Plan - Plan [facility]errals: [facility] [Primary Care Provider] - (1) GI bleed Qualifiers: GI bleed type/associated pathology: unspecified gastrointestinal hemorrhage type Qualified Code(s): K92.2 - Gastrointestinal hemorrhage, unspecified (2) Anemia Qualifiers: Anemia type: unspecified type Qualified Code(s): D64.9 - Anemia, unspecified (4) Diabetes mellitus Qualifiers: Diabetes mellitus type: type 2 Diabetes mellitus oil heaterman insulin use: without oil heaterman use Diabetes mellitus complication status: without complication Qualified Code(s): E11.9 - Type 2 diabetes mellitus without complications (5) Hypertension Qualifiers: Hypertension type: essential hypertension Qualified Code(s): I10 - Essential (primary) hypertension (6) Atrial fibrillation Qualifiers: Atrial fibrillation type: paroxysmal Qualified Code(s): I48.0 - Paroxysmal at rial fibrillation (8) COPD (chronic obstructive pulmonary disease) Qualifiers: COPD type: unspecified COPD Qualified Code(s): J44.9 - Chronic obstructive pulmonary disease, unspecified
[2018-10-07] MEDS ORDERED: *HR* Labetalol 20 MG/4 ML SYRINGE IVP PRN (10:44)
[2018-10-07] MEDS ORDERED: Ipratropium/Albuterol Neb 3 ML IH PRN (10:45)
[2018-10-07 11:22] LABS: Hematocrit 23.6 % (37.5-50.1)
[2018-10-07 11:23] LABS: Hemoglobin 7.7 g/dL (12.9-16.9)
[2018-10-07 11:33] LABS: INR 1.2; Prothrombin Time 13.5 Seconds (9.4-12.1)
[2018-10-07 11:41] LABS: Alanine Aminotransferase 8 Units/L (7-52); Albumin 2.8 g/dL (3.5-5.7); Albumin/Globulin Ratio 1.8 (1.1-2.2); Alkaline Phosphatase 33 Units/L (34-104); Aspartate Amino Transferase 9 Units/L (13-39); BUN/Creatinine Ratio 14 (6-26); Bilirubin,Total 0.3 mg/dL (0.3-1.0); Blood Urea Nitrogen 12 mg/dL (8-23); Calcium 7.5 mg/dL (8.6-10.3); Carbon Dioxide 22 mEq/L (23-29); Chloride 120 mEq/L (98-107); Globulin 1.6 g/dL (2.4-3.5); Glucose 84 mg/dL (70-105); Magnesium 1.7 mg/dL (1.6-2.6); Osmolality,Calculated 297 (280-300); Potassium 3.6 mEq/L (3.5-5.1); Sodium 144 mEq/L (136-145); Total Protein 4.4 g/dL (6.4-8.9); eGFR For African Americans > 60 (> 60); eGFR For Non-African Americans > 60 (> 60)
[2018-10-07] MEDS: *HR* Metoprolol 5 MG/5 ML VIAL IVP SCH ×2 (11:45→18:28)
--- NOTE | 2018-10-07 12:12 | AcuteCare Surgery Consult Note ---
<JosyroderickelmemoSue Elmer - Last Filed: 10/07/18 12:31> Date of Encounter: 10/07/18 Time of Encounter: 12:06 Assessment and Plan (1) GI bleed Current Visit: Yes Status: Acute Patient presented after episode of bright red blood per rectum as well as lightheadedness from [place] History of prior diverticular bleed Home anticoagulation includes Plavix, aspirin Fecal occult blood test positive Abdominal CT-diverticulosis with mild induration of fat adjacent to the sigmoid colon, enlarged prostate, dilation of common bile duct and pancreatic duct, c holelithiasis. Hemoglobin on admission 8.0, decreased to 5.3 Status post 2 units packed red blood cells Hemoglobin currently 7.7 Patient to undergo EGD, colonoscopy tomorrow Clear liquid diet, nothing by mouth after midnight MiraLAX bowel prep Antibiotic coverage-ciprofloxacin, metronidazole GI prophylaxis with Protonix DVT prophylaxis SCDs- hold aspirin, Plavix Continue to trend hemoglobin-transfuse as needed Continue to trend labs Qualifiers: GI bleed type/associated pathology: unspecified gastrointestinal hemorrhage type Qualified Code(s): K92.2 - Gastrointestinal hemorrhage, unspecified History of Present Illness Consult date: 10/07/18 History of present illness: Blu Johnston is an 88-year-old male who presented with GI bleed, complaint of bright red blood in the toilet and lightheadedness. Past medical history of diverticular bleed, arthritis, atrial fibrillation, dementia, diabetes, GERD, glaucoma, hyperlipidemia, hypertension. Anticoagulation with aspirin, Plavix. Stool occult blood was positive. Hemoglobin on arrival 8.0, decreased to 5.3. Patient is status post 2 units packed red blood cells, hemoglobin currently 7.7. CT abdomen and pelvis-diverticulosis with mild induration of fat adjacent to the sigmoid colon, enlarged prostate, dilation of common bile duct and pancreatic duct, cholelithiasis. Patient seen and examined at bedside today. Patient is a poor historian, currently alert and oriented 2. Patient currently denies pain, lightheadedness. He states that his last bowel movement was this morning however he did not look at it and is unsure if there was bright red blood or melena although he does admit to melena previously. He denies nausea, vomiting, fever, chills, chest pain, shortness of breath, abdominal pain, dysuria, diarrhea, constipation, calf pain. Past Med Surg Social Fam HX - Past Medical History Medical history: arthritis, atrial fibrillation, dementia, diabetes, GERD, glaucoma, hyperlipidemia, hypertension Additional medical history: pt poor historian no information sent from [facility] Psychiatric history: depression - Past Surgical History Surgical History: no surgical history, other - Social History Smoking Status: Current every day smoker Smokeless Tobacco Status: No Alcohol use: none Drug use: none - Family History Mother Living Status: Father Living Status: Medications and Allergies Ascorbic Acid [Vitamin C] 500 mg PO BID 01/09/16 [History] Budesonide/Formoterol 160/4.5 [Symbicort 160/4.5] 2 puff IH BIDR 01/09/16 [History] Latanoprost [Xalatan] 1 drop BOTH EYES HS 01/09/16 [History] Lisinopril [Zestril] mg PO BID MDD HOLD FOR SBP<110 01/09/16 [History] Nitroglycerin [Nitrostat] 0.4 mg SL Q5M PRN MDD X3 tablets 01/09/16 [History] Oxybutynin [Ditropan] 5 mg PO DAILY 01/09/16 [History] Polyvinyl Alcohol [Artificial Tears] 2 drop BOTH EYES QID 01/09/16 [History] Ferrous Sulfate [Iron] 325 mg PO BID 10/02/16 [History] Potassium Chloride [Klor-Con] meq PO DAILY 10/02/16 [History] Diltiazem CD (24hr) [Cardizem CD] 120 mg PO DAILY #30 cap.er.24h MDD HOLD FOR SBP<110 PULSE <60 10/05/16 [Rx] Metoprolol [Lopressor] 12.5 mg PO BID 30 Days tablet 10/05/16 [Rx] Acetaminophen [Tylenol] 975 mg PO BID PRN MDD >3000MG/24 HOUR 07/16/17 [History] Bisacodyl [Dulcolax] 10 mg RC DAILY PRN 07/16/17 [History] Omeprazole [PriLOSEC] 40 mg PO DAILY@0630 capsule. 07/23/17 [Rx] traZODone [TraZODone] 50 mg PO HS 10/05/17 [History] Aspirin Enteric Coated [Aspirin EC] 81 mg PO DAILY #90 tablet. 07/03/18 [Rx] Clopidogrel [Plavix] 75 mg PO DAILY #30 tablet 07/03/18 [Rx] Gabapentin [Neurontin] 100 mg PO TID 07/03/18 [History] Multivit-Min/FA/Lycopen/Lutein [Adults 50 Plus Multivitamin] 1 tab PO DAILY 07/03/18 [History] Sennosides [Senna] 17.2 mg PO DAILY PRN 07/19/18 [History] Sulfamethoxazole/Trimeth DS [Bactrim DS] 1 each PO BID #54 tablet 07/24/18 [Rx] Allergy/AdvReac Type Severity Reaction Status Date / Time clonidine Allergy Rash Verified 07/19/18 20:28 Review of Systems All systems PM: The remainder of the systems were reviewed and are negative - Constitutional no chills, no fever(s) - EENT Nose, mouth and throat: no abnormal hearing, no dizziness - Cardiovascular no chest pain, no dyspnea, no dyspnea on exertion, no edema, no lightheadedness, no palpitations, no paroxysmal nocturnal dyspnea - Respiratory no cough, no dyspnea, no dyspnea on exertion, no pain on inspiration - Gastrointestinal hematochezia, melena, no abdominal pain, no constipation, no diarrhea, no nausea, no vomiting - Genitourinary no difficulty urinating, no dysuria, no hematuria - Musculoskeletal no arthralgias, no myalgias - Integumentary no rash - Neurological weakness, no focal weakness, no frequent falls, no paresthesias - Psychiatric no anxiety, no depression - Endocrine no cold intolerance, no heat intolerance - Hematologic/Lymphatic no easy bleeding, no easy bruising - Allergic/Immunologic no uticaria General Surgery Exam Initial Vital Signs Temp Pulse Resp BP Pulse Ox 98.6 F 80 18 134/66 99 10/06/18 09:06 10/06/18 09:06 10/06/18 09:06 10/06/18 09:06 10/06/18 09:06 - General physical appearance well developed, well nourished, no distress - Eyes PERRL, normal ocular movement - ENT normal mucosa, no hearing loss, CN 2-12 grossly intact - Neck no masses, trachea midline - Respiratory normal expansion, normal respiratory effort, clear to auscultation - Cardiovascular Cardiovascular exam: Present: RRR, no murmurs/rubs/gallops. Absent: JVD - Abdomen Abdomen general surgery: Present: bowel sounds present, soft, non tender - Integumentary Integumentary general surgery: Present: warm and dry, no abnormal pigmentation - Neurologic Present: CN 2-12 grossly intact, normal coordination, normal sensation, other (athetosis of tongue) - Musculoskeletal Present: normal posture - Psychiatric Psychiatric general surgery: Present: speech is normal, other (alert and orientated x2) Exam Initial Vital Signs Temp Pulse Resp BP Pulse Ox 98.6 F 80 18 134/66 99 10/06/18 09:06 10/06/18 09:06 10/06/18 09:06 10/06/18 09:06 10/06/18 09:06 Results - Labs 10/07/18 11:09 10/07/18 11:09 Abnormal lab results RBC 2.29 M/mcL (4.19-5.50) L 10/06/18 14:29 Hgb 7.7 g/dL (12.9-16.9) L D 10/07/18 11:09 Hct 23.6 % (37.5-50.1) L 10/07/18 11:09 MCV 100.4 fL (83.0-100.0) H 10/06/18 14:29 MPV 9.2 fL (9.4-12.4) L 10/06/18 14:29 PT 13.5 Seconds (9.4-12.1) H 10/07/18 11:09 Chloride 120 mEq/L (98-107) H 10/07/18 11:09 Carbon Dioxide 22 mEq/L (23-29) L 10/07/18 11:09 Glucose 156 mg/dL (70-105) H 10/06/18 09:34 POC Glucose 198 mg/dL (70-99) H 10/06/18 17:16 Calcium 7.5 mg/dL (8.6-10.3) L 10/07/18 11:09 AST 9 Units/L (13-39) L 10/07/18 11:09 33 Units/L (34-104) L 10/07/18 11:09 4.4 g/dL (6.4-8.9) L 10/07/18 11:09 2.8 g/dL (3.5-5.7) L 10/07/18 11:09 1.6 g/dL (2.4-3.5) L 10/07/18 11:09 Stool Occult Bld Scrn Positive (Negative) A 10/06/18 09:18 Crossmatch See Detail 10/06/18 09:34 Diabetes panel 10/07/18 Range/Units 11:09 Sodium 144 (136-145) mEq/L Potassium 3.6 (3.5-5.1) mEq/L Chloride 120 H (98-107) mEq/L Carbon Dioxide 22 L (23-29) mEq/L BUN 12 (8-23) mg/dL Creatinine 0.87 (0.70-1.30) mg/dL Glucose 84 (70-105) mg/dL Calcium 7.5 L (8.6-10.3) mg/dL AST 9 L (13-39) Units/L ALT 8 (7-52) Units/L Alkaline Phosphatase 33 L (34-104) Units/L Albumin 2.8 L (3.5-5.7) g/dL Calcium panel 10/07/18 Range/Units 11:09 Calcium 7.5 L (8.6-10.3) mg/dL Albumin 2.8 L (3.5-5.7) g/dL Pituitary panel 10/07/18 Range/Units 11:09 Sodium 144 (136-145) mEq/L Potassium 3.6 (3.5-5.1) mEq/L Chloride 120 H (98-107) mEq/L Carbon Dioxide 22 L (23-29) mEq/L BUN 12 (8-23) mg/dL Creatinine 0.87 (0.70-1.30) mg/dL Glucose 84 (70-105) mg/dL Calcium 7.5 L (8.6-10.3) mg/dL Adrenal panel 10/07/18 Range/Units 11:09 Sodium 144 (136-145) mEq/L Potassium 3.6 (3.5-5.1) mEq/L Chloride 120 H (98-107) mEq/L Carbon Dioxide 22 L (23-29) mEq/L BUN 12 (8-23) mg/dL Creatinine 0.87 (0.70-1.30) mg/dL Glucose 84 (70-105) mg/dL Calcium 7.5 L (8.6-10.3) mg/dL Total Bilirubin 0.3 (0.3-1.0) mg/dL AST 9 L (13-39) Units/L ALT 8 (7-52) Units/L Alkaline Phosphatase 33 L (34-104) Units/L Albumin 2.8 L (3.5-5.7) g/dL All other labs normal. Consult Discharge Plan - Plan [facility]errals: [facility] [Primary Care Provider[facility] - <Jarrell Corona - Last Filed: 10/07/18 12:57> Date of Encounter: 10/07/18 Review of Systems All systems PM: The remainder of the systems were reviewed and are negative General Surgery Exam Initial Vital Signs Temp Pulse Resp BP Pulse Ox 98.6 F 80 18 134/66 99 10/06/18 09:06 10/06/18 09:06 10/06/18 09:06 10/06/18 09:06 10/06/18 09:06 Exam Initial Vital Signs Temp Pulse Resp BP Pulse Ox 98.6 F 80 18 134/66 99 10/06/18 09:06 10/06/18 09:06 10/06/18 09:06 10/06/18 09:06 10/06/18 09:06 Results - Labs 10/07/18 11:09 10/07/18 11:09 Abnormal lab results RBC 2.29 M/mcL (4.19-5.50) L 10/06/18 14:29 Hgb 7.7 g/dL (12.9-16.9) L D 10/07/18 11:09 Hct 23.6 % (37.5-50.1) L 10/07/18 11:09 MCV 100.4 fL (83.0-100.0) H 10/06/18 14:29 MPV 9.2 fL (9.4-12.4) L 10/06/18 14:29 PT 13.5 Seconds (9.4-12.1) H 10/07/18 11:09 Chloride 120 mEq/L (98-107) H 10/07/18 11:09 Carbon Dioxide 22 mEq/L (23-29) L 10/07/18 11:09 Glucose 156 mg/dL (70-105) H 10/06/18 09:34 POC Glucose 198 mg/dL (70-99) H 10/06/18 17:16 Calcium 7.5 mg/dL (8.6-10.3) L 10/07/18 11:09 AST 9 Units/L (13-39) L 10/07/18 11:09 33 Units/L (34-104) L 10/07/18 11:09 4.4 g/dL (6.4-8.9) L 10/07/18 11:09 2.8 g/dL (3.5-5.7) L 10/07/18 11:09 1.6 g/dL (2.4-3.5) L 10/07/18 11:09 Stool Occult Bld Scrn Positive (Negative) A 10/06/18 09:18 Crossmatch See Detail 10/06/18 09:34 Diabetes panel 10/07/18 Range/Units 11:09 Sodium 144 (136-145) mEq/L Potassium 3.6 (3.5-5.1) mEq/L Chloride 120 H (98-107) mEq/L Carbon Dioxide 22 L (23-29) mEq/L BUN 12 (8-23) mg/dL Creatinine 0.87 (0.70-1.30) mg/dL Glucose 84 (70-105) mg/dL Calcium 7.5 L (8.6-10.3) mg/dL AST 9 L (13-39) Units/L ALT 8 (7-52) Units/L Alkaline Phosphatase 33 L (34-104) Units/L Albumin 2.8 L (3.5-5.7) g/dL Calcium panel 10/07/18 Range/Units 11:09 Calcium 7.5 L (8.6-10.3) mg/dL Albumin 2.8 L (3.5-5.7) g/dL Pituitary panel 10/07/18 Range/Units 11:09 Sodium 144 (136-145) mEq/L Potassium 3.6 (3.5-5.1) mEq/L Chloride 120 H (98-107) mEq/L Carbon Dioxide 22 L (23-29) mEq/L BUN 12 (8-23) mg/dL Creatinine 0.87 (0.70-1.30) mg/dL Glucose 84 (70-105) mg/dL Calcium 7.5 L (8.6-10.3) mg/dL Adrenal panel 10/07/18 Range/Units 11:09 Sodium 144 (136-145) mEq/L Potassium 3.6 (3.5-5.1) mEq/L Chloride 120 H (98-107) mEq/L Carbon Dioxide 22 L (23-29) mEq/L BUN 12 (8-23) mg/dL Creatinine 0.87 (0.70-1.30) mg/dL Glucose 84 (70-105) mg/dL Calcium 7.5 L (8.6-10.3) mg/dL Total Bilirubin 0.3 (0.3-1.0) mg/dL AST 9 L (13-39) Units/L ALT 8 (7-52) Units/L Alkaline Phosphatase 33 L (34-104) Units/L Albumin 2.8 L (3.5-5.7) g/dL All other labs normal. - Attending Attestation I examined this patient and my medical decision-making was reviewed with the Resident Physician. I agree with the documented findings, disposition and treatment plan as described except to the extent set forth below. The patient was seen and evaluated with the acute care surgery team. The patient has GI bleed as well as atrial fibrillation. The patient is on aspirin and Plavix. We will hold the Plavix at this point. The patient will require resuscitation. We will proceed with bowel prep today and then EGD and colonoscopy tomorrow Jarrell Corona MD FACS
[2018-10-07 18:05] LABS: Hemoglobin 9.2 g/dL (12.9-16.9)
--- NOTE | 2018-10-07 19:48 | Anesthesia Evaluation PreOp ---
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: Other (Dementia) Other Medical History: GERD, Other (Depression) Anesthesia History: No Prior Anesthetic Complications Alcohol Use: none Drug use: none Medications and Allergies Ascorbic Acid [Vitamin C] 500 mg PO BID 01/09/16 [History] Budesonide/Formoterol 160/4.5 [Symbicort 160/4.5] 2 puff IH BIDR 01/09/16 [Histo ry] Latanoprost [Xalatan] 1 drop BOTH EYES HS 01/09/16 [History] Lisinopril [Zestril] mg PO BID MDD HOLD FOR SBP<110 01/09/16 [History] Nitroglycerin [Nitrostat] 0.4 mg SL Q5M PRN MDD X3 tablets 01/09/16 [History] Oxybutynin [Ditropan] 5 mg PO DAILY 01/09/16 [History] Polyvinyl Alcohol [Artificial Tears] 2 drop BOTH EYES QID 01/09/16 [History] Ferrous Sulfate [Iron] 325 mg PO BID 10/02/16 [History] Potassium Chloride [Klor-Con] meq PO DAILY 10/02/16 [History] Diltiazem CD (24hr) [Cardizem CD] 120 mg PO DAILY #30 cap.er.24h MDD HOLD FOR SBP<110 PULSE <60 10/05/16 [Rx] Metoprolol [Lopressor] 12.5 mg PO BID 30 Days tablet 10/05/16 [Rx] Acetaminophen [Tylenol] 975 mg PO BID PRN MDD >3000MG/24 HOUR 07/16/17 [History] Bisacodyl [Dulcolax] 10 mg RC DAILY PRN 07/16/17 [History] Omeprazole [PriLOSEC] 40 mg PO DAILY@0630 capsule. 07/23/17 [Rx] traZODone [TraZODone] 50 mg PO HS 10/05/17 [History] Aspirin Enteric Coated [Aspirin EC] 81 mg PO DAILY #90 tablet. 07/03/18 [Rx] Clopidogrel [Plavix] 75 mg PO DAILY #30 tablet 07/03/18 [Rx] Gabapentin [Neurontin] 100 mg PO TID 07/03/18 [History] Multivit-Min/FA/Lycopen/Lutein [Adults 50 Plus Multivitamin] 1 tab PO DAILY 07/03/18 [History] Sennosides [Senna] 17.2 mg PO DAILY PRN 07/19/18 [History] Sulfamethoxazole/Trimeth DS [Bactrim DS] 1 each PO BID #54 tablet 07/24/18 [Rx] Allergy/AdvReac Type Severity Reaction Status Date / Time clonidine Allergy Rash Verified 07/19/18 20:28 - Meds/Allergy Pre-op Review Medications Reviewed: Yes Allergies Reviewed: Yes Beta Blockers on Current Med List: Yes (Metoprolol today 1827) Anesthesia Results - Labs 10/07/18 17:44 10/07/18 11:09 - Imaging EKG: report reviewed (SR Rt BBB) Anesthesia Exam O2 Sat O2 Sat by Pulse Oximetry 98 O2 Sat by Pulse Oximetry 98 O2 Sat by Pulse Oximetry 100 O2 Sat by Pulse Oximetry 99 O2 Sat by Pulse Oximetry 100 O2 Sat by Pulse Oximetry 100 O2 Sat by Pulse Oximetry 97 O2 Sat by Pulse Oximetry 98 O2 Sat by Pulse Oximetry 97 O2 Sat by Pulse Oximetry 99 O2 Sat by Pulse Oximetry 99 O2 Sat by Pulse Oximetry 96 Vital Signs Temp Pulse Resp BP Pulse Ox 98.6 F 80 18 134/66 99 10/06/18 09:06 10/06/18 09:06 10/06/18 09:06 10/06/18 09:06 10/06/18 09:06 Height: 5'8 Weight: 136 lbs NPO (# of Hours): MN Pain Scale: 0 - HEENT Pupil (Motor): Pupils equal, EOMI Mallampati: III Teeth: Edentulous Oral Opening: Less than or equal to 3 - DREDGE ENGINEER LOC: Oriented DREDGE ENGINEER Motor: Normal RUE, Normal LUE, Normal RLE, Normal LLE, Normal Face DREDGE ENGINEER Sensory: Normal: RUE, LUE, RLE, LLE, Face - Cardiac Rhythm: Regular Murmur: None JVD: No Carotid Bruit: No - Pulmonary Breath Sounds: bilateral Clear Respiratory Effort: Symmetrical Anesthesia Assess/Plan ASA Score: 4 (HTN Arrhythmia Anemia COPD Dementia) Level of consciousness: Cooperative, Oriented Anesthetic Plan: MAC Autologous Blood: No Monitoring Plan: Standard Monitors Recovery Plan: Other (Discussed MAC, agrees to proceed)
--- NOTE | 2018-10-07 21:20 | Electrocardiograph Report ---
[address] [address] Test Date: 2018-10-06 Pat Name: Blu Johnston Department: EXAM4 Room: 3A35 Gender: M Director Personal: : [id number] Requested By: David Mclean Order Number: [id number] Reading MD: Elvia Holliday Measurements Intervals [place] Rate: 80 P: 58 [place]: 162 QRS: -33 QRSD: 136 T: 65 QT: 416 QTc: 480 Interpretive Statements Sinus rhythm Left axis deviation Right bundle branch block Electronically Signed On 10-07-2018 21:18:52 EDT by Elvia Holliday
[2018-10-08 00:05] LABS: Hemoglobin 8.3 g/dL (12.9-16.9)
[2018-10-08] MEDS: MetroNIDAZOLE 500 MG/100 ML 500 MG/100 ML BAG IVPB SCH ×4 (00:12→23:54)
[2018-10-08] MEDS: *HR* Metoprolol 5 MG/5 ML VIAL IVP SCH ×2 (00:12→05:33)
[2018-10-08 00:15] LABS: Hematocrit 24.3 % (37.5-50.1)
[2018-10-08] MEDS: Pantoprazole 40 MG in 0.9 % Sodium Chloride Mini Bag 100 ML IVC SCH (04:20)
[2018-10-08] MEDS: 0.9 % Sodium Chloride 1,000 ML IVC SCH (04:36)
[2018-10-08 04:39] LABS: Basophils % 0.3 %; Eosinophils # 0.3 K/mcL (0.0-0.6); Eosinophils % 5.6 %; Hematocrit 22.9 % (37.5-50.1); Hemoglobin 7.6 g/dL (12.9-16.9); Immature Granulocytes % 0.3 % (0-4); Lymphocytes # 1.2 K/mcL (0.6-4.6); Lymphocytes % 20.2 %; Mean Corpuscular HGB Conc 33.2 g/dL (31.6-35.5); Mean Corpuscular Hemoglobin 30.6 pg (28.0-33.3); Mean Corpuscular Volume 92.3 fL (83.0-100.0); Mean Platelet Volume 9.6 fL (9.4-12.4); Monocytes # 0.4 K/mcL (0.0-1.3); Neutrophils # 3.8 K/mcL (1.6-8.9); Platelet Count 128 K/mcL (140-400); Red Blood Count 2.48 M/mcL (4.19-5.50); Red Cell Distribution Width 14.6 % (11.5-14.5); Segmented Neutrophils % 66.6 %; White Blood Count 5.8 K/mcL (4.3-11.1)
[2018-10-08 04:55] LABS: BUN/Creatinine Ratio 13 (6-26); Blood Urea Nitrogen 9 mg/dL (8-23); Calcium 7.5 mg/dL (8.6-10.3); Carbon Dioxide 22 mEq/L (23-29); Chloride 115 mEq/L (98-107); Glucose 75 mg/dL (70-105); Osmolality,Calculated 289 (280-300); Potassium 3.1 mEq/L (3.5-5.1); Sodium 141 mEq/L (136-145); eGFR For African Americans > 60 (> 60); eGFR For Non-African Americans > 60 (> 60)
[2018-10-08] MEDS: Insulin LISPRO 300 UNITS/3 ML VIAL SQ SCH ×3 (05:57→17:02)
[2018-10-08] MEDS ORDERED: Potassium Chloride 40 MEQ, Lidocaine 1% 2 ML in D5% in Water 500 ML IVPB ONE (06:33)
[2018-10-08] MEDS: Budesonide/Formoterol 160/4.5 1 PUFF INH IH SCH ×2 (07:29→22:00)
[2018-10-08] MEDS ORDERED: Lidocaine -MPF 2% 2 ML VIAL ONE (07:39)
[2018-10-08] MEDS ORDERED: *HR* Propofol 200 MG/20 ML VIAL IVP ONE (07:39)
[2018-10-08] MEDS ORDERED: Simethicone 40 MG/0.6 ML MLS IR ONE (08:45)
[2018-10-08] MEDS ORDERED: Tetracaine/Benzocaine/Butamben 1 SPRAY AEROSOL MM ONE (08:45)
[2018-10-08] MEDS ORDERED: Tetracaine/Benzocaine/Butamben 1 SPRAY AEROSOL ONE (08:49)
--- NOTE | 2018-10-08 11:55 | Internal Med Progress Note ---
Hospitalist Progress Note - Encounter Date of Encounter: 10/08/18 Time of Encounter: 09:45 - Subjective Interval History: Continues to have bloody bowel movement yesterday with subsequent drop in Hb again down to 7.6. IT was as high as 9.2 after 3U pRBC. No fever overnight. Denies any abdominal pain. - Exam Vitals: Temp Pulse Resp BP Pulse Ox 98.5 F 62 15 151/69 98 10/08/18 11:19 10/08/18 11:19 10/08/18 11:19 10/08/18 11:19 10/08/18 11:19 Exam: General: Alert and oriented, not in acute distress. Cardiovascular:Normal S1 & S2, No JVD. Pulse regular. Lungs: clear to auscultation, no wheezes/rales Abdomen:Soft, non-tender, no rigidity. Neurological: Grossly non-focal - Assessment and Plan (1) GI bleed Current Visit: Yes Status: Acute Assessment and Plan: likely diverticular bleed, had similar episodes in the past with known moore- diverticulosis on colonoscopy 12/2017 EGD 06/2017 only showed friable gastric mucosa Hb as low as 5.3 -> 9.2 after 3U pRBC -> 7.6 again this morning PPI, NPO. Appreciate surgery consult, for EGD/colonoscopy today 1U pRBC today, continue to trend H&H hold off on antiplts (2) Acute blood loss anemia Current Visit: Yes Status: Acute Assessment and Plan: as above (3) Diverticulitis Current Visit: Yes Status: Acute Assessment and Plan: CAT scan done on presentation showed findings compatible with sigmoid diverticulitis although pt currently denies any abdominal pain, it is documented that he did complain of LLQ pain upon presentation no fever, no leukocytosis would complete a course of abx for 7 days with cipro/flagyl follow with surgery (4) Diabetes mellitus Current Visit: No Status: Chronic Assessment and Plan: sliding scale insulin q6 while NPO (5) Hypertension Current Visit: No Status: Chronic Assessment and Plan: PRN labetalol while NPO scheduled lopressor to avoid rebound tachycardia (6) Atrial fibrillation Current Visit: No Status: Chronic Assessment and Plan: not on AC IV lopressor while NPO to avoid rebound tachycardia (7) PAD (peripheral artery disease) Current Visit: No Status: Chronic Assessment and Plan: antiplt on hold as above (8) COPD (chronic obstructive pulmonary disease) Current Visit: No Status: Chronic Assessment and Plan: not in exacerbation PRN duoneb resume home inhalers (9) Common bile duct dilation Current Visit: Yes Status: Acute Assessment and Plan: LFT not show any evidence of biliary obstruction For MRCP after the resolution of acute issues (10) DVT prophylaxis Current Visit: Yes Status: Acute Assessment and Plan: EPCD due to anemia - Time Spent with Patient Total time spent is greater than 50% in coordination of care (as documented) at patient's floor/unit and/or counseling patient: 25 - 35 minutes Plan of Care Discussed with: nurse Internal Medicine: Result - Labs CBC & Chem 7: 10/08/18 03:40 10/08/18 03:40 Labs: Short CBC 10/07/18 10/07/18 10/08/18 Range/Units 17:44 23:21 03:40 WBC 5.8 (4.3-11.1) K/mcL Hgb 9.2 L D 8.3 L 7.6 L (12.9-16.9) g/dL Hct 27.0 L 24.3 L 22.9 L (37.5-50.1) % Plt Count 128 L (140-400) K/mcL Neutrophils # 3.8 (1.6-8.9) K/mcL BMP 10/08/18 03:40 Sodium 141 Potassium 3.1 L Chloride 115 H Carbon Dioxide 22 L BUN 9 Creatinine 0.70 Glucose 75 Calcium 7.5 L - ABG Interpretation ABG results: PT/INR, D-dimer PT 13.5 Seconds (9.4-12.1) H 10/07/18 11:09 Consult Discharge Plan - Plan [facility]errals: [facility] [Primary Care Provider] - (1) GI bleed Qualifiers: GI bleed type/associated pathology: unspecified gastrointestinal hemorrhage type Qualified Code(s): K92.2 - Gastrointestinal hemorrhage, unspecified (4) Diabetes mellitus Qualifiers: Diabetes mellitus type: type 2 Diabetes mellitus terminal press operator insulin use: without terminal press operator use Diabetes mellitus complication status: without complication Qualified Code(s): E11.9 - Type 2 diabetes mellitus without complications (5) Hypertension Qualifiers: Hypertension type: essential hypertension Qualified Code(s): I10 - Essential (primary) hypertension (6) Atrial fibrillation Qualifiers: Atrial fibrillation type: paroxysmal Qualified Code(s): I48.0 - Paroxysmal atrial fibrillation (8) COPD (chronic obstructive pulmonary disease) Qualifiers: COPD type: unspecified COPD Qualified Code(s): J44.9 - Chronic obstructive pulmonary disease, unspecified
[2018-10-08] MEDS ORDERED: 0.9 % Sodium Chloride 250 ML ONE (14:33)
[2018-10-08] MEDS: 0.9 % Sodium Chloride w KCl 40 MEQ/1,000 ML MLS IVC SCH (17:11)
[2018-10-08] MEDS: Gabapentin 100 MG CAPSULE PO SCH ×2 (17:12→20:37)
[2018-10-08 17:47] LABS: Hematocrit 27.6 % (37.5-50.1)
[2018-10-08 17:50] LABS: Hemoglobin 9.3 g/dL (12.9-16.9)
[2018-10-08] MEDS: traZODone 50 MG TABLET PO SCH (20:37)
[2018-10-08] MEDS: Latanoprost 2.5 ML BOTTLE BOTH EYES SCH (20:38)
[2018-10-09] MEDS: Insulin LISPRO 300 UNITS/3 ML VIAL SQ SCH ×5 (01:07→17:00)
[2018-10-09 01:12] LABS: Basophils % 0.3 %; Eosinophils # 0.2 K/mcL (0.0-0.6); Eosinophils % 3.8 %; Hematocrit 24.2 % (37.5-50.1); Hematocrit 24.4 % (37.5-50.1); Hemoglobin 8.2 g/dL (12.9-16.9); Hemoglobin 8.3 g/dL (12.9-16.9); Immature Granulocytes % 0.2 % (0-4); Lymphocytes # 1.2 K/mcL (0.6-4.6); Lymphocytes % 20.4 %; Mean Corpuscular HGB Conc 33.9 g/dL (31.6-35.5); Mean Corpuscular Volume 88.6 fL (83.0-100.0); Mean Platelet Volume 9.4 fL (9.4-12.4); Monocytes # 0.5 K/mcL (0.0-1.3); Monocytes % 7.6 %; Neutrophils # 4.1 K/mcL (1.6-8.9); Platelet Count 125 K/mcL (140-400); Red Blood Count 2.73 M/mcL (4.19-5.50); Red Cell Distribution Width 15.3 % (11.5-14.5); Segmented Neutrophils % 67.7 %; White Blood Count 6.1 K/mcL (4.3-11.1)
[2018-10-09 01:33] LABS: BUN/Creatinine Ratio 7 (6-26); Blood Urea Nitrogen 6 mg/dL (8-23); Calcium 7.6 mg/dL (8.6-10.3); Carbon Dioxide 22 mEq/L (23-29); Chloride 117 mEq/L (98-107); Glucose 79 mg/dL (70-105); Osmolality,Calculated 289 (280-300); Potassium 3.9 mEq/L (3.5-5.1); Sodium 141 mEq/L (136-145); eGFR For African Americans > 60 (> 60); eGFR For Non-African Americans > 60 (> 60)
[2018-10-09] MEDS: 0.9 % Sodium Chloride w KCl 40 MEQ/1,000 ML MLS IVC SCH (06:24)
[2018-10-09] MEDS: Budesonide/Formoterol 160/4.5 1 PUFF INH IH SCH ×2 (07:59→20:20)
--- NOTE | 2018-10-09 08:45 | Event Note ---
Date of Encounter: 10/09/18 Time of Encounter: 08:42 Patient underwent EGD as well as colonoscopy yesterday. Colonoscopy revealed multiple small and large mouth diverticula in the sigmoid colon and ascending colon, a stable clot was identified in the sigmoid diverticulum, no active bleeding was present. EGD revealed normal esophagus, stomach, duodenum. Recommendation includes repeat colonoscopy in 10 years. Surgery to sign off.
[2018-10-09] MEDS: Diltiazem CD (24hr) 120 MG CAPSULE PO SCH (09:26)
[2018-10-09] MEDS: Gabapentin 100 MG CAPSULE PO SCH ×3 (09:26→21:39)
[2018-10-09] MEDS: MetroNIDAZOLE 500 MG/100 ML 500 MG/100 ML BAG IVPB SCH ×2 (09:26→16:56)
--- NOTE | 2018-10-09 10:36 | Internal Med Progress Note ---
Hospitalist Progress Note - Encounter Date of Encounter: 10/09/18 Time of Encounter: 10:36 - Subjective Interval History: No acute event overnight. Denies blood in the stool. Also denies hematemesis melena. Review the lab with hemoglobin 9.2. Review the vitals are patient is poor historian Denies fever chills vomiting headache chest pain short of breath abdominal pain diarrhea - Exam Vitals: Temp Pulse Resp BP Pulse Ox 98.4 F 62 18 165/85 97 10/09/18 06:54 10/09/18 06:54 10/09/18 08:01 10/09/18 06:54 10/09/18 08:01 Exam: General: Alert and oriented to place person. EatING breakfast. not in acute distress. Cardiovascular:Normal S1 & S2, No JVD. Pulse regular. Lungs: clear to auscultation, no wheezes/rales Abdomen:Soft, non-tender, no rigidity. Positive bowel sounds Neurological: Grossly intact with no focal neurological deficit - Assessment and Plan (1) GI bleed Current Visit: Yes Status: Acute Assessment and Plan: likely diverticular bleed, had similar episodes in the past with known moore- diverticulosis on colonoscopy 12/2017 EGD 06/2017 only showed friable gastric mucosa Hb as low as 5.3 -> 9.2 after 3U pRBC -> 7.6 again this morning PPI. Tolerating advanced diet. No active bleeding at this time. Appreciate surgery consult, for EGD/colonoscopy -reticulosis in the sigmoid colon and ascending colon recommended repeat colonoscopy in 10 years. Upper GI endoscopy with normal esophagus his stomach and duodenum. Total 40 unit PRC since admission while holding antiplatelet. Consulted vascular surgeon about the opinion regarding resuming versus holding antiplatelet Plan for discharge patient possibly tomorrow (2) Acute blood loss anemia Current Visit: Yes Status: Acute Assessment and Plan: as above (3) Diabetes mellitus Current Visit: No Status: Chronic Assessment and Plan: sliding scale insulin , Accu-Chek. Diabetes type. Well-controlled blood glucose level (4) Hypertension Current Visit: No Status: Chronic Assessment and Plan: Liter blood pressure. Continue home dose diltiazem and metoprolol. (5) Atrial fibrillation Current Visit: No Status: Chronic Assessment and Plan: not on AC but aspirin red continue calcium channel breana and beta breana Rate is controlled. (6) PAD (peripheral artery disease) Current Visit: No Status: Chronic Assessment and Plan: Patient has history of peripheral vascular disease with gangrene in June 2018. He had right amputation. He was advised to continue with daily Plavix . Due to active GI bleed antiplatelet was on hold. Will consult vascular surgeon about his opinion about resuming antiplatelet. Patient is poor historian (7) COPD (chronic obstructive pulmonary disease) Current Visit: No Status: Chronic Assessment and Plan: not in exacerbation PRN duoneb resume home inhalers (8) Diverticulitis Current Visit: Yes Status: Acute Assessment and Plan: CAT scan done on presentation showed findings compatible with sigmoid diverticulitis although pt currently denies any abdominal pain, it is documented that he did complain of LLQ pain upon presentation no fever, no leukocytosis would complete a course of abx for 7 days with cipro/flagyl follow with surgery on OPD basis (9) Common bile duct dilation Current Visit: Yes Status: Acute Assessment and Plan: LFT normal. Consulted GI specialist for further evaluation. No acute abdominal findings. Based on CT abdomen CBD and pancreatic duct dilatation. Cholelithiasis (10) DVT prophylaxis Current Visit: Yes Status: Acute Assessment and Plan: EPCD due to anemia - Time Spent with Patient Total time spent is greater than 50% in coordination of care (as documented) at patient's floor/unit and/or counseling patient: Internal Medicine: Result - Labs CBC & Chem 7: 10/09/18 11:34 10/09/18 00:55 Labs: Short CBC 10/08/18 10/09/18 10/09/18 Range/Units 17:20 00:55 00:55 WBC 6.1 (4.3-11.1) K/mcL Hgb 9.3 L D 8.2 L 8.3 L (12.9-16.9) g/dL Hct 27.6 L 24.2 L 24.4 L (37.5-50.1) % Plt Count 125 L (140-400) K/mcL Neutrophils # 4.1 (1.6-8.9) K/mcL BMP 10/09/18 00:55 Sodium 141 Potassium 3.9 D Chloride 117 H Carbon Dioxide 22 L BUN 6 L Creatinine 0.81 Glucose 79 Calcium 7.6 L - ABG Interpretation ABG results: PT/INR, D-dimer PT 13.5 Seconds (9.4-12.1) H 10/07/18 11:09 Consult Discharge Plan - Plan Referrals: [facility],PCP [Primary Care Provider] - __ (1) GI bleed Qualifiers: GI bleed type/associated pathology: unspecified gastrointestinal hemorrhage type Qualified Code(s): K92.2 - Gastrointestinal hemorrhage, unspecified (3) Diabetes mellitus Qualifiers: Diabetes mellitus type: type 2 Diabetes mellitus vp legal affairs insulin use: without half-way use Diabetes mellitus complication status: without complication Qualified Code(s): E11.9 - Type 2 diabetes mellitus without complications (4) Hypertension Qualifiers: Hypertension type: essential hypertension Qualified Code(s): I10 - Essential (primary) hypertension (5) Atrial fibrillation Qualifiers: Atrial fibrillation type: paroxysmal Qualified Code(s): I48.0 - Paroxysmal atrial fibrillation (7) COPD (chronic obstructive pulmonary disease) Qualifiers: COPD type: unspecified COPD Qualified Code(s): J44.9 - Chronic obstructive pulmonary disease, unspecified
[2018-10-09 11:46] LABS: Hematocrit 26.9 % (37.5-50.1); Hemoglobin 9.2 g/dL (12.9-16.9)
--- NOTE | 2018-10-09 12:30 | Event Note ---
Date of Encounter: 10/09/18 Time of Encounter: 12:[address] A/P on 10/06/2018 shows CBD dilated to approximately 1.3 cm and pancreatic duct is dilated to approximately 6 mm, no pancreatic stranding. On 10/07/2018 TB 0.3, AST 9, ALT 8, and alk phos 33. Plan for outpatient EUS vs ERCP as LFTs not elevated. Full consult tomorrow.
[2018-10-09 14:26] LABS: Alanine Aminotransferase 8 Units/L (7-52); Albumin 2.6 g/dL (3.5-5.7); Albumin/Globulin Ratio 1.4 (1.1-2.2); Alkaline Phosphatase 30 Units/L (34-104); Aspartate Amino Transferase 14 Units/L (13-39); Bilirubin,Direct 0.1 mg/dL (0.0-0.2); Bilirubin,Indirect 0.4 mg/dL (0.0-1.2); Bilirubin,Total 0.5 mg/dL (0.3-1.0); Globulin 1.8 g/dL (2.4-3.5); Total Protein 4.4 g/dL (6.4-8.9)
--- NOTE | 2018-10-09 15:40 | Event Note ---
Date of Encounter: 10/09/18 Time of Encounter: 15:38 patient seen and examined. called in regard to dilated CBD and PD; liver enzymes are unimpressive; recommend follow up with GI for ERCP; general surgery will cont to follow; if decision is made for outpatient follow up, we are available if surgical cause for dilatation found.
--- NOTE | 2018-10-09 19:34 | Vascular/Endovasc Consult Note ---
Date of Encounter: 10/09/18 Time of Encounter: 07:15 Assessment and Plan (1) PAD (peripheral artery disease) Status: Chronic The patient has a history of peripheral vascular disease with gangrene. The patient previously underwent a right peroneal artery and duplex. 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 The patient then subsequently underwent a right second toe amputation. His toe amputation site appears to be nearly healed. The patient has been experiencing gastrointestinal bleeding. He has been taking clopidogrel and aspirin at home. His medications are currently held. Given his future bleeding risk is recommen ded that clopidogrel be discontinued. If the patient is able to tolerate aspirin 81 mg daily that is recommended. However if aspirin also presents significant bleeding risk than would also recommend holding aspirin until his bleeding risk subsides. The patient has missed his follow-up appointments in vascular clinic. It is recommended that after discharge he follow-up with vascular surgery. (2) Acute blood loss anemia Status: Acute Likely secondary to diverticular bleeding. No evidence of ongoing blood loss. (3) COPD (chronic obstructive pulmonary disease) Status: Chronic Qualifiers: COPD type: unspecified COPD Qualified Code(s): J44.9 - Chronic obstructive pulmonary disease, unspecified (4) Diabetes mellitus Status: Chronic Qualifiers: Diabetes mellitus type: type 2 Diabetes mellitus termite helper insulin use: without termite helper use Diabetes mellitus complication status: without complication Qualified Code(s): E11.9 - Type 2 diabetes mellitus without complications (5) Hypertension Status: Chronic Qualifiers: Hypertension type: essential hypertension Qualified Code(s): I10 - Essential (primary) hypertension - History of Present Illness Consult date: 10/09/18 Requesting physician: Blanca Castanon Consult reason: Peripheral vascular disease Chief complaint: GI Bleeding History of present illness: Mr. Johnston is a 88 year old male with history of peripheral vascular disease with gangrene, atrial fibrillation, diabetes, hyperlipidemia, tobacco abuse and hypertension. The patient was admitted to [facility] on 10/06/2018 with gastro-intestinal bleeding. The patient reportedly had a bloody bowel movement. As part of his evaluation he underwent endoscopy. Patient was felt to have had a diverticular bleed. Vascular surgery was counseled regarding discontinuation of antiplatelet therapy to his further risk of bleeding. His evaluation, the patient was alert and comfortable. He denies any associated for pain. He is limited mobility and ninth disabling claudication. He denied rest pain, new ulceration or gangrene. The patient previously had a total amputation in the wound reportedly is healing well. He denies any chest or shortness of breath. Past Med Surg Social Fam HX - Past Medical History Medical history: arthritis, atrial fibrillation, dementia, diabetes, GERD, glaucoma, hyperlipidemia, hypertension Additional medical history: pt poor historian no information sent from [facility] Psychiatric history: depression - Past Surgical History Surgical History: no surgical history, other - Social History Smoking Status: Current every day smoker Smokeless Tobacco Status: No Alcohol use: none Drug use: none - Family History Mother Living Status: Father Living Status: Medications and Allergies Ascorbic Acid [Vitamin C] 500 mg PO BID 01/09/16 [History] Budesonide/Formoterol 160/4.5 [Symbicort 160/4.5] 2 puff IH BIDR 01/09/16 [History] Latanoprost [Xalatan] 1 drop BOTH EYES HS 01/09/16 [History] Oxybutynin [Ditropan] 5 mg PO DAILY 01/09/16 [History] Polyvinyl Alcohol [Artificial Tears] 2 drop BOTH EYES QID PRN 01/09/16 [History] Ferrous Sulfate [Iron] 325 mg PO BID 10/02/16 [History] Diltiazem CD (24hr) [Cardizem CD] 120 mg PO DAILY #30 cap.er.24h MDD HOLD FOR SBP<110 PULSE <60 10/05/16 [Rx] Metoprolol [Lopressor] 12.5 mg PO BID 30 Days tablet 10/05/16 [Rx] Acetaminophen [Tylenol] 975 mg PO BID PRN MDD >3000MG/24 HOUR 07/16/17 [History] Bisacodyl [Dulcolax] 10 mg RC DAILY PRN 07/16/17 [History] Omeprazole [PriLOSEC] 40 mg PO DAILY@0630 capsule. 07/23/17 [Rx] traZODone [TraZODone] 50 mg PO HS 10/05/17 [History] Aspirin Enteric Coated [Aspirin EC] 81 mg PO DAILY #90 tablet. 07/03/18 [Rx] Gabapentin [Neurontin] 100 mg PO TID 07/03/18 [History] Multivit-Min/FA/Lycopen/Lutein [Adults 50 Plus Multivitamin] 1 tab PO DAILY 07/03/18 [History] Sennosides [Senna] 17.2 mg PO DAILY PRN 07/19/18 [History] Ciprofloxacin [Cipro] 500 mg PO BID tablet 10/11/18 [Rx] metroNIDAZOLE [Flagyl] 500 mg PO TID #4 tablet 10/11/18 [Rx] Allergy/AdvReac Type Severity Reaction Status Date / Time clonidine Allergy Rash Verified 10/08/18 08:14 All Systems Review: The remainder of the systems were reviewed and are negative - Constitutional Constitutional: fatigue, no chills, no fever(s) - Cardiovascular Cardiovascular: no chest pain at rest, no dyspnea at rest - Gastrointestinal Gastrointestinal: melena, no abdominal pain, no constipation - Neurological Neurological: no focal weakness, no numbness Exam General: Present: Conversant, No Apparent Distress HEENT: Present: Atraumatic Neck: Absent: JVD, Lymphadenopathy Cardiac: Present: Reg Rate and Rhythm Lungs: Present: Normal Breath Sounds, No Wheeze, Rales, Rhonchi Neuro: Present: Alert and responsive, No focal deficits noted, Motor nerves grossly intact, Sensory nerves grossly intact Abdomen: Present: Non-tender Vascular: Present: Normal capillary refill, Pulse, diminished (Pedal signals present). Absent: Cyanosis, Edema Skin: Present: No rashes noted on visualized skin, Wound/ulcer(s) (Right 2nd toe amputation appears to be healing, no erythema, no drainage) Consult Discharge Plan - Plan Referrals: [facility] [Primary Care Provider] - Prescriptions: metroNIDAZOLE [Flagyl] 500 mg PO TID #4 tablet
[2018-10-09] MEDS: traZODone 50 MG TABLET PO SCH (21:39)
[2018-10-09] MEDS: Latanoprost 2.5 ML BOTTLE BOTH EYES SCH (21:47)
[2018-10-10] MEDS: MetroNIDAZOLE 500 MG/100 ML 500 MG/100 ML BAG IVPB SCH ×4 (00:15→23:35)
[2018-10-10] MEDS: Budesonide/Formoterol 160/4.5 1 PUFF INH IH SCH ×2 (08:01→22:06)
[2018-10-10 08:59] LABS: Hemoglobin 9.1 g/dL (12.9-16.9); Mean Corpuscular HGB Conc 33.7 g/dL (31.6-35.5); Mean Corpuscular Hemoglobin 30.2 pg (28.0-33.3); Mean Corpuscular Volume 89.7 fL (83.0-100.0); Mean Platelet Volume 8.8 fL (9.4-12.4); Platelet Count 154 K/mcL (140-400); Red Blood Count 3.01 M/mcL (4.19-5.50); Red Cell Distribution Width 15.1 % (11.5-14.5); White Blood Count 5.6 K/mcL (4.3-11.1)
[2018-10-10 09:18] LABS: BUN/Creatinine Ratio 7 (6-26); Blood Urea Nitrogen 7 mg/dL (8-23); Calcium 8.2 mg/dL (8.6-10.3); Carbon Dioxide 25 mEq/L (23-29); Chloride 113 mEq/L (98-107); Glucose 98 mg/dL (70-105); Osmolality,Calculated 288 (280-300); Potassium 3.7 mEq/L (3.5-5.1); Sodium 140 mEq/L (136-145); eGFR For African Americans > 60 (> 60); eGFR For Non-African Americans > 60 (> 60)
[2018-10-10] MEDS: Insulin LISPRO 300 UNITS/3 ML VIAL SQ SCH ×3 (09:19→16:59)
[2018-10-10] MEDS: Diltiazem CD (24hr) 120 MG CAPSULE PO SCH (09:22)
[2018-10-10] MEDS: Gabapentin 100 MG CAPSULE PO SCH ×3 (09:22→21:40)
[2018-10-10] MEDS: Aspirin 81 MG TAB.CHEW PO SCH (09:32)
--- NOTE | 2018-10-10 12:53 | Gastroenterology Consult Note ---
<Oscar Camarena - Last Filed: 10/10/18 12:51> Date of Encounter: 10/10/18 Time of Encounter: 11:00 - Assessment and plan (1) Common bile duct dilation Current Visit: Yes Status: Acute Assessment and plan: CT A/P on 10/06/2018 shows CBD dilated to approximately 1.3 cm and pancreatic duct is dilated to approximately 6 mm, no pancreatic stranding. LFTs unremarkable. On 10/07/2018 TB 0.3, AST 9, ALT 8, and alk phos 33. On 10/09 TB 0.5, AST 14, ALT 8, alk phos 30. Plan for EUS today to evaluate ampulla, CBD, and PD. - Time Spent With Patient Total time spent is greater than 50% in coordination of care (as documented) at patient's floor/unit and/or counseling patient: GI History of Present Illness - Data of Consult Patient: new to practice Consult date: 10/10/18 Requesting Physician: Reid Guerrier MD - Consult Narrative Reason for consult: Dilated CBC and PD History of present illness: Mr. Johnston is a 88 year old male with PMHx of arthritis, A fib, dementia, DM, GERD, glaucoma, HLD, HTN who [facility] for evaluation of GI bleeding. On 10/08 EGD normal and cscope with diverticulosis. We were consulted to evaluate dilated CBD and pancreatic duct. CT A/P on 10/06/2018 shows CBD dilated to approximately 1.3 cm and pancreatic duct is dilated to approximately 6 mm, no pancreatic stranding. On 10/07/2018 TB 0.3, AST 9, ALT 8, and alk phos 33. On 10/09 TB 0.5, AST 14, ALT 8, alk phos 30. Procedures: Colonoscopy 10/08/2018 Dr. Corona: Diverticulosis. EGD 10/08/2018 Dr. Corona: Normal. Colonoscopy 10/06/2017 Dr. Riggins: Diverticulosis, 3 mm tubular adenoma. Colonoscopy 07/20/2017 Dr. Riggins, diverticulosis, pseudomembranous colitis, hepatic flexure biopsy with melanosis coli, focal adenomatous crit, mild dysplasia. EGD 07/20/2017 Dr. Rigigns: Friable gastric mucosa. Colonoscopy 01/11/2016 Dr. Riggins: Blood in entire colon and diverticulosis. EGD 01/11/2016 Dr. Riggins: Normal. NSAIDs: ASA Anticoagulation: Plavix Past Med Surg Social Fam HX - Past Medical History Medical history: arthritis, atrial fibrillation, dementia, diabetes, GERD, glaucoma, hyperlipidemia, hypertension Additional medical history: pt poor historian no information sent from [facility] Psychiatric history: depression - Past Surgical History Surgical History: no surgical history, other - Social History Smoking Status: Current every day smoker Smokeless Tobacco Status: No Alcohol use: none Drug use: none - Family History Mother Living Status: Father Living Status: - Gastrointestinal Gastrointestinal: Present: as per HPI - Constitutional Constitutional: as per HPI - EENT Eyes: as per HPI Ears: Present: as per HPI Nose, mouth and throat: Present: as per HPI - Cardiovascular Cardiovascular ROS: Present: as per HPI - Respiratory Respiratory IM: Present: as per HPI - Genitourinary Genitourinary: Absent: change in color, Urinary frequency - Neurological ROS Neurological GI: Present: as per HPI - Hematologic/Lymphatic Hematologic/Lymphatic pediatric: Present: as per HPI - Musculoskeletal Musculoskeletal ROS GI: Present: as per HPI - Integumentary Integumentary GI: Present: as per HPI - Psychiatric ROS Psychiatric GI: Present: as per HPI - Endocrine Endocrine IM: Present: as per HPI - Constitutional Vitals: Temp Pulse Resp BP Pulse Ox 98.6 F 56 14 140/63 95 10/10/18 06:52 10/10/18 06:52 10/10/18 08:01 10/10/18 06:52 10/10/18 08:01 General appearance: Present: cooperative, A&O X 3, no acute distress, answers questions appropriately - Head Head exam: Present: atraumatic, normocephalic - Eye Eye exam: Present: normal appearance, sclera anicteric - ENT ENT exam: Present: mucous membranes dry - Neck Neck exam general surgery: Present: normal inspection, trachea midline - Respiratory Respiratory exam: Present: CTAB. Absent: rales, rhonchi - Cardiovascular Cardiovascular exam: Present: RRR, +S1, +S2 - GI/Abdominal GI/Abdominal exam: Present: soft, no peritoneal signs. Absent: distended, firm, guarding, tenderness - Rectal Rectal exam: Present: deferred - Extremities Exam Extremities exam: Present: warm - Neurological Exam Neurological exam: Present: no focal deficits - Psychiatric Psychiatric exam: Present: normal affect, normal mood - Skin Skin exam: Present: dry, intact, normal color, warm Results - Labs CBC & Chem 7: 10/10/18 08:46 10/10/18 08:46 Labs: Last Result 10/10/18 08:46 Calcium 8.2 L Entire Visit 10/10/18 08:46 Hgb 9.1 L Hct 27.0 L - ABG ABG results: PT/INR, D-dimer PT 13.5 Seconds (9.4-12.1) H 10/07/18 11:09 Consult Discharge Plan - Plan [facility]errals: [facility]Primary Care Provider[facility] - <Tommie Caba - Last Filed: 10/10/18 18:06> Date of Encounter: 10/10/18 Time of Encounter: 12:00 - Time Spent With Patient Total time spent is greater than 50% in coordination of care (as documented) at patient's floor/unit and/or counseling patient: GI History of Present Illness - Data of Consult Requesting Physician: Reid Guerrier MD - Consult Narrative History of present illness: Mr. Johnston is a 88 year old male - Constitutional Vitals: Temp Pulse Resp BP Pulse Ox 98.0 F 68 18 110/78 96 10/10/18 17:19 10/10/18 17:19 10/10/18 17:19 10/10/18 17:19 10/10/18 17:19 Results - Labs CBC & Chem 7: 10/10/18 08:46 10/10/18 08:46 Labs: Last Result 10/10/18 08:46 Calcium 8.2 L Entire Visit 10/10/18 08:46 Hgb 9.1 L Hct 27.0 L - ABG ABG results: PT/INR, D-dimer PT 13.5 Seconds (9.4-12.1) H 10/07/18 11:09 - Attending Attestation I have personally performed a face to face evaluation on this patient. I have reviewed and agree with the care plan. History and Exam by me shows: Patient seen denies abdominal pain on examination: Abdomen is benign. A: Patient with dilated CBD and PD rule out ampullary lesion. Recommendation: EUS to rule out pancreatic head/ampullary lesion
[2018-10-10] MEDS ORDERED: Lidocaine -MPF 2% 2 ML VIAL ONE (13:35)
[2018-10-10] MEDS ORDERED: Dexamethasone 4 MG/ML VIAL ONE (13:35)
[2018-10-10] MEDS ORDERED: *HR* Propofol 200 MG/20 ML VIAL IVP ONE ×2 (13:35→14:25)
[2018-10-10] MEDS ORDERED: *HR* Succinylcholine 200 MG/10 ML VIAL IVP ONE (13:35)
[2018-10-10] MEDS ORDERED: Ondansetron 4 MG/2 ML VIAL ONE (13:35)
[2018-10-10] MEDS ORDERED: *HR* PHENYLEPHRINE 1,000 MCG/10 ML SYRINGE IVP ONE (14:10)
[2018-10-10] MEDS ORDERED: EPHEDrine 50 MG/ML VIAL ONE (14:10)
--- NOTE | 2018-10-10 14:14 | Anesthesia Evaluation PreOp ---
Date of Encounter: 10/10/18 Time of Encounter: 14:12 - Past History Planned Operation: EUS Cardiac History: HTN, Hyperlipidemia, Arrhythmia (afib) Pulmonary History: Smoker, COPD HOOP EXPANDER History: Other (dementia) Other Medical History: Diabetes Type II, GERD, Other (GI bleed, glaucoma) Anesthesia History: No Prior Anesthetic Complications, Past Anesthesia (EGD and colonoscopy) Alcohol Use: none Drug use: none Medications and Allergies Ascorbic Acid [Vitamin C] 500 mg PO BID 01/09/16 [History] Budesonide/Formoterol 160/4.5 [Symbicort 160/4.5] 2 puff IH BIDR 01/09/16 [History] Latanoprost [Xalatan] 1 drop BOTH EYES HS 01/09/16 [History] Oxybutynin [Ditropan] 5 mg PO DAILY 01/09/16 [History] Polyvinyl Alcohol [Artificial Tears] 2 drop BOTH EYES QID PRN 01/09/16 [History] Ferrous Sulfate [Iron] 325 mg PO BID 10/02/16 [History] Diltiazem CD (24hr) [Cardizem CD] 120 mg PO DAILY #30 cap.er.24h MDD HOLD FOR SBP<110 PULSE <60 10/05/16 [Rx] Metoprolol [Lopressor] 12.5 mg PO BID 30 Days tablet 10/05/16 [Rx] Acetaminophen [Tylenol] 975 mg PO BID PRN MDD >3000MG/24 HOUR 07/16/17 [History] Bisacodyl [Dulcolax] 10 mg RC DAILY PRN 07/16/17 [History] Omeprazole [PriLOSEC] 40 mg PO DAILY@0630 capsule. 07/23/17 [Rx] traZODone [TraZODone] 50 mg PO HS 10/05/17 [History] Aspirin Enteric Coated [Aspirin EC] 81 mg PO DAILY #90 tablet. 07/03/18 [Rx] Clopidogrel [Plavix] 75 mg PO DAILY #30 tablet 07/03/18 [Rx] Gabapentin [Neurontin] 100 mg PO TID 07/03/18 [History] Multivit-Min/FA/Lycopen/Lutein [Adults 50 Plus Multivitamin] 1 tab PO DAILY 07/03/18 [History] Sennosides [Senna] 17.2 mg PO DAILY PRN 07/19/18 [History] Allergy/AdvReac Type Severity Reaction Status Date / Time clonidine Allergy Rash Verified 10/08/18 08:14 - Meds/Allergy Pre-op Review Medications Reviewed: Yes Allergies Reviewed: Yes Beta Blockers on Current Med List: Yes If Beta Blockers taken, Date/Time (Last Dose taken): 922am today Anesthesia Results - Labs 10/10/18 08:46 10/10/18 08:46 - Imaging EKG: report reviewed (Sinus rhythm Left axis deviation Right bundle branch block Electronically Signed On 10-07-2018 21:18:52 EDT by Elvia Holliday) Anesthesia Exam O2 Sat Weight 61.8 kg O2 Sat by Pulse Oximetry 97 O2 Sat by Pulse Oximetry 95 O2 Sat by Pulse Oximetry 95 O2 Sat by Pulse Oximetry 99 O2 Sat by Pulse Oximetry 96 O2 Sat by Pulse Oximetry 98 Vital Signs Temp Pulse Resp BP Pulse Ox 98.6 F 80 18 134/66 99 10/06/18 09:06 10/06/18 09:06 10/06/18 09:06 10/06/18 09:06 10/06/18 09:06 Weight: 61kg NPO (# of Hours): >8 - HEENT Pupil (Motor): Pupils equal, EOMI Mallampati: III Teeth: Edentulous Oral Opening: Greater than 3 - HOOP EXPANDER LOC: Confused (oriented to person and place but not time) HOOP EXPANDER Motor: Normal RUE, Normal LUE, Normal RLE, Normal LLE, Normal Face HOOP EXPANDER Sensory: Normal: RUE, LUE, RLE, LLE, Face - Cardiac Rhythm: Regular - Pulmonary Breath Sounds: bilateral Clear Respiratory Effort: Symmetrical Anesthesia Assess/Plan ASA Score: 4 Level of consciousness: Cooperative Anesthetic Plan: General, MAC Monitoring Plan: Standard Monitors Recovery Plan: PACU
[2018-10-10] MEDS ORDERED: 0.9 % Sodium Chloride 500 ML IVC SCH (14:30)
--- NOTE | 2018-10-10 15:20 | Internal Med Progress Note ---
Hospitalist Progress Note - Encounter Date of Encounter: 10/10/18 Time of Encounter: 15:17 - Subjective Interval History: No acute event overnight. No bleeding per rectum noticed by nursing is stopped. Patient remains poor historian. Review the lab with a stable hemoglobin. Review of the vitals. Review of the consulting note. Patient denies fever chills vomiting headache chest pain short of breath abdominal pain diarrhea - Exam Vitals: Temp Pulse Resp BP Pulse Ox 98.4 F 55 16 159/83 98 10/10/18 13:00 10/10/18 14:18 10/10/18 14:18 10/10/18 14:18 10/10/18 14:18 Exam: General: Alert and oriented to place person. Sitting comfortably on bed not in acute distress. Cardiovascular:Normal S1 & S2, No JVD. Pulse regular. Lungs: clear to auscultation, no wheezes/rales Abdomen:Soft, non-tender, no rigidity. Positive bowel sounds Neurological: Grossly intact with no focal neurological deficit - Assessment and Plan (1) GI bleed Current Visit: Yes Status: Acute Assessment and Plan: likely diverticular bleed, had similar episodes in the past with known moore- diverticulosis on colonoscopy 12/2017 EGD 06/2017 only showed friable gastric mucosa Hb as low as 5.3 -> 9.2 after 3U pRBC -> 7.6 again this morning PPI. Tolerating advanced diet. No active bleeding at this time. Appreciate surgery consult, for EGD/colonoscopy -divreticulosis in the sigmoid colon and ascending colon recommended repeat colonoscopy in 10 years. Upper GI endoscopy with normal esophagus, stomach and duodenum. Total 4 unit PRC since admission while holding antiplatelet. Consulted vascular surgeon about the opinion regarding antiplatelet-he advised to hold Plavix but okay to resume baby aspirin but the patient still has bleeding concern then aspirin can also be ordered. Resume baby aspirin today and will follow hemoglobin tomorrow. Plan for discharge patient possibly tomorrow. (2) Common bile duct dilation Current Visit: Yes Status: Acute Assessment and Plan: LFT normal. Consulted GI specialist for further evaluation-scheduled for EUS today. No acute abdominal findings. CT abdomen CBD and pancreatic duct dilatation. Cholelithiasis. Surgery on board if any surgical intervention needed Plan for discharge possibly tomorrow after getting clearance from GI (3) Acute blood loss anemia Current Visit: Yes Status: Acute Assessment and Plan: as above (4) Diabetes mellitus Current Visit: No Status: Chronic Assessment and Plan: sliding scale insulin , Accu-Chek. Diabetes type. Well-controlled blood glucose level (5) Hypertension Current Visit: No Status: Chronic Assessment and Plan: Monitor blood pressure. Continue home dose diltiazem and metoprolol. Hydrala zine when necessary (6) Atrial fibrillation Current Visit: No Status: Chronic Assessment and Plan: not on AC but aspirin . continue calcium channel breana and beta breana Rate is controlled. 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 He was advised to continue with daily Plavix . Due to active GI bleed antiplatelet was on hold. Consulted vascular surgeon-as above-mentioned recommendation. Patient needs to follow vascular surgeon office after discharge. (8) COPD (chronic obstructive pulmonary disease) Current Visit: No Status: Chronic Assessment and Plan: not in exacerbation PRN duoneb resume home inhalers (9) Diverticulitis Current Visit: Yes Status: Acute Assessment and Plan: CAT scan done on presentation showed findings compatible with sigmoid diverticulitis although pt currently denies any abdominal pain, it is documented that he did c omplain of LLQ pain upon presentation no fever, no leukocytosis would complete a course of abx for 7 days with cipro/flagyl follow with surgery on OPD basis (10) DVT prophylaxis Current Visit: Yes Status: Acute Assessment and Plan: EPCD due to anemia - Time Spent with Patient Total time spent is greater than 50% in coordination of care (as documented) at patient's floor/unit and/or counseling patient: Internal Medicine: Result - Labs CBC & Chem 7: 10/10/18 08:46 10/10/18 08:46 Labs: Short CBC 10/10/18 Range/Units 08:46 WBC 5.6 (4.3-11.1) K/mcL Hgb 9.1 L (12.9-16.9) g/dL Hct 27.0 L (37.5-50.1) % Plt Count 154 (140-400) K/mcL BMP 10/10/18 08:46 Sodium 140 Potassium 3.7 Chloride 113 H Carbon Dioxide 25 BUN 7 L Creatinine 0.95 Glucose 98 Calcium 8.2 L - ABG Interpretation ABG results: PT/INR, D-dimer PT 13.5 Seconds (9.4-12.1) H 10/07/18 11:09 Consult Discharge Plan - Plan [facility]errals: [facility] [Primary Care Provider] - (1) GI bleed Qualifiers: GI bleed type/associated pathology: unspecified gastrointestinal hemorrhage type Qualified Code(s): K92.2 - Gastrointestinal hemorrhage, unspecified (4) Diabetes mellitus Qualifiers: Diabetes mellitus type: type 2 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
--- NOTE | 2018-10-10 17:40 | Anesthesia Evaluation Post Op ---
Date of Encounter: 10/10/18 Time of Encounter: 17:39 - Vital Signs Vital Signs: Vital Signs/O2 Sat, Most Current Temp Pulse Resp BP Pulse Ox 98.0 F 68 18 110/78 96 10/10/18 17:19 10/10/18 17:19 10/10/18 17:19 10/10/18 17:19 10/10/18 17:19 - Lungs Lungs: Clear Ascult./Percussion - Airway Airway: Non-obstructed - Mental Status Mental Status: Baseline Status - Pain Pain Scale: 0 Pain Scale used: Numeric (1 - 10) - Nausea Vomiting Nausea Vomiting: Not Present - Hydration Hydration: NPO - Discharge PostOp Status: Transfer Patient to floor
[2018-10-10] MEDS: traZODone 50 MG TABLET PO SCH (21:40)
[2018-10-10] MEDS: Latanoprost 2.5 ML BOTTLE BOTH EYES SCH (21:40)
[2018-10-11 03:52] LABS: White Blood Count 5.2 K/mcL (4.3-11.1)
[2018-10-11 03:53] LABS: Hematocrit 27.8 % (37.5-50.1); Hemoglobin 9.1 g/dL (12.9-16.9); Immature Granulocytes % 0.2 % (0-4); Lymphocytes # 0.4 K/mcL (0.6-4.6); Lymphocytes % 8.2 %; Mean Corpuscular HGB Conc 32.7 g/dL (31.6-35.5); Mean Corpuscular Hemoglobin 30.1 pg (28.0-33.3); Mean Corpuscular Volume 92.1 fL (83.0-100.0); Mean Platelet Volume 9.1 fL (9.4-12.4); Monocytes # 0.1 K/mcL (0.0-1.3); Monocytes % 2.3 %; Neutrophils # 4.7 K/mcL (1.6-8.9); Platelet Count 178 K/mcL (140-400); Red Blood Count 3.02 M/mcL (4.19-5.50); Red Cell Distribution Width 14.9 % (11.5-14.5); Segmented Neutrophils % 89.3 %
[2018-10-11 04:08] LABS: BUN/Creatinine Ratio 8 (6-26); Blood Urea Nitrogen 7 mg/dL (8-23); Calcium 8.1 mg/dL (8.6-10.3); Carbon Dioxide 23 mEq/L (23-29); Chloride 111 mEq/L (98-107); Glucose 138 mg/dL (70-105); Osmolality,Calculated 292 (280-300); Sodium 141 mEq/L (136-145); eGFR For African Americans > 60 (> 60); eGFR For Non-African Americans > 60 (> 60)
[2018-10-11] MEDS: Insulin LISPRO 300 UNITS/3 ML VIAL SQ SCH ×2 (07:40→11:57)
[2018-10-11] MEDS: Budesonide/Formoterol 160/4.5 1 PUFF INH IH SCH (07:41)
[2018-10-11] MEDS: Aspirin 81 MG TAB.CHEW PO SCH (09:18)
[2018-10-11] MEDS: Diltiazem CD (24hr) 120 MG CAPSULE PO SCH (09:25)
[2018-10-11] MEDS: Gabapentin 100 MG CAPSULE PO SCH (09:26)
[2018-10-11] MEDS: MetroNIDAZOLE 500 MG/100 ML 500 MG/100 ML BAG IVPB SCH (09:27)
[2018-10-11 11:30] VITALS: BP 148/71
--- NOTE | 2018-10-11 12:00 | Discharge Summary ---
- NOTES TO OUTPATIENT PROVIDER Notes to Outpatient Provider: Follow-up with PCP in 2-3 days-was for GI bleed, AVM. Follow with GI in 1-2 week. General surgeon in 2 week-cholelithiasis and CBD dilatation, diverticulosis. Needs to schedule follow-up appointment with vascular surgeon in 2-3 weeks Orders not resulted at time of discharge: Pending orders 10/12/18 04:00 BMP [Basic Metabolic Panel] AM 0400 Complete Blood Count [HEME] AM 0400 Date of Encounter: 10/11/18 Time of Encounter: 11:50 - Discharge Diagnosis (1) GI bleed Priority: Primary Status: Acute Assessment and Plan: likely diverticular bleed, had similar episodes in the past with known moore- diverticulosis on colonoscopy 12/2017 EGD 06/2017 only showed friable gastric mucosa Appreciate surgery consult, for EGD/colonoscopy -divreticulosis in the sigmoid colon and ascending colon recommended repeat colonoscopy in 10 years. Upper GI endoscopy with normal esophagus, stomach and duodenum. Total 4 unit PRC since admission while holding antiplatelet. Upper EUS was done by GI team on 10/10/2018 with finding of mild dilated CBD and pancreatic duct but no ampullary lesion and multiple gastric AVMs. No further recommendation or workup. No need for ERCP. GI team okay to advance the diet and also resume baby aspirin. No active bleeding at the time of discharge and hemoglobin remained stable. Consulted vascular surgeon about the opinion regarding antiplatelet-he advised to hold Plavix but okay to resume baby aspirin but the patient still has bleeding concern then aspirin can also be ordered. As patient hemoglobin had been a stable with no further active bleeding therefore will discharge patient on baby aspirin but PCP needs to monitor hemoglobin and if any concern for GI bleed then make decision to hold aspirin. Follow-up appointment with GI specialist Patient is being transferred back to [place] facility today Qualifiers: GI bleed type/associated pathology: unspecified gastrointestinal hemorrhage type Qualified Code(s): K92.2 - Gastrointestinal hemorrhage, unspecified (2) Common bile duct dilation Priority: Primary Status: Acute Assessment and Plan: LFT normal. Consulted GI specialist for further evaluation-scheduled for EUS- finding as mentioned above CT abdomen CBD and pancreatic duct dilatation. Cholelithiasis. General surgeon on OPD basis (3) Acute blood loss anemia Priority: Primary Status: Acute Assessment and Plan: as above (4) Diabetes mellitus Priority: Primary Status: Chronic Assessment and Plan: Continue home medicine Qualifiers: Diabetes mellitus type: type 2 Diabetes mellitus skilled nursing insulin use: without filler leaf cutter long use Diabetes mellitus complication status: without complication Qualified Code(s): E11.9 - Type 2 diabetes mellitus without complications (5) Hypertension Priority: Primary Status: Chronic Assessment and Plan: Continue home medicine. Qualifiers: Hypertension type: essential hypertension Qualified Code(s): I10 - Essential (primary) hypertension (6) Atrial fibrillation Priority: Secondary Status: Chronic Assessment and Plan: not on AC but aspirin . continue calcium channel breana and beta breana Rate is controlled. 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 He was advised to continue with daily Plavix . During this admission, Due to active GI bleed antiplatelet was on hold. Consulted vascular surgeon-as above-mentioned recommendation. Patient needs to follow vascular surgeon office after discharge. (8) COPD (chronic obstructive pulmonary disease) Priority: Secondary Status: Chronic Assessment and Plan: not in exacerbation PRN duoneb resume home inhalers Qualifiers: COPD type: unspecified COPD Qualified Code(s): J44.9 - Chronic obstructive pulmonary disease, unspecified (9) Diverticulitis Priority: Primary Status: Acute Assessment and Plan: CAT scan done on presentation showed findings compatible with sigmoid diverticulitis although pt currently denies any abdominal pain, it is documented that he did complain of LLQ pain upon presentation no fever, no leukocytosis would complete a course of abx for 7 days with cipro/flagyl-patient will complete antibiotic course on 10/12/2089 follow with surgery on OPD basis Hospital course: Mr. Johnston is a 88 year old male patient got admitted for GI bleed. Patient had total 40 unit of blood transfusion and aspirin and Plavix was on hold. Due to CVR peripheral vascular disease vascular surgeon was consulted about the recommendation for antiplatelet. General surgeon in GI specialist was also consulted for GI bleed and dilated common bile duct. Please see detail in diagnosis section of discharge summary. At the time of discharge patient is clinically and hemodynamically stable, tolerating oral diet with no active bleeding. He denies abdominal pain. Normal white count. Patient is being transferred back to your facility today. Discharge discussed with: patient, nurse, social work, loan consultant - Time Spent with Patient Total time spent providing and/or coordinating discharge services: Time spent: Greater than 30 minutes - Discharge Medications Prescriptions: No Action Latanoprost [Xalatan] 1 drop BOTH EYES HS Oxybutynin [Ditropan] 5 mg PO DAILY Budesonide/Formoterol 160/4.5 [Symbicort 160/4.5] 2 puff IH BIDR Ascorbic Acid [Vitamin C] 500 mg PO BID Polyvinyl Alcohol [Artificial Tears] 2 drop BOTH EYES QID PRN PRN Reason: Dry Eyes Ferrous Sulfate [Iron] 325 mg PO BID Diltiazem CD (24hr) [Cardizem CD] 120 mg PO DAILY #30 cap.er.24h MDD HOLD FOR SBP<110 PULSE <60 Metoprolol [Lopressor] 12.5 mg PO BID 30 Days tablet Bisacodyl [Dulcolax] 10 mg RC DAILY PRN PRN Reason: Constipation Acetaminophen [Tylenol] 975 mg PO BID PRN MDD >3000MG/24 HOUR PRN Reason: Pain Omeprazole [PriLOSEC] 40 mg PO DAILY@0630 capsule. traZODone [TraZODone] 50 mg PO HS Gabapentin [Neurontin] 100 mg PO TID Multivit-Min/FA/Lycopen/Lutein [Adults 50 Plus Multivitamin] 1 tab PO DAILY Aspirin Enteric Coated [Aspirin EC] 81 mg PO DAILY #90 tablet. Clopidogrel [Plavix] 75 mg PO DAILY #30 tablet Sennosides [Senna] 17.2 mg PO DAILY PRN PRN Reason: Constipation Home Medications: Ascorbic Acid [Vitamin C] 500 mg PO BID 01/09/16 [History] Budesonide/Formoterol 160/4.5 [Symbicort 160/4.5] 2 puff IH BIDR 01/09/16 [History] Latanoprost [Xalatan] 1 drop BOTH EYES HS 01/09/16 [History] Oxybutynin [Ditropan] 5 mg PO DAILY 01/09/16 [History] Polyvinyl Alcohol [Artificial Tears] 2 drop BOTH EYES QID PRN 01/09/16 [History] Ferrous Sulfate [Iron] 325 mg PO BID 10/02/16 [History] Diltiazem CD (24hr) [Cardizem CD] 120 mg PO DAILY #30 cap.er.24h MDD HOLD FOR SBP<110 PULSE <60 10/05/16 [Rx] Metoprolol [Lopressor] 12.5 mg PO BID 30 Days tablet 10/05/16 [Rx] Acetaminophen [Tylenol] 975 mg PO BID PRN MDD >3000MG/24 HOUR 07/16/17 [History] Bisacodyl [Dulcolax] 10 mg RC DAILY PRN 07/16/17 [History] Omeprazole [PriLOSEC] 40 mg PO DAILY@0630 capsule. 07/23/17 [Rx] traZODone [TraZODone] 50 mg PO HS 10/05/17 [History] Aspirin Enteric Coated [Aspirin EC] 81 mg PO DAILY #90 tablet. 07/03/18 [Rx] Clopidogrel [Plavix] 75 mg PO DAILY #30 tablet 07/03/18 [Rx] Gabapentin [Neurontin] 100 mg PO TID 07/03/18 [History] Multivit-Min/FA/Lycopen/Lutein [Adults 50 Plus Multivitamin] 1 tab PO DAILY 07/03/18 [History] Sennosides [Senna] 17.2 mg PO DAILY PRN 07/19/18 [History] Allergies/Adverse Reactions: Allergy/AdvReac Type Severity Reaction Status Date / Time clonidine Allergy Rash Verified 10/08/18 08:14 Date of admission: 10/07/18 10:46 Primary care physician: [facility] Consults: 10/06/18 19:42 Consult to Surgery [CONS] Routine Consulting Provider: Acute Care Surgery Reason for Consult: GI bleeding Time Notified: 19:42 Call Completed: Yes 10/09/18 10:31 Consult to Gastroenterology [CONS] Routine Consulting Provider: Gastroenterology [place] Reason for Consult: Dilated CBD and pancreatic duct, cholelithiasis Time Notified: 00:00 Call Completed: Yes 10/09/18 14:32 Consult to Vascular Surgery [CONS] Routine Consulting Provider: Vascular Surgery [place] Reason for Consult: Opinion about antiplatelet as patient has GI bleed Call Completed: Yes - Constitutional Vitals: Temp Pulse Resp BP Pulse Ox 98.3 F 58 14 148/71 99 10/11/18 11:29 10/11/18 11:29 10/11/18 11:29 10/11/18 11:29 10/11/18 11:29 Exam: General: Alert and oriented to place person. Sitting comfortably on bed not in acute distress. Cardiovascular:Normal S1 & S2, No JVD. Pulse regular. Lungs: clear to auscultation, no wheezes/rales Abdomen:Soft, non-tender, no rigidity. Positive bowel sounds Neurological: Grossly intact with no focal neurological deficit - Patient Status Disposition: Transfer LTC Condition: Fair Overall status at discharge: patient is progressing back to baseline - Discharge Instructions Follow Up With: [facility],PCP [Primary Care Provider] - - Diet and Activity Activity: as per physical therapy Diet: diabetic diet, low fat, low cholesterol, low salt diet
[2018-10-11] MEDS ORDERED: metroNIDAZOLE 500 MG TABLET PO SCH (15:00)
== END 2018-10-11 13:10 | DRG 378 ==
LOC: EMEROOARM 08:57 → 3ANU 08:57 → SUATTDRO 10-07 10:46
PROVIDERS: ADMIT Internal Medicine Nephrology; ATTEND Internal Medicine
PROC: ENDOEUS (2018-10-10 14:00)